=== PATIENT | male | born 1945 | race Caucasian/White ===

== ENCOUNTER 2017-07-19 01:32 | Inpatient (IN) | payer MEDICAID ==
[2017-07-19] VITALS (16 sets, daily range): BP systolic 114–144; BP diastolic 64–91; PULSE 70–125; RESP 12–22; TEMP 98.3–99; O2SAT 95–100
[2017-07-19] MEDS ORDERED: TETANUS/DIPHTHERIA TOXOID ADULT 0.5 ML VIAL IM ONE (02:00)
[2017-07-19] MEDS ORDERED: SODIUM CHLORIDE 0.9% FLUSH 10 ML FLUSH IVF PRN (02:00)
[2017-07-19] MEDS ORDERED: ceFAZolin 2 GM PREMIX 50 ML IV ONE (02:00)
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
[2017-07-19 02:26] LABS: AUTOMATED NEUTROPHIL # 10.7 TH/MM3 (1.8-7.7); BASOPHIL # 0.1 TH/MM3 (0-0.2); BASOPHIL % 0.6 % (0.0-2.0); HEMATOCRIT 32.7 % (39.0-51.0); HEMOGLOBIN 10.9 GM/DL (13.0-17.0); LYMPH % 6.2 % (9.0-44.0); LYMPHOCYTE # 0.8 TH/MM3 (1.0-4.8); MEAN CELL VOLUME 93.4 FL (80.0-100.0); MEAN CORPUSCULAR HGB CONC 33.2 % (32.0-36.0); MEAN PLATELET VOLUME 9.5 FL (7.0-11.0); MONO % 7.3 % (0.0-8.0); MONOCYTE # 0.9 TH/MM3 (0-0.9); NEUT % 85.9 % (16.0-70.0); PLATELET COUNT 207 TH/MM3 (150-450); RED CELL DISTRIBUTION WIDTH 14.5 % (11.6-17.2); WHITE BLOOD COUNT 12.4 TH/MM3 (4.0-11.0)
[2017-07-19 02:39] LABS: INTERNATIONAL NORMALIZED RATIO 1.2 RATIO; PROTHROMBIN TIME - PATIENT 12.2 SEC (9.8-11.6)
[2017-07-19] MEDS ORDERED: IOHEXOL 350 MG/ML 10 ML VIAL (for RAD DIAG) IVCONTRAST ONE (02:52)
--- NOTE | 2017-07-19 02:54 | RADRPT ---
EXAM DATE/TIME: 07/19/2017 02:05 [facility] COMPARISON: SHOULDER RIGHT COMPLETE (>2VWS), July 19, 2017, 2:09. INDICATIONS : Right arm pain post fall. MEDICAL HISTORY : None. SURGICAL HISTORY : None. ENCOUNTER: Initial ACUITY: 1 day PAIN SCORE: 10/10 LOCATION: Right arm FINDINGS: 2 views right clavicle. There is a fracture of the mid clavicle with minimal displacement. Bony fragm entation of the acromion likely represents os acromiale. Prominent lateral downsloping of the acromio n and subacromial bone spur. CONCLUSION: 1. Minimally displaced mid clavicular fracture. 2. Fragmentation of the acromion likely represents os acromiale. Santhosh Diaz MD on July 19, 2017 at 2:49 Board Certified Radiologist. This report was verified electronically.
[2017-07-19 02:55] LABS: ALBUMIN 3.4 GM/DL (3.4-5.0); ALT (GPT) 143 U/L (12-78); AST (GOT) 193 U/L (15-37); BICARBONATE 27.3 MEQ/L (21.0-32.0); BLOOD UREA NITROGEN 36 MG/DL (7-18); CALCIUM 8.2 MG/DL (8.5-10.1); CHLORIDE 110 MEQ/L (98-107); CREATININE 0.96 MG/DL (0.60-1.30); GLOMERULAR FILTRATION RATE 77 ML/MIN (>89); GLUCOSE,RANDOM 111 MG/DL (74-106); SODIUM (NA) 146 MEQ/L (136-145)
--- NOTE | 2017-07-19 02:56 | RADRPT ---
EXAM DATE/TIME: 07/19/2017 02:09 [facility] COMPARISON: No previous studies available for comparison. INDICATIONS : Right arm pain post fall. MEDICAL HISTORY : None. SURGICAL HISTORY : None. ENCOUNTER: Initial ACUITY: 1 day PAIN SCORE: 10/10 LOCATION: Right arm FINDINGS: 4 views of the right shoulder. Mid clavicle fracture better demonstrated on clavicle series. Ossicle is seen at the lateral acromion likely representing os acromiale. Prominent subacromial bone spur/oss icle. Possible acute fracture component of the lateral aspect of the acromion. Glenohumeral joint wit hin normal limits. Acromioclavicular joint alignment within normal limits. CONCLUSION: 1. Mid clavicle fracture. 2. Bony fragmentation of the acromion may represent os acromiale or acute fracture. Santhosh Diaz MD on July 19, 2017 at 2:52 Board Certified Radiologist. This report was verified electronically.
[2017-07-19 02:57] LABS: ALKALINE PHOSPHATASE 104 U/L (45-117); TOTAL BILIRUBIN ADULT 0.9 MG/DL (0.2-1.0); TOTAL PROTEIN 6.3 GM/DL (6.4-8.2)
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
--- NOTE | 2017-07-19 03:02 | RADRPT ---
EXAM DATE/TIME: 07/19/2017 02:20 [facility] COMPARISON: No previous studies available for comparison. INDICATIONS : Right hand pain, swelling, and bleeding post fall. MEDICAL HISTORY : None. SURGICAL HISTORY : None. ENCOUNTER: Initial ACUITY: 1 day PAIN SCORE: 10/10 LOCATION: Right arm FINDINGS: 3 views right hand. Comminuted fractures of the small finger proximal phalanx and fifth metacarpal ne ck. Proximally 2 mm displacement of bone fragments of the proximal phalanx. 4 mm volar displacement o f the dominant distal fragment of the metacarpal. 40 dorsal angulation of the distal fragment of the proximal phalanx. Numerous foreign bodies are seen in the soft tissues or on the skin of the hand me dially. CONCLUSION: Comminuted fractures of the small finger proximal phalanx and metacarpal. Santhosh Diza MD on July 19, 2017 at 2:58 Board Certified Radiologist. This report was verified electronically.
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
[2017-07-19] MEDS ORDERED: ONDANSETRON HCL 4 MG/2 ML VIAL IV PUSH PRN (04:15)
[2017-07-19] MEDS ORDERED: MISCELLANEOUS NURSING INFORMATION XX SCH (04:15)
[2017-07-19] MEDS ORDERED: MAGNESIUM HYDROXIDE SUSP 30 ML CUP PO PRN (04:15)
[2017-07-19] MEDS ORDERED: CHLORHEXIDINE GLUCONATE 2 % 1 PACK (2 CLOTHS) TOP PRN (04:15)
[2017-07-19] MEDS ORDERED: diphenhydrAMINE HCL 50 MG/ML VIAL IV PUSH ONE ×2 (04:45→05:00)
[2017-07-19] MEDS ORDERED: LORazepam 2 MG/ML VIAL IV PUSH ONE (04:45)
[2017-07-19] MEDS ORDERED: levETIRAcetam INJ 500 MG in SODIUM CHLORIDE 0.9% INJ 100 ML IV ONE (05:00)
[2017-07-19] MEDS ORDERED: GENTAMICIN 80 MG PREMIX 100 ML IV ONE (05:00)
[2017-07-19] MEDS: LACTATED RINGER'S 1000 ML INJ 1,000 ML IV SCH ×2 (05:09→16:00)
[2017-07-19 05:15] LABS: BILIRUBIN, URINE NEG (NEG); BLOOD, URINE NEG (NEG); GLUCOSE,URINE NEG (NEG); KETONE, URINE 10 mg/dL (NEG); MUCUS URINE FEW /lpf (OCC); NITRITE,URINE NEG (NEG); PH, URINE 5.5 (5.0-8.5); URINE COLOR YELLOW (YELLW/STRAW); URINE LEUKOCYTE ESTERASE NEG (NEG)
[2017-07-19] MEDS: THIAMINE HCL 100 MG TAB PO SCH (09:00)
[2017-07-19] MEDS: FOLIC ACID 1 MG TAB PO SCH (09:00)
[2017-07-19] MEDS ORDERED: ACETAMINOPHEN 1000 MG/100 ML 100 ML IV ONE (10:09)
[2017-07-19] MEDS ORDERED: LIDOCAINE HCL 2% 50 ML VIAL ONE (10:20)
[2017-07-19] MEDS ORDERED: NEOMYCIN/POLYMYXIN 1 ML G.U. IRRIGANT ONE (10:29)
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
--- NOTE | 2017-07-19 11:21 | RADRPT ---
EXAM DATE/TIME: 07/19/2017 11:06 [facility] COMPARISON: CT BRAIN W/O CONTRAST, July 19, 2017, 2:40. INDICATIONS : Altered mental status. RADIATION DOSE: 36.54 CTDIvol (mGy) MEDICAL HISTORY : None SURGICAL HISTORY : None. ENCOUNTER: Initial ACUITY: 1 day PAIN SCALE: Non-responsive LOCATION: Bilateral head TECHNIQUE: Multiple contiguous axial images were obtained of the head. Using automated exposure control and adj ustment of the mA and/or kV according to patient size, radiation dose was kept as low as reasonably a chievable to obtain optimal diagnostic quality images. DICOM format image data is available electro nically for review and comparison. FINDINGS: Again, a small focus of acute subarachnoid hemorrhage is noted within the right posterior parietal re gion and is stable. Stable periventricular white matter small vessel ischemic changes are again noted . The ventricles, sulci and cisterns are unremarkable. No midline shift and is noted. CONCLUSION: 1. Small focus of acute subarachnoid hemorrhage within the right posterior parietal region which is s table. 2. Stable periventricular white matter small vessel ischemic changes bilaterally. Akbar Pérez MD on July 19, 2017 at 11:16 Board Certified Radiologist. This report was verified electronically.
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
[2017-07-19] MEDS ORDERED: BACITRACIN TOP OINT 15 GM TUBE ONE (13:54)
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
--- NOTE | 2017-07-19 16:13 | RADRPT ---
EXAM DATE/TIME: 07/19/2017 15:48 [place] COMPARISON: No previous studies available for comparison. INDICATIONS : Shortness of breath. MEDICAL HISTORY : Non-responsive. SURGICAL HISTORY : Non-responsive. ENCOUNTER: Initial ACUITY: 1 day PAIN SCORE: Non-responsive. LOCATION: Bilateral chest FINDINGS: The cardiac silhouette is enlarged in transverse diameter. There is prominence of the central pulmona ry vasculature with indistinct vascular margins compatible with vascular congestion but no evidence o f overt failure. Endotracheal tube is in good position above the deuce. No pleural effusions are helen ntified. CONCLUSION: 1. Cardiomegaly and findings of vascular congestion without overt failure. Walter Rodriguez MD on July 19, 2017 at 16:08 Board Certified Radiologist. This report was verified electronically.
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
[2017-07-19] MEDS: SODIUM CHLOR 0.9% 1000 ML INJ 1,000 ML IV SCH (18:16)
[2017-07-19] MEDS: CHLORHEXIDINE GLUCONATE 2 % 1 PACK (2 CLOTHS) TOP SCH (19:38)
[2017-07-19] MEDS: FAMOTIDINE 20 MG TAB PO SCH (19:38)
[2017-07-19] MEDS: DOCUSATE SODIUM 100 MG CAP PO SCH (19:39)
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
[2017-07-19] MEDS: MORPHINE SULFATE 2 MG/ML INJ IV PUSH PRN (20:45)
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
[2017-07-20] VITALS (17 sets, daily range): BP systolic 100–143; BP diastolic 65–88; PULSE 66–126; RESP 9–29; TEMP 97.6–99.3; O2SAT 90–100
[2017-07-20] MEDS: SODIUM CHLOR 0.9% 1000 ML INJ 1,000 ML IV SCH ×3 (01:36→12:15)
[2017-07-20] MEDS: MORPHINE SULFATE 2 MG/ML INJ IV PUSH PRN ×4 (02:47→23:46)
[2017-07-20 04:35] LABS: AUTOMATED NEUTROPHIL # 6.8 TH/MM3 (1.8-7.7); BASOPHIL % 0.4 % (0.0-2.0); EOSINOPHIL % 0.1 % (0.0-4.0); HEMATOCRIT 28.5 % (39.0-51.0); HEMOGLOBIN 9.7 GM/DL (13.0-17.0); LYMPH % 12.2 % (9.0-44.0); LYMPHOCYTE # 1.1 TH/MM3 (1.0-4.8); MEAN CELL VOLUME 93.8 FL (80.0-100.0); MEAN CORPUSCULAR HGB CONC 34.1 % (32.0-36.0); MEAN PLATELET VOLUME 9.1 FL (7.0-11.0); MONO % 12.7 % (0.0-8.0); MONOCYTE # 1.2 TH/MM3 (0-0.9); NEUT % 74.6 % (16.0-70.0); PLATELET COUNT 165 TH/MM3 (150-450); RED BLOOD COUNT 3.04 MIL/MM3 (4.50-5.90); RED CELL DISTRIBUTION WIDTH 14.8 % (11.6-17.2); WHITE BLOOD COUNT 9.2 TH/MM3 (4.0-11.0)
[2017-07-20 04:51] LABS: BICARBONATE 30.6 MEQ/L (21.0-32.0); CREATININE 0.59 MG/DL (0.60-1.30)
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
[2017-07-20] MEDS ORDERED: oxyCODONE/ACETAMINOPHEN 7.5 MG/325 MG TAB PO PRN (08:15)
[2017-07-20] MEDS: FOLIC ACID 1 MG TAB PO SCH (09:00)
[2017-07-20] MEDS: THIAMINE HCL 100 MG TAB PO SCH (09:00)
[2017-07-20] MEDS: FAMOTIDINE 20 MG TAB PO SCH ×2 (09:00→21:00)
[2017-07-20] MEDS: MAGNESIUM HYDROXIDE SUSP 30 ML CUP PO SCH ×2 (09:00→21:00)
[2017-07-20] MEDS: DOCUSATE SODIUM 100 MG CAP PO SCH ×2 (09:00→21:00)
[2017-07-20] MEDS: METOPROLOL TARTRATE 5 MG/5 ML VIAL IV PUSH SCH ×3 (10:51→22:18)
[2017-07-20] MEDS ORDERED: PROPOFOL 200 MG/20 ML AMP IV ONE (12:00)
[2017-07-20] MEDS ORDERED: ROCURONIUM INJ 50 MG/5 ML SYRINGE IV PUSH ONE (12:00)
[2017-07-20] MEDS ORDERED: PHENYLEPH/NS 1000 MCG/10 ML SYR IV ONE (12:00)
[2017-07-20] MEDS ORDERED: ePHEDrine/NS 25 MG/5 ML SYRINGE IV ONE (12:00)
[2017-07-20] MEDS ORDERED: LIDOCAINE HCL 1% PF 5 ML SYRINGE OTHER ONE (12:00)
[2017-07-20] MEDS ORDERED: ONDANSETRON HCL 4 MG/2 ML VIAL IV ONE (12:00)
[2017-07-20] MEDS ORDERED: DEXAMETHASONE SOD PHOS 4 MG/ML VIAL IV ONE (12:00)
[2017-07-20] MEDS ORDERED: PHENYLEPHRINE HCL 10 MG/ML VIAL IV ONE (12:00)
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
[2017-07-20] MEDS: HALOPERIDOL LACTATE 5 MG/ML AMP IV PRN ×2 (15:13→22:52)
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
[2017-07-20] MEDS ORDERED: RESP: ALBUTEROL 2.5 MG/3 ML NEB (PRN) NEB (17:30)
[2017-07-20] MEDS: ZIPRASIDONE MESYLATE 20 MG VIAL IM PRN (19:39)
[2017-07-21] VITALS (14 sets, daily range): BP systolic 136–155; BP diastolic 71–92; PULSE 100–147; RESP 12–33; TEMP 97.8–99.1; O2SAT 89–99
[2017-07-21] MEDS: METOPROLOL TARTRATE 5 MG/5 ML VIAL IV PUSH SCH ×4 (03:35→22:36)
[2017-07-21] MEDS: RESP: ALBUTEROL 2.5 MG/IPRATROPIUM 0.5 MG NEB (SCH) NEB ×4 (03:59→20:16)
[2017-07-21] MEDS: CHLORHEXIDINE GLUCONATE 2 % 1 PACK (2 CLOTHS) TOP SCH (04:00)
[2017-07-21] MEDS: MORPHINE SULFATE 2 MG/ML INJ IV PUSH PRN ×2 (04:24→14:24)
[2017-07-21 04:52] LABS: AUTOMATED NEUTROPHIL # 8.1 TH/MM3 (1.8-7.7); BASOPHIL % 0.3 % (0.0-2.0); EOSINOPHIL # 0.1 TH/MM3 (0-0.4); EOSINOPHIL % 0.9 % (0.0-4.0); HEMATOCRIT 34.4 % (39.0-51.0); LYMPH % 10.6 % (9.0-44.0); LYMPHOCYTE # 1.1 TH/MM3 (1.0-4.8); MEAN CELL VOLUME 93.9 FL (80.0-100.0); MEAN CORPUSCULAR HEMOGLOBIN 32.8 PG (27.0-34.0); MEAN CORPUSCULAR HGB CONC 34.9 % (32.0-36.0); MEAN PLATELET VOLUME 9.1 FL (7.0-11.0); MONO % 10.9 % (0.0-8.0); MONOCYTE # 1.1 TH/MM3 (0-0.9); NEUT % 77.3 % (16.0-70.0); PLATELET COUNT 191 TH/MM3 (150-450); RED BLOOD COUNT 3.67 MIL/MM3 (4.50-5.90); RED CELL DISTRIBUTION WIDTH 14.4 % (11.6-17.2); WHITE BLOOD COUNT 10.5 TH/MM3 (4.0-11.0)
[2017-07-21] MEDS: HALOPERIDOL LACTATE 5 MG/ML AMP IV PRN ×2 (04:53→11:53)
[2017-07-21] MEDS: SODIUM CHLOR 0.9% 1000 ML INJ 1,000 ML IV SCH ×3 (04:53→17:13)
[2017-07-21 05:40] LABS: ALBUMIN 2.5 GM/DL (3.4-5.0); ALKALINE PHOSPHATASE 87 U/L (45-117); ALT (GPT) 90 U/L (12-78); AST (GOT) 169 U/L (15-37); BICARBONATE 31.1 MEQ/L (21.0-32.0); BLOOD UREA NITROGEN 14 MG/DL (7-18); CALCIUM 8.2 MG/DL (8.5-10.1); CHLORIDE 101 MEQ/L (98-107); CREATININE 0.53 MG/DL (0.60-1.30); GLOMERULAR FILTRATION RATE 153 ML/MIN (>89); GLUCOSE,RANDOM 87 MG/DL (74-106); MAGNESIUM 1.8 MG/DL (1.5-2.5); PHOSPHORUS 1.7 MG/DL (2.5-4.9); SODIUM (NA) 140 MEQ/L (136-145); TOTAL BILIRUBIN ADULT 0.9 MG/DL (0.2-1.0); TOTAL PROTEIN 5.6 GM/DL (6.4-8.2)
[2017-07-21] MEDS: ZIPRASIDONE MESYLATE 20 MG VIAL IM PRN (08:09)
[2017-07-21] MEDS: DOCUSATE SODIUM 100 MG CAP PO SCH ×2 (09:00→19:35)
[2017-07-21] MEDS: MAGNESIUM HYDROXIDE SUSP 30 ML CUP PO SCH ×2 (09:00→19:35)
[2017-07-21] MEDS: FOLIC ACID 1 MG TAB PO SCH (09:00)
[2017-07-21] MEDS: FAMOTIDINE 20 MG TAB PO SCH ×2 (09:00→19:36)
[2017-07-21] MEDS: THIAMINE HCL 100 MG TAB PO SCH (09:00)
[2017-07-21] MEDS: MULTIVITAMIN TAB PO SCH (09:00)
[2017-07-21] MEDS: CEFEPIME INJ 1,000 MG in SODIUM CHLORIDE 0.9% INJ 100 ML IV SCH ×2 (09:56→17:12)
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
[2017-07-21] MEDS ORDERED: LORazepam 2 MG/ML VIAL IV PUSH ONE (12:45)
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
[2017-07-22] VITALS (14 sets, daily range): BP systolic 122–148; BP diastolic 69–89; PULSE 84–128; RESP 11–17; TEMP 97.7–98.5; O2SAT 94–99
[2017-07-22] MEDS: MORPHINE SULFATE 2 MG/ML INJ IV PUSH PRN ×6 (00:57→20:30)
[2017-07-22] MEDS: CEFEPIME INJ 1,000 MG in SODIUM CHLORIDE 0.9% INJ 100 ML IV SCH ×3 (02:27→17:42)
[2017-07-22] MEDS: HALOPERIDOL LACTATE 5 MG/ML AMP IV PRN ×5 (02:58→23:56)
[2017-07-22] MEDS: RESP: ALBUTEROL 2.5 MG/IPRATROPIUM 0.5 MG NEB (SCH) NEB ×4 (03:17→20:07)
--- NOTE | 2017-07-22 03:52 | RADRPT ---
EXAM DATE/TIME: 07/22/2017 02:50 [facility] COMPARISON: CHEST SINGLE AP, July 19, 2017, 15:48. INDICATIONS : Short of breath. MEDICAL HISTORY : Non-responsive. SURGICAL HISTORY : Non-responsive. ENCOUNTER: Initial ACUITY: 2 days PAIN SCORE: Non-responsive. LOCATION: Bilateral chest FINDINGS: The cardiac silhouette is enlarged in transverse diameter. There is prominence of the central pulmona ry vasculature with indistinct vascular margins compatible with vascular congestion but no evidence o f overt failure. CONCLUSION: 1. Cardiomegaly and findings of vascular congestion without overt failure. There has been no signific ant change when compared to the prior exam. Walter Rodriguez MD on July 22, 2017 at 3:47 Board Certified Radiologist. This report was verified electronically.
[2017-07-22] MEDS: CHLORHEXIDINE GLUCONATE 2 % 1 PACK (2 CLOTHS) TOP SCH (04:00)
[2017-07-22] MEDS: SODIUM CHLOR 0.9% 1000 ML INJ 1,000 ML IV SCH ×2 (04:04→13:42)
[2017-07-22] MEDS: METOPROLOL TARTRATE 5 MG/5 ML VIAL IV PUSH SCH ×4 (04:04→21:22)
[2017-07-22 05:08] LABS: AUTOMATED NEUTROPHIL # 6.1 TH/MM3 (1.8-7.7); BASOPHIL % 0.6 % (0.0-2.0); EOSINOPHIL # 0.1 TH/MM3 (0-0.4); EOSINOPHIL % 1.7 % (0.0-4.0); HEMATOCRIT 32.8 % (39.0-51.0); HEMOGLOBIN 11.4 GM/DL (13.0-17.0); LYMPH % 11.1 % (9.0-44.0); LYMPHOCYTE # 0.9 TH/MM3 (1.0-4.8); MEAN CELL VOLUME 93.3 FL (80.0-100.0); MEAN CORPUSCULAR HEMOGLOBIN 32.4 PG (27.0-34.0); MEAN CORPUSCULAR HGB CONC 34.7 % (32.0-36.0); MEAN PLATELET VOLUME 9.7 FL (7.0-11.0); MONO % 10.8 % (0.0-8.0); MONOCYTE # 0.9 TH/MM3 (0-0.9); NEUT % 75.8 % (16.0-70.0); PLATELET COUNT 220 TH/MM3 (150-450); RED BLOOD COUNT 3.51 MIL/MM3 (4.50-5.90); RED CELL DISTRIBUTION WIDTH 13.9 % (11.6-17.2); WHITE BLOOD COUNT 8.1 TH/MM3 (4.0-11.0)
[2017-07-22 05:12] LABS: ALBUMIN 2.4 GM/DL (3.4-5.0); ALT (GPT) 75 U/L (12-78); AST (GOT) 144 U/L (15-37); BICARBONATE 26.8 MEQ/L (21.0-32.0); BLOOD UREA NITROGEN 14 MG/DL (7-18); CALCIUM 7.9 MG/DL (8.5-10.1); CHLORIDE 100 MEQ/L (98-107); CREATININE 0.39 MG/DL (0.60-1.30); GLOMERULAR FILTRATION RATE 218 ML/MIN (>89); GLUCOSE,RANDOM 92 MG/DL (74-106); SODIUM (NA) 137 MEQ/L (136-145)
[2017-07-22 05:15] LABS: ALKALINE PHOSPHATASE 82 U/L (45-117); TOTAL BILIRUBIN ADULT 1.1 MG/DL (0.2-1.0); TOTAL PROTEIN 5.3 GM/DL (6.4-8.2)
[2017-07-22] MEDS: MAGNESIUM HYDROXIDE SUSP 30 ML CUP PO SCH ×2 (07:34→21:05)
[2017-07-22] MEDS: MULTIVITAMIN TAB PO SCH (07:34)
[2017-07-22] MEDS: DOCUSATE SODIUM 100 MG CAP PO SCH ×2 (07:34→21:05)
[2017-07-22] MEDS: FAMOTIDINE 20 MG TAB PO SCH ×2 (07:34→21:05)
[2017-07-22] MEDS: SODIUM CHLORIDE 0.9% FLUSH 10 ML FLUSH IV FLUSH PRN (07:35)
[2017-07-22] MEDS ORDERED: MAGNESIUM SULFATE INJ 2 GM in SODIUM CHLORIDE 0.9% INJ 96 ML IV PRN (08:15)
[2017-07-22] MEDS ORDERED: MAGNESIUM OXIDE 400 MG TAB PO PRN (08:15)
[2017-07-22] MEDS ORDERED: POTASSIUM CHLORIDE 25 MEQ EFFERVESCENT TAB PO PRN (08:15)
[2017-07-22] MEDS ORDERED: POTASSIUM PHOSPHATE INJ 30 MMOL in SODIUM CHLOR 0.9% 250 ML INJ 250 ML IV PRN (08:15)
[2017-07-22] MEDS ORDERED: POTASSIUM CHLOR 40 MEQ PREMIX 100 ML IV PRN ×2 (08:15)
[2017-07-22] MEDS ORDERED: POTASSIUM CHLOR 20 MEQ PREMIX 100 ML IV PRN (08:15)
[2017-07-22] MEDS ORDERED: SODIUM PHOSPHATE INJ 30 MMOL in SODIUM CHLOR 0.9% 250 ML INJ 240 ML IV PRN (08:15)
[2017-07-22] MEDS ORDERED: POTASSIUM PHOSPHATE MONOBASIC 500 MG TAB PO PRN (08:15)
[2017-07-22] MEDS ORDERED: POTASSIUM PHOSPHATE MONOBASIC 500 MG TAB PO/TUBE PRN (08:15)
[2017-07-22] MEDS ORDERED: MAGNESIUM SULFATE INJ 4 GM in SODIUM CHLORIDE 0.9% INJ 92 ML IV PRN (08:15)
[2017-07-22] MEDS: POTASSIUM CHLOR 20 MEQ PREMIX 100 ML IV PRN ×2 (10:41→13:42)
--- NOTE | 2017-07-22 12:13 | RADRPT ---
EXAM DATE/TIME: 07/22/2017 11:52 [facility] COMPARISON: No previous studies available for comparison. INDICATIONS : Dobhoff placement. MEDICAL HISTORY : Non-responsive. SURGICAL HISTORY : Non-responsive. ENCOUNTER: Subsequent ACUITY: 1 day PAIN SCORE: Non-responsive. LOCATION: abdomen. FINDINGS: Examination of the abdomen demonstrates a mild ileus. No free air is identified. No organomegaly is evident. Osseous structures are intact. CONCLUSION: 1. Feeding tube tip is in the stomach. Mild ileus. Ari Schmitz MD on July 22, 2017 at 12:10 Board Certified Radiologist. This report was verified electronically.
[2017-07-22] MEDS: QUEtiapine FUMARATE 25 MG TAB PO SCH ×2 (12:32→17:41)
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
[2017-07-22] MEDS: HEPARIN SODIUM - SQ 10,000 UNITS/ML VIAL SQ SCH ×2 (13:42→21:06)
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
--- NOTE | 2017-07-22 20:47 | RADRPT ---
EXAM DATE/TIME: 07/22/2017 20:24 [facility] COMPARISON: CT BRAIN W/O CONTRAST, July 19, 2017, 11:06. INDICATIONS : Trauma, follow up subarachnoid hemorrhage. RADIATION DOSE: 63.99 CTDIvol (mGy) MEDICAL HISTORY : None SURGICAL HISTORY : None. ENCOUNTER: Subsequent ACUITY: 4 - 6 days PAIN SCALE: 4/10 LOCATION: cranial TECHNIQUE: Multiple contiguous axial images were obtained of the head. Using automated exposure control and adj ustment of the mA and/or kV according to patient size, radiation dose was kept as low as reasonably a chievable to obtain optimal diagnostic quality images. DICOM format image data is available electro nically for review and comparison. FINDINGS: 11 mm focus of hemorrhage again seen are the right parietal lobe. Not sure whether it's subarachnoid or parenchymal but it is unchanged. No new blood. No mass, mass effect or midline shift demonstrated. Chronic white matter changes are again noted. CONCLUSION: No change small right parietal lobe hemorrhage and chronic white matter changes. No mass effect or mi dline shift. Ulices Yan MD on July 22, 2017 at 20:43 Board Certified Radiologist. This report was verified electronically.
[2017-07-23] VITALS (11 sets, daily range): BP systolic 122–178; BP diastolic 60–86; PULSE 84–110; RESP 14–21; TEMP 97.6–98.4; O2SAT 94–98
[2017-07-23] MEDS: SODIUM CHLOR 0.9% 1000 ML INJ 1,000 ML IV SCH ×2 (00:15→10:01)
[2017-07-23] MEDS: MORPHINE SULFATE 2 MG/ML INJ IV PUSH PRN ×3 (01:21→07:18)
[2017-07-23] MEDS: CEFEPIME INJ 1,000 MG in SODIUM CHLORIDE 0.9% INJ 100 ML IV SCH ×3 (02:37→17:39)
[2017-07-23] MEDS: RESP: ALBUTEROL 2.5 MG/IPRATROPIUM 0.5 MG NEB (SCH) NEB ×5 (03:33→21:07)
[2017-07-23] MEDS: CHLORHEXIDINE GLUCONATE 2 % 1 PACK (2 CLOTHS) TOP SCH (04:00)
[2017-07-23] MEDS: METOPROLOL TARTRATE 5 MG/5 ML VIAL IV PUSH SCH ×2 (04:38→10:01)
[2017-07-23] MEDS: HEPARIN SODIUM - SQ 10,000 UNITS/ML VIAL SQ SCH ×3 (04:41→21:14)
[2017-07-23] MEDS: HALOPERIDOL LACTATE 5 MG/ML AMP IV PRN (05:42)
[2017-07-23 06:54] LABS: AUTOMATED NEUTROPHIL # 3.6 TH/MM3 (1.8-7.7); BASOPHIL % 0.7 % (0.0-2.0); EOSINOPHIL # 0.2 TH/MM3 (0-0.4); HEMATOCRIT 30.3 % (39.0-51.0); HEMOGLOBIN 10.4 GM/DL (13.0-17.0); LYMPH % 15.4 % (9.0-44.0); LYMPHOCYTE # 0.8 TH/MM3 (1.0-4.8); MEAN CELL VOLUME 92.6 FL (80.0-100.0); MEAN CORPUSCULAR HEMOGLOBIN 31.9 PG (27.0-34.0); MEAN CORPUSCULAR HGB CONC 34.5 % (32.0-36.0); MEAN PLATELET VOLUME 9.3 FL (7.0-11.0); MONO % 12.2 % (0.0-8.0); MONOCYTE # 0.6 TH/MM3 (0-0.9); NEUT % 68.7 % (16.0-70.0); PLATELET COUNT 218 TH/MM3 (150-450); RED BLOOD COUNT 3.27 MIL/MM3 (4.50-5.90); RED CELL DISTRIBUTION WIDTH 14.4 % (11.6-17.2); WHITE BLOOD COUNT 5.2 TH/MM3 (4.0-11.0)
[2017-07-23 07:09] LABS: ALBUMIN 2.1 GM/DL (3.4-5.0); AST (GOT) 92 U/L (15-37); BICARBONATE 30.7 MEQ/L (21.0-32.0); BLOOD UREA NITROGEN 13 MG/DL (7-18); CALCIUM 7.5 MG/DL (8.5-10.1); CHLORIDE 102 MEQ/L (98-107); CREATININE 0.37 MG/DL (0.60-1.30); GLOMERULAR FILTRATION RATE 231 ML/MIN (>89); GLUCOSE,RANDOM 98 MG/DL (74-106); SODIUM (NA) 140 MEQ/L (136-145)
[2017-07-23 07:12] LABS: ALKALINE PHOSPHATASE 75 U/L (45-117); ALT (GPT) 59 U/L (12-78); TOTAL BILIRUBIN ADULT 0.8 MG/DL (0.2-1.0); TOTAL PROTEIN 4.9 GM/DL (6.4-8.2)
[2017-07-23] MEDS: QUEtiapine FUMARATE 25 MG TAB PO SCH ×3 (08:50→21:13)
[2017-07-23] MEDS: FAMOTIDINE 20 MG TAB PO SCH ×2 (08:50→21:13)
[2017-07-23] MEDS: MULTIVITAMIN TAB PO SCH (08:50)
[2017-07-23] MEDS: DOCUSATE SODIUM 100 MG CAP PO SCH (08:50)
[2017-07-23] MEDS: MAGNESIUM HYDROXIDE SUSP 30 ML CUP PO SCH ×2 (08:51→21:00)
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
[2017-07-23] MEDS ORDERED: LACTULOSE SYRUP 20 GM/30 ML CUP PO PRN (15:45)
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
--- NOTE | 2017-07-23 18:24 | RADRPT ---
EXAM DATE/TIME: 07/23/2017 17:44 [facility] COMPARISON: No previous studies available for comparison. INDICATIONS : Dobhoff placement. MEDICAL HISTORY : None. SURGICAL HISTORY : None. ENCOUNTER: Initial ACUITY: 1 day PAIN SCORE: Non-responsive. LOCATION: abdomen. FINDINGS: Examination of the abdomen demonstrates a normal bowel gas pattern. The feeding tube is at the distal esophagus No free air is identified. No organomegaly is evident. Osseous structures are intact. CONCLUSION: No evidence of obstruction. Feeding tube at the distal esophagus Dm Mcmahan MD on July 23, 2017 at 18:21 Board Certified Radiologist. This report was verified electronically.
--- NOTE | 2017-07-23 19:23 | RADRPT ---
EXAM DATE/TIME: 07/23/2017 19:00 [facility] COMPARISON: No previous studies available for comparison. INDICATIONS : Dobhoff placement. MEDICAL HISTORY : None. SURGICAL HISTORY : None. ENCOUNTER: Subsequent ACUITY: 1 day PAIN SCORE: Non-responsive. LOCATION: Abdomen, upper quadrant. FINDINGS: A single view of the chest demonstrates the feeding tube is within the stomach. The cardiomediastina l contours are unremarkable. Osseous structures are intact. CONCLUSION: There's a Dobbhoff tube in the stomach. Dm Mcmahan MD on July 23, 2017 at 19:20 Board Certified Radiologist. This report was verified electronically.
[2017-07-23] MEDS: METOPROLOL TARTRATE 25 MG TAB PO SCH (21:13)
[2017-07-23] MEDS: DOCUSATE SODIUM 50 MG/SENNA 8.6 MG TAB PO SCH (21:13)
[2017-07-24] VITALS (9 sets, daily range): BP systolic 120–138; BP diastolic 66–86; PULSE 88–105; RESP 18–20; TEMP 97.4–98.8; O2SAT 93–100
[2017-07-24] MEDS: CEFEPIME INJ 1,000 MG in SODIUM CHLORIDE 0.9% INJ 100 ML IV SCH ×3 (02:17→18:10)
[2017-07-24] MEDS: RESP: ALBUTEROL 2.5 MG/IPRATROPIUM 0.5 MG NEB (SCH) NEB ×3 (03:58→21:32)
[2017-07-24] MEDS: CHLORHEXIDINE GLUCONATE 2 % 1 PACK (2 CLOTHS) TOP SCH (03:59)
[2017-07-24 05:10] LABS: AUTOMATED NEUTROPHIL # 4.1 TH/MM3 (1.8-7.7); BASOPHIL % 0.5 % (0.0-2.0); EOSINOPHIL # 0.1 TH/MM3 (0-0.4); EOSINOPHIL % 2.5 % (0.0-4.0); HEMATOCRIT 30.7 % (39.0-51.0); HEMOGLOBIN 10.6 GM/DL (13.0-17.0); LYMPH % 14.4 % (9.0-44.0); LYMPHOCYTE # 0.8 TH/MM3 (1.0-4.8); MEAN CORPUSCULAR HEMOGLOBIN 31.8 PG (27.0-34.0); MEAN CORPUSCULAR HGB CONC 34.6 % (32.0-36.0); MEAN PLATELET VOLUME 8.9 FL (7.0-11.0); MONO % 13.6 % (0.0-8.0); MONOCYTE # 0.8 TH/MM3 (0-0.9); PLATELET COUNT 236 TH/MM3 (150-450); RED BLOOD COUNT 3.34 MIL/MM3 (4.50-5.90); RED CELL DISTRIBUTION WIDTH 14.1 % (11.6-17.2); WHITE BLOOD COUNT 5.9 TH/MM3 (4.0-11.0)
[2017-07-24 05:33] LABS: ALBUMIN 2.1 GM/DL (3.4-5.0); AST (GOT) 64 U/L (15-37); BICARBONATE 33.1 MEQ/L (21.0-32.0); BLOOD UREA NITROGEN 10 MG/DL (7-18); CALCIUM 7.5 MG/DL (8.5-10.1); CHLORIDE 102 MEQ/L (98-107); CREATININE 0.57 MG/DL (0.60-1.30); GLOMERULAR FILTRATION RATE 141 ML/MIN (>89); GLUCOSE,RANDOM 176 MG/DL (74-106); SODIUM (NA) 141 MEQ/L (136-145)
[2017-07-24 05:34] LABS: ALT (GPT) 48 U/L (12-78)
[2017-07-24 05:36] LABS: ALKALINE PHOSPHATASE 82 U/L (45-117); TOTAL BILIRUBIN ADULT 0.7 MG/DL (0.2-1.0)
[2017-07-24] MEDS: HEPARIN SODIUM - SQ 10,000 UNITS/ML VIAL SQ SCH ×3 (06:31→22:41)
[2017-07-24] MEDS ORDERED: oxyCODONE/ACETAMINOPHEN 10 MG/325 MG TAB PO PRN (07:15)
[2017-07-24] MEDS ORDERED: POTASSIUM CHLORIDE 25 MEQ EFFERVESCENT TAB PO ONE (07:15)
[2017-07-24] MEDS ORDERED: LACTULOSE SYRUP 20 GM/30 ML CUP PO ONE (07:15)
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
[2017-07-24] MEDS: SODIUM CHLORIDE 0.9% FLUSH 10 ML FLUSH IV FLUSH PRN (10:20)
[2017-07-24] MEDS: DOCUSATE SODIUM 50 MG/SENNA 8.6 MG TAB PO SCH ×2 (10:32→22:40)
[2017-07-24] MEDS: MAGNESIUM HYDROXIDE SUSP 30 ML CUP PO SCH ×2 (10:32→22:40)
[2017-07-24] MEDS: METOPROLOL TARTRATE 25 MG TAB PO SCH ×2 (10:32→22:40)
[2017-07-24] MEDS: MULTIVITAMIN TAB PO SCH (10:32)
[2017-07-24] MEDS: FAMOTIDINE 20 MG TAB PO SCH ×2 (10:32→22:40)
[2017-07-24] MEDS: QUEtiapine FUMARATE 25 MG TAB PO SCH ×3 (10:34→22:40)
--- NOTE | 2017-07-24 10:53 | RADRPT ---
EXAM DATE/TIME: 07/24/2017 10:22 [facility] COMPARISON: CHEST SINGLE AP, July 23, 2017, 19:00. INDICATIONS : Evaluate Dobhoff placement MEDICAL HISTORY : None. SURGICAL HISTORY : None. ENCOUNTER: Subsequent ACUITY: 2 days PAIN SCORE: Non-responsive. LOCATION: chest FINDINGS: A single view of the chest demonstrates left basilar density. Dobbhoff tube with tip in the stomach. The cardiomediastinal contours are unremarkable. Osseous structures are intact. CONCLUSION: 1. Dobbhoff tube with tip in stomach. No change. 2. Left basilar atelectasis. Kirby Fong MD on July 24, 2017 at 10:49 Board Certified Radiologist. This report was verified electronically.
[2017-07-24] MEDS: oxyCODONE/ACETAMINOPHEN 5 MG/325 MG TAB PO PRN (12:41)
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
--- NOTE | 2017-07-24 18:11 | PD.WCN.NOT ---
Wound Consult Description: Received consult for wound management of heels and sacrum from Mario Walls. Communicated with: NOE ferrer and Mario CAMARENA Recommendation: Please change sacral adhesive foam dressing as needed for prevention of pressure injury. Please cleanse sacral area with soap and water, rinse and pat dry before applying skin prep and applying new dressing. Please cleanse bilateral feet soap and water, rinse and pat dry. Apply skin prep to areas or eschar. Cleanse wound to R elbow with normal saline and pat dry. Apply adhesive foam dressing and change every 3 to 5 days or PRN if saturated or dislodged. Additional Information: Patient seen on [address] [place] [id number] for evaluation of wound management of sacrum and heels around 1700. Wound care recommendations noted above.Assessed patient's bilateral heels. Bilateral heels are intact. Bilateral feet and heels are dirty with dirt under toenails. Patient is noted with dry eschar on R great toe. Left open to air. Patient was then positioned to L side with the assistance of remote mortgage underwriter and Td ferrer Patient is noted with intact skin with slight blanchable erythema to sacrococcygeal area and bilateral buttocks. Patient is noted with prominent sacral eleazar prominence. Cleansed buttock area with soap and water, rinsed and pat dry. Applied skin prep before applying gentle adhesive foam sacral dressing for the prevention of pressure injury.Urinary incontinence is being managed with condom catheter. New ultra sorb pad placed under patient for further incontinence management. Patient noted with wound to R elbow covered with absorbent transparent dressing that is coming off. Removed dressing and cleansed wound with normal saline. Wound bed presents with ~~80% thin yellow exudate and ~20% pink tissue. Wound has scant drainage that is sero-sanguinous and is without foul odor. Periwound is unremarkable. Wound measures ~1cm x ~4cm x ~0.1cm. Applied skin prep to periwound before covering wound with adhesive foam dressing.Patient was then positioned to L side with pillow in place for support to offload pressure from sacrococcygeal area. Renetta Saravia [facility] Jul 24, 2017 18:11
[2017-07-24] MEDS ORDERED: BISACODYL 10 MG SUPP RECTAL ONE (20:00)
[2017-07-25] VITALS (7 sets, daily range): BP systolic 108–137; BP diastolic 64–80; PULSE 85–101; RESP 17–20; TEMP 97.6–98.9; O2SAT 95–100
[2017-07-25] MEDS: CEFEPIME INJ 1,000 MG in SODIUM CHLORIDE 0.9% INJ 100 ML IV SCH ×3 (02:29→20:34)
[2017-07-25] MEDS: CHLORHEXIDINE GLUCONATE 2 % 1 PACK (2 CLOTHS) TOP SCH (02:36)
[2017-07-25] MEDS: HEPARIN SODIUM - SQ 10,000 UNITS/ML VIAL SQ SCH ×3 (05:43→21:31)
[2017-07-25] MEDS: MULTIVITAMIN TAB PO SCH (08:58)
[2017-07-25] MEDS: METOPROLOL TARTRATE 25 MG TAB PO SCH ×2 (08:58→21:31)
[2017-07-25] MEDS: MAGNESIUM HYDROXIDE SUSP 30 ML CUP PO SCH ×2 (09:00→21:31)
[2017-07-25] MEDS: DOCUSATE SODIUM 50 MG/SENNA 8.6 MG TAB PO SCH ×2 (09:00→21:31)
[2017-07-25] MEDS: FAMOTIDINE 20 MG TAB PO SCH ×2 (09:03→21:31)
[2017-07-25] MEDS: QUEtiapine FUMARATE 25 MG TAB PO SCH ×3 (09:22→21:31)
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
[2017-07-26] VITALS (7 sets, daily range): BP systolic 111–138; BP diastolic 60–82; PULSE 78–89; RESP 16–20; TEMP 97.1–99; O2SAT 93–100
[2017-07-26] MEDS: CEFEPIME INJ 1,000 MG in SODIUM CHLORIDE 0.9% INJ 100 ML IV SCH ×3 (02:55→18:00)
[2017-07-26] MEDS: CHLORHEXIDINE GLUCONATE 2 % 1 PACK (2 CLOTHS) TOP SCH (02:56)
[2017-07-26] MEDS: HEPARIN SODIUM - SQ 10,000 UNITS/ML VIAL SQ SCH ×3 (06:13→21:24)
[2017-07-26] MEDS: DOCUSATE SODIUM 50 MG/SENNA 8.6 MG TAB PO SCH ×2 (09:00→21:23)
[2017-07-26] MEDS: MAGNESIUM HYDROXIDE SUSP 30 ML CUP PO SCH ×2 (09:00→21:23)
[2017-07-26] MEDS: METOPROLOL TARTRATE 25 MG TAB PO SCH ×2 (09:33→21:23)
[2017-07-26] MEDS: MULTIVITAMIN TAB PO SCH (09:33)
[2017-07-26] MEDS: FAMOTIDINE 20 MG TAB PO SCH ×2 (09:33→21:23)
[2017-07-26] MEDS: QUEtiapine FUMARATE 25 MG TAB PO SCH ×3 (09:35→21:24)
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
[2017-07-26] MEDS: oxyCODONE/ACETAMINOPHEN 5 MG/325 MG TAB PO PRN (23:16)
[2017-07-27] MEDS: HALOPERIDOL LACTATE 5 MG/ML AMP IV PRN (00:26)
[2017-07-27] MEDS: CEFEPIME INJ 1,000 MG in SODIUM CHLORIDE 0.9% INJ 100 ML IV SCH ×3 (01:52→18:13)
[2017-07-27] MEDS: CHLORHEXIDINE GLUCONATE 2 % 1 PACK (2 CLOTHS) TOP SCH (04:00)
[2017-07-27] MEDS: HEPARIN SODIUM - SQ 10,000 UNITS/ML VIAL SQ SCH ×3 (05:20→21:27)
[2017-07-27 08:00] VITALS: BP 116/75; PULSE 87; RESP 18; TEMP 97.7; O2SAT 98
[2017-07-27] MEDS: FAMOTIDINE 20 MG TAB PO SCH ×2 (09:55→21:28)
[2017-07-27] MEDS: QUEtiapine FUMARATE 25 MG TAB PO SCH ×3 (09:55→21:28)
[2017-07-27] MEDS: MULTIVITAMIN TAB PO SCH (09:55)
[2017-07-27] MEDS: MAGNESIUM HYDROXIDE SUSP 30 ML CUP PO SCH ×2 (09:55→21:34)
[2017-07-27] MEDS: DOCUSATE SODIUM 50 MG/SENNA 8.6 MG TAB PO SCH ×2 (09:55→21:28)
[2017-07-27] MEDS: METOPROLOL TARTRATE 25 MG TAB PO SCH ×2 (09:55→21:28)
[2017-07-27 12:00] VITALS: BP 97/54; PULSE 84; RESP 17; TEMP 97.8; O2SAT 96
[2017-07-27] MEDS: VALPROIC ACID 250 MG CAP PO SCH ×2 (13:13→21:28)
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
[2017-07-27 16:00] VITALS: BP 107/66; PULSE 89; RESP 18; TEMP 97.3; O2SAT 96
[2017-07-27 20:00] VITALS: BP 160/82; PULSE 95; RESP 22; TEMP 97.4; O2SAT 97
[2017-07-27] MEDS: SODIUM CHLORIDE 0.9% FLUSH 10 ML FLUSH IV FLUSH PRN (21:27)
[2017-07-27 23:20] VITALS: RESP 18; O2SAT 97
[2017-07-28] VITALS: BP 134/84; PULSE 113; RESP 19; TEMP 97.5; O2SAT 96
[2017-07-28] MEDS: CEFEPIME INJ 1,000 MG in SODIUM CHLORIDE 0.9% INJ 100 ML IV SCH (01:22)
[2017-07-28 04:00] VITALS: BP 142/70; PULSE 99; RESP 18; TEMP 97.6; O2SAT 98
[2017-07-28] MEDS: CHLORHEXIDINE GLUCONATE 2 % 1 PACK (2 CLOTHS) TOP SCH (04:00)
[2017-07-28] MEDS: HEPARIN SODIUM - SQ 10,000 UNITS/ML VIAL SQ SCH ×3 (05:42→21:29)
[2017-07-28 08:12] VITALS: BP 131/67; PULSE 82; RESP 18; TEMP 98.6; O2SAT 94
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
[2017-07-28] MEDS: DOCUSATE SODIUM 50 MG/SENNA 8.6 MG TAB PO SCH ×2 (09:50→21:29)
[2017-07-28] MEDS: FAMOTIDINE 20 MG TAB PO SCH ×2 (09:50→21:29)
[2017-07-28] MEDS: MAGNESIUM HYDROXIDE SUSP 30 ML CUP PO SCH ×2 (09:50→21:29)
[2017-07-28] MEDS: METOPROLOL TARTRATE 25 MG TAB PO SCH ×2 (09:50→21:29)
[2017-07-28] MEDS: MULTIVITAMIN TAB PO SCH (09:50)
[2017-07-28] MEDS: VALPROIC ACID 250 MG CAP PO SCH ×2 (09:50→21:29)
[2017-07-28] MEDS: QUEtiapine FUMARATE 25 MG TAB PO SCH ×3 (09:57→21:29)
[2017-07-28 12:00] VITALS: BP 137/71; PULSE 90; RESP 18; TEMP 98.2; O2SAT 95
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
[2017-07-28] MEDS ORDERED: GLUCAGON 1 MG/ML VIAL OTHER PRN (14:15)
[2017-07-28] MEDS ORDERED: DEXTROSE 50% IN WATER 50 ML VIAL(D50) IV PUSH PRN (14:15)
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
[2017-07-28 16:00] VITALS: BP 147/67; PULSE 85; RESP 18; TEMP 97.8; O2SAT 99
[2017-07-28 20:30] VITALS: BP 151/78; PULSE 95; RESP 17; TEMP 97.8; O2SAT 93
[2017-07-28] MEDS: HALOPERIDOL LACTATE 5 MG/ML AMP IV PRN (23:35)
[2017-07-29 00:30] VITALS: BP 124/75; PULSE 85; RESP 17; TEMP 97.6; O2SAT 93
[2017-07-29] MEDS: CHLORHEXIDINE GLUCONATE 2 % 1 PACK (2 CLOTHS) TOP SCH (02:57)
[2017-07-29 04:55] VITALS: BP 138/81; PULSE 103; RESP 17; TEMP 97.3; O2SAT 94
[2017-07-29] MEDS: HEPARIN SODIUM - SQ 10,000 UNITS/ML VIAL SQ SCH ×3 (05:10→20:54)
[2017-07-29 05:26] LABS: HEMATOCRIT 37.2 % (39.0-51.0); HEMOGLOBIN 12.6 GM/DL (13.0-17.0); MEAN CELL VOLUME 93.2 FL (80.0-100.0); MEAN CORPUSCULAR HEMOGLOBIN 31.5 PG (27.0-34.0); MEAN CORPUSCULAR HGB CONC 33.8 % (32.0-36.0); PLATELET COUNT 311 TH/MM3 (150-450); RED BLOOD COUNT 3.99 MIL/MM3 (4.50-5.90); RED CELL DISTRIBUTION WIDTH 14.1 % (11.6-17.2); WHITE BLOOD COUNT 5.7 TH/MM3 (4.0-11.0)
[2017-07-29 05:45] LABS: BICARBONATE 31.9 MEQ/L (21.0-32.0); CALCIUM 8.6 MG/DL (8.5-10.1); CREATININE 0.55 MG/DL (0.60-1.30)
[2017-07-29 08:12] VITALS: BP 138/86; PULSE 99; RESP 17; TEMP 98.4; O2SAT 95
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
[2017-07-29] MEDS: DOCUSATE SODIUM 50 MG/SENNA 8.6 MG TAB PO SCH ×2 (08:29→20:54)
[2017-07-29] MEDS: MAGNESIUM HYDROXIDE SUSP 30 ML CUP PO SCH ×2 (08:29→20:54)
[2017-07-29] MEDS: FAMOTIDINE 20 MG TAB PO SCH ×2 (08:29→20:55)
[2017-07-29] MEDS: METOPROLOL TARTRATE 25 MG TAB PO SCH ×2 (08:29→20:55)
[2017-07-29] MEDS: MULTIVITAMIN TAB PO SCH (08:29)
[2017-07-29] MEDS: VALPROIC ACID 250 MG CAP PO SCH ×2 (08:29→20:55)
[2017-07-29] MEDS: QUEtiapine FUMARATE 25 MG TAB PO SCH ×2 (08:30→12:25)
[2017-07-29] MEDS ORDERED: MAGN30S PO (09:09)
[2017-07-29] MEDS ORDERED: PERI PO (09:09)
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
[2017-07-29 11:59] VITALS: BP 127/66; PULSE 90; RESP 17; TEMP 98.5; O2SAT 99
[2017-07-29 15:48] VITALS: BP_SYST 75; PULSE 94; RESP 17; TEMP 98.6; O2SAT 97
[2017-07-29 20:00] VITALS: BP 108/56; PULSE 94; RESP 22; TEMP 98; O2SAT 97
[2017-07-29] MEDS: QUEtiapine FUMARATE 100 MG TAB PO SCH (20:54)
[2017-07-29] MEDS: SODIUM CHLORIDE 0.9% FLUSH 10 ML FLUSH IV FLUSH PRN (20:55)
[2017-07-30] VITALS: BP 94/59; PULSE 88; RESP 20; TEMP 98.8; O2SAT 99
[2017-07-30 04:00] VITALS: BP 120/65; PULSE 75; RESP 18; TEMP 98.3; O2SAT 100
[2017-07-30] MEDS: HEPARIN SODIUM - SQ 10,000 UNITS/ML VIAL SQ SCH ×3 (06:01→22:00)
[2017-07-30 08:00] VITALS: BP 144/96; PULSE 94; RESP 18; O2SAT 96
[2017-07-30] MEDS: DOCUSATE SODIUM 50 MG/SENNA 8.6 MG TAB PO SCH ×2 (09:08→23:09)
[2017-07-30] MEDS: VALPROIC ACID 250 MG CAP PO SCH ×2 (09:08→23:09)
[2017-07-30] MEDS: METOPROLOL TARTRATE 25 MG TAB PO SCH ×2 (09:08→23:08)
[2017-07-30] MEDS: MULTIVITAMIN TAB PO SCH (09:08)
[2017-07-30] MEDS: FAMOTIDINE 20 MG TAB PO SCH ×2 (09:08→23:09)
[2017-07-30] MEDS: MAGNESIUM HYDROXIDE SUSP 30 ML CUP PO SCH ×2 (09:09→21:00)
[2017-07-30] MEDS: QUEtiapine FUMARATE 25 MG TAB PO SCH ×2 (09:12→13:19)
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
[2017-07-30 12:00] VITALS: BP 120/104; PULSE 85; RESP 18; TEMP 98.4; O2SAT 99
[2017-07-30 16:00] VITALS: BP 96/57; PULSE 97; RESP 18; TEMP 98.6; O2SAT 91
[2017-07-30 21:00] VITALS: BP 137/59; PULSE 100; RESP 18; TEMP 97.9; O2SAT 96
[2017-07-30] MEDS: oxyCODONE/ACETAMINOPHEN 5 MG/325 MG TAB PO PRN (23:07)
[2017-07-30] MEDS: QUEtiapine FUMARATE 100 MG TAB PO SCH (23:09)
[2017-07-31 01:29] VITALS: BP 130/87; PULSE 107; RESP 18; TEMP 98.6; O2SAT 96
[2017-07-31] MEDS: HEPARIN SODIUM - SQ 10,000 UNITS/ML VIAL SQ SCH ×3 (05:55→22:15)
[2017-07-31 06:21] VITALS: BP 135/70; PULSE 70; RESP 18; TEMP 98.4; O2SAT 96
[2017-07-31 08:10] VITALS: BP 109/78; PULSE 75; RESP 16; TEMP 97.4; O2SAT 99
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
[2017-07-31] MEDS: METOPROLOL TARTRATE 25 MG TAB PO SCH ×2 (09:00→20:12)
[2017-07-31] MEDS: VALPROIC ACID 250 MG CAP PO SCH ×2 (09:50→20:13)
[2017-07-31] MEDS: QUEtiapine FUMARATE 25 MG TAB PO SCH ×2 (09:50→13:16)
[2017-07-31] MEDS: FAMOTIDINE 20 MG TAB PO SCH ×2 (09:50→20:13)
[2017-07-31] MEDS: MULTIVITAMIN TAB PO SCH (09:50)
[2017-07-31] MEDS: DOCUSATE SODIUM 50 MG/SENNA 8.6 MG TAB PO SCH ×2 (09:50→20:12)
[2017-07-31] MEDS: MAGNESIUM HYDROXIDE SUSP 30 ML CUP PO SCH ×2 (09:51→20:12)
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
[2017-07-31 12:00] VITALS: BP 112/75; PULSE 85; RESP 16; TEMP 98.2; O2SAT 98
[2017-07-31 16:00] VITALS: BP 110/68; PULSE 83; RESP 18; TEMP 97.9; O2SAT 99
[2017-07-31 20:00] VITALS: BP 130/63; PULSE 88; RESP 18; TEMP 97.2; O2SAT 95
[2017-07-31] MEDS: QUEtiapine FUMARATE 100 MG TAB PO SCH (20:13)
[2017-08-01] VITALS: BP 127/70; PULSE 72; RESP 20; TEMP 97.5; O2SAT 97
--- NOTE | 2017-08-01 01:08 | RADRPT ---
EXAM DATE/TIME: 08/01/2017 00:21 [place] COMPARISON: HAND RIGHT COMPLETE ([id number]), July 19, 2017, 2:20. INDICATIONS : Fracture. MEDICAL HISTORY : [place]. SAH, right clavicle fx SURGICAL HISTORY : None. ENCOUNTER: Initial ACUITY: 1 day PAIN SCORE: Non-responsive. LOCATION: Right upper extremity hand, medial. FINDINGS: Interval casting of previously noted comminuted fractures involving the fifth proximal phalanx and me tacarpal. There is mild volar angulation of the mid proximal phalanx. There is mild volar angulation of the distal fifth metacarpal fragment with single volar displaced fragment. No significant interval periosteal reaction or bony remodeling. Remaining osseous structures are intact without additional a cute bony fractures. CONCLUSION: 1. Interval casting of comminuted fractures involving the fifth proximal phalanx and metacarpal, as a lety. 2. No new acute fractures. Don Nunez MD on August 01, 2017 at 1:03 Board Certified Radiologist. This report was verified electronically.
[2017-08-01 05:46] VITALS: BP 123/78; PULSE 89; RESP 20; TEMP 98.6; O2SAT 97
[2017-08-01] MEDS: HEPARIN SODIUM - SQ 10,000 UNITS/ML VIAL SQ SCH ×3 (05:54→20:24)
[2017-08-01 05:55] VITALS: BP 97/55; PULSE 107; RESP 20; TEMP 98.9; O2SAT 95
[2017-08-01 08:00] VITALS: BP 118/72; PULSE 88; RESP 17; TEMP 97.7; O2SAT 99
[2017-08-01] MEDS: MAGNESIUM HYDROXIDE SUSP 30 ML CUP PO SCH ×2 (08:51→20:39)
[2017-08-01] MEDS: DOCUSATE SODIUM 50 MG/SENNA 8.6 MG TAB PO SCH ×2 (08:51→20:38)
[2017-08-01] MEDS: VALPROIC ACID 250 MG CAP PO SCH ×2 (08:51→20:24)
[2017-08-01] MEDS: FAMOTIDINE 20 MG TAB PO SCH ×2 (08:51→20:24)
[2017-08-01] MEDS: QUEtiapine FUMARATE 25 MG TAB PO SCH ×2 (08:52→14:30)
[2017-08-01] MEDS: MULTIVITAMIN TAB PO SCH (08:52)
[2017-08-01] MEDS: METOPROLOL TARTRATE 25 MG TAB PO SCH ×2 (08:52→20:39)
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
[2017-08-01 12:00] VITALS: BP 108/75; PULSE 85; RESP 17; TEMP 97.7; O2SAT 99
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
[2017-08-01] MEDS ORDERED: ACETAMINOPHEN 325 MG TAB PO PRN (13:45)
[2017-08-01 20:00] VITALS: BP 120/60; PULSE 106; RESP 20; TEMP 98.3; O2SAT 100
[2017-08-01] MEDS: HALOPERIDOL LACTATE 5 MG/ML AMP IV PRN (20:24)
[2017-08-01] MEDS: QUEtiapine FUMARATE 100 MG TAB PO SCH (20:24)
[2017-08-01] MEDS: SODIUM CHLORIDE 0.9% FLUSH 10 ML FLUSH IV FLUSH PRN (20:44)
[2017-08-02] VITALS: BP 134/67; PULSE 75; RESP 18; TEMP 98.4; O2SAT 99
[2017-08-02 04:00] VITALS: BP 117/63; PULSE 99; RESP 18; TEMP 97; O2SAT 96
[2017-08-02] MEDS: HEPARIN SODIUM - SQ 10,000 UNITS/ML VIAL SQ SCH ×3 (05:21→22:05)
[2017-08-02] MEDS: SODIUM CHLORIDE 0.9% FLUSH 10 ML FLUSH IV FLUSH PRN (05:21)
[2017-08-02] MEDS: HALOPERIDOL LACTATE 5 MG/ML AMP IV PRN ×3 (05:21→20:33)
[2017-08-02 08:15] VITALS: BP 113/71; PULSE 96; RESP 18; TEMP 98; O2SAT 94
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
[2017-08-02] MEDS: MULTIVITAMIN TAB PO SCH (10:35)
[2017-08-02] MEDS: METOPROLOL TARTRATE 25 MG TAB PO SCH ×2 (10:35→20:26)
[2017-08-02] MEDS: FAMOTIDINE 20 MG TAB PO SCH ×2 (10:35→20:27)
[2017-08-02] MEDS: DOCUSATE SODIUM 50 MG/SENNA 8.6 MG TAB PO SCH ×2 (10:35→20:26)
[2017-08-02] MEDS: MAGNESIUM HYDROXIDE SUSP 30 ML CUP PO SCH ×2 (10:36→20:26)
[2017-08-02] MEDS: VALPROIC ACID 250 MG CAP PO SCH ×2 (10:36→20:26)
[2017-08-02] MEDS: QUEtiapine FUMARATE 25 MG TAB PO SCH ×2 (10:46→14:17)
[2017-08-02 12:01] VITALS: BP 83/52; PULSE 82; RESP 18; TEMP 97.7; O2SAT 95
[2017-08-02 15:48] VITALS: BP 93/52; PULSE 96; RESP 17; TEMP 98; O2SAT 97
[2017-08-02 20:00] VITALS: BP 108/67; PULSE 117; RESP 20; TEMP 99; O2SAT 97
[2017-08-02] MEDS: QUEtiapine FUMARATE 100 MG TAB PO SCH (20:26)
[2017-08-03 00:35] VITALS: BP 129/61; PULSE 87; RESP 19; TEMP 97.8; O2SAT 97
[2017-08-03] MEDS: HALOPERIDOL LACTATE 5 MG/ML AMP IV PRN ×2 (01:10→14:40)
[2017-08-03] MEDS: oxyCODONE/ACETAMINOPHEN 5 MG/325 MG TAB PO PRN ×3 (01:24→21:51)
[2017-08-03] MEDS: HEPARIN SODIUM - SQ 10,000 UNITS/ML VIAL SQ SCH ×3 (05:41→21:45)
[2017-08-03 08:33] VITALS: BP 98/67; PULSE 73; RESP 18; TEMP 97.3; O2SAT 99
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
[2017-08-03] MEDS: VALPROIC ACID 250 MG CAP PO SCH ×2 (08:57→21:45)
[2017-08-03] MEDS: QUEtiapine FUMARATE 25 MG TAB PO SCH ×2 (08:57→13:37)
[2017-08-03] MEDS: METOPROLOL TARTRATE 25 MG TAB PO SCH ×2 (08:57→21:45)
[2017-08-03] MEDS: DOCUSATE SODIUM 50 MG/SENNA 8.6 MG TAB PO SCH ×2 (08:58→21:45)
[2017-08-03] MEDS: FAMOTIDINE 20 MG TAB PO SCH ×2 (08:58→21:45)
[2017-08-03] MEDS: MULTIVITAMIN TAB PO SCH (08:58)
[2017-08-03] MEDS: MAGNESIUM HYDROXIDE SUSP 30 ML CUP PO SCH ×2 (08:58→21:45)
[2017-08-03 13:20] VITALS: BP 92/54; PULSE 76; RESP 18; TEMP 98.8; O2SAT 100
[2017-08-03 17:19] VITALS: BP 118/60; PULSE 87; RESP 18; TEMP 98.3; O2SAT 98
[2017-08-03 20:04] VITALS: BP 124/85; PULSE 117; RESP 18; TEMP 97.7; O2SAT 99
[2017-08-03] MEDS: QUEtiapine FUMARATE 100 MG TAB PO SCH (21:45)
[2017-08-03 21:46] VITALS: BP 139/71; PULSE 97
[2017-08-04 00:50] VITALS: BP 94/55; PULSE 65; RESP 18; TEMP 97.4; O2SAT 99
[2017-08-04] MEDS: HEPARIN SODIUM - SQ 10,000 UNITS/ML VIAL SQ SCH ×3 (05:31→20:10)
[2017-08-04 05:34] VITALS: BP 113/68; PULSE 99; RESP 18; TEMP 97.2; O2SAT 99
[2017-08-04 06:16] LABS: AUTOMATED NEUTROPHIL # 2.8 TH/MM3 (1.8-7.7); BASOPHIL # 0.1 TH/MM3 (0-0.2); EOSINOPHIL # 0.2 TH/MM3 (0-0.4); EOSINOPHIL % 3.6 % (0.0-4.0); HEMATOCRIT 34.4 % (39.0-51.0); HEMOGLOBIN 11.6 GM/DL (13.0-17.0); LYMPH % 32.7 % (9.0-44.0); LYMPHOCYTE # 1.8 TH/MM3 (1.0-4.8); MEAN CELL VOLUME 92.9 FL (80.0-100.0); MEAN CORPUSCULAR HEMOGLOBIN 31.3 PG (27.0-34.0); MEAN CORPUSCULAR HGB CONC 33.7 % (32.0-36.0); MEAN PLATELET VOLUME 9.9 FL (7.0-11.0); MONO % 12.1 % (0.0-8.0); MONOCYTE # 0.7 TH/MM3 (0-0.9); NEUT % 50.6 % (16.0-70.0); PLATELET COUNT 243 TH/MM3 (150-450); RED BLOOD COUNT 3.71 MIL/MM3 (4.50-5.90); RED CELL DISTRIBUTION WIDTH 14.3 % (11.6-17.2); WHITE BLOOD COUNT 5.5 TH/MM3 (4.0-11.0)
[2017-08-04 06:49] LABS: BICARBONATE 31.6 MEQ/L (21.0-32.0); CALCIUM 8.5 MG/DL (8.5-10.1); CREATININE 0.55 MG/DL (0.60-1.30)
[2017-08-04] MEDS: HALOPERIDOL LACTATE 5 MG/ML AMP IV PRN (06:52)
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
[2017-08-04] MEDS: DOCUSATE SODIUM 50 MG/SENNA 8.6 MG TAB PO SCH ×2 (09:00→20:11)
[2017-08-04] MEDS: MAGNESIUM HYDROXIDE SUSP 30 ML CUP PO SCH ×2 (09:00→20:10)
[2017-08-04] MEDS: MULTIVITAMIN TAB PO SCH (09:58)
[2017-08-04] MEDS: VALPROIC ACID 250 MG CAP PO SCH ×2 (09:58→20:11)
[2017-08-04] MEDS: FAMOTIDINE 20 MG TAB PO SCH ×2 (09:59→20:12)
[2017-08-04] MEDS: QUEtiapine FUMARATE 25 MG TAB PO SCH (10:08)
[2017-08-04 12:00] VITALS: BP 143/61; PULSE 86; RESP 20; TEMP 98.4; O2SAT 95
[2017-08-04] MEDS: METOPROLOL TARTRATE 25 MG TAB PO SCH ×2 (12:20→20:16)
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
[2017-08-04] MEDS ORDERED: QUEtiapine FUMARATE 25 MG TAB PO SCH (14:00)
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
[2017-08-04 16:00] VITALS: BP 136/78; PULSE 88; RESP 19; TEMP 97.4; O2SAT 95
[2017-08-04] MEDS: QUEtiapine FUMARATE 300 MG TAB PO SCH (20:11)
[2017-08-04 20:50] VITALS: BP 123/87; PULSE 95; RESP 18; TEMP 97.7; O2SAT 94
[2017-08-04] MEDS ORDERED: QUEtiapine FUMARATE 100 MG TAB PO SCH (21:00)
[2017-08-05] MEDS: HEPARIN SODIUM - SQ 10,000 UNITS/ML VIAL SQ SCH ×3 (05:48→21:59)
[2017-08-05] MEDS: HALOPERIDOL LACTATE 5 MG/ML AMP IV PRN ×2 (05:49→21:59)
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
[2017-08-05 08:30] VITALS: BP 129/74; PULSE 83; RESP 20; TEMP 97.6; O2SAT 99
[2017-08-05] MEDS: DOCUSATE SODIUM 50 MG/SENNA 8.6 MG TAB PO SCH ×2 (09:00→21:59)
[2017-08-05] MEDS: MAGNESIUM HYDROXIDE SUSP 30 ML CUP PO SCH ×2 (09:00→22:00)
[2017-08-05] MEDS: MULTIVITAMIN TAB PO SCH (10:53)
[2017-08-05] MEDS: FAMOTIDINE 20 MG TAB PO SCH ×2 (10:53→22:00)
[2017-08-05] MEDS: METOPROLOL TARTRATE 25 MG TAB PO SCH ×2 (10:55→21:59)
[2017-08-05] MEDS: VALPROIC ACID 250 MG CAP PO SCH ×2 (10:55→22:00)
[2017-08-05 12:08] VITALS: BP 141/73; PULSE 59; RESP 20; TEMP 98.1; O2SAT 99
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
--- NOTE | 2017-08-05 17:42 | EKG ---
Date Performed: 08/04/2017 Time Performed: 15:46:23 PTAGE: 71 years EKG: ATRIAL FIBRILLATION ABNORMAL RHYTHM ECG NO PREVIOUS TRACING DOCTOR: Ren Joseph Interpretating Date/Time 08/05/2017 17:34:30
[2017-08-05 17:50] VITALS: BP 153/77; PULSE 94; RESP 20; TEMP 98; O2SAT 99
[2017-08-05 20:30] VITALS: BP 140/67; PULSE 88; RESP 19; TEMP 98.3; O2SAT 96
[2017-08-05] MEDS: QUEtiapine FUMARATE 300 MG TAB PO SCH (21:59)
[2017-08-06 00:30] VITALS: BP 132/67; PULSE 76; RESP 19; TEMP 97.6; O2SAT 96
[2017-08-06] MEDS: HEPARIN SODIUM - SQ 10,000 UNITS/ML VIAL SQ SCH ×3 (06:04→23:22)
--- NOTE | 2017-08-06 07:42 | PD.ORT.PN ---
Subjective Subjective Remarks s/p right clavicle fx s/p equivocal right distal humerus fx patient reports no pain in shoulder or elbow. patient confused and homeless Objective Vitals Vital Signs Date Time Temp Pulse Resp B/P (MAP) Pulse Ox O2 Delivery O2 Flow Rate FiO2 08/06/17 00:30 97.6 76 19 132/67 (88) 96 08/05/17 20:30 98.3 88 19 140/67 (91) 96 08/05/17 17:50 98.0 94 20 153/77 (102) 99 08/05/17 12:08 98.1 59 20 141/73 (95) 99 08/05/17 08:30 97.6 83 20 129/74 (92) 99 I/O 08/05/17 08/05/17 08/05/17 08/06/17 08/06/17 08/06/17 07:00 15:00 23:00 07:00 15:00 23:00 Intake Total 240 ml 720 ml 400 ml 400 ml Balance 240 ml 720 ml 400 ml 400 ml Intake Oral 240 ml 720 ml 400 ml 400 ml # Voids 2 4 3 4 # Bowel Movements 1 1 0 Result Diagram: 08/04/17 0445 08/04/17 0445 Imaging Last [address] 07/19/17145 Signed Impressions: Service Date/Time: Wednesday, July 19, 2017 02:40 - CONCLUSION: No acute fractures identified. Likely old fractures of the lateral orbital on the right and anterior wall right maxillary sinus. Santhosh Diaz MD Head CT 07/19/17145 Signed Impressions: Service Date/Time: Wednesday, July 19, 2017 02:40 - CONCLUSION: Small acute subarachnoid hemorrhage in a right parietal sulcus. No mass effect or midline shift. Santhosh Diaz MD Chest CT 07/19/17145 Signed Impressions: Service Date/Time: Wednesday, July 19, 2017 02:49 - CONCLUSION: 1. Right clavicle fracture. 2. Opacities in the right upper lung with 2 cm masslike density and patchy areas of pulmonary consolidation. Differential diagnosis for these findings include malignancy and infection/inflammatory change. Recommend one month followup noncontrast chest CT to evaluate for infection versus pulmonary mass. 3. Moderate severity focal pulmonary parenchymal emphysematous changes at the apices. Santhosh Diaz MD Cervical Spine CT 07/19/17145 Signed Impressions: Service Date/Time: Wednesday, July 19, 2017 02:40 - CONCLUSION: 1. Age-indeterminate small transverse process fracture on the right at C7. 2. No other fracture identified. 3. Multilevel degenerative findings. Mild central canal narrowing at C3-4 and C4-5. 4. Apical emphysema of the lungs. Santhosh Diaz MD Abdomen/Pelvis CT 07/19/17145 Signed Impressions: Service Date/Time: Wednesday, July 19, 2017 02:49 - CONCLUSION: 1. No evidence of acute traumatic injury in the abdomen and pelvis. 2. Large right-sided inguinal hernia with bowel loops extending into the scrotum. 3. Degenerative findings of the lumbar spine. Santhosh Diaz MD Shoulder X-Ray 07/19/17 0000 Signed Impressions: Service Date/Time: Wednesday, July 19, 2017 02:09 - CONCLUSION: 1. Mid clavicle fracture. 2. Bony fragmentation of the acromion may represent os acromiale or acute fracture. Santhosh Diaz MD Head CT 07/19/17 0000 Signed Impressions: Service Date/Time: Wednesday, July 19, 2017 11:06 - CONCLUSION: 1. Small focus of acute subarachnoid hemorrhage within the right posterior parietal region which is stable. 2. Stable periventricular white matter small vessel ischemic changes bilaterally. Akbar Pérez MD Hand X-Ray 07/19/17 0000 Signed Impressions: Service Date/Time: Wednesday, July 19, 2017 02:20 - CONCLUSION: Comminuted fractures of the small finger proximal phalanx and metacarpal. Santhosh Diaz MD Elbow X-Ray 07/19/17 0000 Signed Impressions: Service Date/Time: Wednesday, July 19, 2017 02:16 - CONCLUSION: Possible minimally displaced distal humerus metaphysis fracture. Santhosh Diaz MD Clavicle X-Ray 07/19/17 0000 Signed Impressions: Service Date/Time: Wednesday, July 19, 2017 02:05 - CONCLUSION: 1. Minimally displaced mid clavicular fracture. 2. Fragmentation of the acromion likely represents os acromiale. Santhosh Diaz MD Chest X-Ray 07/19/17 0000 Signed Impressions: Service Date/Time: Wednesday, July 19, 2017 15:48 - CONCLUSION: 1. Cardiomegaly and findings of vascular congestion without overt failure. Walter Rodriguez MD Objective Remarks RUE: nontender with palpation of clavicle or elbow. full sensation to median/ ulnar nerve distribution. full extension of wrist/fingers. moderate pain with maximal flexion of elbow. no pain with extension. full ROM of elbow achieved. Assessment & Plan Assessment and Plan 1) s/p I&D and complex closure right hand, extensor tendon repair right small finger, closed reduction right proximal phalanx and metacarpal fractures by Dr Guillen - POD 1 2) s/p right clavicle - nonop 3) s/p possible right distal humerus fx - nonop -will order new xrays of clavicle and elbow to evaluate fracture healing -do not anticipate any ortho intervention. -DO NOT remove splint right hand, elevate and NWB right hand -followup 2 weeks after discharge with Dr Guillen, absorbable sutures in place Gianfranco Mcnulty/First Eliel YOUNG Aug 06, 2017 07:42
[2017-08-06 08:00] VITALS: BP 101/72; PULSE 106; RESP 18; TEMP 97.9; O2SAT 98
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
--- NOTE | 2017-08-06 08:51 | RADRPT ---
EXAM DATE/TIME: 08/06/2017 08:28 [facility] COMPARISON: CLAVICLE RIGHT, July 19, 2017, 2:05. INDICATIONS : Fracture. MEDICAL HISTORY : None. SURGICAL HISTORY : None. ENCOUNTER: Subsequent ACUITY: 2 weeks PAIN SCORE: Non-responsive. LOCATION: Right Clavicle. FINDINGS: Two view examination of the right clavicle demonstrates fracture of the mid clavicle with minimal dis placement. Hypertrophic bone changes of the acromion again seen with prominent spurring. There may al so be fracture through the acromion as well. CONCLUSION: 1. Fractures of the right shoulder unchanged. Kirby Fong MD on August 06, 2017 at 8:47 Board Certified Radiologist. This report was verified electronically.
--- NOTE | 2017-08-06 08:52 | RADRPT ---
EXAM DATE/TIME: 08/06/2017 08:30 [facility] COMPARISON: No previous studies available for comparison. INDICATIONS : Fracture. MEDICAL HISTORY : None. SURGICAL HISTORY : None. ENCOUNTER: Subsequent ACUITY: 2 weeks PAIN SCORE: Non-responsive. LOCATION: Right elbow. FINDINGS: Two view examination of the right elbow demonstrates soft tissue swelling without joint effusion, fra cture or dislocation. Bony mineralization is normal. CONCLUSION: No acute fracture. Kirby Fong MD on August 06, 2017 at 8:48 Board Certified Radiologist. This report was verified electronically.
[2017-08-06] MEDS: MAGNESIUM HYDROXIDE SUSP 30 ML CUP PO SCH ×2 (09:00→21:00)
[2017-08-06] MEDS: VALPROIC ACID 250 MG CAP PO SCH ×2 (09:28→23:22)
[2017-08-06] MEDS: MULTIVITAMIN TAB PO SCH (09:28)
[2017-08-06] MEDS: FAMOTIDINE 20 MG TAB PO SCH ×2 (09:28→23:21)
[2017-08-06] MEDS: DOCUSATE SODIUM 50 MG/SENNA 8.6 MG TAB PO SCH ×2 (09:28→23:21)
[2017-08-06] MEDS: METOPROLOL TARTRATE 25 MG TAB PO SCH ×2 (09:28→23:21)
[2017-08-06 12:00] VITALS: BP 96/56; PULSE 87; RESP 18; TEMP 98; O2SAT 97
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
[2017-08-06 16:00] VITALS: BP 109/61; PULSE 109; RESP 18; TEMP 97.8; O2SAT 98
[2017-08-06 20:00] VITALS: BP 159/77; PULSE 99; RESP 19; TEMP 98; O2SAT 96
[2017-08-06] MEDS: QUEtiapine FUMARATE 300 MG TAB PO SCH (23:21)
[2017-08-07 00:12] VITALS: BP 150/67; PULSE 89; RESP 18; TEMP 97.4
[2017-08-07] MEDS: HEPARIN SODIUM - SQ 10,000 UNITS/ML VIAL SQ SCH ×3 (05:27→21:47)
[2017-08-07 05:41] VITALS: BP 134/57; PULSE 71; RESP 18; TEMP 97.4; O2SAT 97
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
[2017-08-07 08:32] VITALS: BP 117/54; PULSE 17; RESP 17; TEMP 97.5; O2SAT 96
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
[2017-08-07] MEDS: MAGNESIUM HYDROXIDE SUSP 30 ML CUP PO SCH ×2 (09:00→21:00)
[2017-08-07] MEDS: DOCUSATE SODIUM 50 MG/SENNA 8.6 MG TAB PO SCH ×2 (09:38→21:46)
[2017-08-07] MEDS: VALPROIC ACID 250 MG CAP PO SCH ×2 (09:39→21:46)
[2017-08-07] MEDS: METOPROLOL TARTRATE 25 MG TAB PO SCH ×2 (09:39→21:00)
[2017-08-07] MEDS: MULTIVITAMIN TAB PO SCH (09:39)
[2017-08-07] MEDS: FAMOTIDINE 20 MG TAB PO SCH ×2 (09:39→21:46)
[2017-08-07] MEDS: QUEtiapine FUMARATE 100 MG TAB PO SCH (09:39)
[2017-08-07 12:44] VITALS: BP 111/63; PULSE 78; RESP 17; TEMP 97.2; O2SAT 98
[2017-08-07 16:42] VITALS: BP 111/59; PULSE 95; RESP 16; TEMP 97.5; O2SAT 95
[2017-08-07 21:06] VITALS: BP 112/57; PULSE 95; RESP 18; TEMP 97.4; O2SAT 94
[2017-08-07] MEDS: QUEtiapine FUMARATE 300 MG TAB PO SCH (21:46)
[2017-08-08 01:02] VITALS: BP 145/67; PULSE 99; RESP 18; TEMP 97.4; O2SAT 95
[2017-08-08] MEDS: HEPARIN SODIUM - SQ 10,000 UNITS/ML VIAL SQ SCH ×3 (05:01→22:51)
[2017-08-08 05:08] VITALS: BP 100/53; PULSE 98; RESP 19; TEMP 97.4; O2SAT 95
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
[2017-08-08 08:41] VITALS: BP 131/58; PULSE 97; RESP 16; TEMP 97.5; O2SAT 99
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
[2017-08-08] MEDS: MAGNESIUM HYDROXIDE SUSP 30 ML CUP PO SCH ×2 (09:00→22:45)
[2017-08-08] MEDS: VALPROIC ACID 250 MG CAP PO SCH ×2 (09:17→22:49)
[2017-08-08] MEDS: FAMOTIDINE 20 MG TAB PO SCH ×2 (09:18→22:50)
[2017-08-08] MEDS: QUEtiapine FUMARATE 100 MG TAB PO SCH (09:18)
[2017-08-08] MEDS: MULTIVITAMIN TAB PO SCH (09:18)
[2017-08-08] MEDS: METOPROLOL TARTRATE 25 MG TAB PO SCH ×2 (09:19→22:59)
[2017-08-08] MEDS: DOCUSATE SODIUM 50 MG/SENNA 8.6 MG TAB PO SCH ×2 (09:19→22:50)
[2017-08-08 16:43] VITALS: BP 145/56; PULSE 107; RESP 16; TEMP 98.2; O2SAT 95
[2017-08-08 21:05] VITALS: BP 91/63; PULSE 101; RESP 19; TEMP 97.9; O2SAT 93
[2017-08-08] MEDS: QUEtiapine FUMARATE 300 MG TAB PO SCH (22:49)
[2017-08-08 22:56] VITALS: BP 114/57; PULSE 115; RESP 18; TEMP 98; O2SAT 95
[2017-08-09 00:49] VITALS: BP 100/65; PULSE 95; RESP 19; TEMP 97.6; O2SAT 96
[2017-08-09] MEDS: HEPARIN SODIUM - SQ 10,000 UNITS/ML VIAL SQ SCH ×3 (05:19→21:33)
[2017-08-09 06:00] VITALS: BP 112/76; PULSE 43; RESP 20; TEMP 97.7; O2SAT 94
[2017-08-09 08:00] VITALS: BP 114/67; PULSE 99; RESP 18; TEMP 97.3; O2SAT 100
[2017-08-09] MEDS: MAGNESIUM HYDROXIDE SUSP 30 ML CUP PO SCH ×2 (09:37→21:31)
[2017-08-09] MEDS: VALPROIC ACID 250 MG CAP PO SCH ×2 (09:38→21:32)
[2017-08-09] MEDS: DOCUSATE SODIUM 50 MG/SENNA 8.6 MG TAB PO SCH ×2 (09:38→21:33)
[2017-08-09] MEDS: QUEtiapine FUMARATE 100 MG TAB PO SCH (09:38)
[2017-08-09] MEDS: METOPROLOL TARTRATE 25 MG TAB PO SCH ×2 (09:38→21:32)
[2017-08-09] MEDS: FAMOTIDINE 20 MG TAB PO SCH ×2 (09:38→21:34)
[2017-08-09] MEDS: MULTIVITAMIN TAB PO SCH (09:38)
[2017-08-09 12:00] VITALS: BP 103/60; PULSE 85; RESP 18; TEMP 97.3; O2SAT 100
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
[2017-08-09] MEDS: HALOPERIDOL LACTATE 5 MG/ML AMP IV PRN (13:41)
[2017-08-09 16:00] VITALS: BP 129/58; PULSE 115; RESP 18; TEMP 98; O2SAT 100
[2017-08-09 21:30] VITALS: BP 130/67; PULSE 105; RESP 19; TEMP 97.7; O2SAT 98
[2017-08-09] MEDS: QUEtiapine FUMARATE 300 MG TAB PO SCH (21:33)
[2017-08-10] MEDS: HALOPERIDOL LACTATE 5 MG/ML AMP IV PRN ×2 (00:38→05:20)
[2017-08-10] MEDS: SODIUM CHLORIDE 0.9% FLUSH 10 ML FLUSH IV FLUSH PRN ×2 (00:39→05:22)
[2017-08-10 00:40] VITALS: BP 98/64; PULSE 86; RESP 21; TEMP 98.7; O2SAT 99
[2017-08-10] MEDS: HEPARIN SODIUM - SQ 10,000 UNITS/ML VIAL SQ SCH ×3 (05:22→21:40)
[2017-08-10 08:00] VITALS: BP 111/74; PULSE 104; RESP 18; TEMP 98; O2SAT 98
[2017-08-10] MEDS: MULTIVITAMIN TAB PO SCH (08:55)
[2017-08-10] MEDS: VALPROIC ACID 250 MG CAP PO SCH ×2 (08:55→21:20)
[2017-08-10] MEDS: FAMOTIDINE 20 MG TAB PO SCH ×2 (08:56→21:21)
[2017-08-10] MEDS: METOPROLOL TARTRATE 25 MG TAB PO SCH ×2 (08:56→21:21)
[2017-08-10] MEDS: QUEtiapine FUMARATE 100 MG TAB PO SCH ×2 (08:56→13:26)
[2017-08-10] MEDS: DOCUSATE SODIUM 50 MG/SENNA 8.6 MG TAB PO SCH ×2 (08:56→21:20)
[2017-08-10] MEDS: MAGNESIUM HYDROXIDE SUSP 30 ML CUP PO SCH ×2 (08:57→21:20)
[2017-08-10] MEDS ORDERED: HALOPERIDOL LACTATE 5 MG/ML AMP IM PRN (11:15)
[2017-08-10 12:00] VITALS: BP 93/56; PULSE 78; RESP 18; TEMP 98.2; O2SAT 99
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
[2017-08-10 16:00] VITALS: BP 94/55; PULSE 111; RESP 18; TEMP 98.3; O2SAT 98
[2017-08-10 21:30] VITALS: BP 111/57; PULSE 105; RESP 18; TEMP 98.2; O2SAT 98
[2017-08-10] MEDS: QUEtiapine FUMARATE 300 MG TAB PO SCH (21:40)
[2017-08-11 00:20] VITALS: BP 115/65; PULSE 101; RESP 19; TEMP 97.6; O2SAT 97
[2017-08-11 04:00] VITALS: BP 120/64; PULSE 110; RESP 20; TEMP 99; O2SAT 97
[2017-08-11] MEDS: HEPARIN SODIUM - SQ 10,000 UNITS/ML VIAL SQ SCH ×3 (05:45→22:12)
[2017-08-11 08:02] VITALS: BP 117/76; PULSE 105; RESP 18; TEMP 98; O2SAT 96
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
[2017-08-11] MEDS: METOPROLOL TARTRATE 25 MG TAB PO SCH ×2 (09:39→21:56)
[2017-08-11] MEDS: FAMOTIDINE 20 MG TAB PO SCH ×2 (09:39→21:54)
[2017-08-11] MEDS: DOCUSATE SODIUM 50 MG/SENNA 8.6 MG TAB PO SCH ×2 (09:39→21:56)
[2017-08-11] MEDS: MAGNESIUM HYDROXIDE SUSP 30 ML CUP PO SCH ×2 (09:39→21:00)
[2017-08-11] MEDS: MULTIVITAMIN TAB PO SCH (09:39)
[2017-08-11] MEDS: VALPROIC ACID 250 MG CAP PO SCH ×2 (09:40→21:54)
[2017-08-11] MEDS: QUEtiapine FUMARATE 100 MG TAB PO SCH ×2 (09:45→13:48)
[2017-08-11 12:13] VITALS: BP 120/78; PULSE 96; RESP 18; TEMP 98.4; O2SAT 97
[2017-08-11] MEDS ORDERED: QUET1TAB8 PO (13:38)
[2017-08-11] MEDS ORDERED: QUET1TAB10 PO (13:38)
[2017-08-11] MEDS ORDERED: OXYC1TAB63 PO (13:38)
[2017-08-11] MEDS ORDERED: VALP250 PO (13:38)
[2017-08-11] MEDS ORDERED: Heparin Inj SQ (13:38)
[2017-08-11] MEDS ORDERED: METO25TA3 PO (13:38)
[2017-08-11] MEDS ORDERED: HALO5P IM (13:38)
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
[2017-08-11 16:05] VITALS: BP 119/76; PULSE 98; RESP 19; TEMP 98.6; O2SAT 96
[2017-08-11 20:50] VITALS: BP 94/50; PULSE 107; RESP 18; TEMP 97.7; O2SAT 95
[2017-08-11] MEDS: QUEtiapine FUMARATE 300 MG TAB PO SCH (21:57)
[2017-08-12 06:03] VITALS: BP 93/55; PULSE 93; RESP 17; TEMP 97.7; O2SAT 95
[2017-08-12] MEDS: HEPARIN SODIUM - SQ 10,000 UNITS/ML VIAL SQ SCH ×3 (06:08→22:00)
[2017-08-12] MEDS: MULTIVITAMIN TAB PO SCH (08:07)
[2017-08-12] MEDS: MAGNESIUM HYDROXIDE SUSP 30 ML CUP PO SCH ×2 (08:07→21:00)
[2017-08-12] MEDS: VALPROIC ACID 250 MG CAP PO SCH ×2 (08:07→22:46)
[2017-08-12] MEDS: DOCUSATE SODIUM 50 MG/SENNA 8.6 MG TAB PO SCH ×2 (08:07→22:48)
[2017-08-12] MEDS: FAMOTIDINE 20 MG TAB PO SCH ×2 (08:07→22:46)
[2017-08-12] MEDS: QUEtiapine FUMARATE 100 MG TAB PO SCH ×2 (08:08→12:04)
[2017-08-12] MEDS: METOPROLOL TARTRATE 25 MG TAB PO SCH ×2 (08:10→21:00)
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
[2017-08-12 08:35] VITALS: BP 112/58; PULSE 93; RESP 16; TEMP 97.9; O2SAT 100
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
[2017-08-12 13:06] VITALS: BP 108/51; PULSE 93; RESP 16; TEMP 97.3; O2SAT 100
[2017-08-12] MEDS ORDERED: ACET325T15 PO (19:05)
[2017-08-12 20:10] VITALS: BP 122/56; PULSE 117; RESP 18; TEMP 98.9; O2SAT 96
[2017-08-12] MEDS: QUEtiapine FUMARATE 300 MG TAB PO SCH (22:46)
[2017-08-13 00:08] VITALS: BP 103/56; PULSE 93; RESP 18; TEMP 97.8; O2SAT 96
[2017-08-13] MEDS: HEPARIN SODIUM - SQ 10,000 UNITS/ML VIAL SQ SCH ×3 (06:00→21:42)
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
[2017-08-13] MEDS ORDERED: BISACODYL 10 MG SUPP RECTAL ONE (08:30)
[2017-08-13] MEDS ORDERED: BISACODYL EC 5 MG TABEC PO ONE (08:30)
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
[2017-08-13 08:39] VITALS: BP 132/63; PULSE 96; RESP 18; TEMP 97.6; O2SAT 98
--- NOTE | 2017-08-13 08:46 | HHI.PYPN ---
Subjective Remarks The patient was seen today for psychiatric reevaluation. Chart was reviewed. The case was widely discussed with surgical team including neuropsychologist Dr. Polk. On psychiatric evaluation the patient seems to be more cooperative today, he expresses that he feels better denies any pains, denies any distress, the patient is partially oriented, he knows that he is in [place], he knows that his July 2017, but continues to present loosening of associations, disorganized patient, visual hallucinations. Patient says that he has been seen ants crawling in the wall, "numerous people are here inside the room now", and he has been presenting periodic episodes of agitation, aggressiveness and for this reason he has been kept restrained to protect his IVs. Patient has been compliant with his medications,no side effects reported. Review of Systems Psychiatric: COMPLAINS OF: Confusion, Agitation, Delusions Mental Status Examination Appearance: Appropriate, Disheveled Consciousness: Alert Orientation: Person, Place, Date/Time Motor Activity: Normal gait Speech: Unremarkable Language: Adequate Fund of Knowledge: Adequate Attention and Concentration: Adequate Memory: Unremarkable Mood: Appropriate Affect: Irritable Thought Process & Associations: Disorganized Thought Content: Bizarre thinking, Delusional Hallucination Type: Auditory, Visual Delusion Type: None Suicidal Ideation: No Suicidal Plan: No Suicidal Intention: No Homicidal Ideation: No Homicidal Plan: No Homicidal Intention: No Insight: Poor Judgment: Poor Results Labs Date/Time Source Procedure Growth Status 07/19/17 15:30 Sputum Endotracheal Gram Stain - Final Complete 07/19/17 15:30 Sputum Culture - Final Pseudomonas Aeruginosa Enterobacter Aerogenes Complete Vitals/IOs Vital Signs Date Time Temp Pulse Resp B/P (MAP) Pulse Ox O2 Delivery O2 Flow Rate FiO2 08/13/17 08:39 97.6 96 18 132/63 (86) 98 Intake and Output 08/13/17 08/13/17 08/14/17 08:00 16:00 00:00 Intake Total 120 ml Balance 120 ml Assessment & Plan Problem List: (1) Unspecified psychosis ICD Codes: F29 - Unspecified psychosis not due to a substance or known physiological condition Assessment & Plan: Due to his level of psychosis and agitation in the medical floor, she is a candidate for admission in the med psych unit. Patient will be Mccoy acted by primary team. Continue current psychotropic regimen. Once in the psychiatric floor would consider adding another antipsychotic versus mood stabilizer. Assessment & Plan Estimated LOS: days Justification for Cont. Inpt. To be admitted in psychiatry. Hola Brady MD Aug 13, 2017 08:46
[2017-08-13] MEDS: METOPROLOL TARTRATE 25 MG TAB PO SCH ×2 (10:57→21:43)
[2017-08-13] MEDS: DOCUSATE SODIUM 50 MG/SENNA 8.6 MG TAB PO SCH ×2 (10:57→21:42)
[2017-08-13] MEDS: MULTIVITAMIN TAB PO SCH (10:57)
[2017-08-13] MEDS: FAMOTIDINE 20 MG TAB PO SCH ×2 (10:58→21:42)
[2017-08-13] MEDS: MAGNESIUM HYDROXIDE SUSP 30 ML CUP PO SCH ×2 (11:05→21:00)
[2017-08-13] MEDS: QUEtiapine FUMARATE 100 MG TAB PO SCH ×2 (11:11→14:22)
[2017-08-13] MEDS: VALPROIC ACID 250 MG CAP PO SCH ×2 (11:11→21:42)
[2017-08-13 12:39] VITALS: BP 122/72; PULSE 92; RESP 18; TEMP 97.5; O2SAT 96
[2017-08-13 16:22] VITALS: BP 123/77; PULSE 99; RESP 18; TEMP 97.9; O2SAT 99
[2017-08-13 21:00] VITALS: BP 112/80; PULSE 81; RESP 17; TEMP 98.3; O2SAT 96
[2017-08-13] MEDS: QUEtiapine FUMARATE 300 MG TAB PO SCH (21:42)
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
== END 2017-08-13 23:35 | DRG 40 ==
LOC: NEPE 01:32 → NEDA 04:32 → N03A 06:10 → N05B 07-23 14:24 → N05A 08-09 13:49
PROVIDERS: ADMIT Surgery; ATTEND Surgery
PROC: 0LQ70ZZ Repair Right Hand Tendon, Open Approach (ICD-10-PCS; 2017-07-19)
PROC: 0PSPXZZ Reposition Right Metacarpal, External Approach (ICD-10-PCS; 2017-07-19)
PROC: 5A1935Z Respiratory Ventilation, Less than 24 Consecutive Hours (ICD-10-PCS; 2017-07-19)
PROC: 0PST0ZZ Reposition Right Finger Phalanx, Open Approach (ICD-10-PCS; principal; 2017-07-19 13:00)
DX: S06.6X9A Traumatic subarachnoid hemorrhage with loss of consciousness of unspecified duration, initial encounter (principal); J95.821 Acute postprocedural respiratory failure; G93.40 Encephalopathy, unspecified; J18.9 Pneumonia, unspecified organism; S12.600A Unspecified displaced fracture of seventh cervical vertebra, initial encounter for closed fracture; S66.326A Laceration of extensor muscle, fascia and tendon of right little finger at wrist and hand level, initial encounter; S62.336B Displaced fracture of neck of fifth metacarpal bone, right hand, initial encounter for open fracture; F02.81 Dementia in other diseases classified elsewhere, unspecified severity, with behavioral disturbance; S62.616B Displaced fracture of proximal phalanx of right little finger, initial encounter for open fracture; R13.10 Dysphagia, unspecified; S02.40CA Maxillary fracture, right side, initial encounter for closed fracture; D64.9 Anemia, unspecified; S42.001A Fracture of unspecified part of right clavicle, initial encounter for closed fracture; S61.421A Laceration with foreign body of right hand, initial encounter; J43.9 Emphysema, unspecified; R91.8 Other nonspecific abnormal finding of lung field; K40.90 Unilateral inguinal hernia, without obstruction or gangrene, not specified as recurrent; I10 Essential (primary) hypertension; Z59.0 Homelessness; R45.1 Restlessness and agitation; R32 Unspecified urinary incontinence; F29 Unspecified psychosis not due to a substance or known physiological condition; F10.10 Alcohol abuse, uncomplicated; V03.90XA Pedestrian on foot injured in collision with car, pick-up truck or van, unspecified whether traffic or nontraffic accident, initial encounter; Y92.410 Unspecified street and highway as the place of occurrence of the external cause
CPT/HCPCS: 70450; 70486; 71045; 71260; 72125; 73000; 73030; 73070; 73130; 74018; 74177; 80048; 80053; 80164; 81001; 82140; 82435; 82550; 82552; 82565; 82805; 82947; 83735; 84100; 84132; 84295; 84520; 85025; 85027; 85610; 85730; 86850; 86900; 86901; 87070; 87077; 87186; 87205; 87641; 90471; 90714; 93005; 94002; 94003; 94150; 94640; 94664; 94667; 96365; 96366; 96375; 99292; J0131; J0690; J0692; J1100; J1200; J1580; J1630; J1644; J1953; J2060; J2270; J2370; J2405; J3010; J3480; J3486; J7030; J7120; Q9967

== ENCOUNTER 2017-08-13 23:45 | Inpatient (IN) | payer MEDICAID, OTHER ==
[~2017-08-13] VITALS: Ht 175.3 cm; Wt 61.6 kg
[~2017-08-13 23:45] MED LIST: ACET325T15 PO; HALO5P IM; Heparin Inj SQ; MAGN30S PO; METO25TA3 PO; OXYC1TAB63 PO; PERI PO; QUET1TAB10 PO; QUET1TAB8 PO; VALP250 PO
[2017-08-13 23:50] VITALS: BP 115/55; PULSE 93; RESP 16; TEMP 97.4; O2SAT 97
[2017-08-14 05:33] VITALS: BP 120/70; PULSE 93; RESP 18; TEMP 97.5; O2SAT 98
[2017-08-14] MEDS ORDERED: BENZTROPINE MESYLATE 1 MG TAB PO PRN (07:15)
[2017-08-14] MEDS ORDERED: ALUMINUM/MAGNESIUM/SIMETH 30 ML CUP PO PRN (07:15)
[2017-08-14] MEDS ORDERED: BENZTROPINE MESYLATE 2 MG/2 ML VIAL IM PRN (07:15)
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
[2017-08-14] MEDS: MULTIVITAMIN TAB PO SCH (09:13)
[2017-08-14] MEDS: QUEtiapine FUMARATE 100 MG TAB PO SCH ×2 (09:13→16:51)
[2017-08-14] MEDS: DIVALPROEX DR 500 MG TABEC PO SCH ×2 (09:13→21:00)
[2017-08-14] MEDS: METOPROLOL SUCCINATE 25 MG EXTENDED RELEASE TAB PO SCH ×2 (09:32→21:00)
[2017-08-14 10:42] LABS: BASOPHIL % 0.6 % (0.0-2.0); EOSINOPHIL # 0.2 TH/MM3 (0-0.4); EOSINOPHIL % 3.1 % (0.0-4.0); HEMATOCRIT 34.9 % (39.0-51.0); HEMOGLOBIN 11.8 GM/DL (13.0-17.0); LYMPH % 26.3 % (9.0-44.0); LYMPHOCYTE # 1.4 TH/MM3 (1.0-4.8); MEAN CORPUSCULAR HEMOGLOBIN 31.5 PG (27.0-34.0); MEAN CORPUSCULAR HGB CONC 33.9 % (32.0-36.0); MEAN PLATELET VOLUME 10.6 FL (7.0-11.0); MONO % 14.8 % (0.0-8.0); MONOCYTE # 0.8 TH/MM3 (0-0.9); NEUT % 55.2 % (16.0-70.0); PLATELET COUNT 173 TH/MM3 (150-450); RED BLOOD COUNT 3.75 MIL/MM3 (4.50-5.90); RED CELL DISTRIBUTION WIDTH 14.1 % (11.6-17.2); WHITE BLOOD COUNT 5.4 TH/MM3 (4.0-11.0)
[2017-08-14 11:00] LABS: ALBUMIN 2.9 GM/DL (3.4-5.0); DIRECT BILIRUBIN ADULT 0.1 MG/DL (0.0-0.2)
[2017-08-14 11:02] LABS: INDIRECT BILIRUBIN 0.1 MG/DL (0.0-0.8); TOTAL BILIRUBIN ADULT 0.2 MG/DL (0.2-1.0); TOTAL PROTEIN 6.2 GM/DL (6.4-8.2)
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
[2017-08-14 18:09] VITALS: BP 111/69; PULSE 100; RESP 18; TEMP 98.1; O2SAT 100
[2017-08-14 18:10] VITALS: BP 111/69; PULSE 100; RESP 18; TEMP 98.1; O2SAT 100
[2017-08-14] MEDS: QUEtiapine FUMARATE 300 MG TAB PO SCH (21:00)
[2017-08-15 05:22] VITALS: BP 85/50; PULSE 94; RESP 16; TEMP 97.6; O2SAT 97
[2017-08-15 08:15] LABS: BICARBONATE 31.2 MEQ/L (21.0-32.0); BLOOD UREA NITROGEN 19 MG/DL (7-18); CHLORIDE 101 MEQ/L (98-107); CREATININE 0.74 MG/DL (0.60-1.30); GLOMERULAR FILTRATION RATE 104 ML/MIN (>89); GLUCOSE,RANDOM 84 MG/DL (74-106); SODIUM (NA) 136 MEQ/L (136-145)
[2017-08-15 08:16] LABS: CHOLESTEROL 130 MG/DL (120-200); TRIGLYCERIDES 78 MG/DL (42-150)
[2017-08-15 08:25] LABS: CHOLESTEROL/ HDL RATIO 3.11 RATIO; HDL CHOLESTEROL 41.7 MG/DL (40.0-60.0); LDL CHOLESTEROL 73 MG/DL (0-99)
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
[2017-08-15] MEDS: DIVALPROEX DR 500 MG TABEC PO SCH ×2 (09:00→21:00)
[2017-08-15] MEDS: MULTIVITAMIN TAB PO SCH (09:00)
[2017-08-15] MEDS: METOPROLOL SUCCINATE 25 MG EXTENDED RELEASE TAB PO SCH ×2 (09:00→21:00)
[2017-08-15] MEDS: QUEtiapine FUMARATE 100 MG TAB PO SCH ×2 (09:00→16:43)
--- NOTE | 2017-08-15 11:07 | HHI.PYPN ---
Subjective Remarks Patient seen for follow-up, chart review. Discussion nursing staff reported the patient continues to be confused, no behavioral disturbances. She found sitting in hospital bed wearing only adult diapers. Patient noted to be disheveled and malodorous and was encouraged to shower today. Patient noted to alert and oriented only to person and place, continues to have vague recollection of his hospitalization and what brought him here. Patient reports his mood being "good" denying any perceptual disturbances or delusions at this time. Review of Systems Except as stated in HPI: all other systems reviewed are Neg Mental Status Examination Appearance: Disheveled Consciousness: Alert Orientation: Person, Place Motor Activity: Other (not formally assessed) Speech: Unremarkable Language: Adequate Fund of Knowledge: Poor Attention and Concentration: Easily Distracted Memory: Impaired Mood: Anxious Affect: Anxious Thought Process & Associations: Disorganized Thought Content: Other Hallucination Type: Visual (denies today) Delusion Type: None Suicidal Ideation: No Suicidal Plan: No Suicidal Intention: No Homicidal Ideation: No Homicidal Plan: No Homicidal Intention: No Insight: Poor Judgment: Poor Results Labs Labs reviewed Test 08/15/17 06:50 Blood Urea Nitrogen 19 MG/DL Creatinine 0.74 MG/DL Random Glucose 84 MG/DL Calcium Level 9.0 MG/DL Sodium Level 136 MEQ/L Potassium Level 4.0 MEQ/L Chloride Level 101 MEQ/L Carbon Dioxide Level 31.2 MEQ/L Anion Gap 4 MEQ/L Estimat Glomerular Filtration Rate 104 ML/MIN Triglycerides Level 78 MG/DL Cholesterol Level 130 MG/DL LDL Cholesterol 73 MG/DL HDL Cholesterol 41.7 MG/DL Cholesterol/HDL Ratio 3.11 RATIO Vitamin B12 Level 1307 PG/ML Thyroid Stimulating Hormone 3rd Gen 2.850 uIU/ML Vitals/IOs Vital Signs Date Time Temp Pulse Resp B/P (MAP) Pulse Ox O2 Delivery O2 Flow Rate FiO2 08/15/17 07:53 08/15/17 05:22 97.6 94 16 97 Intake and Output 08/15/17 08/15/17 08/16/17 08:00 16:00 00:00 Intake Total 60 ml Balance 60 ml Assessment & Plan Problem List: (1) Unspecified psychosis ICD Codes: F29 - Unspecified psychosis not due to a substance or known physiological condition (2) Major neurocognitive disorder as late effect of traumatic brain injury with behavioral disturbance ICD Codes: S06.9X9S - Unspecified intracranial injury with loss of consciousness of unspecified duration, sequela; F02.81 - Dementia in other diseases classified elsewhere with behavioral disturbance Status: Acute Assessment & Plan Patient at this time continues to be confused, alert and oriented only to person and place. Patient denying any perceptual disturbances recently, responding well to current treatment but continues to have some cognitive deficits likely secondary to recent traumatic brain injury. Patient valproic acid level was within therapeutic range. Continue current treatment. Continue recommendations as per primary medical team. Discharge planning in progress Justification for Cont. Inpt. At risk for further decompensation if at lower level of care Discharge Planning To be determined. Kirby Richmond MD Aug 15, 2017 11:07
[2017-08-15 15:01] LABS: HEMOGLOBIN A1C 5.7 % (4.3-6.0)
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
[2017-08-15 17:53] VITALS: BP 97/57; PULSE 109; RESP 16; TEMP 97.9; O2SAT 97
[2017-08-15] MEDS: diphenhydrAMINE HCL 50 MG CAP PO PRN (21:00)
[2017-08-15] MEDS: QUEtiapine FUMARATE 300 MG TAB PO SCH (21:00)
[2017-08-15] MEDS: LORazepam 0.5 MG TAB PO PRN (23:41)
[2017-08-16] MEDS: QUEtiapine FUMARATE 100 MG TAB PO SCH ×2 (08:08→16:09)
[2017-08-16] MEDS: METOPROLOL SUCCINATE 25 MG EXTENDED RELEASE TAB PO SCH ×3 (08:08→21:50)
[2017-08-16] MEDS: MULTIVITAMIN TAB PO SCH (08:08)
[2017-08-16] MEDS: DIVALPROEX DR 500 MG TABEC PO SCH ×3 (08:08→21:51)
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
--- NOTE | 2017-08-16 11:25 | HHI.PYPN ---
Subjective Remarks Patient was seen today for psychiatric reevaluation. He was seen and discussed with nurse in charge. Chart was reviewed. On psychiatric evaluation the patient is minimally engaged in the conversation, no participating actively in the conversation due to the level of sedation. He does report feeling okay, no suicidal ideation, homicidal ideation. The patient has been compliant with the medication, no significant side effects at the moment. There is no report of agitation or aggressive behavior. Mental Status Examination Appearance: Disheveled Consciousness: Alert Orientation: Person, Place Motor Activity: Other (not formally assessed) Speech: Unremarkable Language: Adequate Fund of Knowledge: Poor Attention and Concentration: Easily Distracted Memory: Impaired Mood: Anxious Affect: Anxious Thought Process & Associations: Disorganized Thought Content: Other Hallucination Type: Visual (denies today) Delusion Type: None Suicidal Ideation: No Suicidal Plan: No Suicidal Intention: No Homicidal Ideation: No Homicidal Plan: No Homicidal Intention: No Insight: Poor Judgment: Poor Results Vitals/IOs Vital Signs Date Time Temp Pulse Resp B/P (MAP) Pulse Ox O2 Delivery O2 Flow Rate FiO2 08/15/17 18:16 08/15/17 17:53 97.9 109 16 97 Intake and Output 08/16/17 08/16/17 08/17/17 08:00 16:00 00:00 Intake Total 0 ml Balance 0 ml Assessment & Plan Problem List: (1) Unspecified psychosis ICD Codes: F29 - Unspecified psychosis not due to a substance or known physiological condition (2) Major neurocognitive disorder as late effect of traumatic brain injury with behavioral disturbance ICD Codes: S06.9X9S - Unspecified intracranial injury with loss of consciousness of unspecified duration, sequela; F02.81 - Dementia in other diseases classified elsewhere with behavioral disturbance Status: Acute Assessment & Plan: Continue current psychotropic regimen. Assessment & Plan Estimated LOS: days Justification for Cont. Inpt. Patient has an increased risk to decompensate at a lower level of care. Hloa Brady MD Aug 16, 2017 11:25
--- NOTE | 2017-08-16 15:40 | EKG ---
Date Performed: 08/15/2017 Time Performed: 12:35:59 PTAGE: 71 years EKG: ATRIAL FIBRILLATION When compared to previous tracing, no significant change. ABNORMAL RHYT HM ECG PREVIOUS TRACING : 08/04/2017 15.46 DOCTOR: William Rodrigues Interpretating Date/Time 08/16/2017 15:38:31
[2017-08-16] MEDS: LORazepam 0.5 MG TAB PO PRN ×2 (17:32→21:50)
[2017-08-16 18:29] VITALS: BP 106/70; PULSE 97; RESP 18; TEMP 98.2
[2017-08-16] MEDS: QUEtiapine FUMARATE 300 MG TAB PO SCH ×2 (21:00→21:50)
[2017-08-16] MEDS: ACETAMINOPHEN 325 MG TAB PO PRN (21:51)
[2017-08-16] MEDS: diphenhydrAMINE HCL 50 MG CAP PO PRN (21:51)
[2017-08-17 06:21] VITALS: BP 93/60; PULSE 98; RESP 18; TEMP 97.9; O2SAT 95
[2017-08-17] MEDS: DIVALPROEX DR 500 MG TABEC PO SCH ×2 (08:55→22:10)
[2017-08-17] MEDS: MULTIVITAMIN TAB PO SCH (08:55)
[2017-08-17] MEDS: QUEtiapine FUMARATE 100 MG TAB PO SCH ×2 (08:55→17:04)
[2017-08-17] MEDS: METOPROLOL SUCCINATE 25 MG EXTENDED RELEASE TAB PO SCH ×2 (08:58→22:11)
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
--- NOTE | 2017-08-17 10:38 | HHI.PYPN ---
Subjective Remarks Patient was seen today for psychiatric reevaluation, he was found walking naked in another patient's room, but he was easily redirectable and taken back to his room. The patient is calm, cooperative, blood pleasantly confused. Patient says that he feels okay, he reports good mood, he denies depression, he denies suicidal and homicidal ideation, he denies visual and auditory hallucinations. The patient is oriented in place and person, but disoriented in time. No agitation or aggressive behavior has been reported. At time to time he will scream and will be talking to himself very loud, but his usually redirectable. Fully compliant with his medications, no significant side effects reported. Mental Status Examination Appearance: Disheveled Consciousness: Alert Orientation: Person, Place Motor Activity: Other (not formally assessed) Speech: Unremarkable Language: Adequate Fund of Knowledge: Poor Attention and Concentration: Easily Distracted Memory: Impaired Mood: Anxious Affect: Anxious Thought Process & Associations: Disorganized Thought Content: Other Hallucination Type: Visual (denies today) Delusion Type: None Suicidal Ideation: No Suicidal Plan: No Suicidal Intention: No Homicidal Ideation: No Homicidal Plan: No Homicidal Intention: No Insight: Poor Judgment: Poor Results Vitals/IOs Vital Signs Date Time Temp Pulse Resp B/P (MAP) Pulse Ox O2 Delivery O2 Flow Rate FiO2 08/17/17 06:21 97.9 98 18 93/60 (71) 95 Intake and Output 08/17/17 08/17/17 08/18/17 08:00 16:00 00:00 Intake Total 90 ml 120 ml Balance 90 ml 120 ml Assessment & Plan Problem List: (1) Unspecified psychosis ICD Codes: F29 - Unspecified psychosis not due to a substance or known physiological condition (2) Major neurocognitive disorder as late effect of traumatic brain injury with behavioral disturbance ICD Codes: S06.9X9S - Unspecified intracranial injury with loss of consciousness of unspecified duration, sequela; F02.81 - Dementia in other diseases classified elsewhere with behavioral disturbance Status: Acute Assessment & Plan: Continue current psychotropic regimen. Assessment & Plan Estimated LOS: days Justification for Cont. Inpt. Patient has an elevated risk to decompensate at a lower level of care. Hola Brady MD Aug 17, 2017 10:38
[2017-08-17 18:28] VITALS: BP 103/56; PULSE 96; RESP 18; TEMP 97.8; O2SAT 96
[2017-08-17] MEDS ORDERED: LORazepam 2 MG/ML VIAL IM STA (20:45)
[2017-08-17] MEDS ORDERED: HALOPERIDOL LACTATE 5 MG/ML AMP IM STA (20:45)
[2017-08-17] MEDS: LORazepam 2 MG/ML VIAL IM PRN (22:09)
[2017-08-17] MEDS: QUEtiapine FUMARATE 300 MG TAB PO SCH (22:09)
[2017-08-17] MEDS: diphenhydrAMINE HCL 50 MG CAP PO PRN (22:10)
[2017-08-18 05:00] VITALS: BP 145/73; PULSE 90; RESP 20; TEMP 97.3; O2SAT 98
[2017-08-18] MEDS: DIVALPROEX DR 500 MG TABEC PO SCH ×2 (10:23→20:50)
[2017-08-18] MEDS: METOPROLOL SUCCINATE 25 MG EXTENDED RELEASE TAB PO SCH ×2 (10:24→20:50)
[2017-08-18] MEDS: MULTIVITAMIN TAB PO SCH (10:24)
[2017-08-18] MEDS: QUEtiapine FUMARATE 100 MG TAB PO SCH (10:24)
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
[2017-08-18] MEDS: LORazepam 0.5 MG TAB PO PRN (14:10)
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
[2017-08-18] MEDS: LORazepam 2 MG/ML VIAL IM PRN (15:08)
[2017-08-18] MEDS: QUEtiapine FUMARATE 25 MG TAB PO SCH (16:00)
[2017-08-18 18:00] VITALS: TEMP 98.1
[2017-08-18] MEDS ORDERED: LORazepam 2 MG/ML VIAL IM ONE (20:00)
[2017-08-18] MEDS ORDERED: HALOPERIDOL LACTATE 5 MG/ML AMP IM ONE (20:00)
[2017-08-18] MEDS: QUEtiapine FUMARATE 300 MG TAB PO SCH (20:50)
[2017-08-19 08:25] VITALS: BP 120/66; PULSE 135; TEMP 97.6
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
[2017-08-19] MEDS: METOPROLOL SUCCINATE 25 MG EXTENDED RELEASE TAB PO SCH ×2 (10:43→21:00)
[2017-08-19] MEDS: MULTIVITAMIN TAB PO SCH (10:43)
[2017-08-19] MEDS: DIVALPROEX DR 500 MG TABEC PO SCH ×2 (10:43→21:00)
[2017-08-19] MEDS: QUEtiapine FUMARATE 25 MG TAB PO SCH ×2 (10:44→15:25)
--- NOTE | 2017-08-19 12:24 | HHI.PYPN ---
Subjective Remarks The patient was seen today for psychiatric reevaluation along with nursing charge and medical student Dr. García. Chart was reviewed. Psychiatric evaluation the patient is found in his bed, he is trying to eat his breakfast, minimally engageable in a conversation, but able to say that he feels okay, his mood is good, and he was able to sing a little bit of "Ronen Boy" stating that this is his favorite son. He denies suicidal and homicidal ideation, he denies visual and auditory hallucinations. The patient has been reported as episodically agitated, he has been at times disruptive in the unit, walking into other patient's rooms and yesterday had to be medicated with ETO. Mental Status Examination Appearance: Disheveled Consciousness: Alert Orientation: Person, Place Motor Activity: Other (not formally assessed) Speech: Unremarkable Language: Adequate Fund of Knowledge: Poor Attention and Concentration: Easily Distracted Memory: Impaired Mood: Appropriate Affect: Blunt Thought Process & Associations: Other Thought Content: Other Hallucination Type: None Delusion Type: None Suicidal Ideation: No Suicidal Plan: No Suicidal Intention: No Homicidal Ideation: No Homicidal Plan: No Homicidal Intention: No Insight: Poor Judgment: Poor Results Labs Test 08/19/17 11:31 Valproic Acid (Depakene) Level 64 MCG/ML Vitals/IOs Vital Signs Date Time Temp Pulse Resp B/P (MAP) Pulse Ox O2 Delivery O2 Flow Rate FiO2 08/19/17 08:25 97.6 135 120/66 (84) 08/18/17 05:00 20 98 Intake and Output 08/19/17 08/19/17 08/20/17 08:00 16:00 00:00 Intake Total 80 ml 240 ml Balance 80 ml 240 ml Assessment & Plan Problem List: (1) Unspecified psychosis ICD Codes: F29 - Unspecified psychosis not due to a substance or known physiological condition (2) Major neurocognitive disorder as late effect of traumatic brain injury with behavioral disturbance ICD Codes: S06.9X9S - Unspecified intracranial injury with loss of consciousness of unspecified duration, sequela; F02.81 - Dementia in other diseases classified elsewhere with behavioral disturbance Status: Acute Assessment & Plan: Brief supportive psychotherapy and motivation provided. Continue current psychotropic regimen. Assessment & Plan Estimated LOS: days Justification for Cont. Inpt. Patient has an elevated risk to decompensate at a lower level of care. Hola Brady MD Aug 19, 2017 12:24
--- NOTE | 2017-08-19 12:43 | RADRPT ---
EXAM DATE/TIME: 08/19/2017 12:33 [place] COMPARISON: CT BRAIN W/O CONTRAST, July 22, 2017, 20:24. INDICATIONS : Fall. History of bleed. RADIATION DOSE: 38.52 CTDIvol (mGy) MEDICAL HISTORY : Non-responsive. SURGICAL HISTORY : Non-responsive. ENCOUNTER: Initial ACUITY: 1 day PAIN SCALE: Non-responsive LOCATION: cranial TECHNIQUE: Multiple contiguous axial images were obtained of the head. Using automated exposure control and adj ustment of the mA and/or kV according to patient size, radiation dose was kept as low as reasonably a chievable to obtain optimal diagnostic quality images. DICOM format image data is available electro nically for review and comparison. FINDINGS: There is periventricular hypodensity mainly in the parietal regions. Small focus of encephalomalacia in the high convexity right frontal region.. No evidence of mass or hemorrhage. Nothing to suggest ac keyonna infarction. Ventricles are symmetric and normal. The extracranial structures are stable, benign a nd intact. CONCLUSION: No acute intracranial injury Ulices Longo MD on August 19, 2017 at 12:39 Board Certified Radiologist. This report was verified electronically.
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
[2017-08-19] MEDS ORDERED: OLANZapine IM 10 MG VIAL IM STA (18:12)
[2017-08-19 18:27] VITALS: BP 114/74; PULSE 86; RESP 16; TEMP 97.5; O2SAT 95
--- NOTE | 2017-08-19 20:35 | RADRPT ---
EXAM DATE/TIME: 08/19/2017 19:56 [facility] COMPARISON: HAND RIGHT COMPLETE ([id number]), August 01, 2017, 0:21. INDICATIONS : Right hand pain, unknown injury. MEDICAL HISTORY : None. SURGICAL HISTORY : None. ENCOUNTER: Subsequent ACUITY: 1 month PAIN SCORE: Non-responsive. LOCATION: Right hand. FINDINGS: Today's exam is compared to the prior study. Overlying cast material is still in place. We again see fractures involving the fifth metacarpal and fifth proximal phalanx. There has been no significant ch stacy in the alignment and position of the fracture fragments compared to the prior exam. No definite new fractures are seen. No joint dislocation is demonstrated. Fracture lines remain visible. CONCLUSION: No change in the alignment and position of the fractures involving the fifth proximal phalanx and fif th metacarpal. Jhoan Hurt MD on August 19, 2017 at 20:32 Board Certified Radiologist. This report was verified electronically.
[2017-08-19] MEDS: QUEtiapine FUMARATE 300 MG TAB PO SCH (21:00)
[2017-08-19] MEDS: diphenhydrAMINE HCL 50 MG CAP PO PRN (21:43)
[2017-08-19] MEDS: ACETAMINOPHEN 325 MG TAB PO PRN (21:43)
--- NOTE | 2017-08-19 23:37 | RADRPT ---
EXAM DATE/TIME: 08/19/2017 23:00 [facility] COMPARISON: CLAVICLE RIGHT, August 06, 2017, 8:28. CHEST SINGLE AP, July 24, 2017, 10:22. INDICATIONS : Short of breath, cough. MEDICAL HISTORY : None. SURGICAL HISTORY : None. ENCOUNTER: Initial ACUITY: 1 day PAIN SCORE: 0/10 LOCATION: Bilateral chest FINDINGS: Portable AP view of the chest demonstrates a normal-sized cardiac silhouette. No effusion, consolidat ion, or pneumothorax is visualized. The bones and soft tissues demonstrate no acute abnormality. Lung s are underinflated. There is an old fracture of the right clavicle and acromion. CONCLUSION: 1. No acute cardiopulmonary abnormality is identified. 2. The right clavicle and right acromion fracture are again visualized. Ulices Mart MD on August 19, 2017 at 23:34 Board Certified Radiologist. This report was verified electronically.
[2017-08-20 05:41] VITALS: BP 120/57; PULSE 84; RESP 16; TEMP 97.3; O2SAT 96
[2017-08-20] MEDS: DIVALPROEX DR 500 MG TABEC PO SCH ×3 (08:31→20:01)
[2017-08-20] MEDS: MULTIVITAMIN TAB PO SCH ×2 (08:31→08:54)
[2017-08-20] MEDS: METOPROLOL SUCCINATE 25 MG EXTENDED RELEASE TAB PO SCH ×2 (08:31→08:54)
[2017-08-20] MEDS: QUEtiapine FUMARATE 25 MG TAB PO SCH (08:49)
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
--- NOTE | 2017-08-20 14:17 | RADRPT ---
EXAM DATE/TIME: 08/20/2017 13:04 [facility] COMPARISON: No previous studies available for comparison. INDICATIONS : Right hand 5th digit 1 view either oblique or lateral view MEDICAL HISTORY : None. SURGICAL HISTORY : None. ENCOUNTER: Initial ACUITY: 2 days PAIN SCORE: Non-responsive. LOCATION: Right 5 th digit FINDINGS: Oblique fracture distal fifth metacarpal and proximal findings of the fifth digit. There is minimal angulation distal fifth metatarsal and angulation across the degenerative fracture proximal phalanx. CONCLUSION: Fracture as above. Oseas Mock MD FACR on August 20, 2017 at 14:14 Board Certified Radiologist. This report was verified electronically.
[2017-08-20] MEDS ORDERED: QUEtiapine FUMARATE 100 MG TAB PO SCH (16:00)
[2017-08-20 16:51] VITALS: BP 108/66; PULSE 113
[2017-08-20] MEDS: QUEtiapine FUMARATE 300 MG TAB PO SCH (20:01)
[2017-08-20] MEDS: diphenhydrAMINE HCL 50 MG CAP PO PRN (20:01)
[2017-08-20] MEDS: ACETAMINOPHEN 325 MG TAB PO PRN (20:02)
[2017-08-20] MEDS ORDERED: ACETAMINOPHEN/HYDROcodone 325 MG/5 MG TAB PO ONE (23:15)
[2017-08-21] MEDS: MULTIVITAMIN TAB PO SCH (09:00)
[2017-08-21] MEDS ORDERED: QUEtiapine FUMARATE 25 MG TAB PO SCH (09:00)
[2017-08-21] MEDS: DIVALPROEX DR 500 MG TABEC PO SCH ×2 (09:00→20:46)
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
[2017-08-21 11:29] VITALS: BP 96/55; PULSE 65; RESP 20; TEMP 97.7; O2SAT 96
[2017-08-21 14:28] VITALS: BP 122/70
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
[2017-08-21] MEDS: QUEtiapine FUMARATE 25 MG TAB PO SCH (16:00)
[2017-08-21 19:24] VITALS: BP 131/78; PULSE 82; RESP 18; TEMP 98.1; O2SAT 97
[2017-08-21] MEDS: ACETAMINOPHEN 325 MG TAB PO PRN (20:46)
[2017-08-21] MEDS: diphenhydrAMINE HCL 50 MG CAP PO PRN (20:46)
[2017-08-21] MEDS: QUEtiapine FUMARATE 300 MG TAB PO SCH (20:46)
[2017-08-22 06:14] LABS: AUTOMATED NEUTROPHIL # 2.1 TH/MM3 (1.8-7.7); BASOPHIL # 0.1 TH/MM3 (0-0.2); BASOPHIL % 1.2 % (0.0-2.0); EOSINOPHIL # 0.2 TH/MM3 (0-0.4); EOSINOPHIL % 3.8 % (0.0-4.0); HEMATOCRIT 34.2 % (39.0-51.0); HEMOGLOBIN 11.7 GM/DL (13.0-17.0); LYMPH % 41.6 % (9.0-44.0); LYMPHOCYTE # 2.3 TH/MM3 (1.0-4.8); MEAN CELL VOLUME 92.4 FL (80.0-100.0); MEAN CORPUSCULAR HEMOGLOBIN 31.5 PG (27.0-34.0); MEAN CORPUSCULAR HGB CONC 34.1 % (32.0-36.0); MEAN PLATELET VOLUME 9.8 FL (7.0-11.0); MONO % 16.1 % (0.0-8.0); MONOCYTE # 0.9 TH/MM3 (0-0.9); NEUT % 37.3 % (16.0-70.0); PLATELET COUNT 185 TH/MM3 (150-450); RED CELL DISTRIBUTION WIDTH 14.5 % (11.6-17.2); WHITE BLOOD COUNT 5.6 TH/MM3 (4.0-11.0)
[2017-08-22 06:16] VITALS: BP 102/70; PULSE 91; RESP 16
[2017-08-22 06:20] LABS: ALBUMIN 2.8 GM/DL (3.4-5.0); AST (GOT) 17 U/L (15-37); BICARBONATE 29.8 MEQ/L (21.0-32.0); BLOOD UREA NITROGEN 25 MG/DL (7-18); CALCIUM 9.3 MG/DL (8.5-10.1); CHLORIDE 103 MEQ/L (98-107); CREATININE 0.85 MG/DL (0.60-1.30); GLOMERULAR FILTRATION RATE 88 ML/MIN (>89); GLUCOSE,RANDOM 83 MG/DL (74-106); SODIUM (NA) 141 MEQ/L (136-145)
[2017-08-22 06:21] LABS: ALT (GPT) 13 U/L (12-78)
[2017-08-22 06:23] LABS: ALKALINE PHOSPHATASE 113 U/L (45-117); TOTAL BILIRUBIN ADULT 0.3 MG/DL (0.2-1.0); TOTAL PROTEIN 6.2 GM/DL (6.4-8.2)
[2017-08-22] MEDS: MULTIVITAMIN TAB PO SCH (08:19)
[2017-08-22] MEDS: DIVALPROEX DR 500 MG TABEC PO SCH ×2 (08:19→19:51)
--- NOTE | 2017-08-22 08:43 | HHI.PYPN ---
Subjective Remarks Patient seen for follow-up, chart reviewed. Discussion nursing staff reported the patient and patient's overnight, patient to explain off and pending reevaluation by hand surgeon. Patient was found lying in hospital bed noted to , cooperative continued to be somewhat confused but alert and oriented only to person and place but not the city or date. Patient continues to endorse having occasional visual hallucinations but denied any auditory hallucinations wasn't able to specify when the last he had these perceptual services. Patient continues to endorse having dizziness when setting up from lying position states that he is sometimes able tolerate sitting up. Patient denies any other physical complaints at this time. Review of Systems Except as stated in HPI: all other systems reviewed are Neg Mental Status Examination Appearance: Disheveled Consciousness: Alert Orientation: Person, Place Motor Activity: Other (not formally assessed) Speech: Unremarkable Language: Adequate Fund of Knowledge: Poor Attention and Concentration: Inadequate Memory: Impaired Mood: Appropriate Affect: Other (constricted) Thought Process & Associations: Other (concrete) Thought Content: Other Hallucination Type: None Delusion Type: None Suicidal Ideation: No Suicidal Plan: No Suicidal Intention: No Homicidal Ideation: No Homicidal Plan: No Homicidal Intention: No Insight: Poor Judgment: Poor Results Labs Labs reviewed Test 08/22/17 05:02 White Blood Count 5.6 TH/MM3 Red Blood Count 3.70 MIL/MM3 Hemoglobin 11.7 GM/DL Hematocrit 34.2 % Mean Corpuscular Volume 92.4 FL Mean Corpuscular Hemoglobin 31.5 PG Mean Corpuscular Hemoglobin Concent 34.1 % Red Cell Distribution Width 14.5 % Platelet Count 185 TH/MM3 Mean Platelet Volume 9.8 FL Neutrophils (%) (Auto) 37.3 % Lymphocytes (%) (Auto) 41.6 % Monocytes (%) (Auto) 16.1 % Eosinophils (%) (Auto) 3.8 % Basophils (%) (Auto) 1.2 % Neutrophils # (Auto) 2.1 TH/MM3 Lymphocytes # (Auto) 2.3 TH/MM3 Monocytes # (Auto) 0.9 TH/MM3 Eosinophils # (Auto) 0.2 TH/MM3 Basophils # (Auto) 0.1 TH/MM3 CBC Comment DIFF FINAL Differential Comment Blood Urea Nitrogen 25 MG/DL Creatinine 0.85 MG/DL Random Glucose 83 MG/DL Total Protein 6.2 GM/DL Albumin 2.8 GM/DL Calcium Level 9.3 MG/DL Alkaline Phosphatase 113 U/L Aspartate Amino Transf (AST/SGOT) 17 U/L Alanine Aminotransferase (ALT/SGPT) 13 U/L Total Bilirubin 0.3 MG/DL Sodium Level 141 MEQ/L Potassium Level 4.9 MEQ/L Chloride Level 103 MEQ/L Carbon Dioxide Level 29.8 MEQ/L Anion Gap 8 MEQ/L Estimat Glomerular Filtration Rate 88 ML/MIN Vitals/IOs Vital Signs Date Time Temp Pulse Resp B/P (MAP) Pulse Ox O2 Delivery O2 Flow Rate FiO2 08/22/17 06:16 91 16 102/70 (81) 08/21/17 19:24 98.1 97 Intake and Output 08/22/17 08/22/17 08/23/17 08:00 16:00 00:00 Intake Total 600 ml Balance 600 ml Assessment & Plan Problem List: (1) Unspecified psychosis ICD Codes: F29 - Unspecified psychosis not due to a substance or known physiological condition (2) Major neurocognitive disorder as late effect of traumatic brain injury with behavioral disturbance ICD Codes: S06.9X9S - Unspecified intracranial injury with loss of consciousness of unspecified duration, sequela; F02.81 - Dementia in other diseases classified elsewhere with behavioral disturbance Status: Acute Assessment & Plan Patient at this time has not had any behavioral disturbances recently not requiring any ETO's. Patient continues to have reported visual hallucinations but has been inconsistent as far as his reporting. Patient continues to have some confusion at baseline unclear whether it's due to disorganization from psychosis or from dramatic brain injury coupled with likely neurocognitive disorder. Patient pending reevaluation of right hand from hand surgeon. Continue recommendations as per primary medical team. Last VPA level within therapeutic range. We'll continue to monitor levels. Discharge planning in progress. Justification for Cont. Inpt. At risk for further decompensation at lower level of care Discharge Planning To be determined Kirby Richmond MD Aug 22, 2017 08:43
[2017-08-22] MEDS ORDERED: QUEtiapine FUMARATE 100 MG TAB PO SCH (09:00)
[2017-08-22] MEDS: LORazepam 2 MG/ML VIAL IM PRN (10:15)
[2017-08-22] MEDS: ACETAMINOPHEN 325 MG TAB PO PRN ×2 (10:15→19:52)
[2017-08-22] MEDS: QUEtiapine FUMARATE 25 MG TAB PO SCH (15:32)
[2017-08-22 18:00] VITALS: BP 108/54; PULSE 74; RESP 16; TEMP 97.1
[2017-08-22] MEDS: QUEtiapine FUMARATE 300 MG TAB PO SCH (19:51)
[2017-08-22] MEDS: diphenhydrAMINE HCL 50 MG CAP PO PRN (19:52)
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
[2017-08-23] MEDS: CEPHALEXIN MONOHYDRATE 500 MG CAP PO SCH ×4 (05:28→17:56)
[2017-08-23 06:15] VITALS: BP 114/81; PULSE 107; RESP 16; TEMP 97.4; O2SAT 97
[2017-08-23] MEDS: MULTIVITAMIN TAB PO SCH (08:20)
[2017-08-23] MEDS: DIVALPROEX DR 500 MG TABEC PO SCH ×2 (08:21→21:38)
[2017-08-23] MEDS ORDERED: QUEtiapine FUMARATE 25 MG TAB PO SCH ×2 (09:00→16:00)
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
[2017-08-23] MEDS ORDERED: QUEtiapine FUMARATE 100 MG TAB PO SCH (16:00)
[2017-08-23 18:00] VITALS: BP 83/54; PULSE 95; RESP 17; TEMP 97.7; O2SAT 99
[2017-08-23] MEDS: LORazepam 0.5 MG TAB PO PRN (21:38)
[2017-08-23] MEDS: QUEtiapine FUMARATE 300 MG TAB PO SCH (21:38)
[2017-08-23] MEDS: diphenhydrAMINE HCL 50 MG CAP PO PRN (21:38)
[2017-08-24] MEDS: CEPHALEXIN MONOHYDRATE 500 MG CAP PO SCH ×5 (06:22→22:07)
[2017-08-24] MEDS: MULTIVITAMIN TAB PO SCH (08:47)
[2017-08-24] MEDS: DIVALPROEX DR 500 MG TABEC PO SCH (08:47)
[2017-08-24] MEDS: QUEtiapine FUMARATE 25 MG TAB PO SCH ×3 (08:47→22:06)
[2017-08-24 08:50] VITALS: BP 93/52; PULSE 60; RESP 16; TEMP 98; O2SAT 95
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
[2017-08-24] MEDS ORDERED: FLUMAZENIL 0.5 MG/5 ML VIAL IV PUSH PRN (09:15)
[2017-08-24] MEDS ORDERED: LORazepam 2 MG TAB PO PRN (09:15)
[2017-08-24] MEDS ORDERED: LORazepam 2 MG/ML VIAL IV PUSH PRN ×4 (09:15)
[2017-08-24] MEDS: FOLIC ACID 1 MG TAB PO SCH (13:50)
[2017-08-24] MEDS: THIAMINE HCL 100 MG TAB PO SCH (13:50)
--- NOTE | 2017-08-24 14:38 | HHI.PYPN ---
Subjective Remarks Patient seen for follow, chart reviewed. Discussion nursing staff reported the patient continues to have low blood pressure upon sitting, noted to be pleasant with no behavioral difficulties recently. Patient was found sitting in hospital bed calm and cooperative. Patient reports feeling "okay continue to be alert and oriented only to person continues with confusion at baseline which may be secondary to TBI and or neurocognitive disorder. Patient continues to be unable to recall events that brought to the hospital. Patient has been compliant with maintaining splint on the right wrist and hand. Patient denies any delusions or hallucinations at this time. Review of Systems Except as stated in HPI: all other systems reviewed are Neg Mental Status Examination Appearance: Disheveled Consciousness: Alert Orientation: Person, Place Motor Activity: Other (not formally assessed) Speech: Unremarkable Language: Adequate Fund of Knowledge: Poor Attention and Concentration: Inadequate Memory: Impaired Mood: Appropriate Affect: Other (constricted) Thought Process & Associations: Other (concrete) Thought Content: Other Hallucination Type: None Delusion Type: None Suicidal Ideation: No Suicidal Plan: No Suicidal Intention: No Homicidal Ideation: No Homicidal Plan: No Homicidal Intention: No Insight: Poor Judgment: Poor Results Vitals/IOs Vital Signs Date Time Temp Pulse Resp B/P (MAP) Pulse Ox O2 Delivery O2 Flow Rate FiO2 08/24/17 08:50 98.0 60 16 93/52 (66) 95 Intake and Output 08/24/17 08/24/17 08/25/17 08:00 16:00 00:00 Intake Total 480 ml 960 ml Balance 480 ml 960 ml Assessment & Plan Problem List: (1) Unspecified psychosis ICD Codes: F29 - Unspecified psychosis not due to a substance or known physiological condition (2) Major neurocognitive disorder as late effect of traumatic brain injury with behavioral disturbance ICD Codes: S06.9X9S - Unspecified intracranial injury with loss of consciousness of unspecified duration, sequela; F02.81 - Dementia in other diseases classified elsewhere with behavioral disturbance Status: Acute Assessment & Plan Patient continues to have orthostasis. We will decrease quetiapine to 50/50/ 275 mg we will continue taper. This patient has had difficulty with swallowing we will change Depakote to Depakene liquid. We will order valproic acid level for tomorrow morning to monitor levels. Continue rest of medications continue recommendations as per prior medical team. Patient to continue work with physical therapy. Discharge planning in progress. Justification for Cont. Inpt. At risk for further decompensation if at lower level of care Discharge Planning To be determined Kirby Richmond MD Aug 24, 2017 14:38
[2017-08-24 18:53] VITALS: BP 119/57; PULSE 99; RESP 18; TEMP 97.5; O2SAT 97
[2017-08-24] MEDS: diphenhydrAMINE HCL 50 MG CAP PO PRN (22:06)
[2017-08-24] MEDS: QUEtiapine FUMARATE 200 MG TAB PO SCH (22:06)
[2017-08-24] MEDS: VALPROIC ACID 250 MG CAP PO SCH (22:09)
[2017-08-25] MEDS: CEPHALEXIN MONOHYDRATE 500 MG CAP PO SCH ×3 (05:25→16:56)
[2017-08-25 05:38] VITALS: BP 116/73; PULSE 88; RESP 16; O2SAT 98
[2017-08-25] MEDS: THIAMINE HCL 100 MG TAB PO SCH (09:02)
[2017-08-25] MEDS: FOLIC ACID 1 MG TAB PO SCH (09:02)
[2017-08-25] MEDS: QUEtiapine FUMARATE 25 MG TAB PO SCH ×3 (09:02→20:31)
[2017-08-25] MEDS: VALPROIC ACID 250 MG CAP PO SCH ×2 (09:02→20:34)
[2017-08-25] MEDS: MULTIVITAMINS/MINERALS THERAPEUTIC TAB PO SCH (09:02)
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
--- NOTE | 2017-08-25 11:32 | HHI.PYPN ---
Subjective Remarks Patient is here for follow, chart reviewed. Discussion nursing staff reported patient was well this morning and was stepping on it. Patient was found sitting on hospital bed, cooperative patient reports that at times he does have difficulty making it to the restroom for bowel movement was encouraged to ask for assistance which he agreed. Patient also reporting decrease feelings of dizziness when sitting up or standing. Patient denies any physical complaints patient continues to be confused at times and alert and oriented only to person and date. Patient agrees to continue current treatment and to adhere to recommendations for the splint being placed on his right wrist and hand. Denies any perceptual disturbances or no delusions. Review of Systems Except as stated in HPI: all other systems reviewed are Neg Mental Status Examination Appearance: Disheveled Consciousness: Alert Orientation: Person, Place Motor Activity: Other (not formally assessed) Speech: Unremarkable Language: Adequate Fund of Knowledge: Poor Attention and Concentration: Inadequate Memory: Impaired Mood: Appropriate Affect: Other (constricted) Thought Process & Associations: Other (concrete) Thought Content: Other Hallucination Type: None Delusion Type: None Suicidal Ideation: No Suicidal Plan: No Suicidal Intention: No Homicidal Ideation: No Homicidal Plan: No Homicidal Intention: No Insight: Poor Judgment: Poor Results Labs Test 08/25/17 10:05 Vitals/IOs Vital Signs Date Time Temp Pulse Resp B/P (MAP) Pulse Ox O2 Delivery O2 Flow Rate FiO2 08/25/17 05:38 88 16 116/73 (87) 98 08/24/17 18:53 97.5 Intake and Output 08/25/17 08/25/17 08/26/17 08:00 16:00 00:00 Intake Total 0 ml 360 ml Balance 0 ml 360 ml Assessment & Plan Problem List: (1) Unspecified psychosis ICD Codes: F29 - Unspecified psychosis not due to a substance or known physiological condition (2) Major neurocognitive disorder as late effect of traumatic brain injury with behavioral disturbance ICD Codes: S06.9X9S - Unspecified intracranial injury with loss of consciousness of unspecified duration, sequela; F02.81 - Dementia in other diseases classified elsewhere with behavioral disturbance Status: Acute Assessment & Plan Patient at this time continues to have baseline confusion no behavioral disturbances recently. Patient noted to be more alert and interactive today and was able to sit up without noticing patient being unsteady. Continue current treatment for now. Continue to monitor mood and behavior. Continue to monitor for orthostatic hypotension. Continue recommendations as her prior medical team. Discharge planning in progress. Justification for Cont. Inpt. At risk for decompensation at lower level of care Discharge Planning To be determined Kirby Richmond MD Aug 25, 2017 11:32
--- NOTE | 2017-08-25 17:33 | PD.WCN.NOT ---
Wound Consult Description: Patient seen on 4th floor medical psych unit for wound management of R thumb Communicated with: NOE Orlando and Doctor Chu Recommendation: Please cleanse R thumb wound with normal saline daily and pat dry. Apply Xeroform in a single layer just over open wound bed and cover with dry 4x4 gauze secured with rolled gauze and tape. Change dressing daily or PRN if saturated or dislodged. Additional Information: Patient seen on 4th floor medical psych unit for R thumb wound management around 1500. Patient is noted with dry laceration to the base of the thumb. Wound measures ~0.7cm x ~4cm x ~0.2cm and is ~60% scab, with ~40% dry pink tissue. Wound has no active drainage or odor. Entire R hand is noted with edema that is non pitting. Cleansed wound with normal saline and patted dry. Applied Xeroform just over open wound and secured with dry 4x4 gauze, rolled gauze and tape.Per RN patient removes dressings. Renetta Saravia [facility] Aug 25, 2017 17:33
[2017-08-25 18:24] VITALS: BP 104/51; PULSE 108; RESP 17; TEMP 97.9; O2SAT 99
[2017-08-25] MEDS: QUEtiapine FUMARATE 200 MG TAB PO SCH (20:31)
[2017-08-26 06:00] VITALS: BP 130/58; PULSE 94; RESP 18; O2SAT 98
[2017-08-26] MEDS: CEPHALEXIN MONOHYDRATE 500 MG CAP PO SCH ×4 (06:01→17:13)
--- NOTE | 2017-08-26 09:32 | HHI.PYPN ---
Subjective Remarks Patient is seen for follow, chart reviewed. Discussion nursing staff reported the patient has not had any behavioral disturbances recently but is noted to be confused at times. Patient was found lying in hospital bed his sleep was able to wake up to interact with interview today. Patient states he is feeling "okay " reports sleeping well denies any perceptual disturbances and reports feeling less dizzy when he sits up or stands. Patient noted to be more alert and engaging interview today. Patient continues to remove splint from right hand it was reminded to keep it on which she agreed. Patient aware that orthopedics will be seeing him today to address this again. Review of Systems Except as stated in HPI: all other systems reviewed are Neg Mental Status Examination Appearance: Disheveled Consciousness: Alert Orientation: Person, Place Motor Activity: Other (not formally assessed) Speech: Unremarkable Language: Adequate Fund of Knowledge: Poor Attention and Concentration: Inadequate Memory: Impaired Mood: Appropriate Affect: Appropriate Thought Process & Associations: Other (concrete) Thought Content: Other Hallucination Type: None Delusion Type: None Suicidal Ideation: No Suicidal Plan: No Suicidal Intention: No Homicidal Ideation: No Homicidal Plan: No Homicidal Intention: No Insight: Poor Judgment: Poor Results Labs labs reviewed Test 08/25/17 10:05 Valproic Acid (Depakene) Level 56 MCG/ML Vitals/IOs Vital Signs Date Time Temp Pulse Resp B/P (MAP) Pulse Ox O2 Delivery O2 Flow Rate FiO2 08/26/17 06:00 94 18 130/58 (82) 98 08/25/17 18:24 97.9 Assessment & Plan Problem List: (1) Unspecified psychosis ICD Codes: F29 - Unspecified psychosis not due to a substance or known physiological condition (2) Major neurocognitive disorder as late effect of traumatic brain injury with behavioral disturbance ICD Codes: S06.9X9S - Unspecified intracranial injury with loss of consciousness of unspecified duration, sequela; F02.81 - Dementia in other diseases classified elsewhere with behavioral disturbance Status: Acute Assessment & Plan Patient at this time has not had had any behavioral disturbances and has been calm and cooperative with staff for the most part. Patient continues to try to remove the splint of the right hand and has to constantly be redirected from refraining from doing this. Patient noted to have less reported dizziness with sitting or standing and blood pressure readings recently have improved. Patient 's VPA level was 56 but responding well to treatment therefore will not increase for now. We will continue current treatment regimen. Continue to monitor mood and behavior. Patient to continue recommendations as per orthopedic consult and primary medical team. Treatment team currently exploring collateral contacts that would assist in patient's discharge plan. Discharge planning in progress. Justification for Cont. Inpt. At risk for further decompensation if at lower level of care Discharge Planning To be determined. Kirby Richmond MD Aug 26, 2017 09:32
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
[2017-08-26] MEDS: FOLIC ACID 1 MG TAB PO SCH (11:05)
[2017-08-26] MEDS: THIAMINE HCL 100 MG TAB PO SCH (11:05)
[2017-08-26] MEDS: VALPROIC ACID 250 MG CAP PO SCH ×2 (11:05→20:24)
[2017-08-26] MEDS: QUEtiapine FUMARATE 25 MG TAB PO SCH ×3 (11:05→20:24)
[2017-08-26] MEDS: MULTIVITAMINS/MINERALS THERAPEUTIC TAB PO SCH (11:18)
[2017-08-26 18:15] VITALS: BP 144/67; PULSE 104; RESP 18; TEMP 98; O2SAT 96
[2017-08-26] MEDS: diphenhydrAMINE HCL 50 MG CAP PO PRN (20:25)
[2017-08-26] MEDS: QUEtiapine FUMARATE 200 MG TAB PO SCH (20:25)
[2017-08-27] MEDS: CEPHALEXIN MONOHYDRATE 500 MG CAP PO SCH ×4 (00:13→18:00)
[2017-08-27] MEDS: VALPROIC ACID 250 MG CAP PO SCH ×2 (09:33→20:49)
[2017-08-27] MEDS: FOLIC ACID 1 MG TAB PO SCH (09:33)
[2017-08-27] MEDS: MULTIVITAMINS/MINERALS THERAPEUTIC TAB PO SCH (09:33)
[2017-08-27] MEDS: QUEtiapine FUMARATE 25 MG TAB PO SCH ×3 (09:33→20:49)
[2017-08-27] MEDS: THIAMINE HCL 100 MG TAB PO SCH (09:33)
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
--- NOTE | 2017-08-27 13:59 | HHI.PYPN ---
Subjective Remarks Patient seen for follow-up, chart reviewed. Mental Status Examination Appearance: Disheveled Consciousness: Alert Orientation: Person, Place Motor Activity: Other (not formally assessed) Speech: Unremarkable Language: Adequate Fund of Knowledge: Poor Attention and Concentration: Inadequate Memory: Impaired Mood: Appropriate Affect: Appropriate Thought Process & Associations: Other (concrete) Thought Content: Other Hallucination Type: None Delusion Type: None Suicidal Ideation: No Suicidal Plan: No Suicidal Intention: No Homicidal Ideation: No Homicidal Plan: No Homicidal Intention: No Insight: Poor Judgment: Poor Results Vitals/IOs Vital Signs Date Time Temp Pulse Resp B/P (MAP) Pulse Ox O2 Delivery O2 Flow Rate FiO2 08/26/17 18:15 98.0 104 18 144/67 (92) 96 Intake and Output 08/27/17 08/27/17 08/28/17 08:00 16:00 00:00 Intake Total 480 ml 480 ml Balance 480 ml 480 ml Assessment & Plan Problem List: (1) Unspecified psychosis ICD Codes: F29 - Unspecified psychosis not due to a substance or known physiological condition (2) Major neurocognitive disorder as late effect of traumatic brain injury with behavioral disturbance ICD Codes: S06.9X9S - Unspecified intracranial injury with loss of consciousness of unspecified duration, sequela; F02.81 - Dementia in other diseases classified elsewhere with behavioral disturbance Status: Acute Assessment & Plan Estimated LOS: Kirby De Souza MD Aug 27, 2017 13:59
--- NOTE | 2017-08-27 15:26 | HHI.PYPN ---
Subjective Remarks Patient seen for follow up; chart reviewed. Discussion with nursing staff reported that the patient continues to remove dressing and splint from hand. Patient was seen sitting on hospital bed, calm and cooperative and noted to be upset at an unspecified person. Patient was not able to elaborate into why he was previously upset but was quickly able to engage in interview; noted to be confused still, alert and oriented only to person and place. He denies any physical complaints, denies any perceptual disturbances, nor SI or HI. Patient agreed to shower today. Review of Systems Except as stated in HPI: all other systems reviewed are Neg Mental Status Examination Appearance: Disheveled Consciousness: Alert Orientation: Person, Place Motor Activity: Other (not formally assessed) Speech: Unremarkable Language: Adequate Fund of Knowledge: Poor Attention and Concentration: Inadequate Memory: Impaired Mood: Appropriate Affect: Appropriate Thought Process & Associations: Other (concrete) Thought Content: Other Hallucination Type: None Delusion Type: None Suicidal Ideation: No Suicidal Plan: No Suicidal Intention: No Homicidal Ideation: No Homicidal Plan: No Homicidal Intention: No Insight: Poor Judgment: Poor Results Vitals/IOs Vital Signs Date Time Temp Pulse Resp B/P (MAP) Pulse Ox O2 Delivery O2 Flow Rate FiO2 08/26/17 18:15 98.0 104 18 144/67 (92) 96 Intake and Output 08/27/17 08/27/17 08/28/17 08:00 16:00 00:00 Intake Total 480 ml 480 ml Balance 480 ml 480 ml Assessment & Plan Problem List: (1) Unspecified psychosis ICD Codes: F29 - Unspecified psychosis not due to a substance or known physiological condition (2) Major neurocognitive disorder as late effect of traumatic brain injury with behavioral disturbance ICD Codes: S06.9X9S - Unspecified intracranial injury with loss of consciousness of unspecified duration, sequela; F02.81 - Dementia in other diseases classified elsewhere with behavioral disturbance Status: Acute Assessment & Plan Patient with no behavioral steroids recently, has not required ET0's, cooperative with staff. Continue to compliant with treatment. He continues to have baseline confusion secondary to his cognitive deficit as well as TBI. Continue to monitor mood and behavior. Continue her conditions for by medical team. Discharge planning in progress. Justification for Cont. Inpt. At risk of further decompensation of lower level of care Discharge Planning To be determined Kirby Richmond MD Aug 27, 2017 15:26
[2017-08-27 18:34] VITALS: BP 122/69; PULSE 61; RESP 16; TEMP 97.1; O2SAT 97
[2017-08-27] MEDS: QUEtiapine FUMARATE 200 MG TAB PO SCH (20:50)
[2017-08-28] MEDS: CEPHALEXIN MONOHYDRATE 500 MG CAP PO SCH ×5 (00:49→22:55)
[2017-08-28 06:46] VITALS: BP 113/67; PULSE 105; RESP 17; O2SAT 99
[2017-08-28] MEDS: VALPROIC ACID 250 MG CAP PO SCH ×2 (08:23→21:25)
[2017-08-28] MEDS: QUEtiapine FUMARATE 25 MG TAB PO SCH ×3 (08:23→21:26)
[2017-08-28] MEDS: MULTIVITAMINS/MINERALS THERAPEUTIC TAB PO SCH (08:23)
[2017-08-28] MEDS: FOLIC ACID 1 MG TAB PO SCH (08:23)
[2017-08-28] MEDS: THIAMINE HCL 100 MG TAB PO SCH (08:23)
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
--- NOTE | 2017-08-28 17:35 | HHI.PYPN ---
Subjective Remarks Patient seen for follow-up, chart reviewed. Discussion nursing staff reported the patient last evening was found putting blankets in pillows as if making a bonfire and pretending that he was heating his hands. Patient was found ambulating in the room noted to be calm and cooperative. Patient continued to be alert and oriented only to person and place but not to date or situation. Patient has not had any behavioral disturbances, has been compliant with treatment and cooperative with staff. Review of Systems Except as stated in HPI: all other systems reviewed are Neg Mental Status Examination Appearance: Disheveled Consciousness: Alert Orientation: Person, Place Motor Activity: Other (not formally assessed) Speech: Unremarkable Language: Adequate Fund of Knowledge: Poor Attention and Concentration: Inadequate Memory: Impaired Mood: Appropriate Affect: Appropriate Thought Process & Associations: Other (concrete) Thought Content: Other Hallucination Type: None Delusion Type: None Suicidal Ideation: No Suicidal Plan: No Suicidal Intention: No Homicidal Ideation: No Homicidal Plan: No Homicidal Intention: No Insight: Poor Judgment: Poor Results Vitals/IOs Vital Signs Date Time Temp Pulse Resp B/P (MAP) Pulse Ox O2 Delivery O2 Flow Rate FiO2 08/28/17 06:46 105 17 113/67 (82) 99 08/27/17 18:34 97.1 Intake and Output 08/28/17 08/28/17 08/29/17 08:00 16:00 00:00 Intake Total 1440 ml Balance 1440 ml Assessment & Plan Problem List: (1) Unspecified psychosis ICD Codes: F29 - Unspecified psychosis not due to a substance or known physiological condition (2) Major neurocognitive disorder as late effect of traumatic brain injury with behavioral disturbance ICD Codes: S06.9X9S - Unspecified intracranial injury with loss of consciousness of unspecified duration, sequela; F02.81 - Dementia in other diseases classified elsewhere with behavioral disturbance Status: Acute Assessment & Plan Patient this time continued with confusion disorientation and has not had behavioral disturbances recently. Patient was last noted episode of orthostatic hypotension, noted to be ambulating more denying any episodes of dizziness when sitting or standing. Continue current treatment. Continue multivitamin daily. Discharge planning in progress. Justification for Cont. Inpt. At risk for further decompensation if at lower level of care. Discharge Planning To be determined Kirby Richmond MD Aug 28, 2017 17:35
[2017-08-28] MEDS: QUEtiapine FUMARATE 200 MG TAB PO SCH (21:25)
[2017-08-28] MEDS: diphenhydrAMINE HCL 50 MG CAP PO PRN (22:55)
[2017-08-28] MEDS: ACETAMINOPHEN 325 MG TAB PO PRN (22:56)
[2017-08-29] MEDS: LORazepam 0.5 MG TAB PO PRN (03:12)
[2017-08-29 06:00] VITALS: BP 104/68; PULSE 65; RESP 19; TEMP 97.3; O2SAT 98
[2017-08-29] MEDS: CEPHALEXIN MONOHYDRATE 500 MG CAP PO SCH ×3 (06:14→17:23)
[2017-08-29 08:21] LABS: AUTOMATED NEUTROPHIL # 3.6 TH/MM3 (1.8-7.7); BASOPHIL # 0.1 TH/MM3 (0-0.2); EOSINOPHIL # 0.3 TH/MM3 (0-0.4); EOSINOPHIL % 4.1 % (0.0-4.0); HEMATOCRIT 33.5 % (39.0-51.0); HEMOGLOBIN 11.3 GM/DL (13.0-17.0); LYMPH % 28.1 % (9.0-44.0); LYMPHOCYTE # 1.9 TH/MM3 (1.0-4.8); MEAN CELL VOLUME 93.5 FL (80.0-100.0); MEAN CORPUSCULAR HEMOGLOBIN 31.7 PG (27.0-34.0); MEAN CORPUSCULAR HGB CONC 33.9 % (32.0-36.0); MEAN PLATELET VOLUME 9.6 FL (7.0-11.0); MONO % 12.5 % (0.0-8.0); MONOCYTE # 0.8 TH/MM3 (0-0.9); NEUT % 54.3 % (16.0-70.0); PLATELET COUNT 211 TH/MM3 (150-450); RED BLOOD COUNT 3.58 MIL/MM3 (4.50-5.90); RED CELL DISTRIBUTION WIDTH 14.9 % (11.6-17.2); WHITE BLOOD COUNT 6.6 TH/MM3 (4.0-11.0)
[2017-08-29] MEDS: THIAMINE HCL 100 MG TAB PO SCH (08:24)
[2017-08-29] MEDS: FOLIC ACID 1 MG TAB PO SCH (08:24)
[2017-08-29] MEDS: VALPROIC ACID 250 MG CAP PO SCH ×2 (08:25→20:55)
[2017-08-29] MEDS: QUEtiapine FUMARATE 25 MG TAB PO SCH ×3 (08:25→20:54)
[2017-08-29] MEDS: MULTIVITAMINS/MINERALS THERAPEUTIC TAB PO SCH (08:30)
[2017-08-29 08:45] LABS: ALBUMIN 3.1 GM/DL (3.4-5.0); ALT (GPT) 13 U/L (12-78); AST (GOT) 15 U/L (15-37); BLOOD UREA NITROGEN 21 MG/DL (7-18); CALCIUM 9.2 MG/DL (8.5-10.1); CHLORIDE 100 MEQ/L (98-107); CREATININE 0.75 MG/DL (0.60-1.30); GLOMERULAR FILTRATION RATE 102 ML/MIN (>89); GLUCOSE,RANDOM 78 MG/DL (74-106); MAGNESIUM 2.3 MG/DL (1.5-2.5); PHOSPHORUS 3.9 MG/DL (2.5-4.9); SODIUM (NA) 139 MEQ/L (136-145)
[2017-08-29 08:47] LABS: ALKALINE PHOSPHATASE 110 U/L (45-117); TOTAL BILIRUBIN ADULT 0.2 MG/DL (0.2-1.0); TOTAL PROTEIN 6.6 GM/DL (6.4-8.2)
--- NOTE | 2017-08-29 10:52 | HHI.PYPN ---
Subjective Remarks The patient was seen today for psychiatric reevaluation. Patient was calm, cooperative, pleasantly confused, in a good spirit. Eating his breakfast, reports feeling much better. Patient was able to sing "Ronen Boy for me". At times becomes disorganized, he answered questions selectively. Presently the patient is oriented in time, person and place today, as able to tell me that depressing of denies state is "the rich nomi trump". He has been compliant with his medications, side effects reported. No agitation or aggressive behavior reported in the last 24 hours. Mental Status Examination Appearance: Disheveled Consciousness: Alert Orientation: Person, Place, Date/Time Motor Activity: Other (not formally assessed) Speech: Unremarkable Language: Adequate Fund of Knowledge: Poor Attention and Concentration: Inadequate Memory: Impaired Mood: Appropriate Affect: Appropriate Thought Process & Associations: Other (concrete) Thought Content: Other Hallucination Type: None Delusion Type: None Suicidal Ideation: No Suicidal Plan: No Suicidal Intention: No Homicidal Ideation: No Homicidal Plan: No Homicidal Intention: No Insight: Poor Judgment: Poor Results Labs Test 08/29/17 07:27 White Blood Count 6.6 TH/MM3 Red Blood Count 3.58 MIL/MM3 Hemoglobin 11.3 GM/DL Hematocrit 33.5 % Mean Corpuscular Volume 93.5 FL Mean Corpuscular Hemoglobin 31.7 PG Mean Corpuscular Hemoglobin Concent 33.9 % Red Cell Distribution Width 14.9 % Platelet Count 211 TH/MM3 Mean Platelet Volume 9.6 FL Neutrophils (%) (Auto) 54.3 % Lymphocytes (%) (Auto) 28.1 % Monocytes (%) (Auto) 12.5 % Eosinophils (%) (Auto) 4.1 % Basophils (%) (Auto) 1.0 % Neutrophils # (Auto) 3.6 TH/MM3 Lymphocytes # (Auto) 1.9 TH/MM3 Monocytes # (Auto) 0.8 TH/MM3 Eosinophils # (Auto) 0.3 TH/MM3 Basophils # (Auto) 0.1 TH/MM3 CBC Comment DIFF FINAL Differential Comment Blood Urea Nitrogen 21 MG/DL Creatinine 0.75 MG/DL Random Glucose 78 MG/DL Total Protein 6.6 GM/DL Albumin 3.1 GM/DL Calcium Level 9.2 MG/DL Phosphorus Level 3.9 MG/DL Magnesium Level 2.3 MG/DL Alkaline Phosphatase 110 U/L Aspartate Amino Transf (AST/SGOT) 15 U/L Alanine Aminotransferase (ALT/SGPT) 13 U/L Total Bilirubin 0.2 MG/DL Sodium Level 139 MEQ/L Potassium Level 3.7 MEQ/L Chloride Level 100 MEQ/L Carbon Dioxide Level 34.0 MEQ/L Anion Gap 5 MEQ/L Estimat Glomerular Filtration Rate 102 ML/MIN Vitals/IOs Vital Signs Date Time Temp Pulse Resp B/P (MAP) Pulse Ox O2 Delivery O2 Flow Rate FiO2 08/29/17 06:00 97.3 65 19 104/68 (80) 98 Intake and Output 08/29/17 08/29/17 08/30/17 08:00 16:00 00:00 Intake Total 0 ml Balance 0 ml Assessment & Plan Problem List: (1) Unspecified psychosis ICD Codes: F29 - Unspecified psychosis not due to a substance or known physiological condition Assessment & Plan: Continue current psychotropic regimen. Brief supportive psychotherapy and psychoeducation provided. (2) Major neurocognitive disorder as late effect of traumatic brain injury with behavioral disturbance ICD Codes: S06.9X9S - Unspecified intracranial injury with loss of consciousness of unspecified duration, sequela; F02.81 - Dementia in other diseases classified elsewhere with behavioral disturbance Status: Acute Assessment & Plan Estimated LOS: days Justification for Cont. Inpt. Patient has an elevated risk to decompensate at a lower level of care. Hola Brady MD Aug 29, 2017 10:52
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
[2017-08-29 18:27] VITALS: BP 126/60; PULSE 100; RESP 18; TEMP 97.9; O2SAT 95
[2017-08-29] MEDS: QUEtiapine FUMARATE 200 MG TAB PO SCH (20:54)
[2017-08-29] MEDS: diphenhydrAMINE HCL 50 MG CAP PO PRN (20:57)
[2017-08-30] MEDS: LORazepam 0.5 MG TAB PO PRN (00:26)
[2017-08-30] MEDS: CEPHALEXIN MONOHYDRATE 500 MG CAP PO SCH ×5 (00:26→23:49)
[2017-08-30 06:28] VITALS: BP 132/77; PULSE 94; RESP 20; TEMP 97.6; O2SAT 97
--- NOTE | 2017-08-30 08:54 | HHI.PYPN ---
Subjective Remarks Patient seen today in his room with nurse Johanny, chart review, patient discussed with nurse. Patient compliant medications. Patient resting quietly but he is thin slight slender somewhat scruffy appearing is pleasantly confused and disoriented. Its vague if he has any auditory hallucinations. Denies suicidality homicidality. For now continue treatment Review of Systems Except as stated in HPI: all other systems reviewed are Neg Mental Status Examination Appearance: Disheveled Consciousness: Alert Orientation: Person, Place, Date/Time Motor Activity: Other (not formally assessed) Speech: Unremarkable Language: Adequate Fund of Knowledge: Poor Attention and Concentration: Inadequate Memory: Impaired Mood: Appropriate Affect: Appropriate Thought Process & Associations: Other (concrete) Thought Content: Other Hallucination Type: None Delusion Type: None Suicidal Ideation: No Suicidal Plan: No Suicidal Intention: No Homicidal Ideation: No Homicidal Plan: No Homicidal Intention: No Insight: Poor Judgment: Poor Results Vitals/IOs Vital Signs Date Time Temp Pulse Resp B/P (MAP) Pulse Ox O2 Delivery O2 Flow Rate FiO2 08/30/17 06:28 97.6 94 20 132/77 (95) 97 Assessment & Plan Problem List: (1) Unspecified psychosis ICD Codes: F29 - Unspecified psychosis not due to a substance or known physiological condition (2) Major neurocognitive disorder as late effect of traumatic brain injury with behavioral disturbance ICD Codes: S06.9X9S - Unspecified intracranial injury with loss of consciousness of unspecified duration, sequela; F02.81 - Dementia in other diseases classified elsewhere with behavioral disturbance Status: Acute Assessment & Plan Estimated LOS: days patient diffusely confused disoriented. Though calm and pleasant, no behavioral problems. For now continue treatment Justification for Cont. Inpt. At this time patient will decompensate if place the lower level of care Discharge Planning Placement may be problematic. Ulices Moscoso MD Aug 30, 2017 08:54
[2017-08-30] MEDS: VALPROIC ACID 250 MG CAP PO SCH ×2 (09:18→20:29)
[2017-08-30] MEDS: QUEtiapine FUMARATE 25 MG TAB PO SCH ×3 (09:18→20:29)
[2017-08-30] MEDS: THIAMINE HCL 100 MG TAB PO SCH (09:18)
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
[2017-08-30 18:23] VITALS: BP 100/57; PULSE 107; RESP 18; TEMP 97.8; O2SAT 95
[2017-08-30] MEDS: QUEtiapine FUMARATE 200 MG TAB PO SCH (20:29)
[2017-08-31] MEDS: CEPHALEXIN MONOHYDRATE 500 MG CAP PO SCH ×3 (06:07→17:15)
[2017-08-31 06:26] VITALS: BP 106/57; PULSE 95; RESP 18; TEMP 97.4; O2SAT 95
--- NOTE | 2017-08-31 08:51 | HHI.PYPN ---
Subjective Remarks Patient seen today in his room with nurse Maynor, patient calm cooperative pleasant with me somewhat childlike in his appearance. His compliant with medications. Is been no behavioral problems Review of Systems Except as stated in HPI: all other systems reviewed are Neg Mental Status Examination Appearance: Disheveled Consciousness: Alert Orientation: Person, Place, Date/Time Motor Activity: Other (not formally assessed) Speech: Unremarkable Language: Adequate Fund of Knowledge: Poor Attention and Concentration: Inadequate Memory: Impaired Mood: Appropriate Affect: Appropriate Thought Process & Associations: Other (concrete) Thought Content: Other Hallucination Type: None Delusion Type: None Suicidal Ideation: No Suicidal Plan: No Suicidal Intention: No Homicidal Ideation: No Homicidal Plan: No Homicidal Intention: No Insight: Poor Judgment: Poor Results Vitals/IOs Vital Signs Date Time Temp Pulse Resp B/P (MAP) Pulse Ox O2 Delivery O2 Flow Rate FiO2 08/31/17 06:26 97.4 95 18 106/57 (73) 95 Intake and Output 08/31/17 08/31/17 09/01/17 08:00 16:00 00:00 Intake Total 120 ml Balance 120 ml Assessment & Plan Problem List: (1) Unspecified psychosis ICD Codes: F29 - Unspecified psychosis not due to a substance or known physiological condition (2) Major neurocognitive disorder as late effect of traumatic brain injury with behavioral disturbance ICD Codes: S06.9X9S - Unspecified intracranial injury with loss of consciousness of unspecified duration, sequela; F02.81 - Dementia in other diseases classified elsewhere with behavioral disturbance Status: Acute Assessment & Plan Estimated LOS: days patient continues somewhat confused though pleasant without any behavioral problems Justification for Cont. Inpt. At this time patient decompensated placed a lower level of care Discharge Planning To be determined Ulices Moscoso MD Aug 31, 2017 08:51
[2017-08-31] MEDS: THIAMINE HCL 100 MG TAB PO SCH (09:27)
[2017-08-31] MEDS: QUEtiapine FUMARATE 25 MG TAB PO SCH ×3 (09:27→21:00)
[2017-08-31] MEDS: VALPROIC ACID 250 MG CAP PO SCH ×2 (09:27→19:48)
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
[2017-08-31 19:04] VITALS: BP 116/59; PULSE 100; RESP 17; TEMP 97.8; O2SAT 99
[2017-08-31] MEDS: LORazepam 0.5 MG TAB PO PRN (19:48)
[2017-08-31] MEDS: QUEtiapine FUMARATE 200 MG TAB PO SCH (19:48)
[2017-09-01] MEDS: CEPHALEXIN MONOHYDRATE 500 MG CAP PO SCH ×5 (00:51→23:08)
[2017-09-01 06:10] VITALS: BP 122/73; PULSE 84; RESP 17; TEMP 97.7; O2SAT 94
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
[2017-09-01] MEDS: QUEtiapine FUMARATE 25 MG TAB PO SCH ×3 (11:16→20:17)
[2017-09-01] MEDS: THIAMINE HCL 100 MG TAB PO SCH (11:16)
[2017-09-01] MEDS: VALPROIC ACID 250 MG CAP PO SCH ×2 (11:17→20:17)
--- NOTE | 2017-09-01 17:51 | HHI.PYPN ---
Subjective Remarks Patient seen for follow up; chart reviewed. Discussion with nursing staff reported that patient with no behavioral disturbances, redirectible. Patient found lying on hospital bed, seen later in the day as patient had attended groups in the morning. He states feeling "alright", continues with limited orientation but alert. He denies any physical symptoms, he denies any perceptual disturbances, or delusions. Patient denies any episodes of dizziness , tolerating medications well. Review of Systems Except as stated in HPI: all other systems reviewed are Neg Mental Status Examination Appearance: Disheveled (but showered today and in hospital [facility].) Consciousness: Alert Orientation: Person, Place, Date/Time Motor Activity: Other (not formally assessed) Speech: Unremarkable Language: Adequate Fund of Knowledge: Poor Attention and Concentration: Inadequate Memory: Impaired Mood: Appropriate Affect: Appropriate Thought Process & Associations: Other (concrete) Thought Content: Other Hallucination Type: None Delusion Type: None Suicidal Ideation: No Suicidal Plan: No Suicidal Intention: No Homicidal Ideation: No Homicidal Plan: No Homicidal Intention: No Insight: Poor Judgment: Poor Results Vitals/IOs Vital Signs Date Time Temp Pulse Resp B/P (MAP) Pulse Ox O2 Delivery O2 Flow Rate FiO2 09/01/17 06:10 97.7 84 17 122/73 (89) 94 Intake and Output 09/01/17 09/01/17 09/02/17 08:00 16:00 00:00 Intake Total 1140 ml Balance 1140 ml Assessment & Plan Problem List: (1) Unspecified psychosis ICD Codes: F29 - Unspecified psychosis not due to a substance or known physiological condition (2) Major neurocognitive disorder as late effect of traumatic brain injury with behavioral disturbance ICD Codes: S06.9X9S - Unspecified intracranial injury with loss of consciousness of unspecified duration, sequela; F02.81 - Dementia in other diseases classified elsewhere with behavioral disturbance Status: Acute Assessment & Plan Patient at this time continues to have baseline confusion and alert and oriented only to person and place but alert without any further episodes of dizziness. patient tolerating medications well. Continue current treatment. Continue recommendations as per prior medical team. Discharge planning in progress. Justification for Cont. Inpt. At risk for further decompensation if at lower level of care Discharge Planning To be determined Kirby Richmond MD Sep 01, 2017 17:51
[2017-09-01 18:39] VITALS: BP 114/59; PULSE 97; RESP 18; TEMP 97.8; O2SAT 96
[2017-09-01] MEDS: QUEtiapine FUMARATE 200 MG TAB PO SCH (20:16)
[2017-09-01] MEDS: diphenhydrAMINE HCL 50 MG CAP PO PRN (23:08)
[2017-09-02] MEDS: CEPHALEXIN MONOHYDRATE 500 MG CAP PO SCH ×3 (05:17→18:00)
[2017-09-02 05:44] VITALS: BP 106/58; PULSE 88; RESP 18; TEMP 97.7
[2017-09-02] MEDS: VALPROIC ACID 250 MG CAP PO SCH ×2 (09:22→20:53)
[2017-09-02] MEDS: QUEtiapine FUMARATE 25 MG TAB PO SCH ×3 (09:23→20:53)
[2017-09-02] MEDS: THIAMINE HCL 100 MG TAB PO SCH (09:23)
--- NOTE | 2017-09-02 09:38 | HHI.PYPN ---
Subjective Remarks Patient seen for follow-up, chart reviewed. Discussion and history staff reported the patient appears to be doing much better with no behavioral disturbances. Patient was found lying in hospital bed, cooperative. Patient continues to have limited orientation, concrete thinking but denies any physical complaints at this time. Patient reports having improvement of feeling dizzy when standing or sitting denies feeling unsteady when ambulating. Patient reports eating and drinking well, reports tolerating medications well. Denies any perceptional disturbances or delusions at this time. Review of Systems Except as stated in HPI: all other systems reviewed are Neg Mental Status Examination Appearance: Disheveled (But has showered) Consciousness: Alert Orientation: Person, Place, Date/Time Motor Activity: Other (not formally assessed) Speech: Unremarkable Language: Adequate Fund of Knowledge: Poor Attention and Concentration: Inadequate Memory: Impaired Mood: Appropriate Affect: Appropriate Thought Process & Associations: Other (concrete) Thought Content: Other Hallucination Type: None Delusion Type: None Suicidal Ideation: No Suicidal Plan: No Suicidal Intention: No Homicidal Ideation: No Homicidal Plan: No Homicidal Intention: No Insight: Poor Judgment: Poor Results Vitals/IOs Vital Signs Date Time Temp Pulse Resp B/P (MAP) Pulse Ox O2 Delivery O2 Flow Rate FiO2 09/02/17 05:44 97.7 88 18 106/58 (74) 09/01/17 18:39 96 Intake and Output 09/02/17 09/02/17 09/03/17 08:00 16:00 00:00 Intake Total 0 ml 360 ml Balance 0 ml 360 ml Assessment & Plan Problem List: (1) Unspecified psychosis ICD Codes: F29 - Unspecified psychosis not due to a substance or known physiological condition (2) Major neurocognitive disorder as late effect of traumatic brain injury with behavioral disturbance ICD Codes: S06.9X9S - Unspecified intracranial injury with loss of consciousness of unspecified duration, sequela; F02.81 - Dementia in other diseases classified elsewhere with behavioral disturbance Status: Acute Assessment & Plan Patient continues with baseline confusion likely secondary to TBI and cognitive deficits. Patient no longer having perceptual disturbances or delusions continues to require supervision in his patient's likely unable to care for self independently. continue current treatment. Continue monitoring mood and behavior. Discharge planning in progress. Justification for Cont. Inpt. At risk for further decompensation if at lower level of care Kirby Richmond MD Sep 02, 2017 09:38
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
[2017-09-02 17:44] VITALS: BP 111/57; PULSE 95; RESP 18; TEMP 97.8; O2SAT 97
[2017-09-02 19:25] VITALS: BP 111/57; PULSE 95; RESP 18; TEMP 97.8; O2SAT 95
[2017-09-02] MEDS: QUEtiapine FUMARATE 200 MG TAB PO SCH (20:53)
[2017-09-03] MEDS: CEPHALEXIN MONOHYDRATE 500 MG CAP PO SCH ×4 (06:00→17:42)
[2017-09-03 06:28] VITALS: BP 84/52; PULSE 90; RESP 16; O2SAT 96
[2017-09-03] MEDS: QUEtiapine FUMARATE 25 MG TAB PO SCH ×3 (08:49→21:00)
[2017-09-03] MEDS: THIAMINE HCL 100 MG TAB PO SCH (08:49)
[2017-09-03] MEDS: VALPROIC ACID 250 MG CAP PO SCH ×2 (08:49→21:00)
--- NOTE | 2017-09-03 12:42 | HHI.PYPN ---
Subjective Remarks Patient seen for follow, chart reviewed. Discussion nursing staff reported the patient slept well. Patient was found lying in hospital bed B, cooperative. Patient denies any dizziness upon sitting or standing reported tolerating medications well. Patient reports he will no difficulty with bowel movement. Patient reports some mild pain of right hand from previous fracture but states that it is tolerable. Patient denies any perceptual disturbances or delusions at this time. Patient continues to have limited orientation. Review of Systems Except as stated in HPI: all other systems reviewed are Neg Mental Status Examination Appearance: Disheveled (But has showered) Consciousness: Alert Orientation: Person, Place, Date/Time Motor Activity: Other (not formally assessed) Speech: Unremarkable Language: Adequate Fund of Knowledge: Poor Attention and Concentration: Inadequate Memory: Impaired Mood: Appropriate Affect: Appropriate Thought Process & Associations: Other (concrete) Thought Content: Appropriate, Other Hallucination Type: None Delusion Type: None Suicidal Ideation: No Suicidal Plan: No Suicidal Intention: No Homicidal Ideation: No Homicidal Plan: No Homicidal Intention: No Insight: Poor Judgment: Poor Results Vitals/IOs Vital Signs Date Time Temp Pulse Resp B/P (MAP) Pulse Ox O2 Delivery O2 Flow Rate FiO2 09/03/17 06:28 90 16 84/52 (63) 96 09/02/17 19:25 97.8 Intake and Output 09/03/17 09/03/17 09/04/17 08:00 16:00 00:00 Intake Total 600 ml Balance 600 ml Assessment & Plan Problem List: (1) Unspecified psychosis ICD Codes: F29 - Unspecified psychosis not due to a substance or known physiological condition (2) Major neurocognitive disorder as late effect of traumatic brain injury with behavioral disturbance ICD Codes: S06.9X9S - Unspecified intracranial injury with loss of consciousness of unspecified duration, sequela; F02.81 - Dementia in other diseases classified elsewhere with behavioral disturbance Status: Acute Assessment & Plan Patient with no behavioral disturbances. Patient continues to be confused at baseline secondary to TBI and neurocognitive deficits. Patient tolerated medications well. Continue current treatment. Continue to monitor mood and behavior. Discharge planning in progress. Justification for Cont. Inpt. At risk of further decompensation at lower level care Discharge Planning To be determined Kirby Richmond MD Sep 03, 2017 12:42
[2017-09-03 18:43] VITALS: BP 108/51; PULSE 98; RESP 20; TEMP 98.4; O2SAT 96
[2017-09-03] MEDS: QUEtiapine FUMARATE 200 MG TAB PO SCH (21:00)
[2017-09-04] MEDS: CEPHALEXIN MONOHYDRATE 500 MG CAP PO SCH ×5 (05:46→23:03)
[2017-09-04 06:00] VITALS: BP 104/62; PULSE 96; RESP 16; TEMP 98.3; O2SAT 98
[2017-09-04] MEDS: THIAMINE HCL 100 MG TAB PO SCH (08:00)
[2017-09-04] MEDS: QUEtiapine FUMARATE 25 MG TAB PO SCH ×3 (08:01→20:20)
[2017-09-04] MEDS: VALPROIC ACID 250 MG CAP PO SCH ×2 (08:01→20:20)
--- NOTE | 2017-09-04 10:24 | HHI.PYPN ---
Subjective Remarks Patient seen for follow, chart reviewed. Discussion nursing staff reported the patient has had no behavioral disturbances and has been calm and cooperative with staff. Patient was found ambulating noted, cooperative. Patient reports having had a good breakfast denies any physical pain at this time, denies any dizziness when sitting up or standing. Patient reports tolerating medications well patient denies any perceptual disturbances or delusions at this time continues to have poor orientation secondary to TBI and neurocognitive deficits. Review of Systems Except as stated in HPI: all other systems reviewed are Neg Mental Status Examination Appearance: Disheveled (But has showered) Consciousness: Alert Orientation: Person, Place, Date/Time Motor Activity: Other (not formally assessed) Speech: Unremarkable Language: Adequate Fund of Knowledge: Poor Attention and Concentration: Inadequate Memory: Impaired Mood: Appropriate Affect: Appropriate Thought Process & Associations: Other (concrete) Thought Content: Appropriate, Other Hallucination Type: None Delusion Type: None Suicidal Ideation: No Suicidal Plan: No Suicidal Intention: No Homicidal Ideation: No Homicidal Plan: No Homicidal Intention: No Insight: Poor Judgment: Poor Results Vitals/IOs Vital Signs Date Time Temp Pulse Resp B/P (MAP) Pulse Ox O2 Delivery O2 Flow Rate FiO2 09/04/17 06:00 98.3 96 16 104/62 (76) 98 Intake and Output 09/04/17 09/04/17 09/05/17 08:00 16:00 00:00 Intake Total 420 ml Balance 420 ml Assessment & Plan Problem List: (1) Unspecified psychosis ICD Codes: F29 - Unspecified psychosis not due to a substance or known physiological condition (2) Major neurocognitive disorder as late effect of traumatic brain injury with behavioral disturbance ICD Codes: S06.9X9S - Unspecified intracranial injury with loss of consciousness of unspecified duration, sequela; F02.81 - Dementia in other diseases classified elsewhere with behavioral disturbance Status: Acute Assessment & Plan Patient this time continues with baseline neurocognitive deficits which impede his insight and judgment but with good behavioral control, continue current treatment. Continue monitoring with behavior. Discharge planning in progress. Justification for Cont. Inpt. At risk for further decompensation at lower level of care Discharge Planning To be determined Kirby Richmond MD Sep 04, 2017 10:24
[2017-09-04 18:44] VITALS: BP 90/50; PULSE 102; RESP 16; TEMP 98.4; O2SAT 92
[2017-09-04] MEDS: QUEtiapine FUMARATE 200 MG TAB PO SCH (20:21)
[2017-09-04] MEDS: diphenhydrAMINE HCL 50 MG CAP PO PRN (23:03)
[2017-09-05 06:00] VITALS: BP 151/105; PULSE 95; RESP 18; TEMP 97.4; O2SAT 98
[2017-09-05] MEDS: CEPHALEXIN MONOHYDRATE 500 MG CAP PO SCH ×4 (06:00→20:41)
[2017-09-05] MEDS: THIAMINE HCL 100 MG TAB PO SCH (10:14)
[2017-09-05] MEDS: VALPROIC ACID 250 MG CAP PO SCH ×2 (10:14→20:41)
[2017-09-05] MEDS: QUEtiapine FUMARATE 25 MG TAB PO SCH ×3 (10:15→20:41)
--- NOTE | 2017-09-05 12:02 | HHI.PYPN ---
Subjective Remarks Patient seen for follow-up, chart reviewed. Discussion wishes to reported the patient has had no behavioral issues and no changes in mood. Patient was found lying in hospital bed noted to be in good spirits, cooperative continues to have limited orientation the patient has baseline neurocognitive deficits secondary to TBI and dementia. Patient has a physical complaints at this time reports eating and drinking well no difficulty with bowel movements and tolerating medications well. Patient denies any episodes of dizziness upon standing or walking. Patient denies any SI, HI, AVH or delusions. Review of Systems Except as stated in HPI: all other systems reviewed are Neg Mental Status Examination Appearance: Disheveled (But has showered) Consciousness: Alert Orientation: Person, Place, Date/Time Motor Activity: Other (not formally assessed) Speech: Unremarkable Language: Adequate Fund of Knowledge: Poor Attention and Concentration: Inadequate Memory: Impaired Mood: Appropriate Affect: Appropriate Thought Process & Associations: Other (concrete) Thought Content: Appropriate, Other Hallucination Type: None Delusion Type: None Suicidal Ideation: No Suicidal Plan: No Suicidal Intention: No Homicidal Ideation: No Homicidal Plan: No Homicidal Intention: No Insight: Poor Judgment: Poor Results Vitals/IOs Vital Signs Date Time Temp Pulse Resp B/P (MAP) Pulse Ox O2 Delivery O2 Flow Rate FiO2 09/05/17 06:00 97.4 95 18 151/105 (120) 98 Intake and Output 09/05/17 09/05/17 09/06/17 08:00 16:00 00:00 Intake Total 0 ml 600 ml Balance 0 ml 600 ml Assessment & Plan Problem List: (1) Unspecified psychosis ICD Codes: F29 - Unspecified psychosis not due to a substance or known physiological condition (2) Major neurocognitive disorder as late effect of traumatic brain injury with behavioral disturbance ICD Codes: S06.9X9S - Unspecified intracranial injury with loss of consciousness of unspecified duration, sequela; F02.81 - Dementia in other diseases classified elsewhere with behavioral disturbance Status: Acute Assessment & Plan Patient continues to have baseline confusion secondary to TBI and neurocognitive deficits. No behavioral disturbances patient tolerated medications will continue to monitor behavior. Continue to monitor orthostatic hypotension secondary to neuroleptics. Continue to encourage patient to maintain personal hygiene and participate in groups and activities. Discharge planning in progress. Justification for Cont. Inpt. At risk for decompensation at lower level of care. Discharge Planning To be determined Kirby Richmond MD Sep 05, 2017 12:02
[2017-09-05 18:00] VITALS: BP 89/53; PULSE 112; RESP 18; TEMP 97.4; O2SAT 91
[2017-09-05] MEDS: QUEtiapine FUMARATE 200 MG TAB PO SCH (20:41)
[2017-09-05] MEDS: diphenhydrAMINE HCL 50 MG CAP PO PRN (20:41)
[2017-09-06] MEDS: CEPHALEXIN MONOHYDRATE 500 MG CAP PO SCH ×4 (06:00→23:28)
[2017-09-06 06:33] VITALS: BP 122/60; PULSE 87; RESP 17; TEMP 98.6; O2SAT 97
[2017-09-06] MEDS: QUEtiapine FUMARATE 25 MG TAB PO SCH ×3 (08:11→20:01)
[2017-09-06] MEDS: THIAMINE HCL 100 MG TAB PO SCH (08:11)
[2017-09-06] MEDS: VALPROIC ACID 250 MG CAP PO SCH ×2 (08:11→20:02)
--- NOTE | 2017-09-06 16:40 | HHI.PYPN ---
Subjective Remarks Patient seen and examined with nurse in weekend coverage for Dr. Richmond. Chart reviewed. Case discussed with nursing staff. Patient no real behavioral issue per nursing staff. He is medication compliant. On my examination today, patient is oriented to person, August and [place]. He denies any SI, HI or AVH. He is calm and pleasant, although his thought process is somewhat vague and disorganized. No side effects from medications. No physical complaints. Review of Systems ROS Limitations: Poor Historian Except as stated in HPI: all other systems reviewed are Neg Mental Status Examination Appearance: Disheveled (But has showered) Consciousness: Alert Orientation: Person, Place, Date/Time Motor Activity: Other (no motor abnormalities noted) Speech: Unremarkable Language: Adequate Fund of Knowledge: Poor Attention and Concentration: Inadequate Memory: Impaired Mood: Appropriate Affect: Appropriate Thought Process & Associations: Other (vague, somewhat disorganized at times) Thought Content: Other (some poverty of thought) Hallucination Type: None Delusion Type: None Suicidal Ideation: No Suicidal Plan: No Suicidal Intention: No Homicidal Ideation: No Homicidal Plan: No Homicidal Intention: No Insight: Poor Judgment: Poor Results Labs Labs reviewed. No recent laboratories. Vitals/IOs Vital Signs Date Time Temp Pulse Resp B/P (MAP) Pulse Ox O2 Delivery O2 Flow Rate FiO2 09/06/17 06:33 98.6 87 17 122/60 (80) 97 Assessment & Plan Problem List: (1) Unspecified psychosis ICD Codes: F29 - Unspecified psychosis not due to a substance or known physiological condition (2) Major neurocognitive disorder as late effect of traumatic brain injury with behavioral disturbance ICD Codes: S06.9X9S - Unspecified intracranial injury with loss of consciousness of unspecified duration, sequela; F02.81 - Dementia in other diseases classified elsewhere with behavioral disturbance Status: Acute Assessment & Plan Continue current psychotropics as ordered. Continue to monitor on the inpatient unit. Continue other medications and care as ordered. Justification for Cont. Inpt. Risk for decompensation in less restrictive environment. Discharge Planning Per Dr. Richmond. Walter Wood MD Sep 06, 2017 16:40
[2017-09-06 17:00] VITALS: BP 104/61; PULSE 90; RESP 17; TEMP 98.3; O2SAT 97
[2017-09-06] MEDS: QUEtiapine FUMARATE 200 MG TAB PO SCH (20:01)
[2017-09-06] MEDS: diphenhydrAMINE HCL 50 MG CAP PO PRN (20:02)
[2017-09-06] MEDS: LORazepam 0.5 MG TAB PO PRN (20:02)
[2017-09-07] MEDS: CEPHALEXIN MONOHYDRATE 500 MG CAP PO SCH ×3 (05:24→17:47)
[2017-09-07] MEDS: QUEtiapine FUMARATE 25 MG TAB PO SCH ×3 (08:20→20:37)
[2017-09-07] MEDS: VALPROIC ACID 250 MG CAP PO SCH ×2 (08:20→20:37)
[2017-09-07] MEDS: THIAMINE HCL 100 MG TAB PO SCH (08:20)
--- NOTE | 2017-09-07 16:27 | HHI.PYPN ---
Subjective Remarks Patient seen and examined with nurse in coverage for Dr. Richmond. Chart reviewed. Case discussed with nursing staff. Patient no behavioral problem on the inpatient unit. On my examination today, the patient is calm and pleasant. He is somewhat childlike and confused. No side effects from medications. No physical complaints. Review of Systems ROS Limitations: Poor Historian Except as stated in HPI: all other systems reviewed are Neg Mental Status Examination Appearance: Other (remains a little disheveled) Consciousness: Alert Orientation: Person, Place (at least) Motor Activity: Other (no abnormal motor movements noted) Speech: Unremarkable Language: Adequate Fund of Knowledge: Poor Attention and Concentration: Inadequate Memory: Impaired Mood: Appropriate Affect: Appropriate Thought Process & Associations: Other (vague, somewhat disorganized at times) Thought Content: Other (some poverty of thought) Hallucination Type: None Delusion Type: None Suicidal Ideation: No Suicidal Plan: No Suicidal Intention: No Homicidal Ideation: No Homicidal Plan: No Homicidal Intention: No Insight: Poor Judgment: Poor Results Labs Labs reviewed. No new labs. Vitals/IOs Vital Signs Date Time Temp Pulse Resp B/P (MAP) Pulse Ox O2 Delivery O2 Flow Rate FiO2 09/06/17 17:00 98.3 90 17 104/61 (75) 97 Intake and Output 09/07/17 09/07/17 09/08/17 08:00 16:00 00:00 Intake Total 480 ml 1080 ml Balance 480 ml 1080 ml Assessment & Plan Problem List: (1) Unspecified psychosis ICD Codes: F29 - Unspecified psychosis not due to a substance or known physiological condition (2) Major neurocognitive disorder as late effect of traumatic brain injury with behavioral disturbance ICD Codes: S06.9X9S - Unspecified intracranial injury with loss of consciousness of unspecified duration, sequela; F02.81 - Dementia in other diseases classified elsewhere with behavioral disturbance Status: Acute Assessment & Plan Continue current psychiatric medications as ordered. Continue to monitor on the inpatient unit. Continue other medications and care as ordered. Justification for Cont. Inpt. Risk for decompensation and less restrictive environment. Discharge Planning Per Walter Strong MD Sep 07, 2017 16:27
[2017-09-07 18:05] VITALS: BP 103/56; PULSE 83; RESP 18; TEMP 97.7; O2SAT 96
[2017-09-07] MEDS: QUEtiapine FUMARATE 200 MG TAB PO SCH (20:37)
[2017-09-07] MEDS: diphenhydrAMINE HCL 50 MG CAP PO PRN (20:37)
[2017-09-07] MEDS: LORazepam 1 MG TAB PO PRN (20:37)
[2017-09-08] MEDS: CEPHALEXIN MONOHYDRATE 500 MG CAP PO SCH ×4 (06:00→18:15)
[2017-09-08 06:14] VITALS: BP 106/55; PULSE 98; RESP 16; TEMP 98; O2SAT 98
[2017-09-08] MEDS: THIAMINE HCL 100 MG TAB PO SCH (09:40)
[2017-09-08] MEDS: VALPROIC ACID 250 MG CAP PO SCH ×2 (09:41→19:52)
[2017-09-08] MEDS: QUEtiapine FUMARATE 25 MG TAB PO SCH ×3 (09:41→19:53)
--- NOTE | 2017-09-08 10:26 | HHI.PYPN ---
Subjective Remarks Patient seen for follow-up, chart reviewed. Discussion nursing staff reported the patient he has not had any behavioral disturbances compliant with treatment and pleasant. Patient was found lying in hospital bed, cooperative. Patient appeared to be somewhat disorganized but able to have concrete responses. Patient denies any physical complaints at this time. Reports his mood being "okay" denies having any dizziness upon sitting or standing. Patient denies any auditory or visual hallucinations. Review of Systems Except as stated in HPI: all other systems reviewed are Neg Mental Status Examination Appearance: Other (remains a little disheveled) Consciousness: Alert Orientation: Person, Place (at least) Motor Activity: Other (no abnormal motor movements noted) Speech: Unremarkable Language: Adequate Fund of Knowledge: Poor Attention and Concentration: Inadequate Memory: Impaired Mood: Appropriate Affect: Appropriate Thought Process & Associations: Other (vague, somewhat disorganized at times) Thought Content: Other (some poverty of thought) Hallucination Type: None Delusion Type: None Suicidal Ideation: No Suicidal Plan: No Suicidal Intention: No Homicidal Ideation: No Homicidal Plan: No Homicidal Intention: No Insight: Poor Judgment: Poor Results Vitals/IOs Vital Signs Date Time Temp Pulse Resp B/P (MAP) Pulse Ox O2 Delivery O2 Flow Rate FiO2 09/08/17 06:14 98.0 98 16 106/55 (72) 98 Intake and Output 09/08/17 09/08/17 09/09/17 08:00 16:00 00:00 Intake Total 600 ml Balance 600 ml Assessment & Plan Problem List: (1) Unspecified psychosis ICD Codes: F29 - Unspecified psychosis not due to a substance or known physiological condition (2) Major neurocognitive disorder as late effect of traumatic brain injury with behavioral disturbance ICD Codes: S06.9X9S - Unspecified intracranial injury with loss of consciousness of unspecified duration, sequela; F02.81 - Dementia in other diseases classified elsewhere with behavioral disturbance Status: Acute Assessment & Plan Patient continues with some baseline confusion and disorganization likely to neurocognitive deficits. Continue to monitor mood and behavior. Continue current treatment. Discharge planning in progress. Justification for Cont. Inpt. At risk for decompensation lower level of care. Kirby Richmond MD Sep 08, 2017 10:26
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
[2017-09-08 18:00] VITALS: BP 96/61; PULSE 92; RESP 16; TEMP 98.1; O2SAT 16
[2017-09-08] MEDS: QUEtiapine FUMARATE 200 MG TAB PO SCH (19:52)
[2017-09-08] MEDS: LORazepam 0.5 MG TAB PO PRN (19:52)
[2017-09-08] MEDS: diphenhydrAMINE HCL 50 MG CAP PO PRN (19:52)
[2017-09-09 06:32] VITALS: BP 128/66; PULSE 105; RESP 17; TEMP 97.5; O2SAT 98
[2017-09-09] MEDS: VALPROIC ACID 250 MG CAP PO SCH ×2 (08:52→19:47)
[2017-09-09] MEDS: THIAMINE HCL 100 MG TAB PO SCH (08:52)
[2017-09-09] MEDS: QUEtiapine FUMARATE 25 MG TAB PO SCH ×3 (08:53→19:47)
--- NOTE | 2017-09-09 10:50 | HHI.PYPN ---
Subjective Remarks Patient seen for follow-up, chart reviewed. Discussion nursing staff reported the patient continues to be confused at times but no behavioral disturbances and there is suspicion the patient may be urinating in room 2 2 over. Patient was found lying in hospital bed B, cooperative. Patient states that he has been feeling "okay" reports that his right hand has been more flexible and is able to flex his fingers better. Patient continues to be somewhat disorganized , denies any urinary incontinence stated that he is able to make it to the restroom. Patient denies any physical complaints at this time. Patient encouraged to maintain personal hygiene. Review of Systems Except as stated in HPI: all other systems reviewed are Neg Mental Status Examination Appearance: Other (remains a little disheveled) Consciousness: Alert Orientation: Person, Place (at least) Motor Activity: Other (no abnormal motor movements noted) Speech: Unremarkable Language: Adequate Fund of Knowledge: Poor Attention and Concentration: Inadequate Memory: Impaired Mood: Appropriate Affect: Appropriate Thought Process & Associations: Other (vague, somewhat disorganized at times) Thought Content: Other (some poverty of thought) Hallucination Type: None Delusion Type: None Suicidal Ideation: No Suicidal Plan: No Suicidal Intention: No Homicidal Ideation: No Homicidal Plan: No Homicidal Intention: No Insight: Poor Judgment: Poor Results Vitals/IOs Vital Signs Date Time Temp Pulse Resp B/P (MAP) Pulse Ox O2 Delivery O2 Flow Rate FiO2 09/09/17 06:32 97.5 105 17 128/66 (86) 98 Intake and Output 09/09/17 09/09/17 09/10/17 08:00 16:00 00:00 Intake Total 120 ml 480 ml Balance 120 ml 480 ml Assessment & Plan Problem List: (1) Unspecified psychosis ICD Codes: F29 - Unspecified psychosis not due to a substance or known physiological condition (2) Major neurocognitive disorder as late effect of traumatic brain injury with behavioral disturbance ICD Codes: S06.9X9S - Unspecified intracranial injury with loss of consciousness of unspecified duration, sequela; F02.81 - Dementia in other diseases classified elsewhere with behavioral disturbance Status: Acute Assessment & Plan Patient continues to have some disorganization which is likely his baseline now. Patient denies any dizziness upon standing or ambulating, denies any perceptual disturbances. Continue current treatment. Discharge planning in progress. Justification for Cont. Inpt. At risk for further decompensation if at lower level of care Discharge Planning To be determined. Kirby Richmond MD Sep 09, 2017 10:50
[2017-09-09] MEDS: CEPHALEXIN MONOHYDRATE 500 MG CAP PO SCH ×3 (12:47→18:00)
[2017-09-09 18:06] VITALS: BP 106/56; PULSE 87; RESP 16; TEMP 97.9; O2SAT 96
[2017-09-09] MEDS: QUEtiapine FUMARATE 200 MG TAB PO SCH (19:47)
[2017-09-09] MEDS: LORazepam 0.5 MG TAB PO PRN (19:48)
[2017-09-09] MEDS: diphenhydrAMINE HCL 50 MG CAP PO PRN (19:48)
[2017-09-10] MEDS: CEPHALEXIN MONOHYDRATE 500 MG CAP PO SCH ×4 (05:29→17:56)
[2017-09-10 05:47] VITALS: BP 111/61; PULSE 92; RESP 18; TEMP 97.2; O2SAT 98
[2017-09-10] MEDS: VALPROIC ACID 250 MG CAP PO SCH ×2 (09:39→20:45)
[2017-09-10] MEDS: THIAMINE HCL 100 MG TAB PO SCH (09:39)
[2017-09-10] MEDS: QUEtiapine FUMARATE 25 MG TAB PO SCH ×3 (09:40→20:46)
--- NOTE | 2017-09-10 12:37 | HHI.PYPN ---
Subjective Remarks Patient seen for follow up, chart reviewed. Discussion nursing staff reported the patient showered voluntarily go to be calm and cooperative with staff. Patient was found sitting in hospital bed noted to become cooperative. Patient denies any physical complaints at this time reports having more flexibility of his right hand and denying any physical pain at this time. Patient reports eating and drinking well, no perceptual disturbances. Patient states that he does feel dizzy "once in a while" but feels steady upon standing and ambulation. Patient noted to have some disorganized behavior during interview which is likely his baseline. Review of Systems Except as stated in HPI: all other systems reviewed are Neg Mental Status Examination Appearance: Other (remains a little disheveled) Consciousness: Alert Orientation: Person, Place (at least) Motor Activity: Other (no abnormal motor movements noted) Speech: Unremarkable Language: Adequate Fund of Knowledge: Poor Attention and Concentration: Inadequate Memory: Impaired Mood: Appropriate Affect: Appropriate Thought Process & Associations: Other (vague, somewhat disorganized at times) Thought Content: Other (some poverty of thought) Hallucination Type: None Delusion Type: None Suicidal Ideation: No Suicidal Plan: No Suicidal Intention: No Homicidal Ideation: No Homicidal Plan: No Homicidal Intention: No Insight: Poor Judgment: Poor Results Vitals/IOs Vital Signs Date Time Temp Pulse Resp B/P (MAP) Pulse Ox O2 Delivery O2 Flow Rate FiO2 09/10/17 05:47 97.2 92 18 111/61 (78) 98 Intake and Output 09/10/17 09/10/17 09/11/17 08:00 16:00 00:00 Intake Total 720 ml 480 ml Balance 720 ml 480 ml Assessment & Plan Problem List: (1) Unspecified psychosis ICD Codes: F29 - Unspecified psychosis not due to a substance or known physiological condition (2) Major neurocognitive disorder as late effect of traumatic brain injury with behavioral disturbance ICD Codes: S06.9X9S - Unspecified intracranial injury with loss of consciousness of unspecified duration, sequela; F02.81 - Dementia in other diseases classified elsewhere with behavioral disturbance Status: Acute Assessment & Plan Patient at this time continues to have some disorganization during interview, with concrete thought process. Continue current treatment. Continue to monitor mood and behavior. Discharge planning in progress. Justification for Cont. Inpt. At risk of further decompensation at lower level of care Discharge Planning To be determined Kirby Richmond MDb 28, 2018 12:37
[2017-09-10] MEDS: QUEtiapine FUMARATE 200 MG TAB PO SCH (20:46)
[2017-09-10] MEDS: LORazepam 0.5 MG TAB PO PRN (20:46)
[2017-09-10] MEDS: diphenhydrAMINE HCL 50 MG CAP PO PRN (20:46)
[2017-09-11] MEDS: CEPHALEXIN MONOHYDRATE 500 MG CAP PO SCH ×4 (01:01→17:48)
[2017-09-11 05:49] VITALS: BP 104/58; PULSE 86; RESP 16; TEMP 97.9; O2SAT 93
[2017-09-11] MEDS: QUEtiapine FUMARATE 25 MG TAB PO SCH ×3 (08:35→20:32)
[2017-09-11] MEDS: THIAMINE HCL 100 MG TAB PO SCH (08:35)
[2017-09-11] MEDS: VALPROIC ACID 250 MG CAP PO SCH ×3 (09:00→20:32)
--- NOTE | 2017-09-11 13:27 | HHI.PYPN ---
Subjective Remarks Patient seen for follow, chart reviewed. Discussion nursing staff reported patient recently started on Keflex. Patient was found lying hospital, cooperative. Patient reports having mobility of his right hand denying any physical pain at this time. Continues to be somewhat disorganized but denies any perceptual disturbances or delusions. Review of Systems Except as stated in HPI: all other systems reviewed are Neg Mental Status Examination Appearance: Other (remains a little disheveled) Consciousness: Alert Orientation: Person, Place (at least) Motor Activity: Other (no abnormal motor movements noted) Speech: Unremarkable Language: Adequate Fund of Knowledge: Poor Attention and Concentration: Inadequate Memory: Impaired Mood: Appropriate Affect: Appropriate Thought Process & Associations: Other (vague, somewhat disorganized at times) Thought Content: Other (some poverty of thought) Hallucination Type: None Delusion Type: None Suicidal Ideation: No Suicidal Plan: No Suicidal Intention: No Homicidal Ideation: No Homicidal Plan: No Homicidal Intention: No Insight: Poor Judgment: Poor Results Vitals/IOs Vital Signs Date Time Temp Pulse Resp B/P (MAP) Pulse Ox O2 Delivery O2 Flow Rate FiO2 09/11/17 05:49 97.9 86 16 104/58 (73) 93 Intake and Output 09/11/17 09/11/17 09/12/17 08:00 16:00 00:00 Intake Total 0 ml Balance 0 ml Assessment & Plan Problem List: (1) Unspecified psychosis ICD Codes: F29 - Unspecified psychosis not due to a substance or known physiological condition (2) Major neurocognitive disorder as late effect of traumatic brain injury with behavioral disturbance ICD Codes: S06.9X9S - Unspecified intracranial injury with loss of consciousness of unspecified duration, sequela; F02.81 - Dementia in other diseases classified elsewhere with behavioral disturbance Status: Acute Assessment & Plan Patient this time continued with some disorganized behavior but no behavioral disturbances, compliant with treatment. Continue current treatment. Continue recommendations by medical team. Continue monitor mood and behavior. Discharge planning in progress. Justification for Cont. Inpt. At risk for further decompensation if at lower level of care Discharge Planning To be determined Kirby Richmond MD Sep 11, 2017 13:27
[2017-09-11 17:29] VITALS: BP 110/60; PULSE 88; RESP 16; TEMP 98.3; O2SAT 93
[2017-09-11] MEDS: QUEtiapine FUMARATE 200 MG TAB PO SCH (20:32)
[2017-09-11 21:15] VITALS: BP 95/52; PULSE 92; RESP 18; TEMP 98; O2SAT 96
[2017-09-11 22:09] VITALS: BP 90/63; PULSE 89; RESP 16; TEMP 98.1; O2SAT 93
[2017-09-11] MEDS: diphenhydrAMINE HCL 50 MG CAP PO PRN ×2 (22:39→23:11)
[2017-09-11 23:00] VITALS: BP 94/60; PULSE 88; RESP 18; TEMP 98.4
[2017-09-12 05:41] VITALS: BP 91/61; PULSE 90; RESP 18; TEMP 98.2; O2SAT 96
[2017-09-12 08:38] VITALS: BP 91/61; PULSE 90; RESP 18; TEMP 98.2; O2SAT 96
[2017-09-12 09:00] VITALS: BP 73/50
[2017-09-12] MEDS: QUEtiapine FUMARATE 25 MG TAB PO SCH ×2 (09:24→17:03)
[2017-09-12] MEDS: VALPROIC ACID 250 MG CAP PO SCH ×2 (09:25→20:27)
[2017-09-12] MEDS: THIAMINE HCL 100 MG TAB PO SCH (09:25)
[2017-09-12 09:30] VITALS: BP 106/53; PULSE 113
--- NOTE | 2017-09-12 11:44 | HHI.PYPN ---
Subjective Remarks Patient seen for follow-up, chart reviewed. Discussion with nursing staff reported that the lana had fallen last evening, not witnessed but was found sitting on the floor. Lana was found lying on hosptial bed, calm and cooperative. Patient recalled having slipped and fell sitting, denied any physical pain but also reported feeling dizzy prior. He admits to having some dizziness upon standing at times. He denies any pain, reports his mood as being "ok", denies any perceptual disturbances. Patient was also reported to have had another episode of dizziness during group activity later in the day but nursing staff. Review of Systems Except as stated in HPI: all other systems reviewed are Neg Mental Status Examination Appearance: Other (remains a little disheveled) Consciousness: Alert Orientation: Person, Place (at least) Motor Activity: Other (no abnormal motor movements noted) Speech: Unremarkable Language: Adequate Fund of Knowledge: Poor Attention and Concentration: Inadequate Memory: Impaired Mood: Appropriate Affect: Appropriate Thought Process & Associations: Other (vague, somewhat disorganized at times) Thought Content: Other (some poverty of thought) Hallucination Type: None Delusion Type: None Suicidal Ideation: No Suicidal Plan: No Suicidal Intention: No Homicidal Ideation: No Homicidal Plan: No Homicidal Intention: No Insight: Poor Judgment: Poor Results Vitals/IOs Vital Signs Date Time Temp Pulse Resp B/P (MAP) Pulse Ox O2 Delivery O2 Flow Rate FiO2 09/12/17 08:38 98.2 90 18 91/61 (71) 96 Intake and Output 09/12/17 09/12/17 09/13/17 08:00 16:00 00:00 Intake Total 360 ml 240 ml Balance 360 ml 240 ml Assessment & Plan Problem List: (1) Unspecified psychosis ICD Codes: F29 - Unspecified psychosis not due to a substance or known physiological condition (2) Major neurocognitive disorder as late effect of traumatic brain injury with behavioral disturbance ICD Codes: S06.9X9S - Unspecified intracranial injury with loss of consciousness of unspecified duration, sequela; F02.81 - Dementia in other diseases classified elsewhere with behavioral disturbance Status: Acute Assessment & Plan Patient with recent episodes of dizziness, which may be secondary to dehydration and/or orthostatic hypotension. Will titrate quetiapine to 50/50/ 200mg, will order hospital consult. Continue rest of medications. Continue to encourage increased fluid intake, continue to monitor for orthostatic hypotension. Falls precautions. Discharge planning in progress. Justification for Cont. Inpt. At risk for further decompensation at lower level of care. Discharge Planning To be determined Kirby Richmond MD Sep 12, 2017 11:44
[2017-09-12] MEDS: CEPHALEXIN MONOHYDRATE 500 MG CAP PO SCH ×3 (12:00→12:59)
[2017-09-12 12:45] VITALS: BP 91/53; PULSE 100
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
[2017-09-12 16:17] VITALS: BP 102/51; PULSE 85; RESP 16; TEMP 97.4; O2SAT 96
[2017-09-12 16:42] LABS: AUTOMATED NEUTROPHIL # 2.7 TH/MM3 (1.8-7.7); BASOPHIL # 0.1 TH/MM3 (0-0.2); BASOPHIL % 1.3 % (0.0-2.0); EOSINOPHIL # 0.3 TH/MM3 (0-0.4); EOSINOPHIL % 4.9 % (0.0-4.0); HEMATOCRIT 33.1 % (39.0-51.0); HEMOGLOBIN 11.6 GM/DL (13.0-17.0); LYMPH % 29.8 % (9.0-44.0); LYMPHOCYTE # 1.6 TH/MM3 (1.0-4.8); MEAN CORPUSCULAR HEMOGLOBIN 33.3 PG (27.0-34.0); MONO % 13.6 % (0.0-8.0); MONOCYTE # 0.7 TH/MM3 (0-0.9); NEUT % 50.4 % (16.0-70.0); PLATELET COUNT 213 TH/MM3 (150-450); RED BLOOD COUNT 3.48 MIL/MM3 (4.50-5.90); RED CELL DISTRIBUTION WIDTH 16.7 % (11.6-17.2); WHITE BLOOD COUNT 5.4 TH/MM3 (4.0-11.0)
[2017-09-12 17:00] LABS: ALBUMIN 3.2 GM/DL (3.4-5.0); AST (GOT) 14 U/L (15-37); BICARBONATE 27.9 MEQ/L (21.0-32.0); BLOOD UREA NITROGEN 33 MG/DL (7-18); CALCIUM 8.6 MG/DL (8.5-10.1); CHLORIDE 99 MEQ/L (98-107); CREATININE 1.18 MG/DL (0.60-1.30); GLOMERULAR FILTRATION RATE 61 ML/MIN (>89); GLUCOSE,RANDOM 96 MG/DL (74-106); MAGNESIUM 2.1 MG/DL (1.5-2.5); SODIUM (NA) 137 MEQ/L (136-145)
[2017-09-12 17:01] LABS: ALT (GPT) 22 U/L (12-78); PHOSPHORUS 4.5 MG/DL (2.5-4.9)
[2017-09-12 17:04] LABS: ALKALINE PHOSPHATASE 107 U/L (45-117); TOTAL BILIRUBIN ADULT 0.2 MG/DL (0.2-1.0); TOTAL PROTEIN 6.5 GM/DL (6.4-8.2)
[2017-09-12] MEDS: MIDODRINE 5 MG TAB PO SCH (17:10)
[2017-09-12] MEDS: LORazepam 2 MG/ML VIAL IM PRN (19:26)
[2017-09-12] MEDS: QUEtiapine FUMARATE 200 MG TAB PO SCH (20:26)
[2017-09-13 06:20] VITALS: BP 98/55; PULSE 85; RESP 15; TEMP 97.9; O2SAT 96
[2017-09-13 08:43] LABS: ALBUMIN 3.1 GM/DL (3.4-5.0); BICARBONATE 29.2 MEQ/L (21.0-32.0); CALCIUM 8.6 MG/DL (8.5-10.1); CREATININE 0.81 MG/DL (0.60-1.30); DIRECT BILIRUBIN ADULT 0.1 MG/DL (0.0-0.2)
[2017-09-13 08:47] LABS: INDIRECT BILIRUBIN 0.2 MG/DL (0.0-0.8); TOTAL BILIRUBIN ADULT 0.3 MG/DL (0.2-1.0); TOTAL PROTEIN 6.1 GM/DL (6.4-8.2)
[2017-09-13] MEDS: FOLIC ACID 1 MG TAB PO SCH (09:48)
[2017-09-13] MEDS: MULTIVITAMIN TAB PO SCH (09:48)
[2017-09-13] MEDS: VALPROIC ACID 250 MG CAP PO SCH ×2 (09:48→21:04)
[2017-09-13] MEDS: THIAMINE HCL 100 MG TAB PO SCH (09:48)
[2017-09-13] MEDS: QUEtiapine FUMARATE 25 MG TAB PO SCH ×2 (09:49→17:19)
--- NOTE | 2017-09-13 09:54 | EKG ---
Date Performed: 09/12/2017 Time Performed: 13:09:56 PTAGE: 72 years EKG: ATRIAL FIBRILLATION ABNORMAL RHYTHM ECG PREVIOUS TRACING : 08/15/2017 12.35 DOCTOR: Dm Champion Interpretating Date/Time 09/13/2017 09:53:03
[2017-09-13] MEDS: MIDODRINE 5 MG TAB PO SCH ×3 (10:10→18:17)
[2017-09-13 14:22] VITALS: BP_SYST 92; BP_SYST 99; BP_DIAS 54; BP_DIAS 56; PULSE 75
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
--- NOTE | 2017-09-13 17:14 | HHI.PYPN ---
Subjective Remarks Patient was seen and case discussed with nursing. Patient is alert and oriented 2. Thought process and answers are delayed. He continues to be followed by the medical team. Does denies suicidal homicidal ideation intent or plan. Compliant with medications Mental Status Examination Appearance: Other (remains a little disheveled) Consciousness: Alert Orientation: Person, Place (at least) Motor Activity: Other (no abnormal motor movements noted) Speech: Unremarkable Language: Adequate Fund of Knowledge: Poor Attention and Concentration: Inadequate Memory: Impaired Mood: Appropriate Affect: Appropriate Thought Process & Associations: Other (vague, somewhat disorganized at times) Thought Content: Other (some poverty of thought) Hallucination Type: None Delusion Type: None Suicidal Ideation: No Suicidal Plan: No Suicidal Intention: No Homicidal Ideation: No Homicidal Plan: No Homicidal Intention: No Insight: Poor Judgment: Poor Results Labs Test 09/13/17 07:54 Blood Urea Nitrogen 24 MG/DL Creatinine 0.81 MG/DL Random Glucose 82 MG/DL Total Protein 6.1 GM/DL Albumin 3.1 GM/DL Calcium Level 8.6 MG/DL Alkaline Phosphatase 89 U/L Aspartate Amino Transf (AST/SGOT) 15 U/L Alanine Aminotransferase (ALT/SGPT) 16 U/L Total Bilirubin 0.3 MG/DL Direct Bilirubin 0.1 MG/DL Sodium Level 139 MEQ/L Potassium Level 4.2 MEQ/L Chloride Level 105 MEQ/L Carbon Dioxide Level 29.2 MEQ/L Anion Gap 5 MEQ/L Estimat Glomerular Filtration Rate 93 ML/MIN Indirect Bilirubin 0.2 MG/DL Ammonia 20 MCMOL/L Valproic Acid (Depakene) Level 66 MCG/ML Vitals/IOs Vital Signs Date Time Temp Pulse Resp B/P (MAP) Pulse Ox O2 Delivery O2 Flow Rate FiO2 09/13/17 14:22 75 99/56 (70) 92/54 (67) 09/13/17 06:20 97.9 15 96 Intake and Output 09/13/17 09/13/17 09/14/17 08:00 16:00 00:00 Intake Total 0 ml 360 ml Balance 0 ml 360 ml Assessment & Plan Problem List: (1) Unspecified psychosis ICD Codes: F29 - Unspecified psychosis not due to a substance or known physiological condition (2) Major neurocognitive disorder as late effect of traumatic brain injury with behavioral disturbance ICD Codes: S06.9X9S - Unspecified intracranial injury with loss of consciousness of unspecified duration, sequela; F02.81 - Dementia in other diseases classified elsewhere with behavioral disturbance Status: Acute Assessment & Plan Continue current treatment plan Justification for Cont. Inpt. Patient would decompensate in a less restrictive setting Stalin You DO Sep 13, 2017 17:14
[2017-09-13 18:36] VITALS: BP 128/57; PULSE 101; RESP 16; TEMP 97.3; O2SAT 97
[2017-09-13] MEDS: QUEtiapine FUMARATE 200 MG TAB PO SCH (21:04)
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
[2017-09-14 06:00] VITALS: BP 106/61; PULSE 90; RESP 17; TEMP 97.6; O2SAT 96
[2017-09-14] MEDS: MIDODRINE 5 MG TAB PO SCH ×3 (06:13→16:07)
[2017-09-14] MEDS: QUEtiapine FUMARATE 25 MG TAB PO SCH ×2 (08:21→16:00)
[2017-09-14] MEDS: FOLIC ACID 1 MG TAB PO SCH (08:21)
[2017-09-14] MEDS: THIAMINE HCL 100 MG TAB PO SCH (08:22)
[2017-09-14] MEDS: VALPROIC ACID 250 MG CAP PO SCH ×2 (08:22→20:28)
[2017-09-14] MEDS: MULTIVITAMIN TAB PO SCH (08:22)
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
[2017-09-14 18:04] VITALS: BP 123/56; PULSE 91; RESP 17; TEMP 97.3; O2SAT 97
[2017-09-14] MEDS: QUEtiapine FUMARATE 200 MG TAB PO SCH (20:28)
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
[2017-09-15] MEDS: MIDODRINE 5 MG TAB PO SCH ×3 (06:32→17:00)
[2017-09-15] MEDS: THIAMINE HCL 100 MG TAB PO SCH (08:24)
[2017-09-15] MEDS: VALPROIC ACID 250 MG CAP PO SCH ×2 (08:24→21:00)
[2017-09-15] MEDS: QUEtiapine FUMARATE 25 MG TAB PO SCH ×2 (08:24→16:00)
[2017-09-15] MEDS: FOLIC ACID 1 MG TAB PO SCH (08:24)
[2017-09-15] MEDS: MULTIVITAMIN TAB PO SCH (08:24)
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
--- NOTE | 2017-09-15 17:00 | HHI.PYPN ---
Subjective Remarks Reviewed electronic medical record, labs, discussed case with staff. Follow-up evaluation was conducted and dayroom on unit with nurse present. Mr. Lucas was found sitting in a chair awake, oriented to self and place, and alert. His appearance is disheveled. His speech is somewhat garbled and disorganized, although he seems to answer some questions appropriately. His mood seems to be good and his affect is euthymic. He was evaluated medically by Dr. Tyron obrien who dictated that no treatment is indicated at this time. His VPA level remains therapeutic. He states that he slept well and his appetite has been good. He denies suicidal or homicidal ideations however he does claim to hear voices. He denies visual hallucinations. Mental Status Examination Appearance: Other (remains a little disheveled) Consciousness: Alert Orientation: Person, Place (at least) Motor Activity: Other (no abnormal motor movements noted) Speech: Unremarkable Language: Adequate Fund of Knowledge: Poor Attention and Concentration: Inadequate Memory: Impaired Mood: Appropriate Affect: Appropriate, Euthymic Thought Process & Associations: Other (vague, somewhat disorganized at times) Thought Content: Other (some poverty of thought) Hallucination Type: None Delusion Type: None Suicidal Ideation: No Suicidal Plan: No Suicidal Intention: No Homicidal Ideation: No Homicidal Plan: No Homicidal Intention: No Insight: Poor Judgment: Poor Results Vitals/IOs Vital Signs Date Time Temp Pulse Resp B/P (MAP) Pulse Ox O2 Delivery O2 Flow Rate FiO2 09/14/17 18:04 97.3 91 17 123/56 (78) 97 Intake and Output 09/15/17 09/15/17 09/16/17 08:00 16:00 00:00 Intake Total 0 ml 600 ml Balance 0 ml 600 ml Assessment & Plan Problem List: (1) Unspecified psychosis ICD Codes: F29 - Unspecified psychosis not due to a substance or known physiological condition (2) Major neurocognitive disorder as late effect of traumatic brain injury with behavioral disturbance ICD Codes: S06.9X9S - Unspecified intracranial injury with loss of consciousness of unspecified duration, sequela; F02.81 - Dementia in other diseases classified elsewhere with behavioral disturbance Status: Acute Assessment & Plan Estimated LOS: Mr. Lucas continues to have poverty and disorganization of thought. A safe discharge is still being sought for this patient. Justification for Cont. Inpt. Placing this patient on a lower level of care would likely result and decompensation. Julia Sosa Sep 15, 2017 17:00
[2017-09-15 18:16] VITALS: BP 104/55; PULSE 84; RESP 16; O2SAT 94
[2017-09-15] MEDS ORDERED: ASPIRIN EC 81 MG TABEC PO ONE (18:45)
[2017-09-15] MEDS: QUEtiapine FUMARATE 200 MG TAB PO SCH (20:32)
[2017-09-16 06:06] VITALS: BP 102/62; PULSE 89; RESP 16; TEMP 98.3; O2SAT 98
[2017-09-16] MEDS: MIDODRINE 5 MG TAB PO SCH ×3 (06:25→16:18)
[2017-09-16 09:22] VITALS: BP 109/59
[2017-09-16] MEDS: VALPROIC ACID 250 MG CAP PO SCH ×2 (09:24→20:56)
[2017-09-16] MEDS: MULTIVITAMIN TAB PO SCH (09:24)
[2017-09-16] MEDS: QUEtiapine FUMARATE 25 MG TAB PO SCH ×2 (09:26→16:18)
[2017-09-16] MEDS: FOLIC ACID 1 MG TAB PO SCH (09:27)
[2017-09-16] MEDS: THIAMINE HCL 100 MG TAB PO SCH (09:27)
[2017-09-16] MEDS: ASPIRIN EC 81 MG TABEC PO SCH (09:27)
--- NOTE | 2017-09-16 13:03 | HHI.PYPN ---
Subjective Remarks Reviewed medical record and discussed patient with staff. Patient was evaluated in his room, lying in bed. He is awake, alert and oriented to person and place only. He reports the date as being April 2012. Denies physical pain, HI, SI, visual or auditory hallucinations. He reports that he is sleeping and eating well. During evaluation, patient became distant and began speaking to himself in a low tone. He may be internally stimulated. Overall his mood is good and his affect is euthymic. Mental Status Examination Appearance: Other (remains a little disheveled) Consciousness: Alert Orientation: Person, Place (at least) Motor Activity: Other (lying in bed, no abnormal motor activity noted.) Speech: Unremarkable Language: Adequate Fund of Knowledge: Poor Attention and Concentration: Inadequate Memory: Impaired Mood: Appropriate, Good Affect: Appropriate, Euthymic Thought Process & Associations: Other (vague, somewhat disorganized at times) Thought Content: Other (some poverty of thought) Hallucination Type: None Delusion Type: None Suicidal Ideation: No Suicidal Plan: No Suicidal Intention: No Homicidal Ideation: No Homicidal Plan: No Homicidal Intention: No Insight: Poor Judgment: Poor Results Vitals/IOs Vital Signs Date Time Temp Pulse Resp B/P (MAP) Pulse Ox O2 Delivery O2 Flow Rate FiO2 09/16/17 09:22 109/59 (76) 09/16/17 06:06 98.3 89 16 98 Intake and Output 09/16/17 09/16/17 09/17/17 08:00 16:00 00:00 Intake Total 240 ml Balance 240 ml Assessment & Plan Problem List: (1) Unspecified psychosis ICD Codes: F29 - Unspecified psychosis not due to a substance or known physiological condition (2) Major neurocognitive disorder as late effect of traumatic brain injury with behavioral disturbance ICD Codes: S06.9X9S - Unspecified intracranial injury with loss of consciousness of unspecified duration, sequela; F02.81 - Dementia in other diseases classified elsewhere with behavioral disturbance Status: Acute Assessment & Plan Estimated LOS: Due to his TBI, Mr Lucas would likely be a danger to himself if discharged. An appropriate discharge plan is being worked on as it is highly unlikely any further improvement will be made by this patient. Justification for Cont. Inpt. Patient is unable to adequately care for self. A safe and appropriate discharge plan is being worked on. Moving him to a lower level of care would result in decompensation. Julia Sosa Sep 16, 2017 13:03
[2017-09-16 18:11] VITALS: BP 103/53; PULSE 129; RESP 16; TEMP 97.8; O2SAT 94
[2017-09-16] MEDS: QUEtiapine FUMARATE 200 MG TAB PO SCH (20:56)
[2017-09-17 05:52] VITALS: BP 87/56; PULSE 86; RESP 17; TEMP 98.8; O2SAT 98
[2017-09-17 06:00] VITALS: BP 87/56; PULSE 86; RESP 17; TEMP 98.3; O2SAT 98
[2017-09-17] MEDS: MIDODRINE 5 MG TAB PO SCH ×3 (06:24→15:40)
[2017-09-17] MEDS: VALPROIC ACID 250 MG CAP PO SCH ×2 (08:40→20:07)
[2017-09-17] MEDS: ASPIRIN EC 81 MG TABEC PO SCH (08:40)
[2017-09-17] MEDS: THIAMINE HCL 100 MG TAB PO SCH (08:40)
[2017-09-17] MEDS: FOLIC ACID 1 MG TAB PO SCH (08:40)
[2017-09-17] MEDS: QUEtiapine FUMARATE 25 MG TAB PO SCH ×2 (08:40→15:41)
[2017-09-17] MEDS: MULTIVITAMIN TAB PO SCH (08:40)
--- NOTE | 2017-09-17 11:40 | HHI.PYPN ---
Subjective Remarks Reviewed medical record and discussed patient with staff. Patient denies any complaints today. His mood is pleasant and his affect is euthymic. His speech is clear, is sometimes disorganized and illogical. He was showered today due to an incontinent episode. Discharge planning is in progress. Mental Status Examination Appearance: Other (remains a little disheveled) Consciousness: Alert Orientation: Person, Place (at least) Motor Activity: Other (lying in bed, no abnormal motor activity noted.) Speech: Unremarkable Language: Adequate Fund of Knowledge: Poor Attention and Concentration: Inadequate Memory: Impaired Mood: Appropriate, Good Affect: Appropriate, Euthymic Thought Process & Associations: Other (Tends to be disorganized and illogical at times) Thought Content: Other (some poverty of thought) Hallucination Type: None Delusion Type: None Suicidal Ideation: No Suicidal Plan: No Suicidal Intention: No Homicidal Ideation: No Homicidal Plan: No Homicidal Intention: No Insight: Poor Judgment: Poor Results Vitals/IOs Vital Signs Date Time Temp Pulse Resp B/P (MAP) Pulse Ox O2 Delivery O2 Flow Rate FiO2 09/17/17 06:00 98.3 86 17 87/56 (66) 98 Intake and Output 09/17/17 09/17/17 09/18/17 08:00 16:00 00:00 Intake Total 240 ml Balance 240 ml Assessment & Plan Problem List: (1) Unspecified psychosis ICD Codes: F29 - Unspecified psychosis not due to a substance or known physiological condition (2) Major neurocognitive disorder as late effect of traumatic brain injury with behavioral disturbance ICD Codes: S06.9X9S - Unspecified intracranial injury with loss of consciousness of unspecified duration, sequela; F02.81 - Dementia in other diseases classified elsewhere with behavioral disturbance Status: Acute Assessment & Plan Estimated LOS: A safe discharge plan for Mr. Lucas is actively being pursued. Justification for Cont. Inpt. Patient unable to provide self-care. Save discharge plan being pursued. Removing this patient to a lower level of care at this time would result in decompensation. Julia Sosa Sep 17, 2017 11:40
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
[2017-09-17 17:32] VITALS: BP 129/61; PULSE 126; RESP 16; TEMP 97.6; O2SAT 98
[2017-09-17] MEDS: LORazepam 0.5 MG TAB PO PRN (20:07)
[2017-09-17] MEDS: QUEtiapine FUMARATE 200 MG TAB PO SCH (20:07)
[2017-09-18 05:37] VITALS: BP 107/71; PULSE 94; RESP 16; TEMP 98.3; O2SAT 99
[2017-09-18] MEDS: MIDODRINE 5 MG TAB PO SCH ×3 (06:12→16:17)
[2017-09-18] MEDS: QUEtiapine FUMARATE 25 MG TAB PO SCH ×2 (08:33→16:16)
[2017-09-18] MEDS: VALPROIC ACID 250 MG CAP PO SCH ×2 (08:33→20:03)
[2017-09-18] MEDS: FOLIC ACID 1 MG TAB PO SCH (08:34)
[2017-09-18] MEDS: ASPIRIN EC 81 MG TABEC PO SCH (08:34)
[2017-09-18] MEDS: THIAMINE HCL 100 MG TAB PO SCH (08:34)
[2017-09-18] MEDS: MULTIVITAMIN TAB PO SCH (08:34)
[2017-09-18 09:13] VITALS: BP 107/71; PULSE 94; RESP 16; TEMP 98.3; O2SAT 99
--- NOTE | 2017-09-18 15:07 | HHI.PYPN ---
Subjective Remarks Reviewed electronic medical record and discussed patient with staff. Nurse reports no changes, some slight anxiety this morning. States that Mr. Lucas made his bed 5 times this morning and put on several pairs of pajama bottoms only to then remove them again. Follow-up conducted and a room with patient sitting in chair. He remains pleasantly confused and disoriented. When asked the year he responds "19". When asked the month he responds "13 ", when asked if he hears voices his response was 17. His speech is clear, disorganized and often times illogical. Staff reports he is compliant with his medications and is redirectable. Mental Status Examination Appearance: Other (remains a little disheveled) Consciousness: Alert Orientation: Person, Place (at least) Motor Activity: Other (lying in bed, no abnormal motor activity noted.) Speech: Unremarkable Language: Adequate Fund of Knowledge: Poor Attention and Concentration: Inadequate Memory: Impaired Mood: Appropriate, Good Affect: Appropriate, Euthymic Thought Process & Associations: Other (Tends to be disorganized and illogical at times) Thought Content: Other (some poverty of thought) Hallucination Type: None Delusion Type: None Suicidal Ideation: No Suicidal Plan: No Suicidal Intention: No Homicidal Ideation: No Homicidal Plan: No Homicidal Intention: No Insight: Poor Judgment: Poor Results Vitals/IOs Vital Signs Date Time Temp Pulse Resp B/P (MAP) Pulse Ox O2 Delivery O2 Flow Rate FiO2 09/18/17 09:13 98.3 94 16 107/71 (83) 99 Intake and Output 09/18/17 09/18/17 09/19/17 08:00 16:00 00:00 Intake Total 600 ml 1560 ml Balance 600 ml 1560 ml Assessment & Plan Problem List: (1) Unspecified psychosis ICD Codes: F29 - Unspecified psychosis not due to a substance or known physiological condition (2) Major neurocognitive disorder as late effect of traumatic brain injury with behavioral disturbance ICD Codes: S06.9X9S - Unspecified intracranial injury with loss of consciousness of unspecified duration, sequela; F02.81 - Dementia in other diseases classified elsewhere with behavioral disturbance Status: Acute Assessment & Plan Estimated LOS: Patient is unable to care for self due to to his traumatic brain injury. Discharge planning continues. Justification for Cont. Inpt. The counselors continue to search for a safe discharge plan. Removing this patient to a lower level of care would result in decompensation. Julia Sosa Sep 18, 2017 15:07
[2017-09-18 17:55] VITALS: BP 94/66; PULSE 101; RESP 16; TEMP 97.4; O2SAT 97
[2017-09-18] MEDS: QUEtiapine FUMARATE 200 MG TAB PO SCH (20:03)
[2017-09-19 06:00] VITALS: BP 104/59; PULSE 90; RESP 16; TEMP 97.6; O2SAT 95
[2017-09-19] MEDS: MIDODRINE 5 MG TAB PO SCH ×3 (06:44→15:54)
[2017-09-19] MEDS: ASPIRIN EC 81 MG TABEC PO SCH (08:47)
[2017-09-19] MEDS: MULTIVITAMIN TAB PO SCH (08:47)
[2017-09-19] MEDS: FOLIC ACID 1 MG TAB PO SCH (08:47)
[2017-09-19] MEDS: QUEtiapine FUMARATE 25 MG TAB PO SCH ×2 (08:47→15:54)
[2017-09-19] MEDS: VALPROIC ACID 250 MG CAP PO SCH ×2 (08:47→20:25)
[2017-09-19] MEDS: THIAMINE HCL 100 MG TAB PO SCH (08:47)
--- NOTE | 2017-09-19 14:20 | HHI.PYPN ---
Subjective Remarks Reviewed electronic medical record and discussed case with staff. Staff reports no changes. I found Mr. Lucas sitting in a chair in the day room. Awake, alert, and oriented to self. His mood was good and his affect is euthymic this morning. He was more talkative than usual and discussed football , which was on the television. During the conversation he did lose his train of thought in several locations and his thoughts became disorganized. He denies any physical complaints, and has no apparent side effects from medication. His counselor continues to work on a discharge plan. Mental Status Examination Appearance: Other (remains a little disheveled) Consciousness: Alert Orientation: Person Motor Activity: Other (lying in bed, no abnormal motor activity noted.) Speech: Unremarkable Language: Adequate Fund of Knowledge: Poor Attention and Concentration: Inadequate Memory: Impaired Mood: Appropriate, Good Affect: Appropriate, Euthymic Thought Process & Associations: Other (Tends to be disorganized and illogical at times) Thought Content: Other (some poverty of thought) Hallucination Type: None Delusion Type: None Suicidal Ideation: No Suicidal Plan: No Suicidal Intention: No Homicidal Ideation: No Homicidal Plan: No Homicidal Intention: No Insight: Poor Judgment: Poor Results Vitals/IOs Vital Signs Date Time Temp Pulse Resp B/P (MAP) Pulse Ox O2 Delivery O2 Flow Rate FiO2 09/19/17 06:00 97.6 90 16 104/59 (74) 95 Assessment & Plan Problem List: (1) Unspecified psychosis ICD Codes: F29 - Unspecified psychosis not due to a substance or known physiological condition (2) Major neurocognitive disorder as late effect of traumatic brain injury with behavioral disturbance ICD Codes: S06.9X9S - Unspecified intracranial injury with loss of consciousness of unspecified duration, sequela; F02.81 - Dementia in other diseases classified elsewhere with behavioral disturbance Status: Acute Assessment & Plan Estimated LOS: Due to traumatic brain injury, Mr. Lucas is unable to provide even basic care for himself. His counselor continues to work on a safe discharge plan and placement. Justification for Cont. Inpt. Moving this patient to a lower level of care would result in decompensation. Julia Sosa Sep 19, 2017 14:20
[2017-09-19 14:54] VITALS: BP 84/48; PULSE 94; RESP 18; TEMP 97.2; O2SAT 98
[2017-09-19 20:20] VITALS: BP 103/58; PULSE 96; RESP 18
[2017-09-19] MEDS: QUEtiapine FUMARATE 200 MG TAB PO SCH (20:25)
[2017-09-20] MEDS: MIDODRINE 5 MG TAB PO SCH ×3 (06:06→16:59)
[2017-09-20 06:21] VITALS: BP 87/52; PULSE 91; RESP 18; TEMP 97.8; O2SAT 95
[2017-09-20] MEDS: MULTIVITAMIN TAB PO SCH (08:08)
[2017-09-20] MEDS: THIAMINE HCL 100 MG TAB PO SCH (08:08)
[2017-09-20] MEDS: QUEtiapine FUMARATE 25 MG TAB PO SCH ×2 (08:08→16:00)
[2017-09-20] MEDS: ASPIRIN EC 81 MG TABEC PO SCH (08:08)
[2017-09-20] MEDS: FOLIC ACID 1 MG TAB PO SCH (08:08)
[2017-09-20] MEDS: VALPROIC ACID 250 MG CAP PO SCH ×2 (08:08→19:53)
--- NOTE | 2017-09-20 11:48 | HHI.PYPN ---
Subjective Chief Complaint: psychosis Remarks Pt seen and discussed with staff. He has been compliant with medications and cooperative with care. He has been observed talking to himself with disorganized behaviors. He laughs inappropriately and makes odd statements. "I' m rejecting this reivew." "The meds are fine but you can't predict the beliefs" . Hygiene is poor Mental Status Examination Appearance: Other (remains a little disheveled) Consciousness: Alert Orientation: Person, Place ("hospital") Motor Activity: Other (lying in bed, no abnormal motor activity noted.) Speech: Unremarkable Language: Adequate Fund of Knowledge: Poor Attention and Concentration: Inadequate Memory: Impaired Mood: Other ("happy, happy") Affect: Other (inappropriately elevated) Thought Process & Associations: Disorganized, Other Thought Content: Bizarre thinking, Ideas of reference, Other Hallucination Type: None, Other (appears internally stimulated) Delusion Type: Bizarre Suicidal Ideation: No Suicidal Plan: No Suicidal Intention: No Homicidal Ideation: No Homicidal Plan: No Homicidal Intention: No Insight: Poor Judgment: Poor Results Vitals/IOs Vital Signs Date Time Temp Pulse Resp B/P (MAP) Pulse Ox O2 Delivery O2 Flow Rate FiO2 09/20/17 06:21 97.8 91 18 87/52 (64) 95 Intake and Output 09/20/17 09/20/17 09/21/17 08:00 16:00 00:00 Intake Total 240 ml Balance 240 ml Assessment & Plan Problem List: (1) Unspecified psychosis ICD Codes: F29 - Unspecified psychosis not due to a substance or known physiological condition (2) Major neurocognitive disorder as late effect of traumatic brain injury with behavioral disturbance ICD Codes: S06.9X9S - Unspecified intracranial injury with loss of consciousness of unspecified duration, sequela; F02.81 - Dementia in other diseases classified elsewhere with behavioral disturbance Status: Acute Assessment & Plan Continue current tx plan. Estimated LOS: days Justification for Cont. Inpt. psychosis Monet Lezama MD Sep 20, 2017 11:48
[2017-09-20 16:51] LABS: BILIRUBIN, URINE NEG (NEG); BLOOD, URINE NEG (NEG); GLUCOSE,URINE NEG (NEG); KETONE, URINE NEG (NEG); NITRITE,URINE NEG (NEG); URINE COLOR YELLOW (YELLW/STRAW); URINE LEUKOCYTE ESTERASE NEG (NEG)
[2017-09-20 18:01] VITALS: BP 122/60; PULSE 99; RESP 18; TEMP 97.4; O2SAT 98
[2017-09-20] MEDS: QUEtiapine FUMARATE 200 MG TAB PO SCH (19:52)
[2017-09-21 05:51] VITALS: BP 131/65; PULSE 75; RESP 16; TEMP 97.3; O2SAT 96
[2017-09-21] MEDS: MIDODRINE 5 MG TAB PO SCH ×3 (06:15→15:37)
[2017-09-21] MEDS: THIAMINE HCL 100 MG TAB PO SCH (08:57)
[2017-09-21] MEDS: MULTIVITAMIN TAB PO SCH (08:57)
[2017-09-21] MEDS: VALPROIC ACID 250 MG CAP PO SCH ×2 (08:57→20:08)
[2017-09-21] MEDS: QUEtiapine FUMARATE 25 MG TAB PO SCH ×2 (08:57→15:37)
[2017-09-21] MEDS: ASPIRIN EC 81 MG TABEC PO SCH (08:57)
[2017-09-21] MEDS: FOLIC ACID 1 MG TAB PO SCH (09:00)
--- NOTE | 2017-09-21 16:13 | HHI.PYPN ---
Subjective Chief Complaint: psychosis Remarks Pt seen and discussed with staff. He has been pleasantly psychotic today. He has been cooperative with care and compliant with medications. No agitation or aggression Mental Status Examination Appearance: Other (remains a little disheveled) Consciousness: Alert Orientation: Person, Place ("hospital") Motor Activity: Other (lying in bed, no abnormal motor activity noted.) Speech: Unremarkable Language: Adequate Fund of Knowledge: Poor Attention and Concentration: Inadequate Memory: Impaired Mood: Other ("happy, happy") Affect: Other (inappropriately elevated) Thought Process & Associations: Disorganized, Other Thought Content: Bizarre thinking, Ideas of reference, Other Hallucination Type: None, Other (appears internally stimulated) Delusion Type: Bizarre Suicidal Ideation: No Suicidal Plan: No Suicidal Intention: No Homicidal Ideation: No Homicidal Plan: No Homicidal Intention: No Insight: Poor Judgment: Poor Results Vitals/IOs Vital Signs Date Time Temp Pulse Resp B/P (MAP) Pulse Ox O2 Delivery O2 Flow Rate FiO2 09/21/17 05:51 97.3 75 16 131/65 (87) 96 Intake and Output 09/21/17 09/21/17 09/22/17 08:00 16:00 00:00 Intake Total 0 ml 840 ml Balance 0 ml 840 ml Assessment & Plan Problem List: (1) Unspecified psychosis ICD Codes: F29 - Unspecified psychosis not due to a substance or known physiological condition (2) Major neurocognitive disorder as late effect of traumatic brain injury with behavioral disturbance ICD Codes: S06.9X9S - Unspecified intracranial injury with loss of consciousness of unspecified duration, sequela; F02.81 - Dementia in other diseases classified elsewhere with behavioral disturbance Status: Acute Assessment & Plan Continue current tx plan. Estimated LOS: days Justification for Cont. Inpt. impairments in reality testing Monet Lezama MD Sep 21, 2017 16:13
[2017-09-21 18:07] VITALS: BP 111/54; PULSE 93; RESP 16; TEMP 98; O2SAT 97
[2017-09-21] MEDS: QUEtiapine FUMARATE 200 MG TAB PO SCH (20:08)
[2017-09-22 05:38] VITALS: BP 93/50; PULSE 92; RESP 16; TEMP 97.7; O2SAT 95
[2017-09-22] MEDS: MIDODRINE 5 MG TAB PO SCH ×3 (06:03→16:24)
[2017-09-22] MEDS: QUEtiapine FUMARATE 25 MG TAB PO SCH ×2 (08:29→16:22)
[2017-09-22] MEDS: MULTIVITAMIN TAB PO SCH (08:30)
[2017-09-22] MEDS: FOLIC ACID 1 MG TAB PO SCH (08:30)
[2017-09-22] MEDS: ASPIRIN EC 81 MG TABEC PO SCH (08:30)
[2017-09-22] MEDS: THIAMINE HCL 100 MG TAB PO SCH (08:30)
[2017-09-22] MEDS: VALPROIC ACID 250 MG CAP PO SCH ×2 (08:30→20:23)
--- NOTE | 2017-09-22 14:54 | HHI.PYPN ---
Subjective Chief Complaint: psychosis Remarks Reviewed electronic medical record and discussed case with staff. Patient reports that he slept well and ate breakfast. He states that he feels "all right today". He follows this up by saying, "do not listen to the idiots". When asked to the idiots are he responded, "the Catholics". Patient's appearance is disheveled. His speech although clear remains disorganized and at times illogical. His mood is good and his affect is euthymic. A search for placement continues. Mental Status Examination Appearance: Other (remains a little disheveled) Consciousness: Alert Orientation: Person, Place ("hospital") Motor Activity: Other (lying in bed, no abnormal motor activity noted.) Speech: Unremarkable Language: Adequate Fund of Knowledge: Poor Attention and Concentration: Inadequate Memory: Impaired Mood: Other ("happy, happy") Affect: Other (inappropriately elevated) Thought Process & Associations: Disorganized, Other Thought Content: Bizarre thinking, Ideas of reference, Other Hallucination Type: None, Other (appears internally stimulated) Delusion Type: Bizarre Suicidal Ideation: No Suicidal Plan: No Suicidal Intention: No Homicidal Ideation: No Homicidal Plan: No Homicidal Intention: No Insight: Poor Judgment: Poor Results Vitals/IOs Vital Signs Date Time Temp Pulse Resp B/P (MAP) Pulse Ox O2 Delivery O2 Flow Rate FiO2 09/22/17 05:38 97.7 92 16 93/50 (64) 95 Intake and Output 09/22/17 09/22/17 09/23/17 08:00 16:00 00:00 Intake Total 360 ml Balance 360 ml Assessment & Plan Problem List: (1) Unspecified psychosis ICD Codes: F29 - Unspecified psychosis not due to a substance or known physiological condition (2) Major neurocognitive disorder as late effect of traumatic brain injury with behavioral disturbance ICD Codes: S06.9X9S - Unspecified intracranial injury with loss of consciousness of unspecified duration, sequela; F02.81 - Dementia in other diseases classified elsewhere with behavioral disturbance Status: Acute Assessment & Plan Estimated LOS: Patient unable to be discharged due to his inability to provide of his basic self care. Counselors working on placement to enable a safe discharge. Justification for Cont. Inpt. Moving this patient to a lower level of care would result in a decompensation. Discharge planning continues. Julia Sosa 12, 2018 14:54
[2017-09-22 18:15] VITALS: BP 98/53; PULSE 111; RESP 16; TEMP 97.6; O2SAT 93
[2017-09-22] MEDS: QUEtiapine FUMARATE 200 MG TAB PO SCH (20:19)
[2017-09-23 06:00] VITALS: BP 131/62; PULSE 96; RESP 16; TEMP 97.7; O2SAT 99
[2017-09-23] MEDS: MIDODRINE 5 MG TAB PO SCH ×3 (06:42→17:00)
[2017-09-23] MEDS: FOLIC ACID 1 MG TAB PO SCH (08:42)
[2017-09-23] MEDS: ASPIRIN EC 81 MG TABEC PO SCH (08:43)
[2017-09-23] MEDS: QUEtiapine FUMARATE 25 MG TAB PO SCH ×2 (08:43→16:00)
[2017-09-23] MEDS: THIAMINE HCL 100 MG TAB PO SCH (08:43)
[2017-09-23] MEDS: MULTIVITAMIN TAB PO SCH (08:43)
[2017-09-23] MEDS: VALPROIC ACID 250 MG CAP PO SCH ×2 (08:50→20:20)
[2017-09-23 16:00] VITALS: BP 100/56; PULSE 107; RESP 16; TEMP 97.7; O2SAT 94
--- NOTE | 2017-09-23 16:18 | HHI.PYPN ---
Subjective Chief Complaint: psychosis Remarks Reviewed record and discussed case with staff. Follow-up conducted and dayroom. Patient remains pleasantly confused. States he slept well and his appetite has been good. He denies any physical complaints. Staff reports that he has been compliant with his medications and treatment. Mental Status Examination Appearance: Other (remains a little disheveled) Consciousness: Alert Orientation: Person, Place ("hospital") Motor Activity: Other (lying in bed, no abnormal motor activity noted.) Speech: Unremarkable Language: Adequate Fund of Knowledge: Poor Attention and Concentration: Inadequate Memory: Impaired Mood: Other ("happy, happy") Affect: Other (inappropriately elevated) Thought Process & Associations: Disorganized, Other Thought Content: Bizarre thinking, Ideas of reference, Other Hallucination Type: None, Other (appears internally stimulated) Delusion Type: Bizarre Suicidal Ideation: No Suicidal Plan: No Suicidal Intention: No Homicidal Ideation: No Homicidal Plan: No Homicidal Intention: No Insight: Poor Judgment: Poor Results Vitals/IOs Vital Signs Date Time Temp Pulse Resp B/P (MAP) Pulse Ox O2 Delivery O2 Flow Rate FiO2 09/23/17 06:00 97.7 96 16 131/62 (85) 99 Intake and Output 09/23/17 09/23/17 09/24/17 08:00 16:00 00:00 Intake Total 240 ml 240 ml Balance 240 ml 240 ml Assessment & Plan Problem List: (1) Unspecified psychosis ICD Codes: F29 - Unspecified psychosis not due to a substance or known physiological condition (2) Major neurocognitive disorder as late effect of traumatic brain injury with behavioral disturbance ICD Codes: S06.9X9S - Unspecified intracranial injury with loss of consciousness of unspecified duration, sequela; F02.81 - Dementia in other diseases classified elsewhere with behavioral disturbance Status: Acute Assessment & Plan Estimated LOS: Patient lacks the capacity to provide self-care due to a traumatic brain injury. Search for appropriate placement to ensure a safe discharge continues. Justification for Cont. Inpt. Moving this patient to a lower level of care would result in decompensation. Julia Sosa Sep 23, 2017 16:18
[2017-09-23] MEDS: QUEtiapine FUMARATE 200 MG TAB PO SCH (20:20)
[2017-09-24 05:33] VITALS: BP 107/63; PULSE 85; RESP 16; TEMP 97.8; O2SAT 97
[2017-09-24] MEDS: MIDODRINE 5 MG TAB PO SCH ×3 (06:57→17:00)
[2017-09-24] MEDS: THIAMINE HCL 100 MG TAB PO SCH (09:00)
[2017-09-24] MEDS: QUEtiapine FUMARATE 25 MG TAB PO SCH ×2 (09:00→16:00)
[2017-09-24] MEDS: ASPIRIN EC 81 MG TABEC PO SCH (09:00)
[2017-09-24] MEDS: VALPROIC ACID 250 MG CAP PO SCH ×2 (09:00→20:43)
[2017-09-24] MEDS: FOLIC ACID 1 MG TAB PO SCH (09:00)
[2017-09-24] MEDS: MULTIVITAMIN TAB PO SCH (09:00)
--- NOTE | 2017-09-24 10:33 | HHI.PYPN ---
Subjective Chief Complaint: psychosis Remarks Patient seen for follow, chart reviewed. Discussion nursing staff reported the patient has not had any behavioral disturbances, compliant with treatment. Patient was found in the room notably, cooperative. Patient continues to have some baseline disorganization likely secondary to TBI and neurocognitive deficits. Patient denies any physical complaints at this time, denies any dizziness or unsteady gait when standing or walking. Review of Systems Except as stated in HPI: all other systems reviewed are Neg Mental Status Examination Appearance: Other (remains a little disheveled) Consciousness: Alert Orientation: Person, Place ("hospital") Motor Activity: Other (lying in bed, no abnormal motor activity noted.) Speech: Unremarkable Language: Adequate Fund of Knowledge: Poor Attention and Concentration: Inadequate Memory: Impaired Mood: Other ("ok") Affect: Appropriate Thought Process & Associations: Disorganized (At times) Thought Content: Bizarre thinking, Ideas of reference, Other Hallucination Type: None, Other (appears internally stimulated) Delusion Type: Bizarre Suicidal Ideation: No Suicidal Plan: No Suicidal Intention: No Homicidal Ideation: No Homicidal Plan: No Homicidal Intention: No Insight: Poor Judgment: Poor Results Vitals/IOs Vital Signs Date Time Temp Pulse Resp B/P (MAP) Pulse Ox O2 Delivery O2 Flow Rate FiO2 09/24/17 05:33 97.8 85 16 107/63 (78) 97 Intake and Output 09/24/17 09/24/17 09/25/17 08:00 16:00 00:00 Intake Total 240 ml Balance 240 ml Assessment & Plan Problem List: (1) Unspecified psychosis ICD Codes: F29 - Unspecified psychosis not due to a substance or known physiological condition (2) Major neurocognitive disorder as late effect of traumatic brain injury with behavioral disturbance ICD Codes: S06.9X9S - Unspecified intracranial injury with loss of consciousness of unspecified duration, sequela; F02.81 - Dementia in other diseases classified elsewhere with behavioral disturbance Status: Acute Assessment & Plan Patient with no behavioral disturbances, noted to have occasional disorganized behavior which is likely secondary from TBI and neurocognitive deficits. Patient not endorsing any perceptual disturbances or delusions. Continue current treatment. Continue to monitor mood and behavior. Discharge planning in progress. Justification for Cont. Inpt. At risk of further decompensation at lower level of care Discharge Planning To be determined Kirby Richmond MD Sep 24, 2017 10:33
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
[2017-09-24 18:00] VITALS: BP 108/68; PULSE 90; RESP 18; TEMP 97.1; O2SAT 97
[2017-09-24] MEDS: QUEtiapine FUMARATE 200 MG TAB PO SCH (20:43)
[2017-09-25 04:38] VITALS: BP 129/63; PULSE 86; RESP 16; TEMP 96.9; O2SAT 98
[2017-09-25] MEDS: MIDODRINE 5 MG TAB PO SCH ×3 (06:22→17:00)
[2017-09-25] MEDS: VALPROIC ACID 250 MG CAP PO SCH ×2 (08:57→20:36)
[2017-09-25] MEDS: QUEtiapine FUMARATE 25 MG TAB PO SCH ×2 (08:58→15:43)
[2017-09-25] MEDS: MULTIVITAMIN TAB PO SCH (08:58)
[2017-09-25] MEDS: ASPIRIN EC 81 MG TABEC PO SCH (08:58)
[2017-09-25] MEDS: FOLIC ACID 1 MG TAB PO SCH (08:58)
[2017-09-25] MEDS: THIAMINE HCL 100 MG TAB PO SCH (08:58)
--- NOTE | 2017-09-25 10:46 | HHI.PYPN ---
Subjective Chief Complaint: psychosis Remarks Patient seen for follow, chart reviewed. Patient is a staff reported the patient has not had any behavioral disturbances, has been compliant with medications. Patient found sitting in the room notably, cooperative. Patient continues report having some dizziness upon standing or ambulating particularly in the evening after his nighttime dose. Patient denies any perceptual service or delusions at this time. Patient denies any physical complaints. Patient reports attending some groups while the unit. Continue to be noted to have some disorganized behavior during interview. Review of Systems Except as stated in HPI: all other systems reviewed are Neg Mental Status Examination Appearance: Other (remains a little disheveled) Consciousness: Alert Orientation: Person, Place ("hospital") Motor Activity: Other (lying in bed, no abnormal motor activity noted.) Speech: Unremarkable Language: Adequate Fund of Knowledge: Poor Attention and Concentration: Inadequate Memory: Impaired Mood: Other ("ok") Affect: Appropriate Thought Process & Associations: Disorganized (At times) Thought Content: Bizarre thinking, Ideas of reference, Other Hallucination Type: None, Other (appears internally stimulated) Delusion Type: Bizarre Suicidal Ideation: No Suicidal Plan: No Suicidal Intention: No Homicidal Ideation: No Homicidal Plan: No Homicidal Intention: No Insight: Poor Judgment: Poor Results Vitals/IOs Vital Signs Date Time Temp Pulse Resp B/P (MAP) Pulse Ox O2 Delivery O2 Flow Rate FiO2 09/25/17 04:38 96.9 86 16 129/63 (85) 98 Assessment & Plan Problem List: (1) Unspecified psychosis ICD Codes: F29 - Unspecified psychosis not due to a substance or known physiological condition (2) Major neurocognitive disorder as late effect of traumatic brain injury with behavioral disturbance ICD Codes: S06.9X9S - Unspecified intracranial injury with loss of consciousness of unspecified duration, sequela; F02.81 - Dementia in other diseases classified elsewhere with behavioral disturbance Status: Acute Assessment & Plan Patient this time with no behavioral disturbances, calm, cooperative staff, compliant with medications. We will decrease quetiapine to 50/50/150 milligrams , continue to monitor for orthostatic hypotension, continue to encourage p.o. fluid intake to maintain adequate hydration continue monitor mood and behavior. Continue rest of medications, continue recommendations as per prior medical team. Discharge planning in progress. Justification for Cont. Inpt. At risk for decompensation at lower level of care Discharge Planning To be determined Kirby Richmond MD Sep 25, 2017 10:46
[2017-09-25 18:04] VITALS: BP 105/55; PULSE 100; RESP 20; TEMP 97.9; O2SAT 97
[2017-09-25] MEDS: QUEtiapine FUMARATE 100 MG TAB PO SCH (20:36)
[2017-09-26] MEDS: LORazepam 2 MG/ML VIAL IM PRN (01:48)
[2017-09-26] MEDS: MIDODRINE 5 MG TAB PO SCH ×3 (06:44→16:27)
[2017-09-26] MEDS: VALPROIC ACID 250 MG CAP PO SCH ×2 (09:09→21:17)
[2017-09-26] MEDS: QUEtiapine FUMARATE 25 MG TAB PO SCH ×2 (09:09→16:00)
[2017-09-26] MEDS: MULTIVITAMIN TAB PO SCH (09:10)
[2017-09-26] MEDS: FOLIC ACID 1 MG TAB PO SCH (09:10)
[2017-09-26] MEDS: THIAMINE HCL 100 MG TAB PO SCH (09:10)
[2017-09-26] MEDS: ASPIRIN EC 81 MG TABEC PO SCH (09:10)
--- NOTE | 2017-09-26 16:49 | HHI.PYPN ---
Subjective Chief Complaint: psychosis Remarks Patient seen for follow, chart reviewed. Discussion nursing staff reported the patient last evening I received ETO of Ativan last evening as he was noted to be somewhat upset stating over his roommate's bed. Patient was found in the room notably, cooperative. Patient states that he is feeling well and that he was upset last evening and someone had said something upsetting but was unable to elaborate. Patient states that he is feeling better today, denying any dizziness during standing or ambulation. Patient noted to be have some disorganized behavior during interview, continues to have disorientation alert and oriented only to person and place. Review of Systems Except as stated in HPI: all other systems reviewed are Neg Mental Status Examination Appearance: Other (remains a little disheveled) Consciousness: Alert Orientation: Person, Place ("hospital") Motor Activity: Other (lying in bed, no abnormal motor activity noted.) Speech: Unremarkable Language: Adequate Fund of Knowledge: Poor Attention and Concentration: Inadequate Memory: Impaired Mood: Other ("ok") Affect: Appropriate Thought Process & Associations: Disorganized (At times) Thought Content: Bizarre thinking, Ideas of reference, Other Hallucination Type: None, Other (appears internally stimulated) Delusion Type: Bizarre Suicidal Ideation: No Suicidal Plan: No Suicidal Intention: No Homicidal Ideation: No Homicidal Plan: No Homicidal Intention: No Insight: Poor Judgment: Poor Results Vitals/IOs Vital Signs Date Time Temp Pulse Resp B/P (MAP) Pulse Ox O2 Delivery O2 Flow Rate FiO2 09/25/17 18:04 97.9 100 20 105/55 (72) 97 Intake and Output 09/26/17 09/26/17 09/27/17 08:00 16:00 00:00 Intake Total 600 ml 240 ml Balance 600 ml 240 ml Assessment & Plan Problem List: (1) Unspecified psychosis ICD Codes: F29 - Unspecified psychosis not due to a substance or known physiological condition (2) Major neurocognitive disorder as late effect of traumatic brain injury with behavioral disturbance ICD Codes: S06.9X9S - Unspecified intracranial injury with loss of consciousness of unspecified duration, sequela; F02.81 - Dementia in other diseases classified elsewhere with behavioral disturbance Status: Acute Assessment & Plan Patient continues with baseline confusion, likely secondary to neurocognitive deficits from TBI. Continue current treatment. Continue to monitor mood and behavior. Discharge planning in progress. Justification for Cont. Inpt. At risk of further decompensation at lower level of care. Discharge Planning To be determined Kirby Richmond MD Sep 26, 2017 16:49
[2017-09-26 18:06] VITALS: BP 102/55; PULSE 91; RESP 16; TEMP 98.6; O2SAT 96
[2017-09-26] MEDS: QUEtiapine FUMARATE 100 MG TAB PO SCH (21:17)
[2017-09-27] MEDS: MIDODRINE 5 MG TAB PO SCH ×3 (06:20→16:53)
[2017-09-27 07:12] VITALS: BP 117/59; PULSE 96; RESP 18; TEMP 97.4; O2SAT 99
[2017-09-27] MEDS: VALPROIC ACID 250 MG CAP PO SCH ×2 (08:27→20:12)
[2017-09-27] MEDS: QUEtiapine FUMARATE 25 MG TAB PO SCH ×2 (08:27→16:53)
[2017-09-27] MEDS: FOLIC ACID 1 MG TAB PO SCH (08:27)
[2017-09-27] MEDS: MULTIVITAMIN TAB PO SCH (08:28)
[2017-09-27] MEDS: ASPIRIN EC 81 MG TABEC PO SCH (08:28)
[2017-09-27] MEDS: THIAMINE HCL 100 MG TAB PO SCH (08:28)
[2017-09-27 11:22] VITALS: BP 96/44
--- NOTE | 2017-09-27 17:59 | HHI.PYPN ---
Subjective Chief Complaint: psychosis Remarks Patient was seen and case discussed with nursing. Patient was mildly agitated in the afternoon. For my interview he is pleasant and cooperative with exam. Alert and oriented 2. Nursing does know him talking to himself. Denies auditory visual hallucinations. Mental Status Examination Appearance: Other (remains a little disheveled) Consciousness: Alert Orientation: Person, Place ("hospital") Motor Activity: Other (lying in bed, no abnormal motor activity noted.) Speech: Unremarkable Language: Adequate Fund of Knowledge: Poor Attention and Concentration: Inadequate Memory: Impaired Mood: Other ("ok") Affect: Appropriate Thought Process & Associations: Disorganized (At times) Thought Content: Bizarre thinking, Ideas of reference, Other Hallucination Type: None, Other (appears internally stimulated) Delusion Type: Bizarre Suicidal Ideation: No Suicidal Plan: No Suicidal Intention: No Homicidal Ideation: No Homicidal Plan: No Homicidal Intention: No Insight: Poor Judgment: Poor Results Vitals/IOs Vital Signs Date Time Temp Pulse Resp B/P (MAP) Pulse Ox O2 Delivery O2 Flow Rate FiO2 09/27/17 11:22 96/44 (61) 09/27/17 07:12 97.4 96 18 99 Intake and Output 09/27/17 09/27/17 09/28/17 08:00 16:00 00:00 Intake Total 1440 ml 360 ml Balance 1440 ml 360 ml Assessment & Plan Problem List: (1) Unspecified psychosis ICD Codes: F29 - Unspecified psychosis not due to a substance or known physiological condition (2) Major neurocognitive disorder as late effect of traumatic brain injury with behavioral disturbance ICD Codes: S06.9X9S - Unspecified intracranial injury with loss of consciousness of unspecified duration, sequela; F02.81 - Dementia in other diseases classified elsewhere with behavioral disturbance Status: Acute Assessment & Plan Continue current treatment plan Justification for Cont. Inpt. Patient would decompensate in a less restrictive setting Stalin You DO Sep 27, 2017 17:59
[2017-09-27 18:11] VITALS: BP 109/63; PULSE 102; RESP 16; TEMP 97.6; O2SAT 97
[2017-09-27] MEDS: QUEtiapine FUMARATE 100 MG TAB PO SCH (20:11)
[2017-09-27] MEDS: LORazepam 0.5 MG TAB PO PRN ×2 (22:00→23:26)
[2017-09-28 05:32] VITALS: BP 106/60; PULSE 87; RESP 17; TEMP 97.4; O2SAT 96
[2017-09-28] MEDS: MIDODRINE 5 MG TAB PO SCH ×3 (06:02→16:34)
[2017-09-28] MEDS: VALPROIC ACID 250 MG CAP PO SCH ×2 (08:27→20:51)
[2017-09-28] MEDS: FOLIC ACID 1 MG TAB PO SCH (08:27)
[2017-09-28] MEDS: ASPIRIN EC 81 MG TABEC PO SCH (08:27)
[2017-09-28] MEDS: QUEtiapine FUMARATE 25 MG TAB PO SCH ×2 (08:27→16:33)
[2017-09-28] MEDS: MULTIVITAMIN TAB PO SCH (08:27)
[2017-09-28] MEDS: THIAMINE HCL 100 MG TAB PO SCH (08:27)
--- NOTE | 2017-09-28 12:53 | HHI.PYPN ---
Subjective Chief Complaint: psychosis Remarks Patient was seen and case discussed with nursing. Patient is pleasant and cooperative with exam. Alert and oriented 1. No outbursts, behaving well on the unit Mental Status Examination Appearance: Other (remains a little disheveled) Consciousness: Alert Orientation: Person, Place ("hospital") Motor Activity: Other (lying in bed, no abnormal motor activity noted.) Speech: Unremarkable Language: Adequate Fund of Knowledge: Poor Attention and Concentration: Inadequate Memory: Impaired Mood: Other ("ok") Affect: Appropriate Thought Process & Associations: Disorganized (At times) Thought Content: Bizarre thinking, Ideas of reference, Other Hallucination Type: None, Other (appears internally stimulated) Delusion Type: Bizarre Suicidal Ideation: No Suicidal Plan: No Suicidal Intention: No Homicidal Ideation: No Homicidal Plan: No Homicidal Intention: No Insight: Poor Judgment: Poor Results Vitals/IOs Vital Signs Date Time Temp Pulse Resp B/P (MAP) Pulse Ox O2 Delivery O2 Flow Rate FiO2 09/28/17 05:32 97.4 87 17 106/60 (75) 96 Intake and Output 09/28/17 09/28/17 09/29/17 08:00 16:00 00:00 Intake Total 1440 ml Balance 1440 ml Assessment & Plan Problem List: (1) Unspecified psychosis ICD Codes: F29 - Unspecified psychosis not due to a substance or known physiological condition (2) Major neurocognitive disorder as late effect of traumatic brain injury with behavioral disturbance ICD Codes: S06.9X9S - Unspecified intracranial injury with loss of consciousness of unspecified duration, sequela; F02.81 - Dementia in other diseases classified elsewhere with behavioral disturbance Status: Acute Assessment & Plan Continue current treatment plan Justification for Cont. Inpt. Patient would decompensate in a less restrictive setting Stalin You DO Sep 28, 2017 12:53
[2017-09-28 15:47] VITALS: BP 100/69; PULSE 57; RESP 17; TEMP 97.2; O2SAT 97
[2017-09-28] MEDS: QUEtiapine FUMARATE 100 MG TAB PO SCH (20:52)
[2017-09-29 05:31] VITALS: BP 101/53; PULSE 100; RESP 18; TEMP 98.2; O2SAT 97
[2017-09-29] MEDS: MIDODRINE 5 MG TAB PO SCH ×3 (07:13→17:00)
[2017-09-29] MEDS: FOLIC ACID 1 MG TAB PO SCH (09:37)
[2017-09-29] MEDS: VALPROIC ACID 250 MG CAP PO SCH ×2 (09:37→20:21)
[2017-09-29] MEDS: QUEtiapine FUMARATE 25 MG TAB PO SCH ×2 (09:37→16:00)
[2017-09-29] MEDS: ASPIRIN EC 81 MG TABEC PO SCH (09:37)
[2017-09-29] MEDS: THIAMINE HCL 100 MG TAB PO SCH (09:37)
[2017-09-29] MEDS: MULTIVITAMIN TAB PO SCH (09:37)
--- NOTE | 2017-09-29 17:23 | HHI.PYPN ---
Subjective Chief Complaint: psychosis Remarks Patient seen for follow, chart reviewed. Discussion nursing staff reported the patient yesterday was noted to be somewhat irritable and disorganized and confused which she required p.o. Ativan as a as needed but was okay overnight and was doing well this morning. Patient was found lying hospital and noted B, cooperative. Patient states that he is feeling "okay" denying having recollection of agitation last evening, states that his weekend went "pretty good" and reports having attended some groups. Patient denies having any dizziness upon standing or ambulating recently. Patient denies any perceptual disturbances. Patient continues to have limited insight and some disorganized behavior secondary to neurocognitive deficits. Review of Systems Except as stated in HPI: all other systems reviewed are Neg Mental Status Examination Appearance: Other (remains a little disheveled) Consciousness: Alert Orientation: Person, Place ("hospital") Motor Activity: Other (lying in bed, no abnormal motor activity noted.) Speech: Unremarkable Language: Adequate Fund of Knowledge: Poor Attention and Concentration: Inadequate Memory: Impaired Mood: Other ("ok") Affect: Appropriate Thought Process & Associations: Disorganized (At times) Thought Content: Bizarre thinking, Ideas of reference, Other Hallucination Type: None, Other (appears internally stimulated) Delusion Type: Bizarre Suicidal Ideation: No Suicidal Plan: No Suicidal Intention: No Homicidal Ideation: No Homicidal Plan: No Homicidal Intention: No Insight: Poor Judgment: Poor Results Vitals/IOs Vital Signs Date Time Temp Pulse Resp B/P (MAP) Pulse Ox O2 Delivery O2 Flow Rate FiO2 09/29/17 05:31 98.2 100 18 101/53 (69) 97 Intake and Output 09/29/17 09/29/17 09/30/17 08:00 16:00 00:00 Intake Total 240 ml 240 ml Balance 240 ml 240 ml Assessment & Plan Problem List: (1) Unspecified psychosis ICD Codes: F29 - Unspecified psychosis not due to a substance or known physiological condition (2) Major neurocognitive disorder as late effect of traumatic brain injury with behavioral disturbance ICD Codes: S06.9X9S - Unspecified intracranial injury with loss of consciousness of unspecified duration, sequela; F02.81 - Dementia in other diseases classified elsewhere with behavioral disturbance Status: Acute Assessment & Plan Patient with a recent episode of disorganization and irritability but noted to be redirectable not requiring any details. Patient has baseline neurocognitive deficits significant which patient is unable to care for self adequately. We will continue current treatment. We will continue to monitor with behavior. Discharge planning in progress. Justification for Cont. Inpt. At risk for further decompensation a lower level of care. Discharge Planning To be determined Kirby Richmond MD Sep 29, 2017 17:23
[2017-09-29 17:34] VITALS: BP 137/63; PULSE 100; RESP 16; TEMP 97.1; O2SAT 95
[2017-09-29] MEDS: QUEtiapine FUMARATE 100 MG TAB PO SCH (20:21)
[2017-09-30] MEDS: MIDODRINE 5 MG TAB PO SCH ×3 (06:21→16:15)
[2017-09-30 06:22] VITALS: BP 100/59; PULSE 91; RESP 19; TEMP 98.2; O2SAT 98
[2017-09-30 08:38] VITALS: BP 102/62
[2017-09-30] MEDS: ASPIRIN EC 81 MG TABEC PO SCH (08:41)
[2017-09-30] MEDS: MULTIVITAMIN TAB PO SCH (08:41)
[2017-09-30] MEDS: FOLIC ACID 1 MG TAB PO SCH (08:41)
[2017-09-30] MEDS: THIAMINE HCL 100 MG TAB PO SCH (08:41)
[2017-09-30] MEDS: VALPROIC ACID 250 MG CAP PO SCH ×2 (08:41→20:30)
[2017-09-30] MEDS: QUEtiapine FUMARATE 25 MG TAB PO SCH ×2 (08:42→16:00)
--- NOTE | 2017-09-30 13:57 | HHI.PYPN ---
Subjective Chief Complaint: psychosis Remarks Patient seen for follow, chart reviewed. Discussion nursing staff reported the patient has a compliant with medications with no behavioral issues. Patient was found sitting in the room noted, cooperative. Patient denies any physical symptoms, denies perceptual services but noted to have some disorganized behavior at times but easily redirectable. Patient continues to be alert and oriented only to person and place. Review of Systems Except as stated in HPI: all other systems reviewed are Neg Mental Status Examination Appearance: Other (remains a little disheveled) Consciousness: Alert Orientation: Person, Place ("hospital") Motor Activity: Other (lying in bed, no abnormal motor activity noted.) Speech: Unremarkable Language: Adequate Fund of Knowledge: Poor Attention and Concentration: Inadequate Memory: Impaired Mood: Other ("ok") Affect: Appropriate Thought Process & Associations: Disorganized (At times) Thought Content: Bizarre thinking, Ideas of reference, Other Hallucination Type: None, Other (appears internally stimulated) Delusion Type: Bizarre Suicidal Ideation: No Suicidal Plan: No Suicidal Intention: No Homicidal Ideation: No Homicidal Plan: No Homicidal Intention: No Insight: Poor Judgment: Poor Results Vitals/IOs Vital Signs Date Time Temp Pulse Resp B/P (MAP) Pulse Ox O2 Delivery O2 Flow Rate FiO2 09/30/17 08:38 102/62 (75) 09/30/17 06:22 98.2 91 19 98 Intake and Output 09/30/17 09/30/17 10/01/17 08:00 16:00 00:00 Intake Total 240 ml Balance 240 ml Assessment & Plan Problem List: (1) Unspecified psychosis ICD Codes: F29 - Unspecified psychosis not due to a substance or known physiological condition (2) Major neurocognitive disorder as late effect of traumatic brain injury with behavioral disturbance ICD Codes: S06.9X9S - Unspecified intracranial injury with loss of consciousness of unspecified duration, sequela; F02.81 - Dementia in other diseases classified elsewhere with behavioral disturbance Status: Acute Assessment & Plan Patient at this time continues with episodic disorganized behavior, no recent behavioral disturbances. Continue current treatment. Discharge planning in progress. Justification for Cont. Inpt. At risk for further decompensation at lower level of care. Discharge Planning To be determined Kirby iRchmond MD Sep 30, 2017 13:57
[2017-09-30 17:18] VITALS: BP 111/51; PULSE 109; RESP 18; TEMP 97.1; O2SAT 97
[2017-09-30] MEDS: QUEtiapine FUMARATE 100 MG TAB PO SCH (20:30)
[2017-10-01] MEDS: MIDODRINE 5 MG TAB PO SCH ×3 (06:03→17:42)
[2017-10-01 06:25] VITALS: BP 107/56; PULSE 79; RESP 15; TEMP 97.5; O2SAT 95
[2017-10-01] MEDS: THIAMINE HCL 100 MG TAB PO SCH (09:19)
[2017-10-01] MEDS: ASPIRIN EC 81 MG TABEC PO SCH (09:19)
[2017-10-01] MEDS: QUEtiapine FUMARATE 25 MG TAB PO SCH ×2 (09:19→15:39)
[2017-10-01] MEDS: VALPROIC ACID 250 MG CAP PO SCH ×2 (09:19→20:04)
[2017-10-01] MEDS: MULTIVITAMIN TAB PO SCH (09:19)
[2017-10-01] MEDS: FOLIC ACID 1 MG TAB PO SCH (09:19)
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
--- NOTE | 2017-10-01 15:22 | HHI.PYPN ---
Subjective Chief Complaint: psychosis Remarks Patient seen for follow, chart reviewed. Discussion nursing staff reported the patient has not had any behavioral issues, shaved today. Patient was found sitting in the room that B, cooperative. Patient denies any physical symptoms or complaints at this time reports feeling well tolerating medications well denying any dizziness or difficulty with ambulation. Patient noted to have some disorganized behavior during interview continued to be alert and oriented only to person and place. Review of Systems Except as stated in HPI: all other systems reviewed are Neg Mental Status Examination Appearance: Appropriate Consciousness: Alert Orientation: Person, Place ("hospital") Motor Activity: Other (lying in bed, no abnormal motor activity noted.) Speech: Unremarkable Language: Adequate Fund of Knowledge: Poor Attention and Concentration: Inadequate Memory: Impaired Mood: Other ("ok") Affect: Appropriate Thought Process & Associations: Disorganized (At times) Thought Content: Bizarre thinking, Ideas of reference, Other Hallucination Type: None, Other (appears internally stimulated) Delusion Type: Bizarre Suicidal Ideation: No Suicidal Plan: No Suicidal Intention: No Homicidal Ideation: No Homicidal Plan: No Homicidal Intention: No Insight: Poor Judgment: Poor Results Vitals/IOs Vital Signs Date Time Temp Pulse Resp B/P (MAP) Pulse Ox O2 Delivery O2 Flow Rate FiO2 10/01/17 06:25 97.5 79 15 107/56 (73) 95 Intake and Output 10/01/17 10/01/17 10/02/17 08:00 16:00 00:00 Intake Total 480 ml Balance 480 ml Assessment & Plan Problem List: (1) Unspecified psychosis ICD Codes: F29 - Unspecified psychosis not due to a substance or known physiological condition (2) Major neurocognitive disorder as late effect of traumatic brain injury with behavioral disturbance ICD Codes: S06.9X9S - Unspecified intracranial injury with loss of consciousness of unspecified duration, sequela; F02.81 - Dementia in other diseases classified elsewhere with behavioral disturbance Status: Acute Assessment & Plan Patient this time continues to have occasional disorganized behavior, with no behavioral disturbances recently has been calm and cooperative with staff and attending groups. Patient to continue current treatment. Continue to monitor mood and behavior. Discharge planning in progress. Justification for Cont. Inpt. At risk for further decompensation if at lower level of care Discharge Planning To be determined. Kirby Richmond MD Oct 01, 2017 15:22
[2017-10-01 17:59] VITALS: BP 114/56; PULSE 96; RESP 18; TEMP 97.8; O2SAT 96
[2017-10-01] MEDS: QUEtiapine FUMARATE 100 MG TAB PO SCH (20:00)
[2017-10-02] MEDS: MIDODRINE 5 MG TAB PO SCH ×3 (05:38→16:17)
[2017-10-02 06:07] VITALS: BP 104/56; PULSE 89; RESP 16
[2017-10-02] MEDS: QUEtiapine FUMARATE 25 MG TAB PO SCH ×2 (08:13→16:17)
[2017-10-02] MEDS: MULTIVITAMIN TAB PO SCH (08:13)
[2017-10-02] MEDS: VALPROIC ACID 250 MG CAP PO SCH ×2 (08:13→21:06)
[2017-10-02] MEDS: THIAMINE HCL 100 MG TAB PO SCH (08:13)
[2017-10-02] MEDS: ASPIRIN EC 81 MG TABEC PO SCH (08:13)
[2017-10-02] MEDS: FOLIC ACID 1 MG TAB PO SCH (08:14)
--- NOTE | 2017-10-02 12:23 | HHI.PYPN ---
Subjective Chief Complaint: psychosis Remarks Patient seen in day room with nurse Dhruv, chart reviewed, patient discussed with nurse. Patient compliant medication. Placement of the list of blood level was taken about 3 weeks ago will recheck Depakote blood level tomorrow. Patient calm pleasant with me showing no behavioral issues. Denies suicidality denies voices or visions. His at times somewhat confused and his responses Review of Systems Except as stated in HPI: all other systems reviewed are Neg Mental Status Examination Appearance: Appropriate Consciousness: Alert Orientation: Person, Place ("hospital") Motor Activity: Other (lying in bed, no abnormal motor activity noted.) Speech: Unremarkable Language: Adequate Fund of Knowledge: Poor Attention and Concentration: Inadequate Memory: Impaired Mood: Other ("ok") Affect: Appropriate Thought Process & Associations: Disorganized (At times) Thought Content: Bizarre thinking, Ideas of reference, Other Hallucination Type: None, Other (appears internally stimulated) Delusion Type: Bizarre Suicidal Ideation: No Suicidal Plan: No Suicidal Intention: No Homicidal Ideation: No Homicidal Plan: No Homicidal Intention: No Insight: Poor Judgment: Poor Results Vitals/IOs Vital Signs Date Time Temp Pulse Resp B/P (MAP) Pulse Ox O2 Delivery O2 Flow Rate FiO2 10/02/17 06:07 89 16 104/56 (72) 10/01/17 17:59 97.8 96 Intake and Output 10/02/17 10/02/17 10/02/17 07:59 15:59 23:59 Intake Total 0 ml 840 ml Balance 0 ml 840 ml Assessment & Plan Problem List: (1) Unspecified psychosis ICD Codes: F29 - Unspecified psychosis not due to a substance or known physiological condition (2) Major neurocognitive disorder as late effect of traumatic brain injury with behavioral disturbance ICD Codes: S06.9X9S - Unspecified intracranial injury with loss of consciousness of unspecified duration, sequela; F02.81 - Dementia in other diseases classified elsewhere with behavioral disturbance Status: Acute Assessment & Plan Estimated LOS: days patient remains somewhat confused confused though most significant behavioral problems. He is compliant medications the though staff assistance and interventions. We'll check Depakote level over in the morning Justification for Cont. Inpt. With this time patient would decompensated placed in a lower level of care Discharge Planning Needs to be determined Ulices Moscoso MD Oct 02, 2017 12:23
[2017-10-02 14:44] VITALS: BP 156/63; PULSE 100; RESP 16; TEMP 97.8; O2SAT 97
[2017-10-02 21:00] VITALS: BP 110/58
[2017-10-02] MEDS: QUEtiapine FUMARATE 100 MG TAB PO SCH (21:06)
[2017-10-03] MEDS: MIDODRINE 5 MG TAB PO SCH ×3 (06:14→17:00)
[2017-10-03 06:15] VITALS: BP 97/52; PULSE 85; RESP 15; TEMP 98; O2SAT 98
[2017-10-03] MEDS: MULTIVITAMIN TAB PO SCH (08:25)
[2017-10-03] MEDS: ASPIRIN EC 81 MG TABEC PO SCH (08:25)
[2017-10-03] MEDS: THIAMINE HCL 100 MG TAB PO SCH (08:25)
[2017-10-03] MEDS: FOLIC ACID 1 MG TAB PO SCH (08:28)
[2017-10-03] MEDS: QUEtiapine FUMARATE 25 MG TAB PO SCH ×2 (08:28→16:00)
[2017-10-03] MEDS: VALPROIC ACID 250 MG CAP PO SCH ×2 (10:20→22:38)
--- NOTE | 2017-10-03 10:22 | HHI.PYPN ---
Subjective Chief Complaint: psychosis Remarks Patient seen in day room with nurse Dhruv, chart reviewed, patient discussed with nurse. Patient compliant medications. Patient calm pleasantly confused, no behavioral problem. For now continue treatment Review of Systems Except as stated in HPI: all other systems reviewed are Neg Mental Status Examination Appearance: Appropriate Consciousness: Alert Orientation: Person, Place ("hospital") Motor Activity: Other (lying in bed, no abnormal motor activity noted.) Speech: Unremarkable Language: Adequate Fund of Knowledge: Poor Attention and Concentration: Inadequate Memory: Impaired Mood: Other ("ok") Affect: Appropriate Thought Process & Associations: Disorganized (At times) Thought Content: Bizarre thinking, Ideas of reference, Other Hallucination Type: None, Other (appears internally stimulated) Delusion Type: Bizarre Suicidal Ideation: No Suicidal Plan: No Suicidal Intention: No Homicidal Ideation: No Homicidal Plan: No Homicidal Intention: No Insight: Poor Judgment: Poor Results Vitals/IOs Vital Signs Date Time Temp Pulse Resp B/P (MAP) Pulse Ox O2 Delivery O2 Flow Rate FiO2 10/03/17 06:15 98.0 85 15 97/52 (67) 98 Intake and Output 10/03/17 10/03/17 10/04/17 08:00 16:00 00:00 Intake Total 360 ml Balance 360 ml Assessment & Plan Problem List: (1) Unspecified psychosis ICD Codes: F29 - Unspecified psychosis not due to a substance or known physiological condition (2) Major neurocognitive disorder as late effect of traumatic brain injury with behavioral disturbance ICD Codes: S06.9X9S - Unspecified intracranial injury with loss of consciousness of unspecified duration, sequela; F02.81 - Dementia in other diseases classified elsewhere with behavioral disturbance Status: Acute Assessment & Plan Estimated LOS: days patient continues diffusely confused but no behavioral problems, compliant medications,. Justification for Cont. Inpt. At this time patient would decompensated placed in a lower level of care Discharge Planning This needs to be determined Ulices Moscoso MD Oct 03, 2017 10:22
[2017-10-03 17:49] VITALS: BP 101/54; PULSE 105; RESP 17; TEMP 98.2; O2SAT 96
[2017-10-03] MEDS: QUEtiapine FUMARATE 100 MG TAB PO SCH (22:38)
[2017-10-04 05:58] VITALS: BP 104/62; PULSE 82; RESP 15; TEMP 97.6; O2SAT 95
[2017-10-04] MEDS: MIDODRINE 5 MG TAB PO SCH ×3 (06:24→16:29)
[2017-10-04] MEDS: MULTIVITAMIN TAB PO SCH (09:00)
[2017-10-04] MEDS: THIAMINE HCL 100 MG TAB PO SCH (09:00)
[2017-10-04] MEDS: FOLIC ACID 1 MG TAB PO SCH (09:00)
[2017-10-04] MEDS: QUEtiapine FUMARATE 25 MG TAB PO SCH ×2 (09:00→16:00)
[2017-10-04] MEDS: VALPROIC ACID 250 MG CAP PO SCH ×2 (09:00→21:23)
[2017-10-04] MEDS: ASPIRIN EC 81 MG TABEC PO SCH (09:00)
--- NOTE | 2017-10-04 11:59 | HHI.PYPN ---
Subjective Chief Complaint: psychosis Remarks Pt seen and discussed with staff. He has been compliant with medications and care. He is A&OX2. He remains psychotic and disorganized but has not been agitated. He refused labs today. No SI/HI Mental Status Examination Appearance: Appropriate Consciousness: Alert Orientation: Person, Place ("hospital") Motor Activity: Other (lying in bed, no abnormal motor activity noted.) Speech: Unremarkable Language: Adequate Fund of Knowledge: Poor Attention and Concentration: Inadequate Memory: Impaired Mood: Other ("ok") Affect: Appropriate Thought Process & Associations: Disorganized (At times) Thought Content: Bizarre thinking, Ideas of reference, Other Hallucination Type: None, Other (appears internally stimulated) Delusion Type: Bizarre Suicidal Ideation: No Suicidal Plan: No Suicidal Intention: No Homicidal Ideation: No Homicidal Plan: No Homicidal Intention: No Insight: Poor Judgment: Poor Results Vitals/IOs Vital Signs Date Time Temp Pulse Resp B/P (MAP) Pulse Ox O2 Delivery O2 Flow Rate FiO2 10/04/17 05:58 97.6 82 15 104/62 (76) 95 Intake and Output 10/04/17 10/04/17 10/05/17 08:00 16:00 00:00 Intake Total 360 ml 360 ml Balance 360 ml 360 ml Assessment & Plan Problem List: (1) Unspecified psychosis ICD Codes: F29 - Unspecified psychosis not due to a substance or known physiological condition (2) Major neurocognitive disorder as late effect of traumatic brain injury with behavioral disturbance ICD Codes: S06.9X9S - Unspecified intracranial injury with loss of consciousness of unspecified duration, sequela; F02.81 - Dementia in other diseases classified elsewhere with behavioral disturbance Status: Acute Assessment & Plan Continue current tx plan. Estimated LOS: days Justification for Cont. Inpt. impairments in reality testing and self care Monet Lezama MD Oct 04, 2017 11:59
[2017-10-04 17:58] VITALS: BP 108/64; PULSE 100; RESP 18; TEMP 97.6; O2SAT 94
[2017-10-04] MEDS: QUEtiapine FUMARATE 100 MG TAB PO SCH (21:23)
[2017-10-05] MEDS: MIDODRINE 5 MG TAB PO SCH ×3 (06:02→16:34)
[2017-10-05 06:13] VITALS: BP 106/71; PULSE 76; RESP 15; TEMP 97.7; O2SAT 95
[2017-10-05] MEDS: ACETAMINOPHEN 325 MG TAB PO PRN (08:38)
[2017-10-05] MEDS: MULTIVITAMIN TAB PO SCH (08:39)
[2017-10-05] MEDS: QUEtiapine FUMARATE 25 MG TAB PO SCH ×2 (08:39→16:00)
[2017-10-05] MEDS: FOLIC ACID 1 MG TAB PO SCH (08:39)
[2017-10-05] MEDS: THIAMINE HCL 100 MG TAB PO SCH (08:39)
[2017-10-05] MEDS: VALPROIC ACID 250 MG CAP PO SCH ×2 (08:39→21:15)
[2017-10-05] MEDS: ASPIRIN EC 81 MG TABEC PO SCH (08:39)
--- NOTE | 2017-10-05 13:44 | HHI.PYPN ---
Subjective Chief Complaint: psychosis Remarks Pt seen and discussed with staff. He has been compliant with medications and care. He remains delusional, but has not had outbursts or behavioral problems today. No SI/HI Mental Status Examination Appearance: Appropriate Consciousness: Alert Orientation: Person, Place ("hospital") Motor Activity: Other (lying in bed, no abnormal motor activity noted.) Speech: Unremarkable Language: Adequate Fund of Knowledge: Poor Attention and Concentration: Inadequate Memory: Impaired Mood: Other ("ok") Affect: Appropriate Thought Process & Associations: Disorganized Thought Content: Bizarre thinking, Ideas of reference, Other Hallucination Type: None, Other (appears internally stimulated) Delusion Type: Bizarre Suicidal Ideation: No Suicidal Plan: No Suicidal Intention: No Homicidal Ideation: No Homicidal Plan: No Homicidal Intention: No Insight: Poor Judgment: Poor Results Vitals/IOs Vital Signs Date Time Temp Pulse Resp B/P (MAP) Pulse Ox O2 Delivery O2 Flow Rate FiO2 10/05/17 06:13 97.7 76 15 106/71 (83) 95 Intake and Output 10/05/17 10/05/17 10/06/17 08:00 16:00 00:00 Intake Total 480 ml Balance 480 ml Assessment & Plan Problem List: (1) Unspecified psychosis ICD Codes: F29 - Unspecified psychosis not due to a substance or known physiological condition (2) Major neurocognitive disorder as late effect of traumatic brain injury with behavioral disturbance ICD Codes: S06.9X9S - Unspecified intracranial injury with loss of consciousness of unspecified duration, sequela; F02.81 - Dementia in other diseases classified elsewhere with behavioral disturbance Status: Acute Assessment & Plan Continue current tx plan. Estimated LOS: days Justification for Cont. Inpt. impairments in self care and reality testing Monet Lezama MD Oct 05, 2017 13:44
[2017-10-05 17:40] VITALS: BP 109/51; PULSE 97; RESP 20; TEMP 98.6; O2SAT 95
[2017-10-05] MEDS: QUEtiapine FUMARATE 100 MG TAB PO SCH (21:16)
[2017-10-06] MEDS: MIDODRINE 5 MG TAB PO SCH ×3 (06:35→16:40)
[2017-10-06 06:57] VITALS: BP 103/61; PULSE 82; RESP 16; TEMP 97.3; O2SAT 94
[2017-10-06] MEDS: THIAMINE HCL 100 MG TAB PO SCH (09:30)
[2017-10-06] MEDS: VALPROIC ACID 250 MG CAP PO SCH ×2 (09:30→20:56)
[2017-10-06] MEDS: MULTIVITAMIN TAB PO SCH (09:31)
[2017-10-06] MEDS: ASPIRIN EC 81 MG TABEC PO SCH (09:31)
[2017-10-06] MEDS: QUEtiapine FUMARATE 25 MG TAB PO SCH ×2 (09:31→16:00)
[2017-10-06] MEDS: FOLIC ACID 1 MG TAB PO SCH (09:31)
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
--- NOTE | 2017-10-06 12:24 | HHI.PYPN ---
Subjective Chief Complaint: psychosis Remarks Patient seen in day room with nurse Mcguire, chart review, patient compliant medications, patient discussed with nurse. Patient calm pleasant with me no behavioral problems continues demented confused. For now continue treatment Review of Systems Except as stated in HPI: all other systems reviewed are Neg Mental Status Examination Appearance: Appropriate Consciousness: Alert Orientation: Person, Place ("hospital") Motor Activity: Other (lying in bed, no abnormal motor activity noted.) Speech: Unremarkable Language: Adequate Fund of Knowledge: Poor Attention and Concentration: Inadequate Memory: Impaired Mood: Other ("ok") Affect: Appropriate Thought Process & Associations: Disorganized Thought Content: Bizarre thinking, Ideas of reference, Other Hallucination Type: None, Other (appears internally stimulated) Delusion Type: Bizarre Suicidal Ideation: No Suicidal Plan: No Suicidal Intention: No Homicidal Ideation: No Homicidal Plan: No Homicidal Intention: No Insight: Poor Judgment: Poor Results Vitals/IOs Vital Signs Date Time Temp Pulse Resp B/P (MAP) Pulse Ox O2 Delivery O2 Flow Rate FiO2 10/06/17 06:57 97.3 82 16 103/61 (75) 94 Intake and Output 10/06/17 10/06/17 10/07/17 08:00 16:00 00:00 Intake Total 240 ml Balance 240 ml Assessment & Plan Problem List: (1) Unspecified psychosis ICD Codes: F29 - Unspecified psychosis not due to a substance or known physiological condition (2) Major neurocognitive disorder as late effect of traumatic brain injury with behavioral disturbance ICD Codes: S06.9X9S - Unspecified intracranial injury with loss of consciousness of unspecified duration, sequela; F02.81 - Dementia in other diseases classified elsewhere with behavioral disturbance Status: Acute Assessment & Plan Estimated LOS: days patient continues demented and confused and no behavior problems. Compliant medication. Justification for Cont. Inpt. This time patient will decompensate if place a lower level of care Discharge Planning At this time continue to look for an appropriate placement Ulices Moscoso MD Oct 06, 2017 12:24
[2017-10-06 13:06] VITALS: BP 99/54; PULSE 98
[2017-10-06 18:02] VITALS: BP 117/60; PULSE 93; RESP 18; TEMP 98.2; O2SAT 97
[2017-10-06] MEDS: QUEtiapine FUMARATE 100 MG TAB PO SCH (20:57)
[2017-10-07 05:56] VITALS: BP 101/55; PULSE 81; RESP 17; TEMP 97.4; O2SAT 95
[2017-10-07] MEDS: MIDODRINE 5 MG TAB PO SCH ×4 (06:20→18:32)
[2017-10-07] MEDS: QUEtiapine FUMARATE 25 MG TAB PO SCH ×2 (08:18→16:41)
[2017-10-07] MEDS: FOLIC ACID 1 MG TAB PO SCH (08:18)
[2017-10-07] MEDS: VALPROIC ACID 250 MG CAP PO SCH ×2 (08:18→20:06)
[2017-10-07] MEDS: MULTIVITAMIN TAB PO SCH (08:19)
[2017-10-07] MEDS: THIAMINE HCL 100 MG TAB PO SCH (08:19)
[2017-10-07] MEDS: ASPIRIN EC 81 MG TABEC PO SCH (08:19)
--- NOTE | 2017-10-07 10:39 | HHI.PYPN ---
Subjective Chief Complaint: psychosis Remarks Patient seen in day room with nurse Dhruv, and counselor America, chart reviewed , patient compliant medication, patient discussed with nurse. Patient continues pleasantly confused, no behavioral problems, continues to await without problems placement Review of Systems Except as stated in HPI: all other systems reviewed are Neg Mental Status Examination Appearance: Appropriate Consciousness: Alert Orientation: Person, Place ("hospital") Motor Activity: Other (lying in bed, no abnormal motor activity noted.) Speech: Unremarkable Language: Adequate Fund of Knowledge: Poor Attention and Concentration: Inadequate Memory: Impaired Mood: Other ("ok") Affect: Appropriate Thought Process & Associations: Disorganized Thought Content: Bizarre thinking, Ideas of reference, Other Hallucination Type: None, Other (appears internally stimulated) Delusion Type: Bizarre Suicidal Ideation: No Suicidal Plan: No Suicidal Intention: No Homicidal Ideation: No Homicidal Plan: No Homicidal Intention: No Insight: Poor Judgment: Poor Results Vitals/IOs Vital Signs Date Time Temp Pulse Resp B/P (MAP) Pulse Ox O2 Delivery O2 Flow Rate FiO2 10/07/17 05:56 97.4 81 17 101/55 (70) 95 Assessment & Plan Problem List: (1) Unspecified psychosis ICD Codes: F29 - Unspecified psychosis not due to a substance or known physiological condition (2) Major neurocognitive disorder as late effect of traumatic brain injury with behavioral disturbance ICD Codes: S06.9X9S - Unspecified intracranial injury with loss of consciousness of unspecified duration, sequela; F02.81 - Dementia in other diseases classified elsewhere with behavioral disturbance Status: Acute Assessment & Plan Estimated LOS: days patient remains confused disoriented though specific behavioral problems compliant medications, placement may become problematic Justification for Cont. Inpt. At this time patient will decompensate if place to a lower level of care Discharge Planning Placement may become somewhat problematic Ulices Moscoso MD Oct 07, 2017 10:39
[2017-10-07 18:04] VITALS: BP 128/67; PULSE 73; RESP 18; TEMP 98.7; O2SAT 98
[2017-10-07] MEDS: QUEtiapine FUMARATE 100 MG TAB PO SCH (20:07)
[2017-10-08 05:51] VITALS: BP 106/52; PULSE 92; RESP 18; TEMP 97.8; O2SAT 97
[2017-10-08] MEDS: MIDODRINE 5 MG TAB PO SCH ×3 (05:53→17:10)
[2017-10-08] MEDS: VALPROIC ACID 250 MG CAP PO SCH ×2 (08:31→20:17)
[2017-10-08] MEDS: QUEtiapine FUMARATE 25 MG TAB PO SCH ×2 (08:31→17:10)
[2017-10-08] MEDS: ASPIRIN EC 81 MG TABEC PO SCH (08:32)
[2017-10-08] MEDS: FOLIC ACID 1 MG TAB PO SCH (08:32)
[2017-10-08] MEDS: MULTIVITAMIN TAB PO SCH (08:32)
[2017-10-08] MEDS: THIAMINE HCL 100 MG TAB PO SCH (08:32)
--- NOTE | 2017-10-08 12:36 | HHI.PYPN ---
Subjective Chief Complaint: psychosis Remarks Reviewed electronic medical record and discussed case with staff. Patient was evaluated in the day room. Patient remains pleasantly confused and was witnessed talking to himself. He was seen earlier during fresh air activity dancing and appeared to be in a good mood. His affect is euthymic and he denies any physical complaints at this time. Mental Status Examination Appearance: Appropriate Consciousness: Alert Orientation: Person, Place ("hospital") Motor Activity: Other (lying in bed, no abnormal motor activity noted.) Speech: Unremarkable Language: Adequate Fund of Knowledge: Poor Attention and Concentration: Inadequate Memory: Impaired Mood: Other ("ok") Affect: Appropriate Thought Process & Associations: Disorganized Thought Content: Bizarre thinking, Ideas of reference, Other Hallucination Type: None, Other (appears internally stimulated) Delusion Type: Bizarre Suicidal Ideation: No Suicidal Plan: No Suicidal Intention: No Homicidal Ideation: No Homicidal Plan: No Homicidal Intention: No Insight: Poor Judgment: Poor Results Vitals/IOs Vital Signs Date Time Temp Pulse Resp B/P (MAP) Pulse Ox O2 Delivery O2 Flow Rate FiO2 10/08/17 05:51 97.8 92 18 106/52 (70) 97 Assessment & Plan Problem List: (1) Unspecified psychosis ICD Codes: F29 - Unspecified psychosis not due to a substance or known physiological condition (2) Major neurocognitive disorder as late effect of traumatic brain injury with behavioral disturbance ICD Codes: S06.9X9S - Unspecified intracranial injury with loss of consciousness of unspecified duration, sequela; F02.81 - Dementia in other diseases classified elsewhere with behavioral disturbance Status: Acute Assessment & Plan Estimated LOS: Patient will continue to be monitored and treated as a safe discharge plan is identified. Justification for Cont. Inpt. Discharge planning is in progress. Moving this patient to a lower level of care would result in a decompensation. Julia Sosa Oct 08, 2017 12:36
[2017-10-08 17:05] VITALS: BP 124/75; PULSE 95
[2017-10-08] MEDS: QUEtiapine FUMARATE 100 MG TAB PO SCH (20:17)
[2017-10-09 05:50] VITALS: BP 103/60; PULSE 79; RESP 16; TEMP 97.7; O2SAT 97
[2017-10-09] MEDS: MIDODRINE 5 MG TAB PO SCH ×3 (06:42→16:19)
[2017-10-09] MEDS: QUEtiapine FUMARATE 25 MG TAB PO SCH ×2 (08:54→16:19)
[2017-10-09] MEDS: VALPROIC ACID 250 MG CAP PO SCH ×2 (08:54→20:53)
[2017-10-09] MEDS: THIAMINE HCL 100 MG TAB PO SCH (08:54)
[2017-10-09] MEDS: MULTIVITAMIN TAB PO SCH (08:54)
[2017-10-09] MEDS: FOLIC ACID 1 MG TAB PO SCH (08:54)
[2017-10-09] MEDS: ASPIRIN EC 81 MG TABEC PO SCH (08:55)
--- NOTE | 2017-10-09 14:16 | HHI.PYPN ---
Subjective Chief Complaint: psychosis Remarks Reviewed electronic medical record and discussed case with staff. Patient ambulating in hallway w/o difficulty. He is still pleasantly confused. Mr Lucas participates in fresh air and group activities. His mood is good and his affect is euthymic. His speech continues to be periodically disorganized but clear. Denies any complaints at this time. Mental Status Examination Appearance: Appropriate Consciousness: Alert Orientation: Person, Place ("hospital") Motor Activity: Other (lying in bed, no abnormal motor activity noted.) Speech: Unremarkable Language: Adequate Fund of Knowledge: Poor Attention and Concentration: Inadequate Memory: Impaired Mood: Other ("ok") Affect: Appropriate Thought Process & Associations: Disorganized Thought Content: Bizarre thinking, Ideas of reference, Other Hallucination Type: None, Other (appears internally stimulated) Delusion Type: Bizarre Suicidal Ideation: No Suicidal Plan: No Suicidal Intention: No Homicidal Ideation: No Homicidal Plan: No Homicidal Intention: No Insight: Poor Judgment: Poor Results Vitals/IOs Vital Signs Date Time Temp Pulse Resp B/P (MAP) Pulse Ox O2 Delivery O2 Flow Rate FiO2 10/09/17 05:50 97.7 79 16 103/60 (74) 97 Intake and Output 10/09/17 10/09/17 10/10/17 08:00 16:00 00:00 Intake Total 0 ml 720 ml Balance 0 ml 720 ml Assessment & Plan Problem List: (1) Unspecified psychosis ICD Codes: F29 - Unspecified psychosis not due to a substance or known physiological condition (2) Major neurocognitive disorder as late effect of traumatic brain injury with behavioral disturbance ICD Codes: S06.9X9S - Unspecified intracranial injury with loss of consciousness of unspecified duration, sequela; F02.81 - Dementia in other diseases classified elsewhere with behavioral disturbance Status: Acute Assessment & Plan Estimated LOS: Counselor working on finding placement for a safe discharge. Justification for Cont. Inpt. Moving this patient would result in a decompensation. Julia Sosa Oct 09, 2017 14:16
[2017-10-09 16:28] VITALS: BP 103/58; PULSE 94; RESP 17; TEMP 98.1; O2SAT 98
[2017-10-09] MEDS: QUEtiapine FUMARATE 100 MG TAB PO SCH (20:54)
[2017-10-10 05:47] VITALS: BP 119/68; PULSE 96; RESP 18; TEMP 97.4; O2SAT 97
[2017-10-10] MEDS: MIDODRINE 5 MG TAB PO SCH ×3 (06:08→17:00)
[2017-10-10] MEDS: QUEtiapine FUMARATE 25 MG TAB PO SCH ×2 (08:35→17:01)
[2017-10-10] MEDS: ASPIRIN EC 81 MG TABEC PO SCH (08:35)
[2017-10-10] MEDS: THIAMINE HCL 100 MG TAB PO SCH (08:35)
[2017-10-10] MEDS: MULTIVITAMIN TAB PO SCH (08:35)
[2017-10-10] MEDS: VALPROIC ACID 250 MG CAP PO SCH ×2 (08:36→20:24)
[2017-10-10] MEDS: FOLIC ACID 1 MG TAB PO SCH (08:36)
--- NOTE | 2017-10-10 12:44 | HHI.PYPN ---
Subjective Chief Complaint: psychosis Remarks Follow-up was performed in day room. Reviewed electronic medical record discussed case with staff. Patient remains pleasantly confused. His speech is clear and organized, and for the most part logical. He is alert and oriented to self. Patient reports that he slept well and his appetite has been "good". Patient's mood is good and his affect is euthymic. No internal stimulation detectable at this time. Mental Status Examination Appearance: Appropriate Consciousness: Alert Orientation: Person, Place ("hospital") Motor Activity: Other (lying in bed, no abnormal motor activity noted.) Speech: Unremarkable Language: Adequate Fund of Knowledge: Poor Attention and Concentration: Inadequate Memory: Impaired Mood: Other ("ok") Affect: Appropriate Thought Process & Associations: Disorganized Thought Content: Bizarre thinking, Ideas of reference Hallucination Type: None, Other (appears internally stimulated) Delusion Type: Bizarre Suicidal Ideation: No Suicidal Plan: No Suicidal Intention: No Homicidal Ideation: No Homicidal Plan: No Homicidal Intention: No Insight: Poor Judgment: Poor Results Vitals/IOs Vital Signs Date Time Temp Pulse Resp B/P (MAP) Pulse Ox O2 Delivery O2 Flow Rate FiO2 10/10/17 05:47 97.4 96 18 119/68 (85) 97 Intake and Output 10/10/17 10/10/17 10/11/17 08:00 16:00 00:00 Intake Total 480 ml Balance 480 ml Assessment & Plan Problem List: (1) Unspecified psychosis ICD Codes: F29 - Unspecified psychosis not due to a substance or known physiological condition (2) Major neurocognitive disorder as late effect of traumatic brain injury with behavioral disturbance ICD Codes: S06.9X9S - Unspecified intracranial injury with loss of consciousness of unspecified duration, sequela; F02.81 - Dementia in other diseases classified elsewhere with behavioral disturbance Status: Acute Assessment & Plan Estimated LOS: Safe placement to reasonable discharge plan continues to be worked on. Justification for Cont. Inpt. Patient lacks capacity to provide self-care. Moving him to a lower level of care would result in decompensation. Julia Sosa Oct 10, 2017 12:44
[2017-10-10 15:59] VITALS: BP 120/72; PULSE 97; RESP 18; TEMP 98.1; O2SAT 93
[2017-10-10] MEDS: QUEtiapine FUMARATE 100 MG TAB PO SCH (20:24)
[2017-10-11 05:43] VITALS: BP 117/82; PULSE 98; RESP 16; TEMP 97.9; O2SAT 98
[2017-10-11] MEDS: MIDODRINE 5 MG TAB PO SCH ×3 (06:01→16:25)
[2017-10-11] MEDS: ASPIRIN EC 81 MG TABEC PO SCH (08:24)
[2017-10-11] MEDS: THIAMINE HCL 100 MG TAB PO SCH (08:24)
[2017-10-11] MEDS: MULTIVITAMIN TAB PO SCH (08:25)
[2017-10-11] MEDS: VALPROIC ACID 250 MG CAP PO SCH ×2 (08:25→20:36)
[2017-10-11] MEDS: QUEtiapine FUMARATE 25 MG TAB PO SCH ×2 (08:25→16:25)
[2017-10-11] MEDS: FOLIC ACID 1 MG TAB PO SCH (08:26)
--- NOTE | 2017-10-11 12:20 | HHI.PYPN ---
Subjective Chief Complaint: psychosis Remarks Patient was seen and case discussed with nursing. Patient is pleasant and cooperative with exam. Alert and oriented 2. He is behaving well on the unit and compliant with his medications. Remains grossly disorganized. Mental Status Examination Appearance: Appropriate Consciousness: Alert Orientation: Person, Place ("hospital") Motor Activity: Other (lying in bed, no abnormal motor activity noted.) Speech: Hesitant Language: Adequate Fund of Knowledge: Poor Attention and Concentration: Inadequate Memory: Impaired Mood: Other ("ok") Affect: Appropriate Thought Process & Associations: Disorganized Thought Content: Bizarre thinking, Ideas of reference Hallucination Type: None, Other (appears internally stimulated) Delusion Type: Bizarre Suicidal Ideation: No Suicidal Plan: No Suicidal Intention: No Homicidal Ideation: No Homicidal Plan: No Homicidal Intention: No Insight: Poor Judgment: Poor Results Vitals/IOs Vital Signs Date Time Temp Pulse Resp B/P (MAP) Pulse Ox O2 Delivery O2 Flow Rate FiO2 10/11/17 05:43 97.9 98 16 117/82 (94) 98 Intake and Output 10/11/17 10/11/17 10/12/17 08:00 16:00 00:00 Intake Total 0 ml 240 ml Balance 0 ml 240 ml Assessment & Plan Problem List: (1) Unspecified psychosis ICD Codes: F29 - Unspecified psychosis not due to a substance or known physiological condition (2) Major neurocognitive disorder as late effect of traumatic brain injury with behavioral disturbance ICD Codes: S06.9X9S - Unspecified intracranial injury with loss of consciousness of unspecified duration, sequela; F02.81 - Dementia in other diseases classified elsewhere with behavioral disturbance Status: Acute Assessment & Plan Continue current treatment plan Justification for Cont. Inpt. Patient would decompensate in a less restrictive setting Stalin You DO Oct 11, 2017 12:20
[2017-10-11 12:43] VITALS: BP 100/66
[2017-10-11 17:26] VITALS: BP 132/86; PULSE 84; RESP 17; TEMP 98; O2SAT 97
[2017-10-11] MEDS: QUEtiapine FUMARATE 100 MG TAB PO SCH (20:36)
[2017-10-12 05:35] VITALS: BP 108/56; PULSE 78; RESP 16; TEMP 97.8; O2SAT 97
[2017-10-12] MEDS: MIDODRINE 5 MG TAB PO SCH ×3 (06:04→15:36)
[2017-10-12] MEDS: THIAMINE HCL 100 MG TAB PO SCH (08:17)
[2017-10-12] MEDS: MULTIVITAMIN TAB PO SCH (08:17)
[2017-10-12] MEDS: ASPIRIN EC 81 MG TABEC PO SCH (08:17)
[2017-10-12] MEDS: QUEtiapine FUMARATE 25 MG TAB PO SCH ×2 (08:17→15:36)
[2017-10-12] MEDS: VALPROIC ACID 250 MG CAP PO SCH ×2 (08:17→20:44)
[2017-10-12] MEDS: FOLIC ACID 1 MG TAB PO SCH (08:17)
--- NOTE | 2017-10-12 11:49 | HHI.PYPN ---
Subjective Chief Complaint: psychosis Remarks Patient was seen and case discussed with nursing. Patient is alert and oriented 2. Behaving well on the unit. Eating and sleeping well. Behaving well, no agitation Mental Status Examination Appearance: Appropriate Consciousness: Alert Orientation: Person, Place ("hospital") Motor Activity: Other (lying in bed, no abnormal motor activity noted.) Speech: Hesitant Language: Adequate Fund of Knowledge: Poor Attention and Concentration: Inadequate Memory: Impaired Mood: Other ("ok") Affect: Appropriate Thought Process & Associations: Disorganized Thought Content: Bizarre thinking, Ideas of reference Hallucination Type: None, Other (appears internally stimulated) Delusion Type: Bizarre Suicidal Ideation: No Suicidal Plan: No Suicidal Intention: No Homicidal Ideation: No Homicidal Plan: No Homicidal Intention: No Insight: Poor Judgment: Poor Results Vitals/IOs Vital Signs Date Time Temp Pulse Resp B/P (MAP) Pulse Ox O2 Delivery O2 Flow Rate FiO2 10/12/17 05:35 97.8 78 16 108/56 (73) 97 Intake and Output 10/12/17 10/12/17 10/13/17 08:00 16:00 00:00 Intake Total 0 ml Balance 0 ml Assessment & Plan Problem List: (1) Unspecified psychosis ICD Codes: F29 - Unspecified psychosis not due to a substance or known physiological condition (2) Major neurocognitive disorder as late effect of traumatic brain injury with behavioral disturbance ICD Codes: S06.9X9S - Unspecified intracranial injury with loss of consciousness of unspecified duration, sequela; F02.81 - Dementia in other diseases classified elsewhere with behavioral disturbance Status: Acute Assessment & Plan Continue current treatment plan Justification for Cont. Inpt. Patient will decompensate in a less restrictive setting Stalin You DO Oct 12, 2017 11:49
[2017-10-12 18:21] VITALS: BP 111/54; PULSE 90; RESP 16; TEMP 98.1; O2SAT 96
[2017-10-12] MEDS: QUEtiapine FUMARATE 100 MG TAB PO SCH (20:45)
[2017-10-13] MEDS: ACETAMINOPHEN 325 MG TAB PO PRN (02:10)
[2017-10-13] MEDS: LORazepam 0.5 MG TAB PO PRN ×2 (04:25→21:19)
[2017-10-13 05:32] VITALS: BP 109/58; PULSE 105; RESP 24; TEMP 98.7; O2SAT 91
[2017-10-13] MEDS: MIDODRINE 5 MG TAB PO SCH ×3 (06:43→16:49)
[2017-10-13] MEDS: FOLIC ACID 1 MG TAB PO SCH (09:00)
[2017-10-13] MEDS: QUEtiapine FUMARATE 25 MG TAB PO SCH ×2 (09:00→16:49)
[2017-10-13] MEDS: ASPIRIN EC 81 MG TABEC PO SCH (09:00)
[2017-10-13] MEDS: MULTIVITAMIN TAB PO SCH (09:00)
[2017-10-13] MEDS: THIAMINE HCL 100 MG TAB PO SCH ×2 (09:00→09:38)
[2017-10-13] MEDS: VALPROIC ACID 250 MG CAP PO SCH ×2 (09:00→21:18)
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
--- NOTE | 2017-10-13 10:44 | HHI.PYPN ---
Subjective Chief Complaint: psychosis Remarks Patient seen in day room with nurse Barrera, chart review, patient showing some mixed compliance with medication today patient discussed with nurse. Patient appears somewhat more confused and irritable this morning. He did coaching to remember that yesterday was sister. We'll add Seroquel 50 mg in a.m. to his regimen Review of Systems Except as stated in HPI: all other systems reviewed are Neg Mental Status Examination Appearance: Appropriate Consciousness: Alert Orientation: Person, Place ("hospital") Motor Activity: Other (lying in bed, no abnormal motor activity noted.) Speech: Hesitant Language: Adequate Fund of Knowledge: Poor Attention and Concentration: Inadequate Memory: Impaired Mood: Other ("ok") Affect: Appropriate Thought Process & Associations: Disorganized Thought Content: Bizarre thinking, Ideas of reference Hallucination Type: None, Other (appears internally stimulated) Delusion Type: Bizarre Suicidal Ideation: No Suicidal Plan: No Suicidal Intention: No Homicidal Ideation: No Homicidal Plan: No Homicidal Intention: No Insight: Poor Judgment: Poor Results Vitals/IOs Vital Signs Date Time Temp Pulse Resp B/P (MAP) Pulse Ox O2 Delivery O2 Flow Rate FiO2 10/13/17 05:32 98.7 105 24 109/58 (75) 91 Intake and Output 10/13/17 10/13/17 10/14/17 08:00 16:00 00:00 Intake Total 0 ml Balance 0 ml Assessment & Plan Problem List: (1) Unspecified psychosis ICD Codes: F29 - Unspecified psychosis not due to a substance or known physiological condition (2) Major neurocognitive disorder as late effect of traumatic brain injury with behavioral disturbance ICD Codes: S06.9X9S - Unspecified intracranial injury with loss of consciousness of unspecified duration, sequela; F02.81 - Dementia in other diseases classified elsewhere with behavioral disturbance Status: Acute Assessment & Plan Estimated LOS: days patient continues confused with some increased irritability and mixed compliance medication today. She medication adjustment above Justification for Cont. Inpt. At this time patient would decompensated placed in a lower level of care Discharge Planning Placement may become problematic Ulices Moscoso MD Oct 13, 2017 10:44
[2017-10-13 18:19] VITALS: BP 101/64; PULSE 91; RESP 18; TEMP 98.2; O2SAT 92
[2017-10-13] MEDS: QUEtiapine FUMARATE 100 MG TAB PO SCH (21:18)
[2017-10-14 06:07] VITALS: BP 99/61; PULSE 101; RESP 16; TEMP 97.7; O2SAT 95
[2017-10-14] MEDS: MIDODRINE 5 MG TAB PO SCH ×3 (07:07→16:29)
[2017-10-14] MEDS: MULTIVITAMIN TAB PO SCH (08:49)
[2017-10-14] MEDS: FOLIC ACID 1 MG TAB PO SCH (08:49)
[2017-10-14] MEDS: THIAMINE HCL 100 MG TAB PO SCH (08:49)
[2017-10-14] MEDS: ASPIRIN EC 81 MG TABEC PO SCH (08:50)
[2017-10-14] MEDS: VALPROIC ACID 250 MG CAP PO SCH ×2 (08:50→21:58)
[2017-10-14] MEDS: QUEtiapine FUMARATE 25 MG TAB PO SCH ×2 (08:52→16:29)
--- NOTE | 2017-10-14 14:13 | HHI.PYPN ---
Subjective Chief Complaint: psychosis Remarks Patient seen in his room with counselor Troutman chart reviewed patient compliant medications, patient discussed with nurse. Patient continues confused demented but no behavior problems, is pleasant with me. For now continue treatment Review of Systems Except as stated in HPI: all other systems reviewed are Neg Mental Status Examination Appearance: Appropriate Consciousness: Alert Orientation: Person, Place ("hospital") Motor Activity: Other (lying in bed, no abnormal motor activity noted.) Speech: Hesitant Language: Adequate Fund of Knowledge: Poor Attention and Concentration: Inadequate Memory: Impaired Mood: Other ("ok") Affect: Appropriate Thought Process & Associations: Disorganized Thought Content: Bizarre thinking, Ideas of reference Hallucination Type: None, Other (appears internally stimulated) Delusion Type: Bizarre Suicidal Ideation: No Suicidal Plan: No Suicidal Intention: No Homicidal Ideation: No Homicidal Plan: No Homicidal Intention: No Insight: Poor Judgment: Poor Results Vitals/IOs Vital Signs Date Time Temp Pulse Resp B/P (MAP) Pulse Ox O2 Delivery O2 Flow Rate FiO2 10/14/17 06:07 97.7 101 16 99/61 (74) 95 Intake and Output 10/14/17 10/14/17 10/15/17 08:00 16:00 00:00 Intake Total 240 ml Balance 240 ml Assessment & Plan Problem List: (1) Unspecified psychosis ICD Codes: F29 - Unspecified psychosis not due to a substance or known physiological condition (2) Major neurocognitive disorder as late effect of traumatic brain injury with behavioral disturbance ICD Codes: S06.9X9S - Unspecified intracranial injury with loss of consciousness of unspecified duration, sequela; F02.81 - Dementia in other diseases classified elsewhere with behavioral disturbance Status: Acute Assessment & Plan Estimated LOS: days patient continues confused and demented, but no behavioral problems. Compliant medications. Justification for Cont. Inpt. At this time patient decompensated placed in a lower level of care Discharge Planning To be determined Ulices Moscoso MD Oct 14, 2017 14:13
[2017-10-14 18:16] VITALS: BP 109/56; PULSE 96; RESP 18; TEMP 98.7; O2SAT 96
[2017-10-14] MEDS: QUEtiapine FUMARATE 100 MG TAB PO SCH (21:59)
[2017-10-15 06:20] VITALS: BP 102/63; PULSE 89; RESP 16; TEMP 97.8; O2SAT 95
[2017-10-15] MEDS: MIDODRINE 5 MG TAB PO SCH ×3 (06:48→17:00)
[2017-10-15] MEDS: QUEtiapine FUMARATE 25 MG TAB PO SCH ×2 (08:00→16:00)
[2017-10-15] MEDS: VALPROIC ACID 250 MG CAP PO SCH ×2 (08:45→20:15)
[2017-10-15] MEDS: MULTIVITAMIN TAB PO SCH (08:45)
[2017-10-15] MEDS: FOLIC ACID 1 MG TAB PO SCH (08:45)
[2017-10-15] MEDS: ASPIRIN EC 81 MG TABEC PO SCH (08:45)
[2017-10-15] MEDS: THIAMINE HCL 100 MG TAB PO SCH (08:45)
--- NOTE | 2017-10-15 13:02 | HHI.PYPN ---
Subjective Chief Complaint: psychosis Remarks Patient seen in day room with nurse Hilda, chart reviewed, patient compliant medications, patient discussed nurse. Patient continues diffusely confused but no behavior problems his calm and pleasant. Review of Systems Except as stated in HPI: all other systems reviewed are Neg Mental Status Examination Appearance: Appropriate Consciousness: Alert Orientation: Person, Place ("hospital") Motor Activity: Other (lying in bed, no abnormal motor activity noted.) Speech: Hesitant Language: Adequate Fund of Knowledge: Poor Attention and Concentration: Inadequate Memory: Impaired Mood: Other ("ok") Affect: Appropriate Thought Process & Associations: Disorganized Thought Content: Bizarre thinking, Ideas of reference Hallucination Type: None, Other (appears internally stimulated) Delusion Type: Bizarre Suicidal Ideation: No Suicidal Plan: No Suicidal Intention: No Homicidal Ideation: No Homicidal Plan: No Homicidal Intention: No Insight: Poor Judgment: Poor Results Vitals/IOs Vital Signs Date Time Temp Pulse Resp B/P (MAP) Pulse Ox O2 Delivery O2 Flow Rate FiO2 10/15/17 06:20 97.8 89 16 102/63 (76) 95 Intake and Output 10/15/17 10/15/17 10/16/17 08:00 16:00 00:00 Intake Total 240 ml Balance 240 ml Assessment & Plan Problem List: (1) Unspecified psychosis ICD Codes: F29 - Unspecified psychosis not due to a substance or known physiological condition (2) Major neurocognitive disorder as late effect of traumatic brain injury with behavioral disturbance ICD Codes: S06.9X9S - Unspecified intracranial injury with loss of consciousness of unspecified duration, sequela; F02.81 - Dementia in other diseases classified elsewhere with behavioral disturbance Status: Acute Assessment & Plan Estimated LOS: days patient continues confused demented though no significant behavioral problems, his compliant with medications continue to work with placement issues Justification for Cont. Inpt. At this time patient will decompensate if placed in the lower level of care Discharge Planning To be determined placement is becoming more problematic Ulices Moscoso MD Oct 15, 2017 13:02
[2017-10-15 15:47] VITALS: BP 117/74; PULSE 98; RESP 16; TEMP 97.8; O2SAT 97
[2017-10-15] MEDS: QUEtiapine FUMARATE 100 MG TAB PO SCH (20:15)
[2017-10-16] MEDS: MIDODRINE 5 MG TAB PO SCH ×3 (06:17→17:00)
[2017-10-16 06:30] VITALS: BP 113/60; PULSE 99; RESP 16; TEMP 98; O2SAT 96
[2017-10-16] MEDS: ASPIRIN EC 81 MG TABEC PO SCH (08:19)
[2017-10-16] MEDS: QUEtiapine FUMARATE 25 MG TAB PO SCH ×2 (08:19→16:00)
[2017-10-16] MEDS: VALPROIC ACID 250 MG CAP PO SCH ×2 (08:19→21:09)
[2017-10-16] MEDS: FOLIC ACID 1 MG TAB PO SCH (08:19)
[2017-10-16] MEDS: THIAMINE HCL 100 MG TAB PO SCH (08:19)
[2017-10-16] MEDS: MULTIVITAMIN TAB PO SCH (08:19)
--- NOTE | 2017-10-16 11:11 | HHI.PYPN ---
Subjective Chief Complaint: psychosis Remarks Patient seen in day room with nurse Hilda, chart review, patient compliant medications, patient discussed with nurse. Patient continues pleasantly confused and disoriented, no behavioral problems, continue to wait for word on placement Review of Systems Except as stated in HPI: all other systems reviewed are Neg Mental Status Examination Appearance: Appropriate Consciousness: Alert Orientation: Person, Place ("hospital") Motor Activity: Other (lying in bed, no abnormal motor activity noted.) Speech: Hesitant Language: Adequate Fund of Knowledge: Poor Attention and Concentration: Inadequate Memory: Impaired Mood: Other ("ok") Affect: Appropriate Thought Process & Associations: Disorganized Thought Content: Bizarre thinking, Ideas of reference Hallucination Type: None, Other (appears internally stimulated) Delusion Type: Bizarre Suicidal Ideation: No Suicidal Plan: No Suicidal Intention: No Homicidal Ideation: No Homicidal Plan: No Homicidal Intention: No Insight: Poor Judgment: Poor Results Vitals/IOs Vital Signs Date Time Temp Pulse Resp B/P (MAP) Pulse Ox O2 Delivery O2 Flow Rate FiO2 10/16/17 06:30 98.0 99 16 113/60 (77) 96 Intake and Output 10/16/17 10/16/17 10/17/17 08:00 16:00 00:00 Intake Total 0 ml Balance 0 ml Assessment & Plan Problem List: (1) Unspecified psychosis ICD Codes: F29 - Unspecified psychosis not due to a substance or known physiological condition (2) Major neurocognitive disorder as late effect of traumatic brain injury with behavioral disturbance ICD Codes: S06.9X9S - Unspecified intracranial injury with loss of consciousness of unspecified duration, sequela; F02.81 - Dementia in other diseases classified elsewhere with behavioral disturbance Status: Acute Assessment & Plan Estimated LOS: days patient continues diffusely confused and demented, though he is no behavior problems calm his compliant with medications. Placement continues problematic Justification for Cont. Inpt. At this time patient decompensate if not placed in an appropriate level of care Discharge Planning To be determined Ulices Moscoso MD Oct 16, 2017 11:11
[2017-10-16 18:16] VITALS: BP 101/64; PULSE 95; RESP 16; TEMP 97.4; O2SAT 95
[2017-10-16] MEDS: QUEtiapine FUMARATE 100 MG TAB PO SCH (21:09)
[2017-10-17 04:50] VITALS: BP 123/72; PULSE 88; RESP 16; TEMP 97.9; O2SAT 98
[2017-10-17] MEDS: MIDODRINE 5 MG TAB PO SCH ×3 (06:14→17:16)
[2017-10-17] MEDS: QUEtiapine FUMARATE 25 MG TAB PO SCH ×2 (10:26→17:16)
[2017-10-17] MEDS: VALPROIC ACID 250 MG CAP PO SCH ×2 (10:27→21:31)
[2017-10-17] MEDS: FOLIC ACID 1 MG TAB PO SCH (10:27)
[2017-10-17] MEDS: THIAMINE HCL 100 MG TAB PO SCH (10:27)
[2017-10-17] MEDS: MULTIVITAMIN TAB PO SCH (10:27)
[2017-10-17] MEDS: ASPIRIN EC 81 MG TABEC PO SCH (10:28)
--- NOTE | 2017-10-17 12:51 | HHI.PYPN ---
Subjective Chief Complaint: psychosis Remarks Patient seen today in dayroom with Rashmit, chart review, patient compliant medications, patient discussed with nurse. Patient continues calm cooperative pleasantly confused and no behavior problem. Continue to work on placement issues Review of Systems Except as stated in HPI: all other systems reviewed are Neg Mental Status Examination Appearance: Appropriate Consciousness: Alert Orientation: Person, Place ("hospital") Motor Activity: Other (lying in bed, no abnormal motor activity noted.) Speech: Hesitant Language: Adequate Fund of Knowledge: Poor Attention and Concentration: Inadequate Memory: Impaired Mood: Other ("ok") Affect: Appropriate Thought Process & Associations: Disorganized Thought Content: Bizarre thinking, Ideas of reference Hallucination Type: None, Other (appears internally stimulated) Delusion Type: Bizarre Suicidal Ideation: No Suicidal Plan: No Suicidal Intention: No Homicidal Ideation: No Homicidal Plan: No Homicidal Intention: No Insight: Poor Judgment: Poor Results Vitals/IOs Vital Signs Date Time Temp Pulse Resp B/P (MAP) Pulse Ox O2 Delivery O2 Flow Rate FiO2 10/17/17 04:50 97.9 88 16 123/72 (89) 98 Intake and Output 10/17/17 10/17/17 10/18/17 08:00 16:00 00:00 Intake Total 480 ml Balance 480 ml Assessment & Plan Problem List: (1) Unspecified psychosis ICD Codes: F29 - Unspecified psychosis not due to a substance or known physiological condition (2) Major neurocognitive disorder as late effect of traumatic brain injury with behavioral disturbance ICD Codes: S06.9X9S - Unspecified intracranial injury with loss of consciousness of unspecified duration, sequela; F02.81 - Dementia in other diseases classified elsewhere with behavioral disturbance Status: Acute Assessment & Plan Estimated LOS: days patient continues confused demented though no behavioral problems, he is pleasant and easily redirectable. Patient remains problematic Justification for Cont. Inpt. At this time patient will decompensate placed in a lower level of care Discharge Planning To be determined Ulices Moscoso MD Oct 17, 2017 12:51
[2017-10-17 17:33] VITALS: BP 119/72; PULSE 102; RESP 18; TEMP 98.2; O2SAT 95
[2017-10-17] MEDS: QUEtiapine FUMARATE 100 MG TAB PO SCH (21:31)
[2017-10-18] MEDS: MIDODRINE 5 MG TAB PO SCH ×3 (05:56→17:24)
[2017-10-18 06:00] VITALS: BP 121/65; PULSE 88; RESP 14; TEMP 97.6; O2SAT 97
[2017-10-18] MEDS: MULTIVITAMIN TAB PO SCH (08:30)
[2017-10-18] MEDS: THIAMINE HCL 100 MG TAB PO SCH (08:30)
[2017-10-18] MEDS: FOLIC ACID 1 MG TAB PO SCH (08:30)
[2017-10-18] MEDS: VALPROIC ACID 250 MG CAP PO SCH ×2 (08:31→20:39)
[2017-10-18] MEDS: QUEtiapine FUMARATE 25 MG TAB PO SCH ×2 (08:31→16:41)
[2017-10-18] MEDS: ASPIRIN EC 81 MG TABEC PO SCH (08:31)
--- NOTE | 2017-10-18 09:34 | HHI.PYPN ---
Subjective Chief Complaint: psychosis Remarks Patient seen for follow, chart reviewed. Discussion nursing staff reported that there have been no behavioral changes with patient has become cooperative and compliant with treatment. Patient was found lying hospital bed noted B, cooperative. Patient state he is feeling "okay", denies any physical complaints , reports sleeping well, eating and drinking well with no difficulty with bowel movement. Patient continues with baseline disorientation. Review of Systems Except as stated in HPI: all other systems reviewed are Neg Mental Status Examination Appearance: Appropriate Consciousness: Alert Orientation: Person, Place ("hospital") Motor Activity: Other (lying in bed, no abnormal motor activity noted.) Speech: Hesitant Language: Adequate Fund of Knowledge: Poor Attention and Concentration: Inadequate Memory: Impaired Mood: Other ("ok") Affect: Appropriate Thought Process & Associations: Disorganized Thought Content: Bizarre thinking, Ideas of reference Hallucination Type: None, Other (appears internally stimulated) Delusion Type: Bizarre Suicidal Ideation: No Suicidal Plan: No Suicidal Intention: No Homicidal Ideation: No Homicidal Plan: No Homicidal Intention: No Insight: Poor Judgment: Poor Results Vitals/IOs Vital Signs Date Time Temp Pulse Resp B/P (MAP) Pulse Ox O2 Delivery O2 Flow Rate FiO2 10/18/17 06:00 97.6 88 14 121/65 (83) 97 Assessment & Plan Problem List: (1) Unspecified psychosis ICD Codes: F29 - Unspecified psychosis not due to a substance or known physiological condition (2) Major neurocognitive disorder as late effect of traumatic brain injury with behavioral disturbance ICD Codes: S06.9X9S - Unspecified intracranial injury with loss of consciousness of unspecified duration, sequela; F02.81 - Dementia in other diseases classified elsewhere with behavioral disturbance Status: Acute Assessment & Plan Patient at this time continues with baseline disorganization and confusion likely secondary to neurocognitive deficits. Continue current treatment. Continue monitor with behavior. This was planning in progress. Justification for Cont. Inpt. At risk for further decompensation if at lower level of care Discharge Planning To be determined Kirby Richmond MD Oct 18, 2017 09:34
[2017-10-18 18:03] VITALS: BP 110/53; PULSE 101; RESP 16; TEMP 97.9; O2SAT 94
[2017-10-18] MEDS: QUEtiapine FUMARATE 100 MG TAB PO SCH (20:39)
[2017-10-19 06:00] VITALS: BP 92/53; PULSE 95; RESP 15; TEMP 97.5; O2SAT 95
[2017-10-19] MEDS: MIDODRINE 5 MG TAB PO SCH ×3 (06:11→17:06)
[2017-10-19] MEDS: THIAMINE HCL 100 MG TAB PO SCH (09:20)
[2017-10-19] MEDS: VALPROIC ACID 250 MG CAP PO SCH ×2 (09:22→20:48)
[2017-10-19] MEDS: ASPIRIN EC 81 MG TABEC PO SCH (09:22)
[2017-10-19] MEDS: MULTIVITAMIN TAB PO SCH (09:22)
[2017-10-19] MEDS: FOLIC ACID 1 MG TAB PO SCH (09:22)
[2017-10-19] MEDS: QUEtiapine FUMARATE 25 MG TAB PO SCH ×2 (09:22→17:06)
--- NOTE | 2017-10-19 13:11 | HHI.PYPN ---
Subjective Chief Complaint: psychosis Remarks Patient seen for follow, chart reviewed. Discussion nursing staff reported the patient compliant medications no behavioral disturbances. Patient was found lying hospital bed noted, cooperative. Patient reports feeling "okay" continues to be alert and oriented only to person and place, states that he has stable gait although does report having slight dizziness when standing from sitting position which patient was encouraged to get up slowly. Patient noted to have swelling of right hand along with redness and feeling hot to touch with concerns of possible infection. Patient reports having pain upon flexion of fingers. Review of Systems Except as stated in HPI: all other systems reviewed are Neg Mental Status Examination Appearance: Appropriate Consciousness: Alert Orientation: Person, Place ("hospital") Motor Activity: Other (lying in bed, no abnormal motor activity noted.) Speech: Hesitant Language: Adequate Fund of Knowledge: Poor Attention and Concentration: Inadequate Memory: Impaired Mood: Other ("ok") Affect: Appropriate Thought Process & Associations: Disorganized Thought Content: Bizarre thinking, Ideas of reference Hallucination Type: None, Other (appears internally stimulated) Delusion Type: Bizarre Suicidal Ideation: No Suicidal Plan: No Suicidal Intention: No Homicidal Ideation: No Homicidal Plan: No Homicidal Intention: No Insight: Poor Judgment: Poor Results Vitals/IOs Vital Signs Date Time Temp Pulse Resp B/P (MAP) Pulse Ox O2 Delivery O2 Flow Rate FiO2 10/19/17 06:00 97.5 95 15 92/53 (66) 95 Assessment & Plan Problem List: (1) Unspecified psychosis ICD Codes: F29 - Unspecified psychosis not due to a substance or known physiological condition (2) Major neurocognitive disorder as late effect of traumatic brain injury with behavioral disturbance ICD Codes: S06.9X9S - Unspecified intracranial injury with loss of consciousness of unspecified duration, sequela; F02.81 - Dementia in other diseases classified elsewhere with behavioral disturbance Status: Acute Assessment & Plan Patient continues to have some disorganized behavior but, cooperative staff and no behavioral disturbances. We will order a hospitalist consult for evaluation of possible cellulitis of the right hand. Continue current treatment. Continue to monitor mood and behavior. Discharge planning in progress. Justification for Cont. Inpt. At risk for further decompensation if at lower level of care Kirby Richmond MD Oct 19, 2017 13:11
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
[2017-10-19] MEDS: SULFAMETHOXAZOLE-TRIMETHOPRIM DS 800-160 MG TAB PO SCH ×2 (15:00→20:47)
[2017-10-19 15:31] LABS: AUTOMATED NEUTROPHIL # 3.4 TH/MM3 (1.8-7.7); BASOPHIL # 0.1 TH/MM3 (0-0.2); EOSINOPHIL # 0.5 TH/MM3 (0-0.4); EOSINOPHIL % 6.9 % (0.0-4.0); HEMATOCRIT 39.4 % (39.0-51.0); HEMOGLOBIN 13.3 GM/DL (13.0-17.0); LYMPH % 28.3 % (9.0-44.0); LYMPHOCYTE # 1.9 TH/MM3 (1.0-4.8); MEAN CELL VOLUME 94.7 FL (80.0-100.0); MEAN CORPUSCULAR HEMOGLOBIN 31.9 PG (27.0-34.0); MEAN CORPUSCULAR HGB CONC 33.7 % (32.0-36.0); MEAN PLATELET VOLUME 9.3 FL (7.0-11.0); MONO % 14.4 % (0.0-8.0); NEUT % 49.4 % (16.0-70.0); PLATELET COUNT 190 TH/MM3 (150-450); RED BLOOD COUNT 4.16 MIL/MM3 (4.50-5.90); RED CELL DISTRIBUTION WIDTH 15.1 % (11.6-17.2); WHITE BLOOD COUNT 6.9 TH/MM3 (4.0-11.0)
[2017-10-19 15:44] LABS: BICARBONATE 32.6 MEQ/L (21.0-32.0); CALCIUM 8.8 MG/DL (8.5-10.1); CREATININE 1.08 MG/DL (0.60-1.30)
[2017-10-19 15:59] LABS: WESTERGREN SEDIMENTATION RATE 6 mm/hr (0-20)
[2017-10-19 18:21] VITALS: BP 110/60; PULSE 100; RESP 16; TEMP 97.5; O2SAT 95
[2017-10-19] MEDS: QUEtiapine FUMARATE 100 MG TAB PO SCH (20:48)
[2017-10-20] MEDS: MIDODRINE 5 MG TAB PO SCH ×3 (05:04→17:17)
[2017-10-20 06:22] VITALS: BP 124/70; PULSE 76; RESP 16; TEMP 97.3; O2SAT 97
[2017-10-20] MEDS: MULTIVITAMIN TAB PO SCH (09:19)
[2017-10-20] MEDS: VALPROIC ACID 250 MG CAP PO SCH ×2 (09:19→20:35)
[2017-10-20] MEDS: SULFAMETHOXAZOLE-TRIMETHOPRIM DS 800-160 MG TAB PO SCH ×2 (09:21→20:35)
[2017-10-20] MEDS: FOLIC ACID 1 MG TAB PO SCH (09:21)
[2017-10-20] MEDS: ASPIRIN EC 81 MG TABEC PO SCH (09:21)
[2017-10-20] MEDS: QUEtiapine FUMARATE 25 MG TAB PO SCH ×2 (09:21→17:17)
[2017-10-20] MEDS: THIAMINE HCL 100 MG TAB PO SCH (09:21)
--- NOTE | 2017-10-20 10:40 | HHI.PYPN ---
Subjective Chief Complaint: psychosis Remarks Patient seen in his room with floor staff, chart review, patient compliant medications, patient discussed with nurse. Patient continues calm pleasant with me diffusely confused. Patient is right hand swelling appears to be diminished somewhat. Hospitalist notes noted and agreed with. For now continue treatment. Placement remains problematic Review of Systems Except as stated in HPI: all other systems reviewed are Neg Mental Status Examination Appearance: Appropriate Consciousness: Alert Orientation: Person, Place ("hospital") Motor Activity: Other (lying in bed, no abnormal motor activity noted.) Speech: Hesitant Language: Adequate Fund of Knowledge: Poor Attention and Concentration: Inadequate Memory: Impaired Mood: Other ("ok") Affect: Appropriate Thought Process & Associations: Disorganized Thought Content: Bizarre thinking, Ideas of reference Hallucination Type: None, Other (appears internally stimulated) Delusion Type: Bizarre Suicidal Ideation: No Suicidal Plan: No Suicidal Intention: No Homicidal Ideation: No Homicidal Plan: No Homicidal Intention: No Insight: Poor Judgment: Poor Results Labs Test 10/19/17 15:03 White Blood Count 6.9 TH/MM3 Red Blood Count 4.16 MIL/MM3 Hemoglobin 13.3 GM/DL Hematocrit 39.4 % Mean Corpuscular Volume 94.7 FL Mean Corpuscular Hemoglobin 31.9 PG Mean Corpuscular Hemoglobin Concent 33.7 % Red Cell Distribution Width 15.1 % Platelet Count 190 TH/MM3 Mean Platelet Volume 9.3 FL Neutrophils (%) (Auto) 49.4 % Lymphocytes (%) (Auto) 28.3 % Monocytes (%) (Auto) 14.4 % Eosinophils (%) (Auto) 6.9 % Basophils (%) (Auto) 1.0 % Neutrophils # (Auto) 3.4 TH/MM3 Lymphocytes # (Auto) 1.9 TH/MM3 Monocytes # (Auto) 1.0 TH/MM3 Eosinophils # (Auto) 0.5 TH/MM3 Basophils # (Auto) 0.1 TH/MM3 CBC Comment DIFF FINAL Differential Comment Erythrocyte Sedimentation Rate 6 mm/hr Blood Urea Nitrogen 29 MG/DL Creatinine 1.08 MG/DL Random Glucose 80 MG/DL Calcium Level 8.8 MG/DL Sodium Level 139 MEQ/L Potassium Level 4.3 MEQ/L Chloride Level 99 MEQ/L Carbon Dioxide Level 32.6 MEQ/L Anion Gap 7 MEQ/L Estimat Glomerular Filtration Rate 67 ML/MIN Date/Time Source Procedure Growth Status 10/19/17 15:12 Blood Peripheral Aerobic Blood Culture Pending Received 10/19/17 15:12 Blood Peripheral Anaerobic Blood Culture Pending Received Vitals/IOs Vital Signs Date Time Temp Pulse Resp B/P (MAP) Pulse Ox O2 Delivery O2 Flow Rate FiO2 10/20/17 06:22 97.3 76 16 124/70 (88) 97 Intake and Output 10/20/17 10/20/17 10/21/17 08:00 16:00 00:00 Intake Total 240 ml Balance 240 ml Assessment & Plan Problem List: (1) Unspecified psychosis ICD Codes: F29 - Unspecified psychosis not due to a substance or known physiological condition (2) Major neurocognitive disorder as late effect of traumatic brain injury with behavioral disturbance ICD Codes: S06.9X9S - Unspecified intracranial injury with loss of consciousness of unspecified duration, sequela; F02.81 - Dementia in other diseases classified elsewhere with behavioral disturbance Status: Acute Assessment & Plan Estimated LOS: days patient remains confused disorganized, but no behavior problems, the cellulitis in his right hand appears to be slowly resolving. For now continue treatment Justification for Cont. Inpt. At this time patient will decompensate or placement lower level of care Discharge Planning To be determined Ulices oMscoso MD Oct 20, 2017 10:40
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
[2017-10-20 18:00] VITALS: BP 109/59; PULSE 88; RESP 16; TEMP 97.7; O2SAT 95
[2017-10-20] MEDS: QUEtiapine FUMARATE 100 MG TAB PO SCH (20:35)
[2017-10-21] MEDS: MIDODRINE 5 MG TAB PO SCH ×3 (05:32→16:06)
[2017-10-21 05:34] VITALS: BP 116/77; PULSE 89; RESP 18; TEMP 97.7; O2SAT 96
[2017-10-21] MEDS: VALPROIC ACID 250 MG CAP PO SCH ×2 (08:21→20:16)
[2017-10-21] MEDS: SULFAMETHOXAZOLE-TRIMETHOPRIM DS 800-160 MG TAB PO SCH ×2 (08:21→20:14)
[2017-10-21] MEDS: THIAMINE HCL 100 MG TAB PO SCH (08:22)
[2017-10-21] MEDS: FOLIC ACID 1 MG TAB PO SCH (08:22)
[2017-10-21] MEDS: ASPIRIN EC 81 MG TABEC PO SCH (08:22)
[2017-10-21] MEDS: MULTIVITAMIN TAB PO SCH (08:22)
[2017-10-21] MEDS: QUEtiapine FUMARATE 25 MG TAB PO SCH ×2 (08:24→16:04)
--- NOTE | 2017-10-21 15:51 | HHI.PYPN ---
Subjective Chief Complaint: psychosis Remarks Reviewed electronic medical record discussed case with staff. Follow-up performed in patient's room. Patient remains pleasantly confused. He states that he slept well and his appetite has been "good". Case management continues to look for safe placement for patient. Mental Status Examination Appearance: Appropriate Consciousness: Alert Orientation: Person, Place ("hospital") Motor Activity: Other (lying in bed, no abnormal motor activity noted.) Speech: Hesitant Language: Adequate Fund of Knowledge: Poor Attention and Concentration: Inadequate Memory: Impaired Mood: Other ("ok") Affect: Appropriate Thought Process & Associations: Disorganized Thought Content: Bizarre thinking, Ideas of reference Hallucination Type: None, Other (appears internally stimulated) Delusion Type: Bizarre Suicidal Ideation: No Suicidal Plan: No Suicidal Intention: No Homicidal Ideation: No Homicidal Plan: No Homicidal Intention: No Insight: Poor Judgment: Poor Results Labs Date/Time Source Procedure Growth Status 10/19/17 15:12 Blood Peripheral Aerobic Blood Culture - Preliminary NO GROWTH IN 2 DAYS Resulted 10/19/17 15:12 Blood Peripheral Anaerobic Blood Culture - Preliminary NO GROWTH IN 2 DAYS Resulted Vitals/IOs Vital Signs Date Time Temp Pulse Resp B/P (MAP) Pulse Ox O2 Delivery O2 Flow Rate FiO2 10/21/17 05:34 97.7 89 18 116/77 (90) 96 Intake and Output 10/21/17 10/21/17 10/22/17 08:00 16:00 00:00 Intake Total 0 ml 1060 ml Balance 0 ml 1060 ml Assessment & Plan Problem List: (1) Unspecified psychosis ICD Codes: F29 - Unspecified psychosis not due to a substance or known physiological condition (2) Major neurocognitive disorder as late effect of traumatic brain injury with behavioral disturbance ICD Codes: S06.9X9S - Unspecified intracranial injury with loss of consciousness of unspecified duration, sequela; F02.81 - Dementia in other diseases classified elsewhere with behavioral disturbance Status: Acute Assessment & Plan Estimated LOS: Safe placement for patient being sought. He lacks capacity to care for himself. Days Justification for Cont. Inpt. Moving this patient to a lower level of care would likely result in decompensation. Julia Sosa Oct 21, 2017 15:51
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
[2017-10-21 18:09] VITALS: BP 127/56; PULSE 85; RESP 20; TEMP 97.7; O2SAT 96
[2017-10-21] MEDS: QUEtiapine FUMARATE 100 MG TAB PO SCH (20:16)
[2017-10-22 05:44] VITALS: BP 129/64; PULSE 112; RESP 18; TEMP 97.6
[2017-10-22] MEDS: MIDODRINE 5 MG TAB PO SCH ×3 (05:53→18:04)
[2017-10-22] MEDS: QUEtiapine FUMARATE 25 MG TAB PO SCH ×2 (08:00→16:00)
[2017-10-22] MEDS: SULFAMETHOXAZOLE-TRIMETHOPRIM DS 800-160 MG TAB PO SCH ×2 (08:06→21:00)
[2017-10-22] MEDS: VALPROIC ACID 250 MG CAP PO SCH ×2 (08:06→21:00)
[2017-10-22] MEDS: MULTIVITAMIN TAB PO SCH (08:07)
[2017-10-22] MEDS: THIAMINE HCL 100 MG TAB PO SCH (08:07)
[2017-10-22] MEDS: FOLIC ACID 1 MG TAB PO SCH (08:07)
[2017-10-22] MEDS: ASPIRIN EC 81 MG TABEC PO SCH (08:08)
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
--- NOTE | 2017-10-22 11:56 | HHI.PYPN ---
Subjective Chief Complaint: psychosis Remarks Patient seen in his room with nurse, chart review, patient compliant medications , patient discussed with nurse. Patient continues calm pleasant no behavioral problems, diffusely confused. The swelling is right hand continues to diminish. Patient does have a fairly large inguinal hernia that is reducible has been assessed in the past by medical service. He is showing no complaints from that at this time also Review of Systems Except as stated in HPI: all other systems reviewed are Neg Mental Status Examination Appearance: Appropriate Consciousness: Alert Orientation: Person, Place ("hospital") Motor Activity: Other (lying in bed, no abnormal motor activity noted.) Speech: Hesitant Language: Adequate Fund of Knowledge: Poor Attention and Concentration: Inadequate Memory: Impaired Mood: Other ("ok") Affect: Appropriate Thought Process & Associations: Disorganized Thought Content: Bizarre thinking, Ideas of reference Hallucination Type: None, Other (appears internally stimulated) Delusion Type: Bizarre Suicidal Ideation: No Suicidal Plan: No Suicidal Intention: No Homicidal Ideation: No Homicidal Plan: No Homicidal Intention: No Insight: Poor Judgment: Poor Results Labs Date/Time Source Procedure Growth Status 10/19/17 15:12 Blood Peripheral Aerobic Blood Culture - Preliminary NO GROWTH IN 3 DAYS Resulted 10/19/17 15:12 Blood Peripheral Anaerobic Blood Culture - Preliminary NO GROWTH IN 3 DAYS Resulted Vitals/IOs Vital Signs Date Time Temp Pulse Resp B/P (MAP) Pulse Ox O2 Delivery O2 Flow Rate FiO2 10/22/17 05:44 97.6 112 18 129/64 (85) 10/21/17 18:09 96 Intake and Output 10/22/17 10/22/17 10/23/17 08:00 16:00 00:00 Intake Total 720 ml Balance 720 ml Assessment & Plan Problem List: (1) Unspecified psychosis ICD Codes: F29 - Unspecified psychosis not due to a substance or known physiological condition (2) Major neurocognitive disorder as late effect of traumatic brain injury with behavioral disturbance ICD Codes: S06.9X9S - Unspecified intracranial injury with loss of consciousness of unspecified duration, sequela; F02.81 - Dementia in other diseases classified elsewhere with behavioral disturbance Status: Acute Assessment & Plan Estimated LOS: days patient continues diffusely but pleasantly confused, with no behavioral problems, compliant medications Justification for Cont. Inpt. At this time patient will decompensate and placed on the lower level of care Discharge Planning Continue to work on placement issues Ulices Moscoso MD Oct 22, 2017 11:55
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
[2017-10-22 18:00] VITALS: BP 135/74; PULSE 104; RESP 18; TEMP 98.1
[2017-10-22] MEDS: QUEtiapine FUMARATE 100 MG TAB PO SCH (21:00)
[2017-10-23 06:00] VITALS: BP 131/65; PULSE 83; RESP 18; TEMP 96.8; O2SAT 93
[2017-10-23] MEDS: MIDODRINE 5 MG TAB PO SCH ×3 (06:11→17:00)
[2017-10-23] MEDS: QUEtiapine FUMARATE 25 MG TAB PO SCH ×2 (08:00→16:00)
[2017-10-23] MEDS: SULFAMETHOXAZOLE-TRIMETHOPRIM DS 800-160 MG TAB PO SCH ×2 (08:24→20:42)
[2017-10-23] MEDS: VALPROIC ACID 250 MG CAP PO SCH ×2 (08:24→20:42)
[2017-10-23] MEDS: FOLIC ACID 1 MG TAB PO SCH (08:24)
[2017-10-23] MEDS: MULTIVITAMIN TAB PO SCH (08:25)
[2017-10-23] MEDS: ASPIRIN EC 81 MG TABEC PO SCH (08:25)
[2017-10-23] MEDS: THIAMINE HCL 100 MG TAB PO SCH (08:25)
--- NOTE | 2017-10-23 12:59 | HHI.PYPN ---
Subjective Chief Complaint: psychosis Remarks Patient seen in his room with nurse Danilo, chart review, patient compliant medication, patient discussed with nurse. Patient sitting in chair by Fernando looking out over the [place]. He is calm pleasantly confused and no behavioral problem. We continue to work with placement issues Review of Systems Except as stated in HPI: all other systems reviewed are Neg Mental Status Examination Appearance: Appropriate Consciousness: Alert Orientation: Person, Place ("hospital") Motor Activity: Other (lying in bed, no abnormal motor activity noted.) Speech: Hesitant Language: Adequate Fund of Knowledge: Poor Attention and Concentration: Inadequate Memory: Impaired Mood: Other ("ok") Affect: Appropriate Thought Process & Associations: Disorganized Thought Content: Bizarre thinking, Ideas of reference Hallucination Type: None, Other (appears internally stimulated) Delusion Type: Bizarre Suicidal Ideation: No Suicidal Plan: No Suicidal Intention: No Homicidal Ideation: No Homicidal Plan: No Homicidal Intention: No Insight: Poor Judgment: Poor Results Labs Date/Time Source Procedure Growth Status 10/19/17 15:12 Blood Peripheral Aerobic Blood Culture - Preliminary NO GROWTH IN 4 DAYS Resulted 10/19/17 15:12 Blood Peripheral Anaerobic Blood Culture - Preliminary NO GROWTH IN 4 DAYS Resulted Vitals/IOs Vital Signs Date Time Temp Pulse Resp B/P (MAP) Pulse Ox O2 Delivery O2 Flow Rate FiO2 10/23/17 06:00 96.8 83 18 131/65 (87) 93 Intake and Output 10/23/17 10/23/17 10/24/17 08:00 16:00 00:00 Intake Total 480 ml Balance 480 ml Assessment & Plan Problem List: (1) Unspecified psychosis ICD Codes: F29 - Unspecified psychosis not due to a substance or known physiological condition (2) Major neurocognitive disorder as late effect of traumatic brain injury with behavioral disturbance ICD Codes: S06.9X9S - Unspecified intracranial injury with loss of consciousness of unspecified duration, sequela; F02.81 - Dementia in other diseases classified elsewhere with behavioral disturbance Status: Acute Assessment & Plan Estimated LOS: days patient is diffusely confused and disoriented, no behavioral problem, compliant medications. Justification for Cont. Inpt. At this time patient will decompensate if placed in the lower level of care Discharge Planning Placement remains problematic Ulices Moscoso MD Oct 23, 2017 12:59
[2017-10-23 18:23] VITALS: BP 107/61; PULSE 97; RESP 18; TEMP 97.5; O2SAT 93
[2017-10-23] MEDS: QUEtiapine FUMARATE 100 MG TAB PO SCH (20:42)
[2017-10-24 06:00] VITALS: BP 128/76; PULSE 95; RESP 16; TEMP 97.2; O2SAT 94
[2017-10-24] MEDS: MIDODRINE 5 MG TAB PO SCH ×3 (06:36→17:19)
[2017-10-24] MEDS: FOLIC ACID 1 MG TAB PO SCH (08:23)
[2017-10-24] MEDS: SULFAMETHOXAZOLE-TRIMETHOPRIM DS 800-160 MG TAB PO SCH ×3 (08:24→22:03)
[2017-10-24] MEDS: MULTIVITAMIN TAB PO SCH (08:24)
[2017-10-24] MEDS: ASPIRIN EC 81 MG TABEC PO SCH (08:24)
[2017-10-24] MEDS: THIAMINE HCL 100 MG TAB PO SCH (08:24)
[2017-10-24] MEDS: VALPROIC ACID 250 MG CAP PO SCH ×2 (08:24→21:42)
[2017-10-24] MEDS: QUEtiapine FUMARATE 25 MG TAB PO SCH ×2 (08:25→16:36)
--- NOTE | 2017-10-24 16:41 | HHI.PYPN ---
Subjective Chief Complaint: psychosis Remarks Reviewed electronic medical record discussed case with staff. Follow-up was conducted in patient's room. Patient was found sitting in a chair looking out the window awake, alert, and oriented to self and place. Patient remains pleasantly confused. His mood is good and his affect is euthymic. His speech is clear, and organized although at times he becomes disorganized due to his TBI. Mental Status Examination Appearance: Appropriate Consciousness: Alert Orientation: Person, Place ("hospital") Motor Activity: Other (lying in bed, no abnormal motor activity noted.) Speech: Hesitant Language: Adequate Fund of Knowledge: Poor Attention and Concentration: Inadequate Memory: Impaired Mood: Other ("ok") Affect: Appropriate Thought Process & Associations: Disorganized Thought Content: Bizarre thinking, Ideas of reference Hallucination Type: None, Other (appears internally stimulated) Delusion Type: Bizarre Suicidal Ideation: No Suicidal Plan: No Suicidal Intention: No Homicidal Ideation: No Homicidal Plan: No Homicidal Intention: No Insight: Poor Judgment: Poor Results Labs Date/Time Source Procedure Growth Status 10/19/17 15:12 Blood Peripheral Aerobic Blood Culture - Final NO GROWTH IN 5 DAYS Complete 10/19/17 15:12 Blood Peripheral Anaerobic Blood Culture - Final NO GROWTH IN 5 DAYS Complete Vitals/IOs Vital Signs Date Time Temp Pulse Resp B/P (MAP) Pulse Ox O2 Delivery O2 Flow Rate FiO2 10/24/17 06:00 97.2 95 16 128/76 (93) 94 Intake and Output 10/24/17 10/24/17 10/25/17 08:00 16:00 00:00 Intake Total 0 ml 720 ml Balance 0 ml 720 ml Assessment & Plan Problem List: (1) Unspecified psychosis ICD Codes: F29 - Unspecified psychosis not due to a substance or known physiological condition (2) Major neurocognitive disorder as late effect of traumatic brain injury with behavioral disturbance ICD Codes: S06.9X9S - Unspecified intracranial injury with loss of consciousness of unspecified duration, sequela; F02.81 - Dementia in other diseases classified elsewhere with behavioral disturbance Status: Acute Assessment & Plan Estimated LOS: We will continue with current treatment plan. Safe placement for patient is being sought. Days Justification for Cont. Inpt. Moving this patient to a lower level of care would likely result in decompensation. Patient lacks capacity to care for self. Julia Sosa Oct 24, 2017 16:41
[2017-10-24 18:25] VITALS: BP 105/80; PULSE 137; RESP 16; TEMP 97.7; O2SAT 96
[2017-10-24] MEDS: QUEtiapine FUMARATE 100 MG TAB PO SCH (21:42)
[2017-10-24] MEDS: LORazepam 0.5 MG TAB PO PRN (21:43)
[2017-10-25 06:00] VITALS: BP 132/89; PULSE 99; RESP 18; TEMP 98.3; O2SAT 97
[2017-10-25] MEDS: MIDODRINE 5 MG TAB PO SCH ×3 (06:21→18:23)
--- NOTE | 2017-10-25 09:50 | HHI.PYPN ---
Subjective Chief Complaint: psychosis Remarks The patient was seen today for psychiatric reevaluation, the patient is calm, cooperative, pleasant. The patient is disoriented in time, diffusely confused, but he denies depressive symptoms, denies anxiety, denies keri and psychosis. Patient denies suicidal and homicidal ideation, he denies visual and auditory hallucinations. No report of aggressiveness or agitation in the unit. Compliant with his medications. Mental Status Examination Appearance: Appropriate Consciousness: Alert Orientation: Person, Place ("hospital") Motor Activity: Other (lying in bed, no abnormal motor activity noted.) Speech: Hesitant Language: Adequate Fund of Knowledge: Poor Attention and Concentration: Inadequate Memory: Impaired Mood: Other ("ok") Affect: Appropriate Thought Process & Associations: Disorganized Thought Content: Bizarre thinking, Ideas of reference Hallucination Type: None, Other (appears internally stimulated) Delusion Type: Bizarre Suicidal Ideation: No Suicidal Plan: No Suicidal Intention: No Homicidal Ideation: No Homicidal Plan: No Homicidal Intention: No Insight: Poor Judgment: Poor Results Labs Date/Time Source Procedure Growth Status 10/19/17 15:12 Blood Peripheral Aerobic Blood Culture - Final NO GROWTH IN 5 DAYS Complete 10/19/17 15:12 Blood Peripheral Anaerobic Blood Culture - Final NO GROWTH IN 5 DAYS Complete Vitals/IOs Vital Signs Date Time Temp Pulse Resp B/P (MAP) Pulse Ox O2 Delivery O2 Flow Rate FiO2 10/25/17 06:00 98.3 99 18 132/89 (103) 97 Intake and Output 10/25/17 10/25/17 10/26/17 08:00 16:00 00:00 Intake Total 480 ml Balance 480 ml Assessment & Plan Problem List: (1) Unspecified psychosis ICD Codes: F29 - Unspecified psychosis not due to a substance or known physiological condition (2) Major neurocognitive disorder as late effect of traumatic brain injury with behavioral disturbance ICD Codes: S06.9X9S - Unspecified intracranial injury with loss of consciousness of unspecified duration, sequela; F02.81 - Dementia in other diseases classified elsewhere with behavioral disturbance Status: Acute Assessment & Plan: Continue current psychotropic regimen. Assessment & Plan Estimated LOS: days Justification for Cont. Inpt. Patient has an elevated risk to decompensate at a lower level of care. Hola Brady MD Oct 25, 2017 09:50
[2017-10-25] MEDS: THIAMINE HCL 100 MG TAB PO SCH (10:49)
[2017-10-25] MEDS: MULTIVITAMIN TAB PO SCH (10:49)
[2017-10-25] MEDS: ASPIRIN EC 81 MG TABEC PO SCH (10:49)
[2017-10-25] MEDS: SULFAMETHOXAZOLE-TRIMETHOPRIM DS 800-160 MG TAB PO SCH ×2 (10:49→21:42)
[2017-10-25] MEDS: VALPROIC ACID 250 MG CAP PO SCH ×2 (10:50→21:42)
[2017-10-25] MEDS: FOLIC ACID 1 MG TAB PO SCH (10:50)
[2017-10-25] MEDS: QUEtiapine FUMARATE 25 MG TAB PO SCH ×2 (10:52→16:30)
[2017-10-25 17:23] VITALS: BP 103/72; PULSE 86; RESP 16; TEMP 98.2; O2SAT 98
[2017-10-25] MEDS: QUEtiapine FUMARATE 100 MG TAB PO SCH (21:42)
[2017-10-26] MEDS: MIDODRINE 5 MG TAB PO SCH ×3 (06:07→17:04)
[2017-10-26 06:11] VITALS: BP 114/67; PULSE 99; RESP 17; TEMP 97.6; O2SAT 97
[2017-10-26] MEDS: FOLIC ACID 1 MG TAB PO SCH (08:42)
[2017-10-26] MEDS: SULFAMETHOXAZOLE-TRIMETHOPRIM DS 800-160 MG TAB PO SCH (08:42)
[2017-10-26] MEDS: QUEtiapine FUMARATE 25 MG TAB PO SCH ×2 (08:42→17:04)
[2017-10-26] MEDS: MULTIVITAMIN TAB PO SCH (08:42)
[2017-10-26] MEDS: VALPROIC ACID 250 MG CAP PO SCH ×2 (08:42→22:07)
[2017-10-26] MEDS: THIAMINE HCL 100 MG TAB PO SCH (08:43)
[2017-10-26] MEDS: ASPIRIN EC 81 MG TABEC PO SCH (08:43)
--- NOTE | 2017-10-26 12:56 | HHI.PYPN ---
Subjective Chief Complaint: psychosis Remarks Patient seen today for psychiatric reevaluation, he is calm, cooperative, pleasant. He is oriented 3. At times disorganized, tangential, but he denies suicidal and homicidal ideation, he denies visual and auditory hallucinations. A behavioral dysregulation, agitation or aggressiveness reported. Compliant with his medications, no significant side effects. Review of Systems Except as stated in HPI: all other systems reviewed are Neg Mental Status Examination Appearance: Appropriate Consciousness: Alert Orientation: Person, Place ("hospital") Motor Activity: Other (lying in bed, no abnormal motor activity noted.) Speech: Hesitant Language: Adequate Fund of Knowledge: Poor Attention and Concentration: Inadequate Memory: Impaired Mood: Other ("ok") Affect: Appropriate Thought Process & Associations: Disorganized Thought Content: Bizarre thinking, Ideas of reference Hallucination Type: None, Other (appears internally stimulated) Delusion Type: Bizarre Suicidal Ideation: No Suicidal Plan: No Suicidal Intention: No Homicidal Ideation: No Homicidal Plan: No Homicidal Intention: No Insight: Poor Judgment: Poor Results Labs Date/Time Source Procedure Growth Status 10/19/17 15:12 Blood Peripheral Aerobic Blood Culture - Final NO GROWTH IN 5 DAYS Complete 10/19/17 15:12 Blood Peripheral Anaerobic Blood Culture - Final NO GROWTH IN 5 DAYS Complete Vitals/IOs Vital Signs Date Time Temp Pulse Resp B/P (MAP) Pulse Ox O2 Delivery O2 Flow Rate FiO2 10/26/17 06:11 97.6 99 17 114/67 (83) 97 Intake and Output 10/26/17 10/26/17 10/27/17 08:00 16:00 00:00 Intake Total 480 ml Balance 480 ml Assessment & Plan Problem List: (1) Unspecified psychosis ICD Codes: F29 - Unspecified psychosis not due to a substance or known physiological condition (2) Major neurocognitive disorder as late effect of traumatic brain injury with behavioral disturbance ICD Codes: S06.9X9S - Unspecified intracranial injury with loss of consciousness of unspecified duration, sequela; F02.81 - Dementia in other diseases classified elsewhere with behavioral disturbance Status: Acute Assessment & Plan Estimated LOS: days Justification for Cont. Inpt. Patient needs to continue psychiatric hospitalization for stabilization. Hola Brady MD Oct 26, 2017 12:56
[2017-10-26 18:14] VITALS: BP 114/59; PULSE 97; RESP 18; TEMP 97.7; O2SAT 95
[2017-10-26] MEDS: QUEtiapine FUMARATE 100 MG TAB PO SCH (22:06)
[2017-10-26] MEDS: LORazepam 1 MG TAB PO PRN (22:06)
[2017-10-27 05:10] VITALS: BP 99/48; PULSE 88; RESP 17; TEMP 97.9; O2SAT 96
[2017-10-27] MEDS: MIDODRINE 5 MG TAB PO SCH ×4 (05:16→16:50)
[2017-10-27] MEDS: QUEtiapine FUMARATE 25 MG TAB PO SCH ×2 (08:55→16:00)
[2017-10-27] MEDS: ASPIRIN EC 81 MG TABEC PO SCH (08:56)
[2017-10-27] MEDS: MULTIVITAMIN TAB PO SCH (08:56)
[2017-10-27] MEDS: THIAMINE HCL 100 MG TAB PO SCH (08:56)
[2017-10-27] MEDS: VALPROIC ACID 250 MG CAP PO SCH ×2 (08:56→20:15)
[2017-10-27] MEDS: FOLIC ACID 1 MG TAB PO SCH (08:56)
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
--- NOTE | 2017-10-27 16:47 | HHI.PYPN ---
Subjective Chief Complaint: psychosis Remarks Reviewed electronic medical record and discussed case with staff. Follow-up was conducted in the hallway. Patient ambulating around halls without difficulty. Patient remains in a pleasantly confused state. He reports that he has been sleeping well and his appetite is been good. He denies having any complaints today. Placement remains an issue and the counselor continues to work on it. Mental Status Examination Appearance: Appropriate Consciousness: Alert Orientation: Person, Place ("hospital") Motor Activity: Other (lying in bed, no abnormal motor activity noted.) Speech: Hesitant Language: Adequate Fund of Knowledge: Poor Attention and Concentration: Inadequate Memory: Impaired Mood: Other ("ok") Affect: Appropriate Thought Process & Associations: Disorganized Thought Content: Bizarre thinking, Ideas of reference Hallucination Type: None, Other (appears internally stimulated) Delusion Type: Bizarre Suicidal Ideation: No Suicidal Plan: No Suicidal Intention: No Homicidal Ideation: No Homicidal Plan: No Homicidal Intention: No Insight: Poor Judgment: Poor Results Labs Date/Time Source Procedure Growth Status 10/19/17 15:12 Blood Peripheral Aerobic Blood Culture - Final NO GROWTH IN 5 DAYS Complete 10/19/17 15:12 Blood Peripheral Anaerobic Blood Culture - Final NO GROWTH IN 5 DAYS Complete Vitals/IOs Vital Signs Date Time Temp Pulse Resp B/P (MAP) Pulse Ox O2 Delivery O2 Flow Rate FiO2 10/27/17 05:10 97.9 88 17 99/48 (65) 96 Intake and Output 10/27/17 10/27/17 10/28/17 08:00 16:00 00:00 Intake Total 240 ml 1080 ml Balance 240 ml 1080 ml Assessment & Plan Problem List: (1) Unspecified psychosis ICD Codes: F29 - Unspecified psychosis not due to a substance or known physiological condition (2) Major neurocognitive disorder as late effect of traumatic brain injury with behavioral disturbance ICD Codes: S06.9X9S - Unspecified intracranial injury with loss of consciousness of unspecified duration, sequela; F02.81 - Dementia in other diseases classified elsewhere with behavioral disturbance Status: Acute Assessment & Plan Estimated LOS: Placement continues to be an issue for this patient. He lacks capacity to provide self-care. A discharge plan is ongoing. Days Justification for Cont. Inpt. Moving this patient to a lower level of care would result and decompensation. Patient lacks capacity and ability to provide self-care. If discharged he would prove an eminent danger to himself. Julia Sosa Oct 27, 2017 16:47
[2017-10-27 18:00] VITALS: BP 116/61; PULSE 65; RESP 18; TEMP 97.3; O2SAT 96
[2017-10-27] MEDS: QUEtiapine FUMARATE 100 MG TAB PO SCH (20:15)
[2017-10-28 06:00] VITALS: BP 135/83; PULSE 92; RESP 16; TEMP 97.7; O2SAT 94
[2017-10-28] MEDS: MIDODRINE 5 MG TAB PO SCH ×3 (06:22→17:00)
[2017-10-28] MEDS: VALPROIC ACID 250 MG CAP PO SCH ×2 (08:23→20:39)
[2017-10-28] MEDS: MULTIVITAMIN TAB PO SCH (08:23)
[2017-10-28] MEDS: QUEtiapine FUMARATE 25 MG TAB PO SCH ×2 (08:23→15:48)
[2017-10-28] MEDS: THIAMINE HCL 100 MG TAB PO SCH (08:23)
[2017-10-28] MEDS: FOLIC ACID 1 MG TAB PO SCH (08:23)
[2017-10-28] MEDS: ASPIRIN EC 81 MG TABEC PO SCH (08:23)
--- NOTE | 2017-10-28 08:59 | HHI.PYPN ---
Subjective Chief Complaint: psychosis Remarks Patient is seen in his room with floor staff, chart reviewed, patient complaint medications, patient discussed with nurse. Patient continues no behavioral problem he is alert, diffusely confused, but cooperative. Placement remains problematic Review of Systems Except as stated in HPI: all other systems reviewed are Neg Mental Status Examination Appearance: Appropriate Consciousness: Alert Orientation: Person, Place ("hospital") Motor Activity: Other (lying in bed, no abnormal motor activity noted.) Speech: Hesitant Language: Adequate Fund of Knowledge: Poor Attention and Concentration: Inadequate Memory: Impaired Mood: Other ("ok") Affect: Appropriate Thought Process & Associations: Disorganized Thought Content: Bizarre thinking, Ideas of reference Hallucination Type: None, Other (appears internally stimulated) Delusion Type: Bizarre Suicidal Ideation: No Suicidal Plan: No Suicidal Intention: No Homicidal Ideation: No Homicidal Plan: No Homicidal Intention: No Insight: Poor Judgment: Poor Results Labs Date/Time Source Procedure Growth Status 10/19/17 15:12 Blood Peripheral Aerobic Blood Culture - Final NO GROWTH IN 5 DAYS Complete 10/19/17 15:12 Blood Peripheral Anaerobic Blood Culture - Final NO GROWTH IN 5 DAYS Complete Vitals/IOs Vital Signs Date Time Temp Pulse Resp B/P (MAP) Pulse Ox O2 Delivery O2 Flow Rate FiO2 10/28/17 06:00 97.7 92 16 135/83 (100) 94 Intake and Output 10/28/17 10/28/17 10/29/17 08:00 16:00 00:00 Intake Total 120 ml Balance 120 ml Assessment & Plan Problem List: (1) Unspecified psychosis ICD Codes: F29 - Unspecified psychosis not due to a substance or known physiological condition (2) Major neurocognitive disorder as late effect of traumatic brain injury with behavioral disturbance ICD Codes: S06.9X9S - Unspecified intracranial injury with loss of consciousness of unspecified duration, sequela; F02.81 - Dementia in other diseases classified elsewhere with behavioral disturbance Status: Acute Assessment & Plan Estimated LOS: days patient continues demented confused though alert pleasant and no behavioral problems Justification for Cont. Inpt. At this time patient would decompensate a place to the lower level of care Discharge Planning To be determined Ulices Moscoso MD Oct 28, 2017 08:58
[2017-10-28 18:04] VITALS: BP 113/58; PULSE 63; RESP 16; TEMP 97.7; O2SAT 99
[2017-10-28 18:12] VITALS: BP 120/61; RESP 16; TEMP 97.7; O2SAT 97
[2017-10-28] MEDS: QUEtiapine FUMARATE 100 MG TAB PO SCH (20:39)
[2017-10-29] MEDS: LORazepam 0.5 MG TAB PO PRN (01:00)
[2017-10-29] MEDS: LORazepam 2 MG/ML VIAL IM PRN ×2 (02:57→23:38)
[2017-10-29 05:00] VITALS: BP 140/65; PULSE 60; RESP 18; TEMP 98.6; O2SAT 96
[2017-10-29] MEDS: MIDODRINE 5 MG TAB PO SCH ×3 (05:49→16:48)
[2017-10-29] MEDS: ASPIRIN EC 81 MG TABEC PO SCH (08:39)
[2017-10-29] MEDS: FOLIC ACID 1 MG TAB PO SCH (08:39)
[2017-10-29] MEDS: MULTIVITAMIN TAB PO SCH (08:40)
[2017-10-29] MEDS: QUEtiapine FUMARATE 25 MG TAB PO SCH ×2 (08:40→16:48)
[2017-10-29] MEDS: THIAMINE HCL 100 MG TAB PO SCH (08:40)
[2017-10-29] MEDS: VALPROIC ACID 250 MG CAP PO SCH ×2 (08:41→20:56)
--- NOTE | 2017-10-29 11:13 | HHI.PYPN ---
Subjective Chief Complaint: psychosis Remarks Patient seen in day room, portion of, chart reviewed, patient discussed with nurse, patient compliant medication. Patient continues no behavioral problems, his pleasantly confused and disoriented. He does deny suicidality or voices. For now continue treatment. Placement remains somewhat problematic Review of Systems Except as stated in HPI: all other systems reviewed are Neg Mental Status Examination Appearance: Appropriate Consciousness: Alert Orientation: Person, Place ("hospital") Motor Activity: Other (lying in bed, no abnormal motor activity noted.) Speech: Hesitant Language: Adequate Fund of Knowledge: Poor Attention and Concentration: Inadequate Memory: Impaired Mood: Other ("ok") Affect: Appropriate Thought Process & Associations: Disorganized Thought Content: Bizarre thinking, Ideas of reference Hallucination Type: None, Other (appears internally stimulated) Delusion Type: Bizarre Suicidal Ideation: No Suicidal Plan: No Suicidal Intention: No Homicidal Ideation: No Homicidal Plan: No Homicidal Intention: No Insight: Poor Judgment: Poor Results Labs Date/Time Source Procedure Growth Status 10/19/17 15:12 Blood Peripheral Aerobic Blood Culture - Final NO GROWTH IN 5 DAYS Complete 10/19/17 15:12 Blood Peripheral Anaerobic Blood Culture - Final NO GROWTH IN 5 DAYS Complete Vitals/IOs Vital Signs Date Time Temp Pulse Resp B/P (MAP) Pulse Ox O2 Delivery O2 Flow Rate FiO2 10/29/17 05:00 98.6 60 18 140/65 (90) 96 Intake and Output 10/29/17 10/29/17 10/30/17 08:00 16:00 00:00 Intake Total 480 ml Balance 480 ml Assessment & Plan Problem List: (1) Unspecified psychosis ICD Codes: F29 - Unspecified psychosis not due to a substance or known physiological condition (2) Major neurocognitive disorder as late effect of traumatic brain injury with behavioral disturbance ICD Codes: S06.9X9S - Unspecified intracranial injury with loss of consciousness of unspecified duration, sequela; F02.81 - Dementia in other diseases classified elsewhere with behavioral disturbance Status: Acute Assessment & Plan Estimated LOS: days patient remains pleasantly confused and disoriented, but no behavioral issues, complaint medications Justification for Cont. Inpt. At this time patient would decompensate if not placed in an appropriate level of care Discharge Planning To be determined Ulices Moscoso MD Oct 29, 2017 11:13
[2017-10-29] MEDS: ACETAMINOPHEN 325 MG TAB PO PRN (13:30)
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
[2017-10-29] MEDS: QUEtiapine FUMARATE 100 MG TAB PO SCH (20:55)
[2017-10-30] MEDS ORDERED: OLANZapine IM 10 MG VIAL IM ONE ×2 (03:04→03:15)
[2017-10-30] MEDS: MIDODRINE 5 MG TAB PO SCH ×3 (06:19→16:59)
--- NOTE | 2017-10-30 08:46 | HHI.PYPN ---
Subjective Chief Complaint: psychosis Remarks Patient is seen in follow-up for severe, chart reviewed, patient discussed with nurse, patient complaint medications. Patient continues calm pleasantly confused with me no behavior problems. However patient shows some anxiety and some mild lability yesterday evening perhaps related to his being transferred a 2600 unit with the increased stimuli Review of Systems Except as stated in HPI: all other systems reviewed are Neg Mental Status Examination Appearance: Appropriate Consciousness: Alert Orientation: Person, Place ("hospital") Motor Activity: Other (lying in bed, no abnormal motor activity noted.) Speech: Hesitant Language: Adequate Fund of Knowledge: Poor Attention and Concentration: Inadequate Memory: Impaired Mood: Other ("ok") Affect: Appropriate Thought Process & Associations: Disorganized Thought Content: Bizarre thinking, Ideas of reference Hallucination Type: None, Other (appears internally stimulated) Delusion Type: Bizarre Suicidal Ideation: No Suicidal Plan: No Suicidal Intention: No Homicidal Ideation: No Homicidal Plan: No Homicidal Intention: No Insight: Poor Judgment: Poor Results Labs Date/Time Source Procedure Growth Status 10/19/17 15:12 Blood Peripheral Aerobic Blood Culture - Final NO GROWTH IN 5 DAYS Complete 10/19/17 15:12 Blood Peripheral Anaerobic Blood Culture - Final NO GROWTH IN 5 DAYS Complete Vitals/IOs Vital Signs Date Time Temp Pulse Resp B/P (MAP) Pulse Ox O2 Delivery O2 Flow Rate FiO2 10/30/17 05:14 10/29/17 05:00 98.6 60 18 96 Assessment & Plan Problem List: (1) Unspecified psychosis ICD Codes: F29 - Unspecified psychosis not due to a substance or known physiological condition (2) Major neurocognitive disorder as late effect of traumatic brain injury with behavioral disturbance ICD Codes: S06.9X9S - Unspecified intracranial injury with loss of consciousness of unspecified duration, sequela; F02.81 - Dementia in other diseases classified elsewhere with behavioral disturbance Status: Acute Assessment & Plan Estimated LOS: days patient remains confused and demented the low significant behavioral problems, compliant medication Justification for Cont. Inpt. At this time patient would decompensate a place to the lower level of care Discharge Planning To be determined Ulices Moscoso MD Oct 30, 2017 08:46
[2017-10-30] MEDS: VALPROIC ACID 250 MG CAP PO SCH ×2 (08:49→21:00)
[2017-10-30] MEDS: FOLIC ACID 1 MG TAB PO SCH (08:49)
[2017-10-30] MEDS: THIAMINE HCL 100 MG TAB PO SCH (08:49)
[2017-10-30] MEDS: MULTIVITAMIN TAB PO SCH (08:49)
[2017-10-30] MEDS: ASPIRIN EC 81 MG TABEC PO SCH (08:50)
[2017-10-30] MEDS: QUEtiapine FUMARATE 25 MG TAB PO SCH ×2 (08:52→16:00)
[2017-10-30 15:02] VITALS: BP 142/86; PULSE 112; RESP 18; TEMP 98.4; O2SAT 96
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
--- NOTE | 2017-10-30 16:03 | RADRPT ---
EXAM DATE/TIME: 10/30/2017 15:42 [facility] COMPARISON: ABDOMEN SINGLE VIEW, July 22, 2017, 11:52. INDICATIONS : Nausea. MEDICAL HISTORY : None. SURGICAL HISTORY : None. ENCOUNTER: Initial ACUITY: 1 day PAIN SCORE: 0/10 LOCATION: Abdomen. FINDINGS: Supine and upright views of the abdomen were performed. Air distention of multiple small bowel loops in the mid abdomen. Multiple air-fluid levels on the upright images. There is stool identified in the descending colon and rectal vault. Colon is otherwise decompressed. CONCLUSION: 1. Dilated small bowel loops with multiple air fluid levels and stool identified in the colon. 2. In the appropriate clinical setting, findings would be concerning for partial small bowel obstruct ion. Brock Albright MD on October 30, 2017 at 15:49 Board Certified Radiologist. This report was verified electronically.
[2017-10-30 16:42] LABS: AUTOMATED NEUTROPHIL # 6.7 TH/MM3 (1.8-7.7); BASOPHIL % 0.5 % (0.0-2.0); EOSINOPHIL % 0.2 % (0.0-4.0); HEMATOCRIT 36.7 % (39.0-51.0); HEMOGLOBIN 12.2 GM/DL (13.0-17.0); LYMPH % 8.5 % (9.0-44.0); LYMPHOCYTE # 0.8 TH/MM3 (1.0-4.8); MEAN CORPUSCULAR HEMOGLOBIN 31.4 PG (27.0-34.0); MEAN CORPUSCULAR HGB CONC 33.4 % (32.0-36.0); MEAN PLATELET VOLUME 9.9 FL (7.0-11.0); MONO % 17.6 % (0.0-8.0); MONOCYTE # 1.6 TH/MM3 (0-0.9); NEUT % 73.2 % (16.0-70.0); PLATELET COUNT 162 TH/MM3 (150-450); RED CELL DISTRIBUTION WIDTH 14.4 % (11.6-17.2); WHITE BLOOD COUNT 9.1 TH/MM3 (4.0-11.0)
[2017-10-30 16:56] LABS: ALBUMIN 3.3 GM/DL (3.4-5.0); ALT (GPT) 26 U/L (12-78); AST (GOT) 32 U/L (15-37); BICARBONATE 27.6 MEQ/L (21.0-32.0); BLOOD UREA NITROGEN 39 MG/DL (7-18); CALCIUM 8.7 MG/DL (8.5-10.1); CHLORIDE 101 MEQ/L (98-107); CREATININE 1.07 MG/DL (0.60-1.30); GLOMERULAR FILTRATION RATE 68 ML/MIN (>89); GLUCOSE,RANDOM 152 MG/DL (74-106); MAGNESIUM 2.2 MG/DL (1.5-2.5); SODIUM (NA) 136 MEQ/L (136-145)
[2017-10-30 17:05] LABS: ALKALINE PHOSPHATASE 76 U/L (45-117); FREE T4 1.05 NG/DL (0.76-1.46); TOTAL BILIRUBIN ADULT 0.7 MG/DL (0.2-1.0)
[2017-10-30 19:07] LABS: HEMOGLOBIN A1C 5.5 % (4.3-6.0)
[2017-10-30] MEDS: QUEtiapine FUMARATE 100 MG TAB PO SCH (21:50)
[2017-10-31 02:00] VITALS: BP 107/55; PULSE 69; RESP 16; TEMP 98.2; O2SAT 93
[2017-10-31 05:16] VITALS: BP_SYST 108; BP_SYST 113; BP_SYST 123; BP_DIAS 49; BP_DIAS 56; BP_DIAS 63; PULSE 101; PULSE 69; PULSE 88; RESP 18; TEMP 98.5; O2SAT 95
[2017-10-31] MEDS: MIDODRINE 5 MG TAB PO SCH ×2 (06:34→17:53)
[2017-10-31] MEDS: QUEtiapine FUMARATE 25 MG TAB PO SCH ×2 (08:00→17:45)
[2017-10-31] MEDS: FOLIC ACID 1 MG TAB PO SCH (09:00)
[2017-10-31] MEDS: VALPROIC ACID 250 MG CAP PO SCH ×2 (09:00→21:14)
[2017-10-31] MEDS: THIAMINE HCL 100 MG TAB PO SCH (09:00)
[2017-10-31] MEDS: MULTIVITAMIN TAB PO SCH (09:00)
[2017-10-31] MEDS: ASPIRIN EC 81 MG TABEC PO SCH (09:15)
[2017-10-31 09:25] LABS: BASOPHIL % 0.4 % (0.0-2.0); EOSINOPHIL # 0.1 TH/MM3 (0-0.4); EOSINOPHIL % 1.1 % (0.0-4.0); HEMATOCRIT 35.9 % (39.0-51.0); HEMOGLOBIN 12.2 GM/DL (13.0-17.0); LYMPH % 9.6 % (9.0-44.0); MEAN CORPUSCULAR HEMOGLOBIN 31.6 PG (27.0-34.0); MEAN PLATELET VOLUME 9.8 FL (7.0-11.0); MONO % 21.9 % (0.0-8.0); MONOCYTE # 2.3 TH/MM3 (0-0.9); PLATELET COUNT 152 TH/MM3 (150-450); RED BLOOD COUNT 3.86 MIL/MM3 (4.50-5.90); RED CELL DISTRIBUTION WIDTH 14.5 % (11.6-17.2); WHITE BLOOD COUNT 10.4 TH/MM3 (4.0-11.0)
[2017-10-31 09:51] LABS: ALBUMIN 2.9 GM/DL (3.4-5.0); AST (GOT) 19 U/L (15-37); BLOOD UREA NITROGEN 29 MG/DL (7-18); CALCIUM 8.5 MG/DL (8.5-10.1); CHLORIDE 103 MEQ/L (98-107); CREATININE 0.89 MG/DL (0.60-1.30); GLOMERULAR FILTRATION RATE 84 ML/MIN (>89); GLUCOSE,RANDOM 115 MG/DL (74-106); MAGNESIUM 2.1 MG/DL (1.5-2.5); SODIUM (NA) 138 MEQ/L (136-145)
[2017-10-31 09:53] LABS: ALT (GPT) 22 U/L (12-78); PHOSPHORUS 2.9 MG/DL (2.5-4.9)
[2017-10-31 09:55] LABS: ALKALINE PHOSPHATASE 70 U/L (45-117); TOTAL BILIRUBIN ADULT 0.8 MG/DL (0.2-1.0); TOTAL PROTEIN 6.4 GM/DL (6.4-8.2)
--- NOTE | 2017-10-31 12:16 | HHI.PYPN ---
Subjective Chief Complaint: psychosis Remarks Reviewed electronic medical record discussed case with staff. Nurse reports that patient has not been himself. Patient had numerous bowel movements yesterday and a medical consult was ordered. Follow-up was performed in patient 's room. Patient was found lying on his bed. He did respond to verbal stimuli after several efforts. Patient's pallor is ashen. He appeared lethargic. Patient responded to questions with one-word answers and after 2 questions closed his eyes and would not answer any further questions. Patient will be moved back to [facility] due to his medical condition. Mental Status Examination Appearance: Appropriate Consciousness: Alert Orientation: Person, Place ("hospital") Motor Activity: Other (lying in bed, no abnormal motor activity noted.) Speech: Hesitant Language: Adequate Fund of Knowledge: Poor Attention and Concentration: Inadequate Memory: Impaired Mood: Other ("ok") Affect: Appropriate Thought Process & Associations: Disorganized Thought Content: Bizarre thinking, Ideas of reference Hallucination Type: None, Other (appears internally stimulated) Delusion Type: Bizarre Suicidal Ideation: No Suicidal Plan: No Suicidal Intention: No Homicidal Ideation: No Homicidal Plan: No Homicidal Intention: No Insight: Poor Judgment: Poor Results Labs Test 10/30/17 16:15 10/31/17 08:57 White Blood Count 9.1 TH/MM3 10.4 TH/MM3 Red Blood Count 3.90 MIL/MM3 3.86 MIL/MM3 Hemoglobin 12.2 GM/DL 12.2 GM/DL Hematocrit 36.7 % 35.9 % Mean Corpuscular Volume 94.0 FL 93.0 FL Mean Corpuscular Hemoglobin 31.4 PG 31.6 PG Mean Corpuscular Hemoglobin Concent 33.4 % 34.0 % Red Cell Distribution Width 14.4 % 14.5 % Platelet Count 162 TH/MM3 152 TH/MM3 Mean Platelet Volume 9.9 FL 9.8 FL Neutrophils (%) (Auto) 73.2 % 67.0 % Lymphocytes (%) (Auto) 8.5 % 9.6 % Monocytes (%) (Auto) 17.6 % 21.9 % Eosinophils (%) (Auto) 0.2 % 1.1 % Basophils (%) (Auto) 0.5 % 0.4 % Neutrophils # (Auto) 6.7 TH/MM3 7.0 TH/MM3 Lymphocytes # (Auto) 0.8 TH/MM3 1.0 TH/MM3 Monocytes # (Auto) 1.6 TH/MM3 2.3 TH/MM3 Eosinophils # (Auto) 0.0 TH/MM3 0.1 TH/MM3 Basophils # (Auto) 0.0 TH/MM3 0.0 TH/MM3 CBC Comment DIFF FINAL AUTO DIFF Differential Comment Blood Urea Nitrogen 39 MG/DL 29 MG/DL Creatinine 1.07 MG/DL 0.89 MG/DL Random Glucose 152 MG/DL 115 MG/DL Total Protein 7.0 GM/DL 6.4 GM/DL Albumin 3.3 GM/DL 2.9 GM/DL Calcium Level 8.7 MG/DL 8.5 MG/DL Phosphorus Level 3.0 MG/DL 2.9 MG/DL Magnesium Level 2.2 MG/DL 2.1 MG/DL Alkaline Phosphatase 76 U/L 70 U/L Aspartate Amino Transf (AST/SGOT) 32 U/L 19 U/L Alanine Aminotransferase (ALT/SGPT) 26 U/L 22 U/L Total Bilirubin 0.7 MG/DL 0.8 MG/DL Sodium Level 136 MEQ/L 138 MEQ/L Potassium Level 4.2 MEQ/L 3.8 MEQ/L Chloride Level 101 MEQ/L 103 MEQ/L Carbon Dioxide Level 27.6 MEQ/L 28.0 MEQ/L Anion Gap 7 MEQ/L 7 MEQ/L Estimat Glomerular Filtration Rate 68 ML/MIN 84 ML/MIN Hemoglobin A1c 5.5 % Free Thyroxine 1.05 NG/DL Thyroid Stimulating Hormone 3rd Gen 3.200 uIU/ML Date/Time Source Procedure Growth Status 10/19/17 15:12 Blood Peripheral Aerobic Blood Culture - Final NO GROWTH IN 5 DAYS Complete 10/19/17 15:12 Blood Peripheral Anaerobic Blood Culture - Final NO GROWTH IN 5 DAYS Complete Vitals/IOs Vital Signs Date Time Temp Pulse Resp B/P (MAP) Pulse Ox O2 Delivery O2 Flow Rate FiO2 10/31/17 05:16 69 108/49 (68) 10/31/17 05:16 98.5 18 95 Assessment & Plan Problem List: (1) Unspecified psychosis ICD Codes: F29 - Unspecified psychosis not due to a substance or known physiological condition (2) Major neurocognitive disorder as late effect of traumatic brain injury with behavioral disturbance ICD Codes: S06.9X9S - Unspecified intracranial injury with loss of consciousness of unspecified duration, sequela; F02.81 - Dementia in other diseases classified elsewhere with behavioral disturbance Status: Acute Assessment & Plan Estimated LOS: Safe placement and discharge plan continues to be worked on. Patient still appears to have some medical issues which need to be addressed. Days Justification for Cont. Inpt. Moving this patient to a lower level of care would result in decompensation. He lacks capacity to provide self-care. Julia Sosa Oct 31, 2017 12:16
[2017-10-31 12:33] LABS: BANDS 38 % (0-6); LYMPHOCYTES 15 % (9-44); MONOCYTES 16 % (0-8); POLYS (SEG NEUTROPHILS) 29 % (16-70)
[2017-10-31 19:01] VITALS: BP 99/58; PULSE 120; RESP 20; TEMP 97.6; O2SAT 97
[2017-10-31] MEDS: QUEtiapine FUMARATE 100 MG TAB PO SCH (21:14)
[2017-11-01 05:44] VITALS: BP 90/52; PULSE 107; RESP 16; TEMP 99.3; O2SAT 95
[2017-11-01] MEDS: MIDODRINE 5 MG TAB PO SCH ×3 (06:36→17:00)
[2017-11-01] MEDS: MULTIVITAMIN TAB PO SCH (08:47)
[2017-11-01] MEDS: FOLIC ACID 1 MG TAB PO SCH (08:47)
[2017-11-01] MEDS: ASPIRIN EC 81 MG TABEC PO SCH (08:47)
[2017-11-01] MEDS: THIAMINE HCL 100 MG TAB PO SCH (08:47)
[2017-11-01] MEDS: VALPROIC ACID 250 MG CAP PO SCH ×2 (08:48→21:41)
[2017-11-01] MEDS: QUEtiapine FUMARATE 25 MG TAB PO SCH ×2 (08:49→17:27)
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
--- NOTE | 2017-11-01 14:08 | HHI.PYPN ---
Subjective Chief Complaint: psychosis Remarks Patient was seen and case discussed with nursing. Patient is behaving well on the unit. Compliant with his medications. Alert and oriented 2. No outbursts Mental Status Examination Appearance: Appropriate Consciousness: Alert Orientation: Person, Place ("hospital") Motor Activity: Other (lying in bed, no abnormal motor activity noted.) Speech: Hesitant Language: Adequate Fund of Knowledge: Poor Attention and Concentration: Inadequate Memory: Impaired Mood: Other ("ok") Affect: Appropriate Thought Process & Associations: Disorganized Thought Content: Bizarre thinking, Ideas of reference Hallucination Type: None, Other (appears internally stimulated) Delusion Type: Bizarre Suicidal Ideation: No Suicidal Plan: No Suicidal Intention: No Homicidal Ideation: No Homicidal Plan: No Homicidal Intention: No Insight: Poor Judgment: Poor Results Labs Date/Time Source Procedure Growth Status 10/19/17 15:12 Blood Peripheral Aerobic Blood Culture - Final NO GROWTH IN 5 DAYS Complete 10/19/17 15:12 Blood Peripheral Anaerobic Blood Culture - Final NO GROWTH IN 5 DAYS Complete Vitals/IOs Vital Signs Date Time Temp Pulse Resp B/P (MAP) Pulse Ox O2 Delivery O2 Flow Rate FiO2 11/01/17 05:44 99.3 107 16 90/52 (65) 95 Intake and Output 11/01/17 11/01/17 11/02/17 08:00 16:00 00:00 Intake Total 0 ml 240 ml Balance 0 ml 240 ml Assessment & Plan Problem List: (1) Unspecified psychosis ICD Codes: F29 - Unspecified psychosis not due to a substance or known physiological condition (2) Major neurocognitive disorder as late effect of traumatic brain injury with behavioral disturbance ICD Codes: S06.9X9S - Unspecified intracranial injury with loss of consciousness of unspecified duration, sequela; F02.81 - Dementia in other diseases classified elsewhere with behavioral disturbance Status: Acute Assessment & Plan Continue current treatment plan Justification for Cont. Inpt. Patient would decompensate in a less restrictive setting Stalin You DO Nov 01, 2017 14:08
[2017-11-01 18:31] VITALS: BP 91/51; PULSE 98; RESP 18; TEMP 98.2; O2SAT 98
[2017-11-01] MEDS: QUEtiapine FUMARATE 100 MG TAB PO SCH (21:41)
[2017-11-02 05:23] VITALS: BP 100/69; PULSE 84; RESP 18; TEMP 98; O2SAT 94
[2017-11-02] MEDS: MIDODRINE 5 MG TAB PO SCH ×3 (06:08→16:55)
[2017-11-02] MEDS: VALPROIC ACID 250 MG CAP PO SCH ×2 (09:20→21:18)
[2017-11-02] MEDS: THIAMINE HCL 100 MG TAB PO SCH (09:20)
[2017-11-02] MEDS: QUEtiapine FUMARATE 25 MG TAB PO SCH ×2 (09:20→16:55)
[2017-11-02] MEDS: FOLIC ACID 1 MG TAB PO SCH (09:20)
[2017-11-02] MEDS: MULTIVITAMIN TAB PO SCH (09:20)
[2017-11-02] MEDS: ASPIRIN EC 81 MG TABEC PO SCH (09:21)
--- NOTE | 2017-11-02 11:56 | HHI.PYPN ---
Subjective Chief Complaint: psychosis Remarks Patient was seen and case discussed with nursing. Patient is pleasant and cooperative with exam. Patient is behaving well on the unit. Compliant with his medications. No outbursts. Mental Status Examination Appearance: Appropriate Consciousness: Alert Orientation: Person, Place ("hospital") Motor Activity: Other (lying in bed, no abnormal motor activity noted.) Speech: Hesitant Language: Adequate Fund of Knowledge: Poor Attention and Concentration: Inadequate Memory: Impaired Mood: Other ("ok") Affect: Appropriate Thought Process & Associations: Disorganized Thought Content: Bizarre thinking, Depersonalization Hallucination Type: None, Other (appears internally stimulated) Delusion Type: Bizarre Suicidal Ideation: No Suicidal Plan: No Suicidal Intention: No Homicidal Ideation: No Homicidal Plan: No Homicidal Intention: No Insight: Poor Judgment: Poor Results Labs Date/Time Source Procedure Growth Status 10/19/17 15:12 Blood Peripheral Aerobic Blood Culture - Final NO GROWTH IN 5 DAYS Complete 10/19/17 15:12 Blood Peripheral Anaerobic Blood Culture - Final NO GROWTH IN 5 DAYS Complete Vitals/IOs Vital Signs Date Time Temp Pulse Resp B/P (MAP) Pulse Ox O2 Delivery O2 Flow Rate FiO2 11/02/17 05:23 98.0 84 18 100/69 (79) 94 Assessment & Plan Problem List: (1) Unspecified psychosis ICD Codes: F29 - Unspecified psychosis not due to a substance or known physiological condition (2) Major neurocognitive disorder as late effect of traumatic brain injury with behavioral disturbance ICD Codes: S06.9X9S - Unspecified intracranial injury with loss of consciousness of unspecified duration, sequela; F02.81 - Dementia in other diseases classified elsewhere with behavioral disturbance Status: Acute Assessment & Plan Continue current treatment plan Justification for Cont. Inpt. Patient would decompensate in a less restrictive setting Stalin You DO Nov 02, 2017 11:56
[2017-11-02 18:14] VITALS: BP 100/65; PULSE 82; RESP 18; TEMP 98.4; O2SAT 95
[2017-11-02] MEDS: QUEtiapine FUMARATE 100 MG TAB PO SCH (21:19)
[2017-11-03 06:11] VITALS: BP 90/54; PULSE 102; RESP 18; TEMP 97.2; O2SAT 95
[2017-11-03] MEDS: MIDODRINE 5 MG TAB PO SCH ×3 (06:26→16:12)
[2017-11-03] MEDS: FOLIC ACID 1 MG TAB PO SCH (08:01)
[2017-11-03] MEDS: ASPIRIN EC 81 MG TABEC PO SCH (08:01)
[2017-11-03] MEDS: THIAMINE HCL 100 MG TAB PO SCH (08:01)
[2017-11-03] MEDS: QUEtiapine FUMARATE 25 MG TAB PO SCH ×2 (08:01→16:13)
[2017-11-03] MEDS: MULTIVITAMIN TAB PO SCH (08:01)
[2017-11-03] MEDS: VALPROIC ACID 250 MG CAP PO SCH ×2 (08:01→20:33)
--- NOTE | 2017-11-03 16:59 | HHI.PYPN ---
Subjective Chief Complaint: psychosis Remarks Patient seen for follow up, chart reviewed. Discussion with nursing staff reported the patient with no behavioral disturbances, calm and cooperative with staff. Patient was found sitting in the room noted B, cooperative. Patient states that he is feeling "fine" denying any physical complaints at this time, denying any abdominal pain or discomfort. Patient states that he ambulates well with no dizziness. Patient continues to be alert and oriented only to person. Review of Systems Except as stated in HPI: all other systems reviewed are Neg Mental Status Examination Appearance: Appropriate Consciousness: Alert Orientation: Person, Place ("hospital") Motor Activity: Other (lying in bed, no abnormal motor activity noted.) Speech: Hesitant Language: Adequate Fund of Knowledge: Poor Attention and Concentration: Inadequate Memory: Impaired Mood: Other ("ok") Affect: Appropriate Thought Process & Associations: Disorganized Thought Content: Bizarre thinking, Depersonalization Hallucination Type: None, Other (appears internally stimulated) Delusion Type: Bizarre Suicidal Ideation: No Suicidal Plan: No Suicidal Intention: No Homicidal Ideation: No Homicidal Plan: No Homicidal Intention: No Insight: Poor Judgment: Poor Results Labs Date/Time Source Procedure Growth Status 10/19/17 15:12 Blood Peripheral Aerobic Blood Culture - Final NO GROWTH IN 5 DAYS Complete 10/19/17 15:12 Blood Peripheral Anaerobic Blood Culture - Final NO GROWTH IN 5 DAYS Complete Vitals/IOs Vital Signs Date Time Temp Pulse Resp B/P (MAP) Pulse Ox O2 Delivery O2 Flow Rate FiO2 11/03/17 06:11 97.2 102 18 90/54 (66) 95 Intake and Output 11/03/17 11/03/17 11/04/17 08:00 16:00 00:00 Intake Total 0 ml Balance 0 ml Assessment & Plan Problem List: (1) Unspecified psychosis ICD Codes: F29 - Unspecified psychosis not due to a substance or known physiological condition (2) Major neurocognitive disorder as late effect of traumatic brain injury with behavioral disturbance ICD Codes: S06.9X9S - Unspecified intracranial injury with loss of consciousness of unspecified duration, sequela; F02.81 - Dementia in other diseases classified elsewhere with behavioral disturbance Status: Acute Assessment & Plan Patient continues with disorganized behavior at times, continues to be alert and oriented only to person. Patient no longer endorsing any physical complaints at this time. Continue monitor mood and behavior. Continue current treatment. Discharge planning in progress. Justification for Cont. Inpt. At risk for further decompensation if at lower level of care Discharge Planning To be determined Kirby Richmond MD Nov 03, 2017 16:59
[2017-11-03 18:03] VITALS: BP 117/59; PULSE 101; RESP 18; TEMP 98.2; O2SAT 96
[2017-11-03] MEDS: QUEtiapine FUMARATE 100 MG TAB PO SCH (20:33)
[2017-11-04 06:00] VITALS: BP 92/46; PULSE 101; RESP 18; TEMP 98.5; O2SAT 94
[2017-11-04] MEDS: MIDODRINE 5 MG TAB PO SCH ×3 (06:31→16:50)
[2017-11-04] MEDS: THIAMINE HCL 100 MG TAB PO SCH (08:01)
[2017-11-04] MEDS: VALPROIC ACID 250 MG CAP PO SCH ×2 (08:01→21:33)
[2017-11-04] MEDS: FOLIC ACID 1 MG TAB PO SCH (08:01)
[2017-11-04] MEDS: QUEtiapine FUMARATE 25 MG TAB PO SCH ×2 (08:01→15:38)
[2017-11-04] MEDS: MULTIVITAMIN TAB PO SCH (08:01)
[2017-11-04] MEDS: ASPIRIN EC 81 MG TABEC PO SCH (08:02)
--- NOTE | 2017-11-04 13:29 | HHI.PYPN ---
Subjective Chief Complaint: psychosis Remarks Patient seen for follow-up, chart reviewed. Discussion nursing staff reported the patient has no behavioral disturbances, calm pleasant and compliant with treatment. Patient was found to ambulate on the unit noted B, cooperative. Patient with some disorganized behavior but has been adherent to treatment with no behavioral disturbances. Patient denies any physical complaints denies feeling dizzy upon standing or during ambulation. Patient reports tolerating medication well. Review of Systems Except as stated in HPI: all other systems reviewed are Neg Mental Status Examination Appearance: Appropriate Consciousness: Alert Orientation: Person, Place ("hospital") Motor Activity: Other (lying in bed, no abnormal motor activity noted.) Speech: Hesitant Language: Adequate Fund of Knowledge: Poor Attention and Concentration: Inadequate Memory: Impaired Mood: Other ("ok") Affect: Appropriate Thought Process & Associations: Disorganized Thought Content: Bizarre thinking, Depersonalization Hallucination Type: None, Other (appears internally stimulated) Delusion Type: Bizarre Suicidal Ideation: No Suicidal Plan: No Suicidal Intention: No Homicidal Ideation: No Homicidal Plan: No Homicidal Intention: No Insight: Poor Judgment: Poor Results Labs Date/Time Source Procedure Growth Status 10/19/17 15:12 Blood Peripheral Aerobic Blood Culture - Final NO GROWTH IN 5 DAYS Complete 10/19/17 15:12 Blood Peripheral Anaerobic Blood Culture - Final NO GROWTH IN 5 DAYS Complete Vitals/IOs Vital Signs Date Time Temp Pulse Resp B/P (MAP) Pulse Ox O2 Delivery O2 Flow Rate FiO2 11/04/17 06:00 98.5 101 18 92/46 (61) 94 Intake and Output 11/04/17 11/04/17 11/05/17 08:00 16:00 00:00 Intake Total 360 ml 240 ml Balance 360 ml 240 ml Assessment & Plan Problem List: (1) Unspecified psychosis ICD Codes: F29 - Unspecified psychosis not due to a substance or known physiological condition (2) Major neurocognitive disorder as late effect of traumatic brain injury with behavioral disturbance ICD Codes: S06.9X9S - Unspecified intracranial injury with loss of consciousness of unspecified duration, sequela; F02.81 - Dementia in other diseases classified elsewhere with behavioral disturbance Status: Acute Assessment & Plan Patient with no behavioral disturbances, continue with current treatment, continue to monitor mood and behavior. Discharge planning in progress. Justification for Cont. Inpt. At risk for further decompensation at lower level of care. Kirby Richmond MD Nov 04, 2017 13:29
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
[2017-11-04 17:58] VITALS: BP 96/52; PULSE 83; RESP 18; TEMP 97.2; O2SAT 97
[2017-11-04] MEDS: QUEtiapine FUMARATE 100 MG TAB PO SCH (21:33)
[2017-11-05] MEDS: MIDODRINE 5 MG TAB PO SCH ×3 (05:25→17:58)
[2017-11-05 05:47] VITALS: BP 105/69; PULSE 90; RESP 16; TEMP 97.8; O2SAT 94
[2017-11-05] MEDS: FOLIC ACID 1 MG TAB PO SCH (10:02)
[2017-11-05] MEDS: MULTIVITAMIN TAB PO SCH (10:02)
[2017-11-05] MEDS: THIAMINE HCL 100 MG TAB PO SCH (10:02)
[2017-11-05] MEDS: VALPROIC ACID 250 MG CAP PO SCH ×2 (10:02→20:36)
[2017-11-05] MEDS: ASPIRIN EC 81 MG TABEC PO SCH (10:02)
[2017-11-05] MEDS: QUEtiapine FUMARATE 25 MG TAB PO SCH ×2 (10:03→17:35)
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
[2017-11-05 12:00] VITALS: BP 122/60; PULSE 96
--- NOTE | 2017-11-05 16:42 | HHI.PYPN ---
Subjective Chief Complaint: psychosis Remarks Patient seen for follow-up, chart reviewed. Nursing staff reported, pleasant with staff. Feeling much better" referring his right hand. Patient states feeling "good" denying any physical complaints at this time. Patient continues to be alert and oriented only to person. Review of Systems Except as stated in HPI: all other systems reviewed are Neg Mental Status Examination Appearance: Appropriate Consciousness: Alert Orientation: Person, Place ("hospital") Motor Activity: Other (lying in bed, no abnormal motor activity noted.) Speech: Hesitant Language: Adequate Fund of Knowledge: Poor Attention and Concentration: Inadequate Memory: Impaired Mood: Other ("ok") Affect: Appropriate Thought Process & Associations: Disorganized Thought Content: Bizarre thinking, Depersonalization Hallucination Type: None, Other (appears internally stimulated) Delusion Type: Bizarre Suicidal Ideation: No Suicidal Plan: No Suicidal Intention: No Homicidal Ideation: No Homicidal Plan: No Homicidal Intention: No Insight: Poor Judgment: Poor Results Labs Date/Time Source Procedure Growth Status 10/19/17 15:12 Blood Peripheral Aerobic Blood Culture - Final NO GROWTH IN 5 DAYS Complete 10/19/17 15:12 Blood Peripheral Anaerobic Blood Culture - Final NO GROWTH IN 5 DAYS Complete Vitals/IOs Vital Signs Date Time Temp Pulse Resp B/P (MAP) Pulse Ox O2 Delivery O2 Flow Rate FiO2 11/05/17 12:00 96 122/60 (80) 11/05/17 05:47 97.8 16 94 Intake and Output 11/05/17 11/05/17 11/06/17 08:00 16:00 00:00 Intake Total 340 ml 960 ml Balance 340 ml 960 ml Assessment & Plan Problem List: (1) Unspecified psychosis ICD Codes: F29 - Unspecified psychosis not due to a substance or known physiological condition (2) Major neurocognitive disorder as late effect of traumatic brain injury with behavioral disturbance ICD Codes: S06.9X9S - Unspecified intracranial injury with loss of consciousness of unspecified duration, sequela; F02.81 - Dementia in other diseases classified elsewhere with behavioral disturbance Status: Acute Assessment & Plan Patient this time with no behavioral disturbances, has been calm and cooperative with treatment. Patient continues to be alert and oriented only to person, noted disorganized behavior at times. Continue current treatment. Continue to monitor mood and behavior. Discharge planning in progress. Justification for Cont. Inpt. At risk of further decompensation a lower level of care. Kirby Richmond MD Nov 05, 2017 16:42
[2017-11-05 17:52] VITALS: BP 116/54; PULSE 92; RESP 18; TEMP 97.6; O2SAT 97
[2017-11-05] MEDS: QUEtiapine FUMARATE 100 MG TAB PO SCH (20:36)
[2017-11-06 06:00] VITALS: BP 108/66; PULSE 97; RESP 18; TEMP 97.8; O2SAT 99
[2017-11-06] MEDS: MIDODRINE 5 MG TAB PO SCH ×3 (06:17→16:04)
[2017-11-06] MEDS: QUEtiapine FUMARATE 25 MG TAB PO SCH ×2 (08:00→16:04)
[2017-11-06] MEDS: THIAMINE HCL 100 MG TAB PO SCH (08:20)
[2017-11-06] MEDS: MULTIVITAMIN TAB PO SCH (08:20)
[2017-11-06] MEDS: FOLIC ACID 1 MG TAB PO SCH (08:20)
[2017-11-06] MEDS: VALPROIC ACID 250 MG CAP PO SCH ×2 (08:20→20:39)
[2017-11-06] MEDS: ASPIRIN EC 81 MG TABEC PO SCH (08:20)
--- NOTE | 2017-11-06 12:09 | HHI.PYPN ---
Subjective Chief Complaint: psychosis Remarks Patient seen for follow-up, chart reviewed. Discussion with nursing staff reported patient pleasant and cooperative. Patient was found walking on the unit, calm and cooperative. Patient with more interaction and engagement with staff. He denies any physical complaints, noted with occasional disorganized behavior but pleasant. Review of Systems Except as stated in HPI: all other systems reviewed are Neg Mental Status Examination Appearance: Appropriate Consciousness: Alert Orientation: Person, Place ("hospital") Motor Activity: Other (lying in bed, no abnormal motor activity noted.) Speech: Hesitant Language: Adequate Fund of Knowledge: Poor Attention and Concentration: Inadequate Memory: Impaired Mood: Other ("ok") Affect: Appropriate Thought Process & Associations: Disorganized Thought Content: Bizarre thinking, Depersonalization Hallucination Type: None, Other (appears internally stimulated) Delusion Type: Bizarre Suicidal Ideation: No Suicidal Plan: No Suicidal Intention: No Homicidal Ideation: No Homicidal Plan: No Homicidal Intention: No Insight: Poor Judgment: Poor Results Labs Date/Time Source Procedure Growth Status 10/19/17 15:12 Blood Peripheral Aerobic Blood Culture - Final NO GROWTH IN 5 DAYS Complete 10/19/17 15:12 Blood Peripheral Anaerobic Blood Culture - Final NO GROWTH IN 5 DAYS Complete Vitals/IOs Vital Signs Date Time Temp Pulse Resp B/P (MAP) Pulse Ox O2 Delivery O2 Flow Rate FiO2 11/06/17 06:00 97.8 97 18 108/66 (80) 99 Intake and Output 11/06/17 11/06/17 11/07/17 08:00 16:00 00:00 Intake Total 600 ml Balance 600 ml Assessment & Plan Problem List: (1) Unspecified psychosis ICD Codes: F29 - Unspecified psychosis not due to a substance or known physiological condition (2) Major neurocognitive disorder as late effect of traumatic brain injury with behavioral disturbance ICD Codes: S06.9X9S - Unspecified intracranial injury with loss of consciousness of unspecified duration, sequela; F02.81 - Dementia in other diseases classified elsewhere with behavioral disturbance Status: Acute Assessment & Plan Patient continues with good behavioral control. Continue current treatment, continue to monitor mood and behavior. Discharge planning in progress. Justification for Cont. Inpt. At risk for further decompensation at lower level of care. Kirby Richmond MD Nov 06, 2017 12:08
[2017-11-06 18:43] VITALS: BP 108/66; PULSE 80; RESP 18; TEMP 97.8; O2SAT 99
[2017-11-06] MEDS: QUEtiapine FUMARATE 100 MG TAB PO SCH (20:39)
[2017-11-07] MEDS: MIDODRINE 5 MG TAB PO SCH ×3 (06:22→16:39)
[2017-11-07 06:31] VITALS: BP 112/72; PULSE 108; RESP 17; TEMP 97.4; O2SAT 94
[2017-11-07] MEDS: VALPROIC ACID 250 MG CAP PO SCH ×2 (09:30→20:27)
[2017-11-07] MEDS: ASPIRIN EC 81 MG TABEC PO SCH (09:31)
[2017-11-07] MEDS: MULTIVITAMIN TAB PO SCH (09:31)
[2017-11-07] MEDS: THIAMINE HCL 100 MG TAB PO SCH (09:31)
[2017-11-07] MEDS: FOLIC ACID 1 MG TAB PO SCH (09:31)
[2017-11-07] MEDS: QUEtiapine FUMARATE 25 MG TAB PO SCH ×2 (09:31→16:00)
[2017-11-07] MEDS: ONDANSETRON ODT 4 MG TAB PO PRN (13:49)
[2017-11-07] MEDS: MAGNESIUM HYDROXIDE SUSP 30 ML CUP PO PRN (13:49)
[2017-11-07 14:05] VITALS: BP 130/82; PULSE 99; RESP 18; TEMP 98; O2SAT 99
[2017-11-07] MEDS ORDERED: BISACODYL 10 MG SUPP RECTAL ONE (15:00)
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
--- NOTE | 2017-11-07 15:40 | RADRPT ---
EXAM DATE/TIME: 11/07/2017 15:15 [facility] COMPARISON: ABDOMEN FLAT & UPRIGHT, October 30, 2017, 15:42. INDICATIONS : Diarrhea and abdominal pain MEDICAL HISTORY : None. SURGICAL HISTORY : None. ENCOUNTER: Initial ACUITY: 3 days PAIN SCORE: 3/10 LOCATION: Bilateral Abdomen FINDINGS: There is decreasing small bowel distention when compared with the prior exam. No free air is identifi ed. No organomegaly is evident. CONCLUSION: 1. Decreasing small bowel distention when compared with the prior exam. Walter Rodriguez MD on November 07, 2017 at 15:35 Board Certified Radiologist. This report was verified electronically.
--- NOTE | 2017-11-07 17:12 | HHI.PYPN ---
Subjective Chief Complaint: psychosis Remarks Patient seen for follow, chart reviewed. Discussion nursing staff reported the patient had reported having had some abdominal discomfort, did not eat breakfast this morning. Patient was found heavily on the unit sat on the hospital chair as stated "I am so confused". Patient later brought back to his room and laid down it was reported having some abdominal discomfort. Patient states that he had had one episode of emesis this morning. Upon examination of abdomen patient was tender to palpation and did not want script writer to continue examination. Patient states that he had minimal bowel movement recently. Patient states he did not eat breakfast as she was not feeling well. Review of Systems Except as stated in HPI: all other systems reviewed are Neg Mental Status Examination Appearance: Appropriate Consciousness: Alert Orientation: Person, Place ("hospital") Motor Activity: Other (lying in bed, no abnormal motor activity noted.) Speech: Hesitant Language: Adequate Fund of Knowledge: Poor Attention and Concentration: Inadequate Memory: Impaired Mood: Other ("ok") Affect: Appropriate Thought Process & Associations: Disorganized Thought Content: Bizarre thinking, Depersonalization Hallucination Type: None, Other (appears internally stimulated) Delusion Type: Bizarre Suicidal Ideation: No Suicidal Plan: No Suicidal Intention: No Homicidal Ideation: No Homicidal Plan: No Homicidal Intention: No Insight: Poor Judgment: Poor Results Labs Date/Time Source Procedure Growth Status 10/19/17 15:12 Blood Peripheral Aerobic Blood Culture - Final NO GROWTH IN 5 DAYS Complete 10/19/17 15:12 Blood Peripheral Anaerobic Blood Culture - Final NO GROWTH IN 5 DAYS Complete Vitals/IOs Vital Signs Date Time Temp Pulse Resp B/P (MAP) Pulse Ox O2 Delivery O2 Flow Rate FiO2 11/07/17 14:05 98.0 99 18 130/82 (98) 99 Intake and Output 11/07/17 11/07/17 11/08/17 08:00 16:00 00:00 Intake Total 240 ml 360 ml Balance 240 ml 360 ml Assessment & Plan Problem List: (1) Unspecified psychosis ICD Codes: F29 - Unspecified psychosis not due to a substance or known physiological condition (2) Major neurocognitive disorder as late effect of traumatic brain injury with behavioral disturbance ICD Codes: S06.9X9S - Unspecified intracranial injury with loss of consciousness of unspecified duration, sequela; F02.81 - Dementia in other diseases classified elsewhere with behavioral disturbance Status: Acute Assessment & Plan Patient this time continues to have confusion secondary to neurocognitive deficits. Patient endorsing abdominal discomfort along with pain upon palpation during examination. We will consult with hospitalist for evaluation recommendations. We will continue current treatment for now. We will monitor mood and behavior. Discharge planning in progress. Justification for Cont. Inpt. At risk for further decompensation if at lower level of care Kirby Richmond MD Nov 07, 2017 17:12
[2017-11-07 18:03] VITALS: BP 114/58; PULSE 101; RESP 18; TEMP 97.7
[2017-11-07] MEDS: QUEtiapine FUMARATE 100 MG TAB PO SCH (20:27)
[2017-11-08 06:05] VITALS: BP 82/56; PULSE 85; RESP 21; TEMP 98; O2SAT 96
[2017-11-08] MEDS: MIDODRINE 5 MG TAB PO SCH ×3 (06:33→17:00)
[2017-11-08 08:45] LABS: BASOPHIL # 0.1 TH/MM3 (0-0.2); BASOPHIL % 0.8 % (0.0-2.0); EOSINOPHIL # 0.3 TH/MM3 (0-0.4); EOSINOPHIL % 3.1 % (0.0-4.0); HEMATOCRIT 36.7 % (39.0-51.0); HEMOGLOBIN 12.3 GM/DL (13.0-17.0); LYMPH % 21.5 % (9.0-44.0); LYMPHOCYTE # 1.8 TH/MM3 (1.0-4.8); MEAN CORPUSCULAR HEMOGLOBIN 31.2 PG (27.0-34.0); MEAN CORPUSCULAR HGB CONC 33.6 % (32.0-36.0); MEAN PLATELET VOLUME 8.6 FL (7.0-11.0); MONO % 13.4 % (0.0-8.0); MONOCYTE # 1.1 TH/MM3 (0-0.9); NEUT % 61.2 % (16.0-70.0); PLATELET COUNT 315 TH/MM3 (150-450); RED BLOOD COUNT 3.95 MIL/MM3 (4.50-5.90); RED CELL DISTRIBUTION WIDTH 14.2 % (11.6-17.2); WHITE BLOOD COUNT 8.2 TH/MM3 (4.0-11.0)
[2017-11-08] MEDS: VALPROIC ACID 250 MG CAP PO SCH ×2 (08:47→20:22)
[2017-11-08] MEDS: ASPIRIN EC 81 MG TABEC PO SCH (08:47)
[2017-11-08] MEDS: MULTIVITAMIN TAB PO SCH (08:47)
[2017-11-08] MEDS: QUEtiapine FUMARATE 25 MG TAB PO SCH ×2 (08:53→16:00)
[2017-11-08] MEDS: FOLIC ACID 1 MG TAB PO SCH (08:53)
[2017-11-08] MEDS: THIAMINE HCL 100 MG TAB PO SCH (09:00)
[2017-11-08] MEDS: BISACODYL 10 MG SUPP RECTAL SCH (09:00)
[2017-11-08 09:09] LABS: ALBUMIN 2.7 GM/DL (3.4-5.0); ALT (GPT) 12 U/L (12-78); AST (GOT) 12 U/L (15-37); BICARBONATE 30.3 MEQ/L (21.0-32.0); BLOOD UREA NITROGEN 17 MG/DL (7-18); CALCIUM 8.7 MG/DL (8.5-10.1); CHLORIDE 104 MEQ/L (98-107); CREATININE 0.96 MG/DL (0.60-1.30); GLOMERULAR FILTRATION RATE 77 ML/MIN (>89); GLUCOSE,RANDOM 86 MG/DL (74-106); MAGNESIUM 2.2 MG/DL (1.5-2.5); PHOSPHORUS 3.3 MG/DL (2.5-4.9); SODIUM (NA) 141 MEQ/L (136-145)
[2017-11-08 09:11] LABS: ALKALINE PHOSPHATASE 73 U/L (45-117); TOTAL BILIRUBIN ADULT 0.4 MG/DL (0.2-1.0); TOTAL PROTEIN 6.2 GM/DL (6.4-8.2)
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
--- NOTE | 2017-11-08 12:06 | HHI.PYPN ---
Subjective Chief Complaint: psychosis Remarks patient was seen today for reevaluation He is found a baseline, calm cooperative and pleasant. He reports that he has been doing okay in the unit. Reports good mood, reports good appetite and sleep. He denies suicidal enemas ideation. He is fully oriented 3. Compliant his medications. Mental Status Examination Appearance: Appropriate Consciousness: Alert Orientation: Person, Place ("hospital") Motor Activity: Other (lying in bed, no abnormal motor activity noted.) Speech: Hesitant Language: Adequate Fund of Knowledge: Poor Attention and Concentration: Inadequate Memory: Impaired Mood: Other ("ok") Affect: Appropriate Thought Process & Associations: Disorganized Thought Content: Bizarre thinking, Depersonalization Hallucination Type: None, Other (appears internally stimulated) Delusion Type: Bizarre Suicidal Ideation: No Suicidal Plan: No Suicidal Intention: No Homicidal Ideation: No Homicidal Plan: No Homicidal Intention: No Insight: Poor Judgment: Poor Results Labs Test 11/08/17 07:58 White Blood Count 8.2 TH/MM3 Red Blood Count 3.95 MIL/MM3 Hemoglobin 12.3 GM/DL Hematocrit 36.7 % Mean Corpuscular Volume 93.0 FL Mean Corpuscular Hemoglobin 31.2 PG Mean Corpuscular Hemoglobin Concent 33.6 % Red Cell Distribution Width 14.2 % Platelet Count 315 TH/MM3 Mean Platelet Volume 8.6 FL Neutrophils (%) (Auto) 61.2 % Lymphocytes (%) (Auto) 21.5 % Monocytes (%) (Auto) 13.4 % Eosinophils (%) (Auto) 3.1 % Basophils (%) (Auto) 0.8 % Neutrophils # (Auto) 5.0 TH/MM3 Lymphocytes # (Auto) 1.8 TH/MM3 Monocytes # (Auto) 1.1 TH/MM3 Eosinophils # (Auto) 0.3 TH/MM3 Basophils # (Auto) 0.1 TH/MM3 CBC Comment DIFF FINAL Differential Comment Blood Urea Nitrogen 17 MG/DL Creatinine 0.96 MG/DL Random Glucose 86 MG/DL Total Protein 6.2 GM/DL Albumin 2.7 GM/DL Calcium Level 8.7 MG/DL Phosphorus Level 3.3 MG/DL Magnesium Level 2.2 MG/DL Alkaline Phosphatase 73 U/L Aspartate Amino Transf (AST/SGOT) 12 U/L Alanine Aminotransferase (ALT/SGPT) 12 U/L Total Bilirubin 0.4 MG/DL Sodium Level 141 MEQ/L Potassium Level 4.0 MEQ/L Chloride Level 104 MEQ/L Carbon Dioxide Level 30.3 MEQ/L Anion Gap 7 MEQ/L Estimat Glomerular Filtration Rate 77 ML/MIN Date/Time Source Procedure Growth Status 10/19/17 15:12 Blood Peripheral Aerobic Blood Culture - Final NO GROWTH IN 5 DAYS Complete 10/19/17 15:12 Blood Peripheral Anaerobic Blood Culture - Final NO GROWTH IN 5 DAYS Complete Vitals/IOs Vital Signs Date Time Temp Pulse Resp B/P (MAP) Pulse Ox O2 Delivery O2 Flow Rate FiO2 11/08/17 06:05 98.0 85 21 82/56 (65) 96 Intake and Output 11/08/17 11/08/17 11/09/17 08:00 16:00 00:00 Intake Total 0 ml 480 ml Balance 0 ml 480 ml Assessment & Plan Problem List: (1) Unspecified psychosis ICD Codes: F29 - Unspecified psychosis not due to a substance or known physiological condition (2) Major neurocognitive disorder as late effect of traumatic brain injury with behavioral disturbance ICD Codes: S06.9X9S - Unspecified intracranial injury with loss of consciousness of unspecified duration, sequela; F02.81 - Dementia in other diseases classified elsewhere with behavioral disturbance Status: Acute Assessment & Plan Estimated LOS: days Justification for Cont. Inpt. Patient will continue psychiatric hospitalization because patient can decompensate at a lower level of care. Continue current psychotropics Hola Brady MD Nov 08, 2017 12:06
[2017-11-08 18:29] VITALS: BP 101/55; PULSE 95; RESP 18; TEMP 98.2; O2SAT 95
[2017-11-08] MEDS: QUEtiapine FUMARATE 100 MG TAB PO SCH (20:22)
[2017-11-08 21:32] VITALS: BP 95/57; PULSE 94; RESP 18; TEMP 98.1; O2SAT 94
[2017-11-08 23:00] VITALS: BP 90/53; PULSE 109; RESP 18; TEMP 98.1; O2SAT 94
[2017-11-09] VITALS: BP 93/59; PULSE 91; RESP 18; TEMP 97.2; O2SAT 94
[2017-11-09 04:00] VITALS: BP 106/62; PULSE 89; RESP 18; TEMP 97.4; O2SAT 96
[2017-11-09] MEDS: MIDODRINE 5 MG TAB PO SCH ×3 (05:55→17:18)
[2017-11-09 07:23] VITALS: BP 106/62; PULSE 89; RESP 18; TEMP 97.4; O2SAT 97
[2017-11-09] MEDS: QUEtiapine FUMARATE 25 MG TAB PO SCH ×2 (08:23→15:33)
[2017-11-09] MEDS: FOLIC ACID 1 MG TAB PO SCH (09:00)
[2017-11-09] MEDS: BISACODYL 10 MG SUPP RECTAL SCH (09:00)
[2017-11-09] MEDS: THIAMINE HCL 100 MG TAB PO SCH (09:24)
[2017-11-09] MEDS: VALPROIC ACID 250 MG CAP PO SCH ×2 (09:24→21:25)
[2017-11-09] MEDS: MULTIVITAMIN TAB PO SCH (09:24)
[2017-11-09] MEDS: ASPIRIN EC 81 MG TABEC PO SCH (09:24)
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
--- NOTE | 2017-11-09 11:33 | HHI.PYPN ---
Subjective Chief Complaint: psychosis Remarks The patient was seen today for reevaluation alone with nurse in charge. He is found at his baseline, calm cooperative and pleasant, diffusely confused . He reports that he has been doing okay in the unit. Reports good mood, reports good appetite and sleep. He denies suicidal enemas ideation. He is fully oriented 3. Compliant his medications. Review of Systems Except as stated in HPI: all other systems reviewed are Neg Mental Status Examination Appearance: Appropriate Consciousness: Alert Orientation: Person, Place ("hospital") Motor Activity: Other (lying in bed, no abnormal motor activity noted.) Speech: Hesitant Language: Adequate Fund of Knowledge: Poor Attention and Concentration: Inadequate Memory: Impaired Mood: Other ("ok") Affect: Appropriate Thought Process & Associations: Disorganized Thought Content: Bizarre thinking, Depersonalization Hallucination Type: None, Other (appears internally stimulated) Delusion Type: Bizarre Suicidal Ideation: No Suicidal Plan: No Suicidal Intention: No Homicidal Ideation: No Homicidal Plan: No Homicidal Intention: No Insight: Poor Judgment: Poor Results Labs Date/Time Source Procedure Growth Status 10/19/17 15:12 Blood Peripheral Aerobic Blood Culture - Final NO GROWTH IN 5 DAYS Complete 10/19/17 15:12 Blood Peripheral Anaerobic Blood Culture - Final NO GROWTH IN 5 DAYS Complete Vitals/IOs Vital Signs Date Time Temp Pulse Resp B/P (MAP) Pulse Ox O2 Delivery O2 Flow Rate FiO2 11/09/17 07:23 97.4 89 18 106/62 (77) 97 Intake and Output 11/09/17 11/09/17 11/10/17 08:00 16:00 00:00 Intake Total 0 ml Balance 0 ml Assessment & Plan Problem List: (1) Unspecified psychosis ICD Codes: F29 - Unspecified psychosis not due to a substance or known physiological condition (2) Major neurocognitive disorder as late effect of traumatic brain injury with behavioral disturbance ICD Codes: S06.9X9S - Unspecified intracranial injury with loss of consciousness of unspecified duration, sequela; F02.81 - Dementia in other diseases classified elsewhere with behavioral disturbance Status: Acute Assessment & Plan: Continue current psychotropic regimen Assessment & Plan Estimated LOS: days Justification for Cont. Inpt. has a high risk to decompensate at a lower level of care Hola Brady MD Nov 09, 2017 11:33
[2017-11-09 17:55] VITALS: BP 102/57; PULSE 99; RESP 18; TEMP 98.2; O2SAT 95
[2017-11-09 20:00] VITALS: BP 110/60; PULSE 92; RESP 20; TEMP 98.6; O2SAT 96
[2017-11-09] MEDS: LORazepam 1 MG TAB PO PRN (21:25)
[2017-11-09] MEDS: QUEtiapine FUMARATE 100 MG TAB PO SCH (21:25)
[2017-11-10] VITALS: BP 101/58; PULSE 94; RESP 16; O2SAT 95
[2017-11-10 06:01] VITALS: BP 136/60; PULSE 99; RESP 17; TEMP 97.3; O2SAT 96
[2017-11-10] MEDS: MIDODRINE 5 MG TAB PO SCH ×3 (06:14→17:00)
[2017-11-10] MEDS: QUEtiapine FUMARATE 25 MG TAB PO SCH ×2 (08:00→16:00)
[2017-11-10] MEDS: BISACODYL 10 MG SUPP RECTAL SCH (09:00)
[2017-11-10] MEDS: THIAMINE HCL 100 MG TAB PO SCH (09:40)
[2017-11-10] MEDS: VALPROIC ACID 250 MG CAP PO SCH ×2 (09:40→20:19)
[2017-11-10] MEDS: ASPIRIN EC 81 MG TABEC PO SCH (09:40)
[2017-11-10] MEDS: FOLIC ACID 1 MG TAB PO SCH (09:40)
[2017-11-10] MEDS: MULTIVITAMIN TAB PO SCH (09:40)
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
[2017-11-10 18:14] VITALS: BP 100/57; PULSE 98; RESP 18; TEMP 98.5; O2SAT 94
[2017-11-10] MEDS: QUEtiapine FUMARATE 100 MG TAB PO SCH (20:19)
--- NOTE | 2017-11-10 21:58 | HHI.PYPN ---
Subjective Chief Complaint: psychosis Remarks Patient seen for follow up; chart reviewed. Mental Status Examination Appearance: Appropriate Consciousness: Alert Orientation: Person, Place ("hospital") Motor Activity: Other (lying in bed, no abnormal motor activity noted.) Speech: Hesitant Language: Adequate Fund of Knowledge: Poor Attention and Concentration: Inadequate Memory: Impaired Mood: Other ("ok") Affect: Appropriate Thought Process & Associations: Disorganized Thought Content: Bizarre thinking, Depersonalization Hallucination Type: None, Other (appears internally stimulated) Delusion Type: Bizarre Suicidal Ideation: No Suicidal Plan: No Suicidal Intention: No Homicidal Ideation: No Homicidal Plan: No Homicidal Intention: No Insight: Poor Judgment: Poor Results Labs Date/Time Source Procedure Growth Status 10/19/17 15:12 Blood Peripheral Aerobic Blood Culture - Final NO GROWTH IN 5 DAYS Complete 10/19/17 15:12 Blood Peripheral Anaerobic Blood Culture - Final NO GROWTH IN 5 DAYS Complete Vitals/IOs Vital Signs Date Time Temp Pulse Resp B/P (MAP) Pulse Ox O2 Delivery O2 Flow Rate FiO2 11/10/17 18:14 98.5 98 18 100/57 (71) 94 Intake and Output 11/10/17 11/10/17 11/11/17 08:00 16:00 00:00 Intake Total 120 ml 720 ml Balance 120 ml 720 ml Assessment & Plan Problem List: (1) Unspecified psychosis ICD Codes: F29 - Unspecified psychosis not due to a substance or known physiological condition (2) Major neurocognitive disorder as late effect of traumatic brain injury with behavioral disturbance ICD Codes: S06.9X9S - Unspecified intracranial injury with loss of consciousness of unspecified duration, sequela; F02.81 - Dementia in other diseases classified elsewhere with behavioral disturbance Status: Acute Assessment & Plan Estimated LOS: Kirby De Souza MD Nov 10, 2017 21:58
[2017-11-11 04:49] VITALS: BP 97/52; PULSE 94; RESP 16; TEMP 97.7
[2017-11-11] MEDS: MIDODRINE 5 MG TAB PO SCH ×3 (07:00→17:00)
--- NOTE | 2017-11-11 07:21 | HHI.PYPN ---
Subjective Chief Complaint: psychosis Remarks Patient seen for follow-up, chart reviewed. Discussion nursing staff reported that there have been no behavioral changes with the patient and no longer noted patient to be complaining of any abdominal discomfort or pain. Patient was found lying hospital bed noted B, cooperative. Patient states that he had been feeling "okay" continues to have some disorganized behavior but calm pleasant and cooperative with staff. Patient denies any abdominal pain or discomfort, dizziness upon ambulation or standing. Patient denies any perceptional services at this time. Review of Systems Except as stated in HPI: all other systems reviewed are Neg Mental Status Examination Appearance: Appropriate Consciousness: Alert Orientation: Person, Place ("hospital") Motor Activity: Other (lying in bed, no abnormal motor activity noted.) Speech: Hesitant Language: Adequate Fund of Knowledge: Poor Attention and Concentration: Inadequate Memory: Impaired Mood: Other ("ok") Affect: Appropriate Thought Process & Associations: Disorganized Thought Content: Bizarre thinking, Depersonalization Hallucination Type: None, Other (appears internally stimulated) Delusion Type: Bizarre Suicidal Ideation: No Suicidal Plan: No Suicidal Intention: No Homicidal Ideation: No Homicidal Plan: No Homicidal Intention: No Insight: Poor Judgment: Poor Results Labs Date/Time Source Procedure Growth Status 10/19/17 15:12 Blood Peripheral Aerobic Blood Culture - Final NO GROWTH IN 5 DAYS Complete 10/19/17 15:12 Blood Peripheral Anaerobic Blood Culture - Final NO GROWTH IN 5 DAYS Complete Vitals/IOs Vital Signs Date Time Temp Pulse Resp B/P (MAP) Pulse Ox O2 Delivery O2 Flow Rate FiO2 11/11/17 04:49 97.7 94 16 97/52 (67) 11/10/17 18:14 94 Intake and Output 11/11/17 11/11/17 11/12/17 08:00 16:00 00:00 Intake Total 240 ml Balance 240 ml Assessment & Plan Problem List: (1) Unspecified psychosis ICD Codes: F29 - Unspecified psychosis not due to a substance or known physiological condition (2) Major neurocognitive disorder as late effect of traumatic brain injury with behavioral disturbance ICD Codes: S06.9X9S - Unspecified intracranial injury with loss of consciousness of unspecified duration, sequela; F02.81 - Dementia in other diseases classified elsewhere with behavioral disturbance Status: Acute Assessment & Plan Patient to continue current treatment. Continue to monitor mood and behavior. Hospitalist input appreciated. Discharge planning in progress. Justification for Cont. Inpt. At risk of further decompensation at lower level care. Kirby Richmond MD November 11, 2017 07:21
[2017-11-11] MEDS: QUEtiapine FUMARATE 25 MG TAB PO SCH ×2 (08:00→16:00)
[2017-11-11] MEDS: BISACODYL 10 MG SUPP RECTAL SCH (09:00)
[2017-11-11] MEDS: ASPIRIN EC 81 MG TABEC PO SCH (09:00)
[2017-11-11] MEDS: VALPROIC ACID 250 MG CAP PO SCH ×2 (09:00→20:24)
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
--- NOTE | 2017-11-11 17:26 | HHI.PYPN ---
Subjective Chief Complaint: psychosis Remarks Patient seen for follow, chart reviewed. Discussion nursing staff reported no behavioral changes with patient. Patient was found lying on the unit noted B, cooperative. Patient reports feeling "pretty good" denies any nausea or vomiting or abdominal discomfort. Patient denies any dizziness upon sitting or standing. Patient reports good appetite, denies any perceptual disturbances. Review of Systems Except as stated in HPI: all other systems reviewed are Neg Mental Status Examination Appearance: Appropriate Consciousness: Alert Orientation: Person, Place ("hospital") Motor Activity: Other (lying in bed, no abnormal motor activity noted.) Speech: Hesitant Language: Adequate Fund of Knowledge: Poor Attention and Concentration: Inadequate Memory: Impaired Mood: Other ("Pretty good") Affect: Appropriate Thought Process & Associations: Disorganized Thought Content: Bizarre thinking Hallucination Type: None, Other (appears internally stimulated) Delusion Type: Bizarre Suicidal Ideation: No Suicidal Plan: No Suicidal Intention: No Homicidal Ideation: No Homicidal Plan: No Homicidal Intention: No Insight: Poor Judgment: Poor Results Labs Date/Time Source Procedure Growth Status 10/19/17 15:12 Blood Peripheral Aerobic Blood Culture - Final NO GROWTH IN 5 DAYS Complete 10/19/17 15:12 Blood Peripheral Anaerobic Blood Culture - Final NO GROWTH IN 5 DAYS Complete Vitals/IOs Vital Signs Date Time Temp Pulse Resp B/P (MAP) Pulse Ox O2 Delivery O2 Flow Rate FiO2 11/11/17 04:49 97.7 94 16 97/52 (67) 11/10/17 18:14 94 Intake and Output 11/11/17 11/11/17 11/12/17 08:00 16:00 00:00 Intake Total 240 ml Balance 240 ml Assessment & Plan Problem List: (1) Unspecified psychosis ICD Codes: F29 - Unspecified psychosis not due to a substance or known physiological condition (2) Major neurocognitive disorder as late effect of traumatic brain injury with behavioral disturbance ICD Codes: S06.9X9S - Unspecified intracranial injury with loss of consciousness of unspecified duration, sequela; F02.81 - Dementia in other diseases classified elsewhere with behavioral disturbance Status: Acute Assessment & Plan Patient continues with baseline confusion secondary to neurocognitive deficits. Patient denies any physical complaints at this time. Continue current treatment. Continue monitor mood and behavior. Discharge planning in progress. Justification for Cont. Inpt. At risk of further decompensation at lower level of care. Kirby Richmond MD November 11, 2017 17:26
[2017-11-11 18:24] VITALS: BP 109/71; PULSE 77; RESP 17; TEMP 98.3; O2SAT 96
[2017-11-11] MEDS: QUEtiapine FUMARATE 100 MG TAB PO SCH (20:25)
[2017-11-12 06:25] VITALS: BP 105/56; PULSE 91; RESP 18; TEMP 97.5; O2SAT 96
[2017-11-12] MEDS: MIDODRINE 5 MG TAB PO SCH ×3 (06:55→17:42)
[2017-11-12] MEDS: VALPROIC ACID 250 MG CAP PO SCH ×2 (09:26→21:00)
[2017-11-12] MEDS: ASPIRIN EC 81 MG TABEC PO SCH (09:26)
[2017-11-12] MEDS: BISACODYL 10 MG SUPP RECTAL SCH (09:26)
[2017-11-12] MEDS: QUEtiapine FUMARATE 25 MG TAB PO SCH ×2 (09:30→16:55)
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
[2017-11-12 18:21] VITALS: BP 139/64; PULSE 123; RESP 17; TEMP 97.6; O2SAT 96
[2017-11-12] MEDS: QUEtiapine FUMARATE 100 MG TAB PO SCH (21:00)
--- NOTE | 2017-11-12 22:01 | HHI.PYPN ---
Subjective Chief Complaint: psychosis Remarks Patient seen for follow up; chart reviewed. Discussion nursing staff reported the patient had no behavioral changes recently but has been noted to be less visible than usual. Patient was found lying hospital bed noted, cooperative. Patient states that he had been taking some groups, reports feeling "pretty good " denying a difficult to eating or drinking or difficulty with bowel movement. Review of Systems Except as stated in HPI: all other systems reviewed are Neg Mental Status Examination Appearance: Appropriate Consciousness: Alert Orientation: Person, Place ("hospital") Motor Activity: Other (lying in bed, no abnormal motor activity noted.) Speech: Hesitant Language: Adequate Fund of Knowledge: Poor Attention and Concentration: Inadequate Memory: Impaired Mood: Other ("Pretty good") Affect: Appropriate Thought Process & Associations: Disorganized Thought Content: Bizarre thinking Hallucination Type: None, Other (appears internally stimulated) Delusion Type: Bizarre Suicidal Ideation: No Suicidal Plan: No Suicidal Intention: No Homicidal Ideation: No Homicidal Plan: No Homicidal Intention: No Insight: Poor Judgment: Poor Results Labs Date/Time Source Procedure Growth Status 10/19/17 15:12 Blood Peripheral Aerobic Blood Culture - Final NO GROWTH IN 5 DAYS Complete 10/19/17 15:12 Blood Peripheral Anaerobic Blood Culture - Final NO GROWTH IN 5 DAYS Complete Vitals/IOs Vital Signs Date Time Temp Pulse Resp B/P (MAP) Pulse Ox O2 Delivery O2 Flow Rate FiO2 11/12/17 18:21 97.6 123 17 139/64 (89) 96 Intake and Output 11/12/17 11/12/17 11/13/17 08:00 16:00 00:00 Intake Total 960 ml 240 ml 240 ml Balance 960 ml 240 ml 240 ml Assessment & Plan Problem List: (1) Unspecified psychosis ICD Codes: F29 - Unspecified psychosis not due to a substance or known physiological condition (2) Major neurocognitive disorder as late effect of traumatic brain injury with behavioral disturbance ICD Codes: S06.9X9S - Unspecified intracranial injury with loss of consciousness of unspecified duration, sequela; F02.81 - Dementia in other diseases classified elsewhere with behavioral disturbance Status: Acute Assessment & Plan Patient's continues to have some disorganized behavior although part of his baseline. Patient noted to be less visible on the unit but denying any physical complaints at this time. We will continue to monitor mood and behavior. Continue current treatment. Discharge planning in progress. Justification for Cont. Inpt. At risk of further decompensation at lower level of care Kirby Richmond MD November 12, 2017 22:00
[2017-11-13 05:59] VITALS: BP 98/52; PULSE 97; RESP 19; TEMP 97.7
[2017-11-13] MEDS: MIDODRINE 5 MG TAB PO SCH ×3 (07:00→17:10)
[2017-11-13] MEDS: QUEtiapine FUMARATE 25 MG TAB PO SCH ×2 (08:47→17:10)
[2017-11-13] MEDS: VALPROIC ACID 250 MG CAP PO SCH ×2 (08:47→20:23)
[2017-11-13] MEDS: ASPIRIN EC 81 MG TABEC PO SCH (08:47)
[2017-11-13] MEDS: BISACODYL 10 MG SUPP RECTAL SCH (08:48)
--- NOTE | 2017-11-13 16:22 | HHI.PYPN ---
Subjective Chief Complaint: psychosis Remarks Patient is here for follow, chart reviewed. Discussion nursing staff reported the patient have been eating well, has been found recently be sitting soft on the floor in the hallway and attending groups less. Patient also was noted to be reporting some lower abdominal pain. Patient was found lying hospital bed noted, cooperative. Patient states that he continues to have some discomfort and pain on the lower absence of his abdomen likely related to his right inguinal hernia. Patient states that his mood has been "pretty good" reports eating and drinking well with good bowel movement. Patient states that he had been attending some groups. Review of Systems Gastrointestinal: COMPLAINS OF: Abdominal pain (Lower) Except as stated in HPI: all other systems reviewed are Neg Mental Status Examination Appearance: Appropriate Consciousness: Alert Orientation: Person, Place ("hospital") Motor Activity: Other (lying in bed, no abnormal motor activity noted.) Speech: Hesitant Language: Adequate Fund of Knowledge: Poor Attention and Concentration: Inadequate Memory: Impaired Mood: Other ("Pretty good") Affect: Appropriate Thought Process & Associations: Disorganized Thought Content: Bizarre thinking Hallucination Type: None, Other (appears internally stimulated) Delusion Type: Bizarre Suicidal Ideation: No Suicidal Plan: No Suicidal Intention: No Homicidal Ideation: No Homicidal Plan: No Homicidal Intention: No Insight: Poor Judgment: Poor Results Labs Date/Time Source Procedure Growth Status 10/19/17 15:12 Blood Peripheral Aerobic Blood Culture - Final NO GROWTH IN 5 DAYS Complete 10/19/17 15:12 Blood Peripheral Anaerobic Blood Culture - Final NO GROWTH IN 5 DAYS Complete Vitals/IOs Vital Signs Date Time Temp Pulse Resp B/P (MAP) Pulse Ox O2 Delivery O2 Flow Rate FiO2 11/13/17 05:59 97.7 97 19 98/52 (67) 11/12/17 18:21 96 Intake and Output 11/13/17 11/13/17 11/14/17 08:00 16:00 00:00 Intake Total 360 ml Balance 360 ml Assessment & Plan Problem List: (1) Unspecified psychosis ICD Codes: F29 - Unspecified psychosis not due to a substance or known physiological condition (2) Major neurocognitive disorder as late effect of traumatic brain injury with behavioral disturbance ICD Codes: S06.9X9S - Unspecified intracranial injury with loss of consciousness of unspecified duration, sequela; F02.81 - Dementia in other diseases classified elsewhere with behavioral disturbance Status: Acute Assessment & Plan Patient this time reporting continued abdominal pain which has been intermittent for the past couple of days, it is likely the patient's right inguinal hernia causing increased discomfort. We will consult general surgery for recommendations and evaluation. Continue current treatment. Continue monitor mood and behavior. Discharge planning in progress. Justification for Cont. Inpt. At risk of further decompensation at lower level of care. Discharge Planning To be determined. Kirby Richmond MD November 13, 2017 16:22
[2017-11-13 17:27] VITALS: BP 95/54; PULSE 91; RESP 18; TEMP 98.9; O2SAT 97
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
[2017-11-13] MEDS ORDERED: BISACODYL 10 MG SUPP RECTAL PRN (17:45)
[2017-11-13] MEDS: QUEtiapine FUMARATE 100 MG TAB PO SCH (20:22)
--- NOTE | 2017-11-13 21:09 | RADRPT ---
EXAM DATE/TIME: 11/13/2017 20:12 [place] COMPARISON: No previous studies available for comparison. INDICATIONS : Abdominal pain. MEDICAL HISTORY : None. SURGICAL HISTORY : None. ENCOUNTER: Initial ACUITY: 1 day PAIN SCORE: Non-responsive. LOCATION: Bilateral abdomen. FINDINGS: Supine and upright views of the abdomen were performed. The abdominal bowel gas pattern is normal ex cept moderate constipation. No air fluid levels are seen. No abnormal masses, calcifications, or or ganomegaly is seen. The visualized lower lungs are clear. No evidence of free intraperitoneal gas. The osseous structures are unremarkable. CONCLUSION: 1. No acute findings. Moderate constipation. Ari Schmitz MD on November 13, 2017 at 21:05 Board Certified Radiologist. This report was verified electronically.
[2017-11-14 04:02] LABS: BILIRUBIN, URINE NEG (NEG); BLOOD, URINE NEG (NEG); GLUCOSE,URINE NEG (NEG); KETONE, URINE NEG (NEG); NITRITE,URINE NEG (NEG); URINE COLOR COLORLESS (YELLW/STRAW); URINE LEUKOCYTE ESTERASE NEG (NEG)
[2017-11-14 06:07] VITALS: BP 93/76; PULSE 82; RESP 16; O2SAT 97
[2017-11-14] MEDS: MIDODRINE 5 MG TAB PO SCH ×3 (06:27→17:36)
[2017-11-14] MEDS: VALPROIC ACID 250 MG CAP PO SCH ×2 (08:12→20:58)
[2017-11-14] MEDS: QUEtiapine FUMARATE 25 MG TAB PO SCH ×2 (08:12→17:36)
[2017-11-14] MEDS: POLYETHYLENE GLYCOL 17 GM PKG PO SCH (08:12)
[2017-11-14] MEDS: ASPIRIN EC 81 MG TABEC PO SCH (08:12)
--- NOTE | 2017-11-14 08:21 | HHI.PYPN ---
Subjective Chief Complaint: psychosis Remarks Patient seen for follow, chart reviewed. Discussion nursing staff reported the patient noted to ambulate times, no behavioral disturbances. Patient was found sitting hospital bed noted B, cooperative. Patient reports being able to eat and drink, reports decreased abdominal discomfort recently which has been intermittent, eating breakfast this morning, reports having bowel movement. Patient denies any other physical complaints at this time Review of Systems Except as stated in HPI: all other systems reviewed are Neg Mental Status Examination Appearance: Appropriate Consciousness: Alert Orientation: Person, Place ("hospital") Motor Activity: Other (lying in bed, no abnormal motor activity noted.) Speech: Hesitant Language: Adequate Fund of Knowledge: Poor Attention and Concentration: Inadequate Memory: Impaired Mood: Other ("Okay") Affect: Appropriate Thought Process & Associations: Disorganized Thought Content: Bizarre thinking Hallucination Type: None, Other (appears internally stimulated) Delusion Type: Bizarre Suicidal Ideation: No Suicidal Plan: No Suicidal Intention: No Homicidal Ideation: No Homicidal Plan: No Homicidal Intention: No Insight: Poor Judgment: Poor Results Labs Labs reviewed Test 11/14/17 03:25 Urine Color COLORLESS Urine Turbidity CLEAR Urine pH 6.0 Urine Specific [place] 1.007 Urine Protein NEG mg/dL Urine Glucose (UA) NEG mg/dL Urine Ketones NEG mg/dL Urine Occult Blood NEG Urine Nitrite NEG Urine Bilirubin NEG Urine Urobilinogen LESS THAN 2.0 MG/DL Urine Leukocyte Esterase NEG Microscopic Urinalysis Comment CULT NOT INDICATED Date/Time Source Procedure Growth Status 10/19/17 15:12 Blood Peripheral Aerobic Blood Culture - Final NO GROWTH IN 5 DAYS Complete 10/19/17 15:12 Blood Peripheral Anaerobic Blood Culture - Final NO GROWTH IN 5 DAYS Complete Vitals/IOs Vital Signs Date Time Temp Pulse Resp B/P (MAP) Pulse Ox O2 Delivery O2 Flow Rate FiO2 11/14/17 06:07 82 16 93/76 (82) 97 11/13/17 17:27 98.9 Intake and Output 11/14/17 11/14/17 11/15/17 08:00 16:00 00:00 Intake Total 0 ml Balance 0 ml Assessment & Plan Problem List: (1) Unspecified psychosis ICD Codes: F29 - Unspecified psychosis not due to a substance or known physiological condition (2) Major neurocognitive disorder as late effect of traumatic brain injury with behavioral disturbance ICD Codes: S06.9X9S - Unspecified intracranial injury with loss of consciousness of unspecified duration, sequela; F02.81 - Dementia in other diseases classified elsewhere with behavioral disturbance Status: Acute Assessment & Plan Patient continues with intermittent abdominal discomfort, continues with some disorganized behavior likely baseline due to neurocognitive deficits. Pending surgery consult for right inguinal hernia. Continue to monitor mood and behavior. Continue current treatment. Discharge planning in progress. Justification for Cont. Inpt. At risk of further decompensation at lower level care. Discharge Planning To be determined. Kirby Richmond MD November 14, 2017 08:21
[2017-11-14 08:37] LABS: BASOPHIL # 0.1 TH/MM3 (0-0.2); BASOPHIL % 1.5 % (0.0-2.0); EOSINOPHIL # 0.4 TH/MM3 (0-0.4); HEMATOCRIT 39.6 % (39.0-51.0); HEMOGLOBIN 13.2 GM/DL (13.0-17.0); LYMPH % 39.6 % (9.0-44.0); LYMPHOCYTE # 2.1 TH/MM3 (1.0-4.8); MEAN CELL VOLUME 93.8 FL (80.0-100.0); MEAN CORPUSCULAR HEMOGLOBIN 31.4 PG (27.0-34.0); MEAN CORPUSCULAR HGB CONC 33.5 % (32.0-36.0); MEAN PLATELET VOLUME 9.2 FL (7.0-11.0); MONO % 12.9 % (0.0-8.0); MONOCYTE # 0.7 TH/MM3 (0-0.9); PLATELET COUNT 262 TH/MM3 (150-450); RED BLOOD COUNT 4.22 MIL/MM3 (4.50-5.90); RED CELL DISTRIBUTION WIDTH 14.1 % (11.6-17.2); WHITE BLOOD COUNT 5.2 TH/MM3 (4.0-11.0)
[2017-11-14 09:07] LABS: BICARBONATE 29.8 MEQ/L (21.0-32.0); CALCIUM 9.3 MG/DL (8.5-10.1); CREATININE 1.01 MG/DL (0.60-1.30); MAGNESIUM 2.3 MG/DL (1.5-2.5)
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
[2017-11-14 18:24] VITALS: BP 112/65; PULSE 91; RESP 17; TEMP 98.4; O2SAT 97
[2017-11-14] MEDS: QUEtiapine FUMARATE 100 MG TAB PO SCH (20:58)
[2017-11-15 06:26] VITALS: BP 104/62; PULSE 100; RESP 17; TEMP 98.1; O2SAT 98
[2017-11-15] MEDS: MIDODRINE 5 MG TAB PO SCH ×3 (06:31→16:36)
[2017-11-15] MEDS: ASPIRIN EC 81 MG TABEC PO SCH (09:02)
[2017-11-15] MEDS: VALPROIC ACID 250 MG CAP PO SCH ×2 (09:02→20:50)
[2017-11-15] MEDS: QUEtiapine FUMARATE 25 MG TAB PO SCH ×2 (09:02→16:36)
[2017-11-15] MEDS: POLYETHYLENE GLYCOL 17 GM PKG PO SCH (09:03)
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
--- NOTE | 2017-11-15 16:11 | HHI.PYPN ---
Subjective Chief Complaint: psychosis Remarks Patient was seen and case discussed with nursing. Patient is behaving well. He is somewhat anxious about his upcoming surgery. Compliant with medications. No agitated behavior Mental Status Examination Appearance: Appropriate Consciousness: Alert Orientation: Person, Place ("hospital") Motor Activity: Other (lying in bed, no abnormal motor activity noted.) Speech: Hesitant Language: Adequate Fund of Knowledge: Poor Attention and Concentration: Inadequate Memory: Impaired Mood: Other ("Okay") Affect: Appropriate Thought Process & Associations: Disorganized Thought Content: Bizarre thinking Hallucination Type: None, Other (appears internally stimulated) Delusion Type: Bizarre Suicidal Ideation: No Suicidal Plan: No Suicidal Intention: No Homicidal Ideation: No Homicidal Plan: No Homicidal Intention: No Insight: Poor Judgment: Poor Results Labs Date/Time Source Procedure Growth Status 10/19/17 15:12 Blood Peripheral Aerobic Blood Culture - Final NO GROWTH IN 5 DAYS Complete 10/19/17 15:12 Blood Peripheral Anaerobic Blood Culture - Final NO GROWTH IN 5 DAYS Complete Vitals/IOs Vital Signs Date Time Temp Pulse Resp B/P (MAP) Pulse Ox O2 Delivery O2 Flow Rate FiO2 11/15/17 06:26 98.1 100 17 104/62 (76) 98 Intake and Output 11/15/17 11/15/17 11/16/17 08:00 16:00 00:00 Intake Total 740 ml 720 ml Balance 740 ml 720 ml Assessment & Plan Problem List: (1) Unspecified psychosis ICD Codes: F29 - Unspecified psychosis not due to a substance or known physiological condition (2) Major neurocognitive disorder as late effect of traumatic brain injury with behavioral disturbance ICD Codes: S06.9X9S - Unspecified intracranial injury with loss of consciousness of unspecified duration, sequela; F02.81 - Dementia in other diseases classified elsewhere with behavioral disturbance Status: Acute Assessment & Plan Continue current treatment plan Justification for Cont. Inpt. Patient would decompensate in a less restrictive setting Stalin You DO November 15, 2017 16:11
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
[2017-11-15 18:00] VITALS: BP 138/56; PULSE 81; RESP 17; TEMP 97.4; O2SAT 95
[2017-11-15] MEDS: ONDANSETRON ODT 4 MG TAB PO PRN (20:05)
[2017-11-15] MEDS: MAGNESIUM HYDROXIDE SUSP 30 ML CUP PO PRN (20:05)
[2017-11-15] MEDS: QUEtiapine FUMARATE 100 MG TAB PO SCH (20:49)
[2017-11-16 06:00] VITALS: BP 151/65; PULSE 86; RESP 18; TEMP 97.5; O2SAT 97
[2017-11-16] MEDS: MIDODRINE 5 MG TAB PO SCH ×3 (06:04→16:28)
[2017-11-16] MEDS: POLYETHYLENE GLYCOL 17 GM PKG PO SCH (08:30)
[2017-11-16] MEDS: VALPROIC ACID 250 MG CAP PO SCH ×2 (08:30→20:25)
[2017-11-16] MEDS: ASPIRIN EC 81 MG TABEC PO SCH (08:31)
[2017-11-16] MEDS: QUEtiapine FUMARATE 25 MG TAB PO SCH ×2 (08:31→16:28)
--- NOTE | 2017-11-16 11:28 | HHI.PR ---
cc: Mg Zimmerman MD Subjective Subjective Notes some nausea and vomiting yesterday, non this am, +bm, +flatus Objective Vitals/I&O Vital Signs Date Time Temp Pulse Resp B/P (MAP) Pulse Ox O2 Delivery O2 Flow Rate FiO2 11/16/17 06:00 97.5 86 18 151/65 (93) 97 Labs Date/Time Source Procedure Growth Status 10/19/17 15:12 Blood Peripheral Aerobic Blood Culture - Final NO GROWTH IN 5 DAYS Complete 10/19/17 15:12 Blood Peripheral Anaerobic Blood Culture - Final NO GROWTH IN 5 DAYS Complete Lungs: Clear Abdomen: Other (soft, right inguinal hernia large, mild ttp) A/P Assessment and Plan large RIH plan OR likely friday ok for diet will follow Mg Zimmerman MD November 16, 2017 11:28
[2017-11-16 11:52] VITALS: BP 102/56; PULSE 64
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
--- NOTE | 2017-11-16 15:30 | HHI.PYPN ---
Subjective Chief Complaint: psychosis Remarks Patient was seen and case discussed with nursing. Patient was pleasant and cooperative with exam. No outbursts. Behavior continues to be excellent on the unit. Compliant with medications. Looking forward to surgery next week Mental Status Examination Appearance: Appropriate Consciousness: Alert Orientation: Person, Place ("hospital") Motor Activity: Other (lying in bed, no abnormal motor activity noted.) Speech: Hesitant Language: Adequate Fund of Knowledge: Poor Attention and Concentration: Inadequate Memory: Impaired Mood: Other ("Okay") Affect: Appropriate Thought Process & Associations: Disorganized Thought Content: Bizarre thinking Hallucination Type: None, Other (appears internally stimulated) Delusion Type: Bizarre Suicidal Ideation: No Suicidal Plan: No Suicidal Intention: No Homicidal Ideation: No Homicidal Plan: No Homicidal Intention: No Insight: Poor Judgment: Poor Results Labs Date/Time Source Procedure Growth Status 10/19/17 15:12 Blood Peripheral Aerobic Blood Culture - Final NO GROWTH IN 5 DAYS Complete 10/19/17 15:12 Blood Peripheral Anaerobic Blood Culture - Final NO GROWTH IN 5 DAYS Complete Vitals/IOs Vital Signs Date Time Temp Pulse Resp B/P (MAP) Pulse Ox O2 Delivery O2 Flow Rate FiO2 11/16/17 11:52 64 102/56 (71) 11/16/17 06:00 97.5 18 97 Intake and Output 11/16/17 11/16/17 11/17/17 08:00 16:00 00:00 Intake Total 480 ml 480 ml Balance 480 ml 480 ml Assessment & Plan Problem List: (1) Unspecified psychosis ICD Codes: F29 - Unspecified psychosis not due to a substance or known physiological condition (2) Major neurocognitive disorder as late effect of traumatic brain injury with behavioral disturbance ICD Codes: S06.9X9S - Unspecified intracranial injury with loss of consciousness of unspecified duration, sequela; F02.81 - Dementia in other diseases classified elsewhere with behavioral disturbance Status: Acute Assessment & Plan Continue current treatment plan Justification for Cont. Inpt. Patient would decompensate in a less restrictive setting Stalin You DO November 16, 2017 15:30
[2017-11-16 18:13] VITALS: BP 150/65; PULSE 95; RESP 18; TEMP 97.8; O2SAT 91
[2017-11-16] MEDS: QUEtiapine FUMARATE 100 MG TAB PO SCH (20:26)
[2017-11-16] MEDS: MAGNESIUM HYDROXIDE SUSP 30 ML CUP PO PRN (20:31)
[2017-11-16] MEDS ORDERED: CHLORHEXIDINE GLUCONATE 2 % 1 PACK (2 CLOTHS) TOPICAL PRN (22:00)
[2017-11-16] MEDS ORDERED: LACTATED RINGER'S 1000 ML IV PRN (22:00)
[2017-11-16] MEDS ORDERED: POVIDONE IODINE 5% (ANTISEPSIS KIT) 4 APPLICATIONS EACH NARE PRN (22:00)
[2017-11-16] MEDS ORDERED: SODIUM CHLORID 0.9% 500 ML IV PRN (22:00)
[2017-11-17 06:15] VITALS: BP 98/54; PULSE 62; RESP 16; TEMP 97.3; O2SAT 96
[2017-11-17] MEDS: MIDODRINE 5 MG TAB PO SCH ×3 (06:41→17:00)
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
[2017-11-17] MEDS: ASPIRIN EC 81 MG TABEC PO SCH (07:28)
[2017-11-17] MEDS: VALPROIC ACID 250 MG CAP PO SCH ×2 (07:28→21:19)
[2017-11-17] MEDS: QUEtiapine FUMARATE 25 MG TAB PO SCH ×2 (07:28→16:00)
[2017-11-17] MEDS: POLYETHYLENE GLYCOL 17 GM PKG PO SCH (07:29)
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
[2017-11-17] MEDS ORDERED: METOPROLOL TARTRATE 5 MG/5 ML VIAL IV ONE (12:00)
[2017-11-17] MEDS ORDERED: PHENYLEPH/NS 1000 MCG/10 ML SYR IV ONE (12:00)
[2017-11-17] MEDS ORDERED: DEXAMETHASONE SOD PHOS 4 MG/ML VIAL IV ONE (12:00)
[2017-11-17] MEDS ORDERED: PROPOFOL 200 MG/20 ML AMP IV ONE (12:00)
[2017-11-17] MEDS ORDERED: ceFAZolin INJ 1,000 MG VIAL IV ONE ×2 (12:00→18:23)
[2017-11-17] MEDS ORDERED: LIDOCAINE HCL 1% PF 5 ML SYRINGE OTHER ONE (12:00)
[2017-11-17] MEDS ORDERED: ONDANSETRON HCL 4 MG/2 ML VIAL IV ONE (12:00)
[2017-11-17] MEDS ORDERED: ROCURONIUM INJ 50 MG/5 ML SYRINGE IV PUSH ONE (12:00)
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
[2017-11-17] MEDS ORDERED: SODIUM BICARBONATE 8.4% INJ 50 ML ONE (15:52)
[2017-11-17] MEDS ORDERED: BUPIVACAINE/EPINEPHRINE 0.5% PF 30 ML VIAL ONE (15:52)
[2017-11-17] MEDS ORDERED: LIDOCAINE 1%/EPINEPHrine 1:100,000 SOLN 50 ML VIAL ONE (15:53)
[2017-11-17] MEDS ORDERED: RESP: ALBUTEROL 2.5 MG/IPRATROPIUM 0.5 MG NEB (SCH) ONE (16:39)
[2017-11-17] MEDS ORDERED: ceFAZolin 1,000 MG/NS 100 ML IV ONE ×2 (17:36)
--- NOTE | 2017-11-17 18:26 | HHI.PR ---
cc: Ari Gray MD Immediate Post Op Note Procedure Date: November 17, 2017 Pre Op Diagnosis: (1) Right inguinal hernia (2) Reducible right inguinal hernia Post Op Diagnosis: (1) Right inguinal hernia (2) Reducible right inguinal hernia Surgeon: Ari Gray School Standards Coach(s): Please refer to the OR records Procedure: Repair of right inguinal hernia with mesh Findings: Large gigantic right inguinal hernia Complications: None Specimen(s) removed: Right inguinal hernia sac Anesthesia: General Drains: None IVF Patient to: PACU Patient Condition: Good Implant/Devices: SEE IMPLANT LOG (if applicable) Date/Time of Procedure: SEE SURGICAL CARE RECORD Ari Gray MD November 17, 2017 18:26
[2017-11-17] MEDS ORDERED: HYDROmorphone HCL PF 1 MG/ML VIAL IV PUSH PRN (18:30)
[2017-11-17] MEDS ORDERED: ONDANSETRON HCL 4 MG/2 ML VIAL IV PUSH PRN (18:30)
[2017-11-17] MEDS ORDERED: Post-op Orders (for Pharmacy) XX ONE (18:30)
[2017-11-17] MEDS ORDERED: ACETAMINOPHEN/HYDROcodone 325 MG/5 MG TAB PO PRN (18:30)
[2017-11-17] MEDS ORDERED: DO NOT ADM ANY ANTICOAGULANT DRUGS PRN (18:38)
[2017-11-17] MEDS: ACETAMINOPHEN 1000 MG/100 ML 100 ML IV SCH (19:00)
--- NOTE | 2017-11-17 19:21 | MP ---
cc: Ari Gray MD DATE OF OPERATION: 11/17/2017 PREOPERATIVE DIAGNOSIS: Intermittently incarcerating right inguinal hernia. POSTOPERATIVE DIAGNOSIS: Intermittently incarcerating right inguinal hernia. PROCEDURE PERFORMED: Reduction and repair of right inguinal hernia, intermittently incarcerating. ANESTHESIA: General. SURGEON: Ari Gray MD INDICATION FOR PROCEDURE: This is a pleasant 72-year-old gentleman who has been in the hospital on the psychiatric arevalo. He has a fairly significant size inguinal hernia. While he was being treated for his psychiatric derangement, he did not complain of any pain, but as he kind of cleared up, he started complaining more of this inguinal hernia. Plans were made for above. DESCRIPTION OF PROCEDURE: The patient was taken to the operating room and placed in the supine position. After anesthesia, his abdomen was prepped with Betadine. A timeout was done. He was given preoperative antibiotics. With gentle pressure, we were able to reduce this hernia sac completely. We made an oblique incision overlying the internal and external ring. Jayleen's fascia was incised, resected down to the external oblique aponeurosis, which was incised. The cord structures of the hernia sac were then surrounded with a [place] drain. The hernia sac was identified. It was opened up and dissected free from the cord structures. He did have a small amount of bloody fluid, ascites in the abdomen, I suspect from his intermittent incarceration. Once the hernia sac was from all the cord structures, we were able to suture ligate the base of the appendix after all contents were reduced. This is done with a 2-0 Vicryl. The hernia sac was then amputated. We then repaired the hernia defect, it was an indirect type, with a polypropylene Atrium mesh, 3 x 6 cm, cut to size. We secured it to the pubic tubercle, Ric's ligament, the iliopubic tracked out laterally. All done with 0 Ethibond. We secured the medial edge with the conjoined tendon. Tails were then secured to themselves and the internal oblique aponeurosis. It is noted we sacrificed the ilioinguinal nerve because it would be lying right on top of the mesh and causing chronic pain. This was dissected all the way up into the internal oblique muscles and amputated. We then closed the external oblique aponeurosis with a 2-0 Vicryl, Jayleen's with 3-0 Vicryl and skin with 4-0 Vicryl. Steri-Strips were applied. Sterile bandage was applied. The patient tolerated the procedure well and had no immediate postop complications. MD ANDRIA Issa/ARACELI , 06:32 PM , 07:19 PM
[2017-11-17] MEDS ORDERED: *morphine SULFATE 4 MG/ML PERIprocedure ONLY ONE (19:47)
[2017-11-17] MEDS ORDERED: HYDROmorphone HCL PF 0.5 MG/0.5 ML SYRINGE IV PRN (20:00)
[2017-11-17 20:40] VITALS: BP 129/78; PULSE 85; RESP 16; TEMP 97.1; O2SAT 93
[2017-11-17] MEDS: QUEtiapine FUMARATE 100 MG TAB PO SCH (21:18)
[2017-11-17] MEDS: DOCUSATE SODIUM 100 MG CAP PO SCH (21:20)
[2017-11-18 00:07] VITALS: BP 92/55; PULSE 107; RESP 16; TEMP 97.5; O2SAT 95
[2017-11-18 00:15] VITALS: BP 121/81; PULSE 80; O2SAT 95
[2017-11-18] MEDS: ACETAMINOPHEN 1000 MG/100 ML 100 ML IV SCH ×3 (01:00→13:00)
[2017-11-18 06:07] VITALS: BP 130/98; PULSE 70; RESP 18; TEMP 97.6; O2SAT 91
[2017-11-18] MEDS: MIDODRINE 5 MG TAB PO SCH ×3 (06:37→18:44)
[2017-11-18] MEDS: QUEtiapine FUMARATE 25 MG TAB PO SCH ×2 (07:52→17:19)
[2017-11-18] MEDS: VALPROIC ACID 250 MG CAP PO SCH ×2 (09:30→21:00)
[2017-11-18] MEDS: ASPIRIN EC 81 MG TABEC PO SCH (09:30)
[2017-11-18] MEDS: POLYETHYLENE GLYCOL 17 GM PKG PO SCH (09:31)
[2017-11-18] MEDS: DOCUSATE SODIUM 100 MG CAP PO SCH ×2 (09:31→21:00)
--- NOTE | 2017-11-18 10:39 | HHI.PYPN ---
Subjective Chief Complaint: psychosis Remarks Patient seen for follow-up, chart reviewed. Discussion nursing staff reported the patient had surgery yesterday and has been back to unit reporting occasional pain but no other complaints. Patient was found lying hospital bed B , cooperative. Patient states he is feeling "okay" noted with concrete answers to questioning. Patient denies any other physical symptoms aside from occasional pain stating "it is okay". Patient reports eating and drinking well , reports mood being okay, denying any perceptional services or delusions. Review of Systems Except as stated in HPI: all other systems reviewed are Neg Mental Status Examination Appearance: Appropriate Consciousness: Alert Orientation: Person, Place ("hospital") Motor Activity: Other (lying in bed, no abnormal motor activity noted.) Speech: Hesitant Language: Adequate Fund of Knowledge: Poor Attention and Concentration: Inadequate Memory: Impaired Mood: Other ("Okay") Affect: Appropriate Thought Process & Associations: Disorganized Thought Content: Bizarre thinking (Less so today) Hallucination Type: None, Other (appears internally stimulated) Delusion Type: Bizarre Suicidal Ideation: No Suicidal Plan: No Suicidal Intention: No Homicidal Ideation: No Homicidal Plan: No Homicidal Intention: No Insight: Poor Judgment: Poor Results Labs Date/Time Source Procedure Growth Status 10/19/17 15:12 Blood Peripheral Aerobic Blood Culture - Final NO GROWTH IN 5 DAYS Complete 10/19/17 15:12 Blood Peripheral Anaerobic Blood Culture - Final NO GROWTH IN 5 DAYS Complete Vitals/IOs Vital Signs Date Time Temp Pulse Resp B/P (MAP) Pulse Ox O2 Delivery O2 Flow Rate FiO2 11/18/17 06:07 97.6 70 18 130/98 (109) 91 11/17/17 19:45 Nasal Cannula 2 Intake and Output 11/18/17 11/18/17 11/19/17 08:00 16:00 00:00 Intake Total 480 ml 360 ml Balance 480 ml 360 ml Assessment & Plan Problem List: (1) Unspecified psychosis ICD Codes: F29 - Unspecified psychosis not due to a substance or known physiological condition (2) Major neurocognitive disorder as late effect of traumatic brain injury with behavioral disturbance ICD Codes: S06.9X9S - Unspecified intracranial injury with loss of consciousness of unspecified duration, sequela; F02.81 - Dementia in other diseases classified elsewhere with behavioral disturbance Status: Acute Assessment & Plan Patient this time reporting occasional pain but be managed adequately by analgesics, denying any other physical complaints at this time. Patient to continue current treatment. Continue monitor mood and behavior. Discharge planning in progress. Justification for Cont. Inpt. At risk for further decompensation if at lower level of care Discharge Planning To be determined. Kirby Richmond MD November 18, 2017 10:39
--- NOTE | 2017-11-18 12:00 | HHI.PR ---
cc: Art Carson MD Subjective Subjective Notes DAILY PROGRESS NOTE FOR SURGICAL ATTENDING, DR. ART CARSON Resting in bed "I just ate some breakfast." Objective Vitals/I&O Vital Signs Date Time Temp Pulse Resp B/P (MAP) Pulse Ox O2 Delivery O2 Flow Rate FiO2 11/18/17 06:07 97.6 70 18 130/98 (109) 91 11/17/17 19:45 Nasal Cannula 2 Labs Date/Time Source Procedure Growth Status 10/19/17 15:12 Blood Peripheral Aerobic Blood Culture - Final NO GROWTH IN 5 DAYS Complete 10/19/17 15:12 Blood Peripheral Anaerobic Blood Culture - Final NO GROWTH IN 5 DAYS Complete Cardiovascular: Regular Lungs: Clear Abdomen: Non-distended, Non-tender Extremities: Other Narrative Exam RIGHT groin dressing in place; athletic supporter on A/P Problem List: (1) S/P inguinal hernia repair ICD Codes: Z98.890 - Other specified postprocedural states; Z87.19 - Personal history of other diseases of the digestive system Status: Acute (2) Right inguinal hernia ICD Codes: K40.90 - Unilateral inguinal hernia, without obstruction or gangrene , not specified as recurrent Status: Chronic Discharge Planning 72 year old male POD1 open RIGHT inguinal hernia repair -Regular diet -Continue athletic supporter -Ice for comfort -Pain control -GS clear for DC when arrangements made -Follow up with Dr. Carson in about 2 weeks Attending Statement NOTE FOR SURGICAL ATTENDING, DR. ART CARSON I attest that I had a [id number] encounter with the patient on the same day, and personally performed and documented my assessment and findings in the medical record. The following services were provided during this hospital visit: Chart data review, vital sign assessments/reviewing monitor data Review of consultations notes if present. Medication orders/review and/or management Ordering and/or reviewing lab tests Ordering and/or interpreting/reviewing x-rays and/or diagnostic studies Care of the patient and discussion of the patient with the care team Documentation time To help prompt me to consider important information that might be impacting today's encounter and assessment, Information from prior notes written by myself or my colleagues may have been "brought forward/copy and pasted" into today's note. Komal Rodríguez/First Eliel CAMARENA November 18, 2017 12:00 Art Carson MD November 18, 2017 12:43
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
[2017-11-18 18:27] VITALS: BP 105/56; PULSE 107; RESP 16; TEMP 98.4; O2SAT 97
[2017-11-18 18:28] VITALS: BP 105/56; PULSE 107; RESP 16; TEMP 98.4; O2SAT 97
[2017-11-18] MEDS: QUEtiapine FUMARATE 100 MG TAB PO SCH (21:00)
[2017-11-18] MEDS: ACETAMINOPHEN/HYDROcodone 325 MG/5 MG TAB PO PRN (22:36)
[2017-11-19 06:03] VITALS: BP 128/75; PULSE 77; RESP 17; TEMP 98.5; O2SAT 92
[2017-11-19] MEDS: QUEtiapine FUMARATE 25 MG TAB PO SCH ×2 (08:00→17:09)
[2017-11-19] MEDS: MIDODRINE 5 MG TAB PO SCH ×3 (08:19→17:42)
[2017-11-19] MEDS: ASPIRIN EC 81 MG TABEC PO SCH (10:36)
[2017-11-19] MEDS: VALPROIC ACID 250 MG CAP PO SCH ×2 (10:36→21:45)
[2017-11-19] MEDS: POLYETHYLENE GLYCOL 17 GM PKG PO SCH (10:37)
[2017-11-19] MEDS: DOCUSATE SODIUM 100 MG CAP PO SCH (10:38)
[2017-11-19] MEDS ORDERED: traMADol HCL 50 MG TAB PO PRN (11:00)
[2017-11-19] MEDS ORDERED: DOCUSATE SODIUM 50 MG/SENNA 8.6 MG TAB PO ONE (11:00)
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
[2017-11-19] MEDS: ONDANSETRON ODT 4 MG TAB PO PRN (15:16)
--- NOTE | 2017-11-19 15:39 | HHI.PYPN ---
Subjective Chief Complaint: psychosis Remarks Patient seen for follow, chart reviewed. Discussion nursing staff reported the patient would report pain at surgical site but is on analgesics with good pain control. Patient was found lying hospital bed noted B, cooperative. Patient denies any pain at the moment, states that he has been feeling "okay" denying any other physical complaints at this time, good appetite eating well. Patient continues with baseline confusion secondary to neurocognitive deficits from TBI. Review of Systems Except as stated in HPI: all other systems reviewed are Neg Mental Status Examination Appearance: Appropriate Consciousness: Alert Orientation: Person, Place ("hospital") Motor Activity: Other (lying in bed, no abnormal motor activity noted.) Speech: Hesitant Language: Adequate Fund of Knowledge: Poor Attention and Concentration: Inadequate Memory: Impaired Mood: Other ("Okay") Affect: Appropriate Thought Process & Associations: Other ([place]) Thought Content: Other Hallucination Type: None, Other (appears internally stimulated) Delusion Type: None Suicidal Ideation: No Suicidal Plan: No Suicidal Intention: No Homicidal Ideation: No Homicidal Plan: No Homicidal Intention: No Insight: Poor Judgment: Poor Results Labs Date/Time Source Procedure Growth Status 10/19/17 15:12 Blood Peripheral Aerobic Blood Culture - Final NO GROWTH IN 5 DAYS Complete 10/19/17 15:12 Blood Peripheral Anaerobic Blood Culture - Final NO GROWTH IN 5 DAYS Complete Vitals/IOs Vital Signs Date Time Temp Pulse Resp B/P (MAP) Pulse Ox O2 Delivery O2 Flow Rate FiO2 11/19/17 06:03 98.5 77 17 128/75 (92) 92 11/17/17 19:45 Nasal Cannula 2 Intake and Output 11/19/17 11/19/17 11/20/17 08:00 16:00 00:00 Intake Total 720 ml Balance 720 ml Assessment & Plan Problem List: (1) Unspecified psychosis ICD Codes: F29 - Unspecified psychosis not due to a substance or known physiological condition (2) Major neurocognitive disorder as late effect of traumatic brain injury with behavioral disturbance ICD Codes: S06.9X9S - Unspecified intracranial injury with loss of consciousness of unspecified duration, sequela; F02.81 - Dementia in other diseases classified elsewhere with behavioral disturbance Status: Acute Assessment & Plan Patient continues with baseline confusion, occasional disorganized behavior but no behavioral disturbances, compliant with treatment. We will continue recommendations as per prior medical/surgical team. Continue monitor with behavior. Continue current treatment. Discharge planning in progress. Justification for Cont. Inpt. At risk of further decompensation a lower level of care. Discharge Planning To be determined. Kirby Richmond MD November 19, 2017 15:39
[2017-11-19 18:00] VITALS: BP 107/53; PULSE 92; RESP 17; TEMP 97.8; O2SAT 97
[2017-11-19] MEDS: DILTIAZEM HCL 30 MG TAB PO SCH ×3 (18:00→23:30)
[2017-11-19] MEDS: ACETAMINOPHEN/HYDROcodone 325 MG/5 MG TAB PO PRN (18:45)
[2017-11-19 21:45] VITALS: BP 102/70; PULSE 94
[2017-11-19] MEDS: DOCUSATE SODIUM 50 MG/SENNA 8.6 MG TAB PO SCH (21:45)
[2017-11-19] MEDS: MAGNESIUM HYDROXIDE SUSP 30 ML CUP PO PRN (21:45)
[2017-11-19] MEDS: QUEtiapine FUMARATE 100 MG TAB PO SCH (21:45)
[2017-11-20] MEDS: DILTIAZEM HCL 30 MG TAB PO SCH ×3 (05:58→17:46)
[2017-11-20 06:22] VITALS: BP 121/57; PULSE 103; RESP 16; TEMP 97.5; O2SAT 95
[2017-11-20] MEDS: MIDODRINE 5 MG TAB PO SCH ×3 (07:00→16:21)
[2017-11-20] MEDS: VALPROIC ACID 250 MG CAP PO SCH ×2 (08:17→21:00)
[2017-11-20] MEDS: DOCUSATE SODIUM 50 MG/SENNA 8.6 MG TAB PO SCH ×2 (08:17→21:48)
[2017-11-20] MEDS: ASPIRIN EC 81 MG TABEC PO SCH (08:17)
[2017-11-20] MEDS: POLYETHYLENE GLYCOL 17 GM PKG PO SCH (08:17)
[2017-11-20] MEDS: QUEtiapine FUMARATE 25 MG TAB PO SCH ×2 (08:19→16:21)
[2017-11-20 08:49] LABS: AUTOMATED NEUTROPHIL # 7.3 TH/MM3 (1.8-7.7); BASOPHIL # 0.1 TH/MM3 (0-0.2); BASOPHIL % 0.7 % (0.0-2.0); EOSINOPHIL # 0.3 TH/MM3 (0-0.4); EOSINOPHIL % 2.5 % (0.0-4.0); HEMATOCRIT 35.5 % (39.0-51.0); HEMOGLOBIN 11.8 GM/DL (13.0-17.0); LYMPH % 12.2 % (9.0-44.0); LYMPHOCYTE # 1.3 TH/MM3 (1.0-4.8); MEAN CELL VOLUME 93.9 FL (80.0-100.0); MEAN CORPUSCULAR HEMOGLOBIN 31.3 PG (27.0-34.0); MEAN CORPUSCULAR HGB CONC 33.3 % (32.0-36.0); MONO % 18.1 % (0.0-8.0); NEUT % 66.5 % (16.0-70.0); PLATELET COUNT 206 TH/MM3 (150-450); RED BLOOD COUNT 3.78 MIL/MM3 (4.50-5.90); RED CELL DISTRIBUTION WIDTH 13.9 % (11.6-17.2)
[2017-11-20 09:19] LABS: BICARBONATE 29.1 MEQ/L (21.0-32.0); CALCIUM 9.2 MG/DL (8.5-10.1); CREATININE 1.18 MG/DL (0.60-1.30)
[2017-11-20] MEDS: ACETAMINOPHEN/HYDROcodone 325 MG/5 MG TAB PO PRN ×2 (09:30→16:21)
[2017-11-20 13:15] VITALS: BP 110/71; PULSE 103; RESP 18; TEMP 97.9; O2SAT 94
[2017-11-20] MEDS ORDERED: SODIUM CHLORID 0.9% 500 ML INJ 500 ML IV ONE (14:00)
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
[2017-11-20] MEDS ORDERED: SODIUM CHLOR 0.9% 1000 ML INJ 1,000 ML IV SCH (14:15)
[2017-11-20 14:34] LABS: MAGNESIUM 2.4 MG/DL (1.5-2.5); PHOSPHORUS 3.3 MG/DL (2.5-4.9)
--- NOTE | 2017-11-20 15:36 | RADRPT ---
EXAM DATE/TIME: 11/20/2017 13:03 [facility] COMPARISON: No previous studies available for comparison. INDICATIONS : Nausea, constipation MEDICAL HISTORY : hallucinations, claustrophobia SURGICAL HISTORY : hernia surgery ENCOUNTER: Initial ACUITY: 3 months PAIN SCORE: Non-responsive. LOCATION: Bilateral abdomen FINDINGS: Supine view of the abdomen was performed. The abdominal bowel gas pattern is normal. No abnormal ma sses, calcifications, or organomegaly is seen. The osseous structures are unremarkable. CONCLUSION: 1. Mild rectal constipation. No acute findings. Ari Schmitz MD on November 20, 2017 at 15:32 Board Certified Radiologist. This report was verified electronically.
--- NOTE | 2017-11-20 17:20 | HHI.PYPN ---
Subjective Chief Complaint: psychosis Remarks Patient seen for follow up; chart reviewed. Discussion with nursing staff reported that the patient noted to be somewhat restless, confused yesterday. Patient was found sitting in chair, noted to be somewhat confused and redirectible, he states having some pain at surgical site but reports feeling "ok". Patient needed redirection to eat his lunch. Review of Systems Except as stated in HPI: all other systems reviewed are Neg Mental Status Examination Appearance: Appropriate Consciousness: Alert Orientation: Person, Place ("hospital") Motor Activity: Other (lying in bed, no abnormal motor activity noted.) Speech: Hesitant Language: Adequate Fund of Knowledge: Poor Attention and Concentration: Inadequate Memory: Impaired Mood: Other ("Okay") Affect: Appropriate Thought Process & Associations: Other ([place]) Thought Content: Other Hallucination Type: None, Other (appears internally stimulated) Delusion Type: None Suicidal Ideation: No Suicidal Plan: No Suicidal Intention: No Homicidal Ideation: No Homicidal Plan: No Homicidal Intention: No Insight: Poor Judgment: Poor Results Labs labs reviewed. Test 11/20/17 08:15 White Blood Count 11.0 TH/MM3 Red Blood Count 3.78 MIL/MM3 Hemoglobin 11.8 GM/DL Hematocrit 35.5 % Mean Corpuscular Volume 93.9 FL Mean Corpuscular Hemoglobin 31.3 PG Mean Corpuscular Hemoglobin Concent 33.3 % Red Cell Distribution Width 13.9 % Platelet Count 206 TH/MM3 Mean Platelet Volume 10.0 FL Neutrophils (%) (Auto) 66.5 % Lymphocytes (%) (Auto) 12.2 % Monocytes (%) (Auto) 18.1 % Eosinophils (%) (Auto) 2.5 % Basophils (%) (Auto) 0.7 % Neutrophils # (Auto) 7.3 TH/MM3 Lymphocytes # (Auto) 1.3 TH/MM3 Monocytes # (Auto) 2.0 TH/MM3 Eosinophils # (Auto) 0.3 TH/MM3 Basophils # (Auto) 0.1 TH/MM3 CBC Comment DIFF FINAL Differential Comment Blood Urea Nitrogen 19 MG/DL Creatinine 1.18 MG/DL Random Glucose 123 MG/DL Calcium Level 9.2 MG/DL Sodium Level 139 MEQ/L Potassium Level 4.0 MEQ/L Chloride Level 99 MEQ/L Carbon Dioxide Level 29.1 MEQ/L Anion Gap 11 MEQ/L Estimat Glomerular Filtration Rate 61 ML/MIN Phosphorus Level 3.3 MG/DL Magnesium Level 2.4 MG/DL Date/Time Source Procedure Growth Status 10/19/17 15:12 Blood Peripheral Aerobic Blood Culture - Final NO GROWTH IN 5 DAYS Complete 10/19/17 15:12 Blood Peripheral Anaerobic Blood Culture - Final NO GROWTH IN 5 DAYS Complete Vitals/IOs Vital Signs Date Time Temp Pulse Resp B/P (MAP) Pulse Ox O2 Delivery O2 Flow Rate FiO2 11/20/17 13:15 97.9 103 18 110/71 (84) 94 11/17/17 19:45 Nasal Cannula 2 Intake and Output 11/20/17 11/20/17 11/21/17 08:00 16:00 00:00 Intake Total 240 ml 500 ml 200 ml Balance 240 ml 500 ml 200 ml Assessment & Plan Problem List: (1) Unspecified psychosis ICD Codes: F29 - Unspecified psychosis not due to a substance or known physiological condition (2) Major neurocognitive disorder as late effect of traumatic brain injury with behavioral disturbance ICD Codes: S06.9X9S - Unspecified intracranial injury with loss of consciousness of unspecified duration, sequela; F02.81 - Dementia in other diseases classified elsewhere with behavioral disturbance Status: Acute Assessment & Plan Patient at this time noted to have some confusion likely secondary to neurocognitive deficits but also appears patient has difficulty communicating his needs. We will continue monitor mood and behavior as well as patient's level of pain. Continue current treatment. Continue recommendations as per primary/surgical team. Discharge planning in progress. Justification for Cont. Inpt. At risk for further decompensation if at lower level of care. Kirby Richmond MD November 20, 2017 17:20
[2017-11-20] MEDS ORDERED: POLYETHYLENE GLYCOL 17 GM PKG PO ONE (18:15)
[2017-11-20 18:55] VITALS: BP 151/95; PULSE 108; RESP 20; TEMP 99.9; O2SAT 90
--- NOTE | 2017-11-20 21:32 | HHI.PR ---
cc: Art Carson MD Subjective Subjective Notes DAILY PROGRESS NOTE FOR SURGICAL ATTENDING, DR. ART CARSON Says he is okay after his surgery Minimal discomfort Objective Vitals/I&O Vital Signs Date Time Temp Pulse Resp B/P (MAP) Pulse Ox O2 Delivery O2 Flow Rate FiO2 11/20/17 18:55 99.9 108 20 151/95 (113) 90 11/17/17 19:45 Nasal Cannula 2 Labs Laboratory Tests Test 11/20/17 08:15 White Blood Count 11.0 Red Blood Count 3.78 Hemoglobin 11.8 Hematocrit 35.5 Mean Corpuscular Volume 93.9 Mean Corpuscular Hemoglobin 31.3 Mean Corpuscular Hemoglobin Concent 33.3 Red Cell Distribution Width 13.9 Platelet Count 206 Mean Platelet Volume 10.0 Neutrophils (%) (Auto) 66.5 Lymphocytes (%) (Auto) 12.2 Monocytes (%) (Auto) 18.1 Eosinophils (%) (Auto) 2.5 Basophils (%) (Auto) 0.7 Neutrophils # (Auto) 7.3 Lymphocytes # (Auto) 1.3 Monocytes # (Auto) 2.0 Eosinophils # (Auto) 0.3 Basophils # (Auto) 0.1 CBC Comment DIFF FINAL Differential Comment Blood Urea Nitrogen 19 Creatinine 1.18 Random Glucose 123 Calcium Level 9.2 Sodium Level 139 Potassium Level 4.0 Chloride Level 99 Carbon Dioxide Level 29.1 Anion Gap 11 Estimat Glomerular Filtration Rate 61 Phosphorus Level 3.3 Magnesium Level 2.4 Date/Time Source Procedure Growth Status 10/19/17 15:12 Blood Peripheral Aerobic Blood Culture - Final NO GROWTH IN 5 DAYS Complete 10/19/17 15:12 Blood Peripheral Anaerobic Blood Culture - Final NO GROWTH IN 5 DAYS Complete Cardiovascular: Regular Lungs: Clear Wound Wound : Appearance: Clean & Dry (Right groin wound from surgical repair of large right inguinal hernia with mild ecchymosis otherwise expected healing) Dressing: Dry A/P Problem List: (1) S/P inguinal hernia repair ICD Codes: Z98.890 - Other specified postprocedural states; Z87.19 - Personal history of other diseases of the digestive system Status: Acute (2) Right inguinal hernia ICD Codes: K40.90 - Unilateral inguinal hernia, without obstruction or gangrene , not specified as recurrent Status: Chronic Assessment and Plan 1 week after inguinal hernia repair doing very well bandage removed Steri-Strips will fall off in the next few days Okay to shower No strenuous activities for 4-6 weeks Attending Statement NOTE FOR SURGICAL ATTENDING, DR. ART CARSON I attest that I had a [id number] encounter with the patient on the same day, and personally performed and documented my assessment and findings in the medical record. The following services were provided during this hospital visit: Chart data review, vital sign assessments/reviewing monitor data Review of consultations notes if present. Medication orders/review and/or management Ordering and/or reviewing lab tests Ordering and/or interpreting/reviewing x-rays and/or diagnostic studies Care of the patient and discussion of the patient with the care team Documentation time To help prompt me to consider important information that might be impacting today's encounter and assessment, Information from prior notes written by myself or my colleagues may have been "brought forward/copy and pasted" into today's note. Art Carson MD November 20, 2017 21:31
[2017-11-20] MEDS: QUEtiapine FUMARATE 100 MG TAB PO SCH (21:48)
[2017-11-20 23:36] LABS: BILIRUBIN, URINE NEG (NEG); BLOOD, URINE NEG (NEG); GLUCOSE,URINE 150 mg/dL (NEG); KETONE, URINE 10 mg/dL (NEG); MUCUS URINE FEW /lpf (OCC); NITRITE,URINE NEG (NEG); SQUAMOUS EPITHELIAL CELL URINE <1 /hpf (0-5); URINE COLOR YELLOW (YELLW/STRAW); URINE LEUKOCYTE ESTERASE NEG (NEG)
[2017-11-21 00:45] VITALS: BP 123/68; PULSE 98; RESP 20; TEMP 97.7; O2SAT 96
[2017-11-21] MEDS: DILTIAZEM HCL 30 MG TAB PO SCH ×2 (01:15→06:04)
[2017-11-21 05:15] VITALS: BP 125/63; PULSE 115; RESP 22; TEMP 97.3; O2SAT 97
[2017-11-21] MEDS: MIDODRINE 5 MG TAB PO SCH (07:00)
[2017-11-21] MEDS ORDERED: MULTIVITAMINS/MINERALS THERAPEUTIC TAB PO SCH (09:00)
[2017-11-21] MEDS ORDERED: POLYETHYLENE GLYCOL 17 GM PKG PO SCH (09:00)
[2017-11-21 09:42] VITALS: BP 98/59; PULSE 109; RESP 20; TEMP 100.2; O2SAT 95
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
[2017-11-21 10:19] LABS: AUTOMATED NEUTROPHIL # 7.3 TH/MM3 (1.8-7.7); BASOPHIL % 0.1 % (0.0-2.0); EOSINOPHIL % 0.1 % (0.0-4.0); HEMATOCRIT 31.8 % (39.0-51.0); HEMOGLOBIN 10.9 GM/DL (13.0-17.0); LYMPH % 4.6 % (9.0-44.0); LYMPHOCYTE # 0.4 TH/MM3 (1.0-4.8); MEAN CELL VOLUME 92.4 FL (80.0-100.0); MEAN CORPUSCULAR HEMOGLOBIN 31.5 PG (27.0-34.0); MEAN CORPUSCULAR HGB CONC 34.1 % (32.0-36.0); MEAN PLATELET VOLUME 9.9 FL (7.0-11.0); MONO % 19.4 % (0.0-8.0); MONOCYTE # 1.9 TH/MM3 (0-0.9); NEUT % 75.8 % (16.0-70.0); PLATELET COUNT 177 TH/MM3 (150-450); RED BLOOD COUNT 3.45 MIL/MM3 (4.50-5.90); RED CELL DISTRIBUTION WIDTH 13.8 % (11.6-17.2); WHITE BLOOD COUNT 9.6 TH/MM3 (4.0-11.0)
--- NOTE | 2017-11-21 10:24 | RADRPT ---
EXAM DATE/TIME: 11/21/2017 09:42 [facility] COMPARISON: CHEST SINGLE AP, August 19, 2017, 23:00. INDICATIONS : Possible stroke. MEDICAL HISTORY : None. SURGICAL HISTORY : None. ENCOUNTER: Subsequent ACUITY: 2 days PAIN SCORE: 0/10 LOCATION: Bilateral chest FINDINGS: A single view of the chest demonstrates the lungs to be symmetrically aerated without evidence of mas s, infiltrate or effusion. Minimal basilar atelectasis. The cardiomediastinal contours are unremarka ble. Osseous structures are intact. CONCLUSION: 1. Minimal basilar atelectasis. No effusion or pneumothorax. Ari Schmitz MD on November 21, 2017 at 10:21 Board Certified Radiologist. This report was verified electronically.
--- NOTE | 2017-11-21 10:34 | RADRPT ---
EXAM DATE/TIME: 11/21/2017 10:02 [facility] COMPARISON: CT BRAIN W/O CONTRAST, August 19, 2017, 12:33. INDICATIONS : Stroke alert, difficulty speaking, not following commands. RADIATION DOSE: 32.33 CTDIvol (mGy) Report given while patient on scanner MEDICAL HISTORY : Non-responsive. SURGICAL HISTORY : Non-responsive. ENCOUNTER: Initial ACUITY: 1 day PAIN SCALE: Non-responsive LOCATION: cranial TECHNIQUE: Multiple contiguous axial images were obtained of the head. Using automated exposure control and adj ustment of the mA and/or kV according to patient size, radiation dose was kept as low as reasonably a chievable to obtain optimal diagnostic quality images. DICOM format image data is available electro nically for review and comparison. FINDINGS: CEREBRUM: The ventricles are normal for age. No evidence of midline shift, mass lesion, hemorrhage or acute in farction. No extra-axial fluid collections are seen. POSTERIOR FOSSA: The cerebellum and brainstem are intact. The 4th ventricle is midline. The cerebellopontine angle i s unremarkable. EXTRACRANIAL: The visualized portion of the orbits is intact. SKULL: The calvaria is intact. No evidence of skull fracture. CONCLUSION: Negative for acute process Oseas Mock MD FACR on November 21, 2017 at 10:29 Board Certified Radiologist. This report was verified electronically.
[2017-11-21 10:35] LABS: ALBUMIN 2.4 GM/DL (3.4-5.0); ALT (GPT) 7 U/L (12-78); AST (GOT) 8 U/L (15-37); BICARBONATE 27.2 MEQ/L (21.0-32.0); BLOOD UREA NITROGEN 17 MG/DL (7-18); CALCIUM 8.5 MG/DL (8.5-10.1); CHLORIDE 102 MEQ/L (98-107); CREATININE 0.85 MG/DL (0.60-1.30); GLOMERULAR FILTRATION RATE 88 ML/MIN (>89); GLUCOSE,RANDOM 148 MG/DL (74-106); SODIUM (NA) 139 MEQ/L (136-145)
[2017-11-21 10:38] LABS: ALKALINE PHOSPHATASE 66 U/L (45-117); TOTAL BILIRUBIN ADULT 0.6 MG/DL (0.2-1.0); TOTAL PROTEIN 6.3 GM/DL (6.4-8.2)
[2017-11-21 10:42] LABS: INTERNATIONAL NORMALIZED RATIO 1.1 RATIO; PROTHROMBIN TIME - PATIENT 10.7 SEC (9.8-11.6)
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
[2017-11-21 11:46] LABS: TROPONIN I LESS THAN 0.02 NG/ML (0.02-0.05)
--- NOTE | 2017-11-22 08:17 | EKG ---
Date Performed: 11/21/2017 Time Performed: 09:51:13 PTAGE: 72 years EKG: ATRIAL FIBRILLATION WITH RAPID VENTRICULAR RESPONSE WITH VENTRICULAR PREMATURE COMPLEXES A BNORMAL RHYTHM ECG PREVIOUS TRACING : 09/12/2017 13.09 DOCTOR: Ren Joseph Interpretating Date/Time 11/22/2017 08:16:41
== END 2017-11-21 10:14 | disposition still patient (30) | DRG 876 ==
LOC: H4EA 23:45 → H250 09-10 16:57 → H260 10-07 10:40 → H250 10-15 15:30 → H4EA 10-17 18:19 → H250 10-28 12:40 → H260 10-29 14:25 → H4EA 10-31 13:20 → H260 11-01 12:45 → H250 11-02 20:03 → H4EA 11-05 12:10 → UNDODISIN 11-17 16:00
PROVIDERS: ADMIT Student in an Organized Health Care Education/Training Program; ATTEND Student in an Organized Health Care Education/Training Program
PROC: 0YU50JZ Supplement Right Inguinal Region with Synthetic Substitute, Open Approach (ICD-10-PCS; principal; 2017-11-17 17:00)
DX: F29 Unspecified psychosis not due to a substance or known physiological condition (principal); L89.311 Pressure ulcer of right buttock, stage 1; N17.9 Acute kidney failure, unspecified; G93.41 Metabolic encephalopathy; S12.600A Unspecified displaced fracture of seventh cervical vertebra, initial encounter for closed fracture; L89.321 Pressure ulcer of left buttock, stage 1; L89.013 Pressure ulcer of right elbow, stage 3; E86.0 Dehydration; S02.40CA Maxillary fracture, right side, initial encounter for closed fracture; S02.81XA Fracture of other specified skull and facial bones, right side, initial encounter for closed fracture; F02.80 Dementia in other diseases classified elsewhere, unspecified severity, without behavioral disturbance, psychotic disturbance, mood disturbance, and anxiety; S42.001A Fracture of unspecified part of right clavicle, initial encounter for closed fracture; S62.306A Unspecified fracture of fifth metacarpal bone, right hand, initial encounter for closed fracture; S62.610A Displaced fracture of proximal phalanx of right index finger, initial encounter for closed fracture; I10 Essential (primary) hypertension; F10.10 Alcohol abuse, uncomplicated; L89.890 Pressure ulcer of other site, unstageable; K40.90 Unilateral inguinal hernia, without obstruction or gangrene, not specified as recurrent; N43.3 Hydrocele, unspecified; J44.9 Chronic obstructive pulmonary disease, unspecified; I95.1 Orthostatic hypotension; I48.2 Chronic atrial fibrillation; L03.011 Cellulitis of right finger; W01.0XXA Fall on same level from slipping, tripping and stumbling without subsequent striking against object, initial encounter; Y92.230 Patient room in hospital as the place of occurrence of the external cause; K59.00 Constipation, unspecified; S06.309S Unspecified focal traumatic brain injury with loss of consciousness of unspecified duration, sequela; Z87.891 Personal history of nicotine dependence; Z59.0 Homelessness; Z78.1 Physical restraint status; Z91.19 Patient's noncompliance with other medical treatment and regimen; V03.90XS Pedestrian on foot injured in collision with car, pick-up truck or van, unspecified whether traffic or nontraffic accident, sequela
CPT/HCPCS: 70450; 71045; 73130; 73140; 74018; 74019; 76870; 80048; 80053; 80061; 80076; 80164; 81001; 82140; 82550; 82607; 83036; 83735; 84100; 84439; 84443; 84484; 85007; 85025; 85027; 85379; 85384; 85610; 85652; 85730; 86850; 86900; 86901; 87040; 88302; 93005; 93975; 95819; C1781; J0131; J0690; J1100; J1170; J1630; J2060; J2270; J2370; J2405; J3010; J7030; J7040; Q0163

== ENCOUNTER 2017-11-21 10:40 | Inpatient (IN) | payer MEDICAID, OTHER ==
[2017-11-21] VITALS (8 sets, daily range): BP systolic 107–125; BP diastolic 56–75; PULSE 108–129; RESP 16–20; TEMP 99.2–100.4; O2SAT 92–94
[~2017-11-21] VITALS: Ht 175.3 cm; Wt 59.6 kg
[2017-11-21] MEDS ORDERED: NALOXONE HCL 0.4 MG/ML AMP IV PUSH PRN (10:45)
[2017-11-21] MEDS ORDERED: ONDANSETRON HCL 4 MG/2 ML VIAL IVP PRN (10:45)
[2017-11-21] MEDS ORDERED: BISACODYL 10 MG SUPP RECTAL PRN (10:45)
[2017-11-21] MEDS ORDERED: SENNOSIDES 8.6 MG TAB PO PRN (10:45)
[2017-11-21] MEDS ORDERED: MAGNESIUM HYDROXIDE SUSP 30 ML CUP PO PRN (10:45)
[2017-11-21] MEDS ORDERED: SODIUM CHLORIDE 0.9% FLUSH 10 ML FLUSH IV FLUSH PRN (10:45)
[2017-11-21] MEDS ORDERED: LACTULOSE SYRUP 20 GM/30 ML CUP PO PRN (10:45)
[2017-11-21] MEDS: SODIUM CHLOR 0.9% 1000 ML INJ 1,000 ML IV SCH (10:49)
[2017-11-21] MEDS ORDERED: GLUCAGON 1 MG/ML VIAL OTHER PRN (11:00)
[2017-11-21] MEDS ORDERED: ENALAPRILAT 1.25 MG/ML VIAL IV PUSH PRN (11:00)
[2017-11-21] MEDS ORDERED: RESP: ALBUTEROL 2.5 MG/IPRATROPIUM 0.5 MG NEB (PRN) NEB (11:00)
[2017-11-21] MEDS ORDERED: DEXTROSE 50% IN WATER 50 ML VIAL(D50) IV PUSH PRN (11:00)
--- NOTE | 2017-11-21 11:56 | RADRPT ---
EXAM DATE/TIME: 11/21/2017 11:10 [facility] COMPARISON: No previous studies available for comparison. INDICATIONS : Cerebrovascular accident. MEDICAL HISTORY : Chronic obstructive pulmonary disease. SURGICAL HISTORY : Unable to obtain. ENCOUNTER: Initial ACUITY: 1 day PAIN SCORE: 0/10 LOCATION: Bilateral neck PEAK SYSTOLIC VELOCITIES (cm/sec): ICA/CCA RATIO: Right: 0.8 Left: 1.1 ICA: Right: 76 Left: 71 CCA: Right: 94 Left: 65 ECA: Right: 87 Left: 153 VERTEBRAL: Right: 66 antegrade Left: 55 antegrade Elevated flow velocities and ICA/CCA ratios have been found to correlate with increased degrees of vessel stenosis, calculated as percentage of diameter relative to a normal segment of distal ICA/CCA FINDINGS: RIGHT CAROTID: There is no evidence for a hemodynamically significant carotid stenosis. Minimal int imal hyperplasia is present with scattered calcific plaque. LEFT CAROTID: There is no evidence for a hemodynamically significant carotid stenosis. Minimal inti mal hyperplasia is present with scattered calcific plaque. VERTEBRAL ARTERIES: Flow is antegrade in both vertebral arteries. MISCELLANEOUS: There are no ancillary masses or adenopathy. CONCLUSION: Negative examination for a hemodynamically significant carotid stenosis. Oseas Mock MD FACR on November 21, 2017 at 11:53 Board Certified Radiologist. This report was verified electronically.
[2017-11-21] MEDS: RESP: ALBUTEROL 2.5 MG/IPRATROPIUM 0.5 MG NEB (SCH) NEB ×4 (12:00→20:16)
[2017-11-21] MEDS: INSULIN ASPART SUPPLEMENTAL SCALE SQ SCH ×3 (12:00→21:00)
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
--- NOTE | 2017-11-21 15:38 | MG ---
cc: Rhina Esteban MD EEG NUMBER: [id number] REFERRING PHYSICIAN: Kimberlee. ROOM: [facility] INDICATION: Awake, drowsy, asleep with EEG. Only photic done. This was a stroke alert. CT negative. Change in mental status. History of alcohol and tobacco use, hallucinations, COPD. On Cardizem, Ultram, [place], Seroquel, aspirin. DESCRIPTION OF RECORD: The patient exhibits background slowing predominantly of 2-3 Hz at times. A lot of movement artifact noted, but overall background slowing, consistent with what looks more like a delta frequency. EKG looks sinus. No epileptic activity. Photic stimulation did not elicit any significant driving response. IMPRESSION: Abnormal electroencephalogram due to moderate slowing of background, consistent with encephalopathic process. Possible medicine effect versus other to be determined. Clinical correlation. Rhina Esteban MD DF/LEONCIO , 03:14 PM , 03:36 PM
--- NOTE | 2017-11-21 15:49 | RADRPT ---
EXAM DATE/TIME: 11/21/2017 15:01 [facility] COMPARISON: No previous studies available for comparison. INDICATIONS : Stroke alert. MEDICAL HISTORY : cleared by rad SURGICAL HISTORY : cleared by rad ENCOUNTER: Initial ACUITY: 1 day PAIN SCORE: 0/10 LOCATION: head Please note a normal MRA of the brain does not entirely exclude the possibility of a small aneurysm, nor the possibility of distal intracranial vessel disease. TECHNIQUE: 3D time of flight MRA was performed. Source images, multiplanar STS MIP, and 3D volume MIP reconstru ctions were reviewed. FINDINGS: There is excellent visualization of the major intracranial arteries out to the second-order branch ve ssels. There is no evidence for aneurysm, vessel truncation or stenosis, and no evidence for vascula r malformation. CONCLUSION: Negative MRA of the brain Oseas Mock MD FACR on November 21, 2017 at 15:45 Board Certified Radiologist. This report was verified electronically.
--- NOTE | 2017-11-21 15:50 | RADRPT ---
EXAM DATE/TIME: 11/21/2017 15:01 [facility] COMPARISON: No previous studies available for comparison. INDICATIONS : Stroke alert. MEDICAL HISTORY : cleared by rad. SURGICAL HISTORY : cleared by rad ENCOUNTER: Initial ACUITY: 1 day PAIN SCORE: 0/10 LOCATION: head TECHNIQUE: Multiplanar, multisequence MRI of the brain was performed without contrast. FINDINGS: Marked central and cortical atrophy with dilatation of ventricular and sulcal spaces. 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 CONCLUSION: Marked atrophy, negative for acute process. Oseas Mock MD FACR on November 21, 2017 at 15:46 Board Certified Radiologist. This report was verified electronically.
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
[2017-11-21] MEDS: ENOXAPARIN SODIUM 40 MG/0.4 ML SYRINGE SQ SCH (17:25)
[2017-11-21] MEDS: QUEtiapine FUMARATE 100 MG TAB PO SCH (17:25)
[2017-11-21] MEDS: QUEtiapine FUMARATE 300 MG TAB PO SCH (21:00)
[2017-11-21] MEDS: SODIUM CHLORIDE 0.9% FLUSH 10 ML FLUSH IV FLUSH SCH ×2 (21:00→21:31)
[2017-11-21] MEDS: DOCUSATE SODIUM 50 MG/SENNA 8.6 MG TAB PO SCH (21:32)
[2017-11-21] MEDS: VALPROIC ACID 250 MG CAP PO SCH (21:32)
[2017-11-21] MEDS: METOPROLOL TARTRATE 25 MG TAB PO SCH (21:33)
[2017-11-21 21:55] LABS: BILIRUBIN, URINE NEG (NEG); BLOOD, URINE NEG (NEG); GLUCOSE,URINE 300 mg/dL (NEG); KETONE, URINE NEG (NEG); MUCUS URINE FEW /lpf (OCC); NITRITE,URINE NEG (NEG); URINE COLOR YELLOW (YELLW/STRAW); URINE LEUKOCYTE ESTERASE NEG (NEG)
[2017-11-22] VITALS (14 sets, daily range): BP systolic 98–135; BP diastolic 59–67; PULSE 111–143; RESP 22–28; TEMP 98.6–101.3; O2SAT 93–99
[2017-11-22 00:32] LABS: TROPONIN I LESS THAN 0.02 NG/ML (0.02-0.05)
[2017-11-22] MEDS: SODIUM CHLOR 0.9% 1000 ML INJ 1,000 ML IV SCH ×2 (01:01→17:00)
[2017-11-22 07:24] LABS: AUTOMATED NEUTROPHIL # 6.1 TH/MM3 (1.8-7.7); BASOPHIL % 0.4 % (0.0-2.0); EOSINOPHIL % 0.5 % (0.0-4.0); HEMATOCRIT 30.2 % (39.0-51.0); HEMOGLOBIN 10.7 GM/DL (13.0-17.0); LYMPH % 9.8 % (9.0-44.0); LYMPHOCYTE # 0.9 TH/MM3 (1.0-4.8); MEAN CELL VOLUME 91.5 FL (80.0-100.0); MEAN CORPUSCULAR HEMOGLOBIN 32.3 PG (27.0-34.0); MEAN CORPUSCULAR HGB CONC 35.3 % (32.0-36.0); MEAN PLATELET VOLUME 9.8 FL (7.0-11.0); MONOCYTE # 1.8 TH/MM3 (0-0.9); NEUT % 69.3 % (16.0-70.0); PLATELET COUNT 182 TH/MM3 (150-450); WHITE BLOOD COUNT 8.8 TH/MM3 (4.0-11.0)
[2017-11-22] MEDS: INSULIN ASPART SUPPLEMENTAL SCALE SQ SCH ×4 (08:00→21:00)
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
[2017-11-22] MEDS ORDERED: ESMOLOL DRIP INJ PREMIX 250 ML IV PRN (08:15)
[2017-11-22] MEDS ORDERED: ASPIRIN 300 MG SUPP RECTAL PRN (08:15)
[2017-11-22 08:37] LABS: ALBUMIN 2.2 GM/DL (3.4-5.0); ALKALINE PHOSPHATASE 67 U/L (45-117); ALT (GPT) 7 U/L (12-78); AST (GOT) 9 U/L (15-37); BICARBONATE 27.2 MEQ/L (21.0-32.0); BLOOD UREA NITROGEN 15 MG/DL (7-18); CALCIUM 8.3 MG/DL (8.5-10.1); CHLORIDE 105 MEQ/L (98-107); CHOLESTEROL 123 MG/DL (120-200); CREATININE 0.83 MG/DL (0.60-1.30); GLOMERULAR FILTRATION RATE 91 ML/MIN (>89); GLUCOSE,RANDOM 110 MG/DL (74-106); HDL CHOLESTEROL 37.2 MG/DL (40.0-60.0); LDL CHOLESTEROL 73 MG/DL (0-99); SODIUM (NA) 141 MEQ/L (136-145); TOTAL BILIRUBIN ADULT 0.6 MG/DL (0.2-1.0); TOTAL PROTEIN 6.5 GM/DL (6.4-8.2); TRIGLYCERIDES 66 MG/DL (42-150)
[2017-11-22] MEDS: SODIUM CHLORIDE 0.9% FLUSH 10 ML FLUSH IV FLUSH SCH ×4 (09:00→21:45)
[2017-11-22] MEDS: DOCUSATE SODIUM 50 MG/SENNA 8.6 MG TAB PO SCH ×2 (09:00→21:45)
[2017-11-22] MEDS: METOPROLOL TARTRATE 25 MG TAB PO SCH ×2 (09:00→21:45)
[2017-11-22] MEDS: VALPROIC ACID 250 MG CAP PO SCH ×2 (09:14→21:45)
[2017-11-22] MEDS: ASPIRIN EC 81 MG TABEC PO SCH (09:14)
[2017-11-22] MEDS: ESMOLOL DRIP INJ PREMIX 250 ML IV PRN ×2 (09:15→20:04)
[2017-11-22] MEDS: QUEtiapine FUMARATE 100 MG TAB PO SCH ×2 (09:21→14:00)
--- NOTE | 2017-11-22 10:24 | HHI.PR ---
Subjective Remarks s:still not verbal afib rvr verbal if given noxious stimuli saying words not sentences. Objective Vital Signs Date Time Temp Pulse Resp B/P (MAP) Pulse Ox O2 Delivery O2 Flow Rate FiO2 11/22/17 09:15 137 108/68 11/22/17 07:45 95 Simple Mask 6.00 11/22/17 06:00 126 11/22/17 04:00 98.9 116 22 111/62 (78) 95 11/22/17 04:00 116 11/22/17 02:00 120 11/22/17 00:00 98.7 112 24 103/61 (75) 94 11/22/17 00:00 112 11/21/17 22:40 93 Simple Mask 10.00 11/21/17 22:00 129 11/21/17 20:18 92 Nasal Cannula 4.00 11/21/17 20:00 127 11/21/17 20:00 99.2 127 20 125/75 (92) 94 11/21/17 18:00 124 11/21/17 16:00 99.8 108 20 107/57 (74) 92 11/21/17 12:00 100.4 111 16 110/56 (74) 94 11/21/17 11:45 94 Nasal Cannula 3.00 I/O 11/21/17 11/21/17 11/21/17 11/22/17 11/22/17 11/22/17 07:00 15:00 23:00 07:00 15:00 23:00 Intake Total 0 ml Balance 0 ml Intake Oral 0 ml # Voids 2 3 # Bowel Movements 0 0 Result Diagram: 11/22/1752111/22/17521 Imaging mri neg eeg slow no sz cus neg. vpa 58 Assessment and Plan Assessment and Plan a/p change in mental status -a fib rvr -may need f/u eeg and mri if continues in this current state. asa for now. Rhina Esteban MD November 22, 2017 10:24
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
[2017-11-22] MEDS: RESP: ALBUTEROL 2.5 MG/IPRATROPIUM 0.5 MG NEB (SCH) NEB ×3 (11:15→20:11)
[2017-11-22 14:46] LABS: HEMOGLOBIN A1C 5.7 % (4.3-6.0)
[2017-11-22] MEDS: ENOXAPARIN SODIUM 40 MG/0.4 ML SYRINGE SQ SCH (15:03)
[2017-11-22] MEDS: QUEtiapine FUMARATE 300 MG TAB PO SCH (21:45)
[2017-11-22] MEDS: ACETAMINOPHEN 325 MG TAB PO PRN (22:09)
[2017-11-22] MEDS ORDERED: SODIUM CHLORID 0.9% 500 ML INJ 500 ML IV ONE (22:15)
--- NOTE | 2017-11-22 22:32 | RADRPT ---
EXAM DATE/TIME: 11/22/2017 23:15 [facility] COMPARISON: CHEST SINGLE AP, November 21, 2017, 9:42. INDICATIONS : Shortness of breath. MEDICAL HISTORY : None. SURGICAL HISTORY : None. ENCOUNTER: Subsequent ACUITY: 2 days PAIN SCORE: Non-responsive. LOCATION: Bilateral chest FINDINGS: New patchy infiltrate in the right lung base and left lung base compared to prior study. The heart si ze is mildly prominent but stable. There is some pulmonary venous congestion. The upper lung osman a re grossly clear. No significant pleural effusions. CONCLUSION: There are new infiltrates in both lung bases. There is some pulmonary venous congestion. . Jhoan Hurt MD on November 22, 2017 at 22:28 Board Certified Radiologist. This report was verified electronically.
[2017-11-23] VITALS (14 sets, daily range): BP systolic 91–118; BP diastolic 54–75; PULSE 88–112; RESP 19–28; TEMP 98.8–100.3; O2SAT 88–100
[2017-11-23] MEDS: SODIUM CHLOR 0.9% 1000 ML INJ 1,000 ML IV SCH ×2 (02:21→16:44)
[2017-11-23] MEDS ORDERED: SODIUM CHLORID 0.9% 500 ML INJ 500 ML IV ONE (03:00)
[2017-11-23] MEDS ORDERED: Vancomycin Consult Pharmacy 1 EA OTHER SCH (03:00)
[2017-11-23] MEDS: PIPERACIL-TAZO 4.5 GM PREMIX 100 ML IV SCH ×4 (03:35→19:41)
[2017-11-23 04:39] LABS: HEMATOCRIT 30.5 % (39.0-51.0); HEMOGLOBIN 10.1 GM/DL (13.0-17.0); MEAN CORPUSCULAR HEMOGLOBIN 30.9 PG (27.0-34.0); MEAN CORPUSCULAR HGB CONC 33.3 % (32.0-36.0); MEAN PLATELET VOLUME 9.5 FL (7.0-11.0); PLATELET COUNT 190 TH/MM3 (150-450); RED BLOOD COUNT 3.28 MIL/MM3 (4.50-5.90); WHITE BLOOD COUNT 11.1 TH/MM3 (4.0-11.0)
[2017-11-23] MEDS: VANCOMYCIN INJ 1,000 MG in SODIUM CHLOR 0.9% 250 ML INJ 250 ML IV SCH ×2 (04:44→16:42)
[2017-11-23 05:02] LABS: BICARBONATE 27.2 MEQ/L (21.0-32.0); CALCIUM 8.4 MG/DL (8.5-10.1); CREATININE 0.83 MG/DL (0.60-1.30)
[2017-11-23] MEDS: RESP: ALBUTEROL 2.5 MG/IPRATROPIUM 0.5 MG NEB (SCH) NEB ×3 (07:34→20:26)
[2017-11-23] MEDS: INSULIN ASPART SUPPLEMENTAL SCALE SQ SCH ×4 (08:00→19:43)
[2017-11-23] MEDS: QUEtiapine FUMARATE 100 MG TAB PO SCH ×2 (08:00→14:00)
[2017-11-23] MEDS: ESMOLOL DRIP INJ PREMIX 250 ML IV PRN ×2 (08:47→20:50)
[2017-11-23] MEDS: DOCUSATE SODIUM 50 MG/SENNA 8.6 MG TAB PO SCH ×2 (08:47→19:42)
[2017-11-23] MEDS: METOPROLOL TARTRATE 25 MG TAB PO SCH ×2 (08:47→16:43)
[2017-11-23] MEDS: ASPIRIN EC 81 MG TABEC PO SCH (08:48)
[2017-11-23] MEDS: SODIUM CHLORIDE 0.9% FLUSH 10 ML FLUSH IV FLUSH SCH ×3 (08:48→19:42)
[2017-11-23] MEDS: VALPROIC ACID 250 MG CAP PO SCH ×2 (09:00→19:42)
[2017-11-23 10:01] LABS: BANDS 11 % (0-6); LYMPHOCYTES 10 % (9-44); MONOCYTES 15 % (0-8); NEUTROPHIL # MANUAL DIFF 8.2 TH/MM3 (1.8-7.7); POLYS (SEG NEUTROPHILS) 63 % (16-70)
[2017-11-23 10:02] LABS: KERATOCYTES 1+ (NORMAL)
--- NOTE | 2017-11-23 10:26 | HHI.PR ---
Subjective Remarks On ,mumbles does not follow say few words when provoked. Objective Vital Signs Date Time Temp Pulse Resp B/P (MAP) Pulse Ox O2 Delivery O2 Flow Rate FiO2 11/23/17 08:47 110 124/68 11/23/17 07:35 96 Simple Mask 7.00 11/23/17 06:00 110 11/23/17 04:00 111 11/23/17 04:00 99.3 111 24 103/65 (78) 100 11/23/17 02:00 106 11/23/17 00:00 110 11/23/17 00:00 100.3 110 28 91/54 (66) 95 11/22/17 22:00 136 11/22/17 20:10 95 Simple Mask 7.00 11/22/17 20:04 110 107/63 11/22/17 20:00 111 11/22/17 20:00 101.3 111 26 107/63 (78) 93 11/22/17 18:00 115 11/22/17 16:00 99.0 113 28 108/62 (77) 99 11/22/17 16:00 113 11/22/17 14:00 116 11/22/17 12:00 98.6 112 24 98/59 (72) 97 11/22/17 12:00 112 I/O 11/22/17 11/22/17 11/22/17 11/23/17 11/23/17 11/23/17 07:00 15:00 23:00 07:00 15:00 23:00 Intake Total 250 ml 1200 ml Output Total 0 ml Balance 250 ml 1200 ml Intake Oral 0 ml 200 ml IV Total 250 ml 1000 ml Output Stool Total 0 ml # Voids 3 2 3 # Bowel Movements 0 0 0 Result Diagram: 11/23/172 11/23/172 Objective Remarks awake alert moans when touched not very verbal otherwise w/d to pain Assessment and Plan Assessment and Plan a/p change in mental status -a fib rvr -f/u eeg today -consider only f/u mri brain to look for any embolic events. Rhina Esteban MD November 23, 2017 10:26
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
[2017-11-23] MEDS: DILTIAZEM HCL 60 MG TAB PO SCH (16:42)
--- NOTE | 2017-11-23 16:43 | MG ---
cc: Rhina Esteban MD DATE OF : 1945 AGE: [age] years old. EEG NUMBER: [id number]. ROOM: [facility]. NOTE: This is a repeat study. With photic stimulation. Awake, not following commands. Last EEG showed background slowing. The patient remains confused. A-fib with new RV. On antibiotics. DESCRIPTION OF RECORD: There is still background slowing seen bilaterally, predominantly in the 3-4 Hz background. Muscle artifact, the patient is chewing. There is no epileptic activity. EKG looks like an arrhythmia, possible atrial fibrillation, looks like it is a rapid rate. Hyperventilation was not done. Photic stimulation with a mild driving response. IMPRESSION: Some mild background slowing consistent with encephalopathic state. No evidence of any epileptiform features. Clinical correlation. Rhina Esteban MD DF/ARACELI , 04:25 PM , 04:42 PM
[2017-11-23] MEDS: APIXABAN 5 MG TABLET PO SCH (19:42)
[2017-11-23] MEDS: QUEtiapine FUMARATE 300 MG TAB PO SCH (19:43)
[2017-11-24] VITALS (21 sets, daily range): BP systolic 94–145; BP diastolic 52–75; PULSE 96–120; RESP 20–28; TEMP 99–99.8; O2SAT 93–99
[2017-11-24] MEDS: METOPROLOL TARTRATE 25 MG TAB PO SCH ×3 (01:00→18:04)
[2017-11-24] MEDS: PIPERACIL-TAZO 4.5 GM PREMIX 100 ML IV SCH ×4 (03:07→20:39)
[2017-11-24] MEDS ORDERED: PHARMACY ORDERED LAB ONE (04:45)
[2017-11-24] MEDS: VANCOMYCIN INJ 1,000 MG in SODIUM CHLOR 0.9% 250 ML INJ 250 ML IV SCH (04:54)
[2017-11-24] MEDS: SODIUM CHLOR 0.9% 1000 ML INJ 1,000 ML IV SCH ×2 (05:56→20:41)
[2017-11-24] MEDS: DILTIAZEM HCL 60 MG TAB PO SCH ×4 (06:39→18:04)
[2017-11-24] MEDS: INSULIN ASPART SUPPLEMENTAL SCALE SQ SCH ×4 (08:00→20:40)
[2017-11-24] MEDS: QUEtiapine FUMARATE 100 MG TAB PO SCH ×2 (08:00→18:02)
[2017-11-24] MEDS: RESP: ALBUTEROL 2.5 MG/IPRATROPIUM 0.5 MG NEB (SCH) NEB ×4 (08:32→20:59)
[2017-11-24] MEDS: APIXABAN 5 MG TABLET PO SCH ×2 (09:00→20:40)
[2017-11-24] MEDS: VALPROIC ACID 250 MG CAP PO SCH ×2 (09:00→20:39)
[2017-11-24] MEDS: SODIUM CHLORIDE 0.9% FLUSH 10 ML FLUSH IV FLUSH SCH ×2 (09:00→20:39)
[2017-11-24] MEDS: DOCUSATE SODIUM 50 MG/SENNA 8.6 MG TAB PO SCH ×2 (09:00→20:40)
--- NOTE | 2017-11-24 12:05 | HHI.PR ---
Subjective Remarks alert this morning had breakfast Objective Vital Signs Date Time Temp Pulse Resp B/P (MAP) Pulse Ox O2 Delivery O2 Flow Rate FiO2 11/24/17 08:37 94 Simple Mask 6.00 11/24/17 06:00 104 11/24/17 05:51 103 108/64 11/24/17 04:00 106 11/24/17 04:00 99.8 106 26 105/65 (78) 96 11/24/17 02:00 104 11/24/17 00:00 99.0 105 21 105/63 (77) 99 11/24/17 00:00 105 11/23/17 22:00 105 11/23/17 20:50 95 92/54 11/23/17 20:31 98 Nasal Cannula 6.00 11/23/17 20:00 99.4 88 19 101/60 (74) 99 11/23/17 20:00 88 11/23/17 19:00 92 107/55 11/23/17 18:00 103 11/23/17 16:00 99.1 104 23 116/68 (84) 100 11/23/17 16:00 104 11/23/17 14:00 104 I/O 11/23/17 11/23/17 11/23/17 11/24/17 11/24/17 11/24/17 06:59 14:59 22:59 06:59 14:59 22:59 Intake Total 1950 ml 100 ml 750 ml 1710 ml Output Total 0 ml 950 ml 300 ml Balance 1950 ml 100 ml -200 ml 1410 ml Intake Oral 200 ml 50 ml 200 ml IV Total 1750 ml 100 ml 700 ml 1510 ml Output Urine Total 950 ml 300 ml Stool Total 0 ml 0 ml 0 ml # Voids 3 # Bowel Movements 0 0 Result Diagram: 11/23/17 0422 11/23/17 0422 Objective Remarks awake alert says he feels better motor intact Assessment and Plan Assessment and Plan a/p change in mental status -a fib rvr -improved overall cont medical care will sign off call if needed Rhina Esteban MD November 24, 2017 12:05
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
--- NOTE | 2017-11-24 17:38 | ECHRPT ---
Indication: Transient cerebral ischemic attack, unspecified CONCLUSIONS There is mild tricuspid valve regurgitation. The estimated pulmonary arterial pressure is 38.1 mmHg. Mild mitral valve regurgitation mitral annular calcification normal left ventricular size, wall thickness and systolic function, EF@ 55% BP: 111 / 62 HR: Rhythm: MEASUREMENTS (Male / Female) Normal Values Technical Quality:Fair 2D ECHO LV Diastolic Diameter PLAX 4.0 cm 4.2 - 5.9 / 3.9 - 5.3 cm LV Systolic Diameter PLAX 2.7 cm IVS Diastolic Thickness 1.1 cm 0.6 - 1.0 / 0.6 - 0.9 cm LVPW Diastolic Thickness 0.9 cm 0.6 - 1.0 / 0.6 - 0.9 cm LV Relative Wall Thickness 0.5 RV Internal Dim ED PLAX 2.2 cm M-MODE Aortic Root Diameter MM 3.4 cm LA Systolic Diameter MM 3.4 cm LA Ao Ratio MM 1.0 AV Cusp Separation MM 1.4 cm DOPPLER MV Peak Velocity 89.0 cm/s MV Peak Gradient 3.2 mmHg MV Mean Velocity 63.3 cm/s MV Mean Gradient 2.0 mmHg TR Peak Velocity 265.0 cm/s TR Peak Gradient 28.1 mmHg Right Atrial Pressure 10.0 mmHg Pulmonary Artery Systolic Pressu 38.1 mmHg Right Ventricular Systolic Press 38.1 mmHg FINDINGS LEFT VENTRICLE Normal left ventricular size and wall thickness. The left ventricular systolic function is normal wi th an estimated ejection fraction in the range of 60-65%. Left ventricular diastolic function parameters a re normal. RIGHT VENTRICLE Normal right ventricular size and systolic function. LEFT ATRIUM The left atrial size is normal. RIGHT ATRIUM The right atrial size is normal. ATRIAL SEPTUM Normal atrial septal thickness without atrial level shunting by limited color doppler interrogation. AORTA The aortic root and proximal ascending aorta are normal in size on limited imaging. MITRAL VALVE Structurally normal mitral valve. No mitral valve stenosis. Mild mitral valve regurgitation. AORTIC VALVE Trileaflet aortic valve. No aortic valve stenosis or regurgitation. TRICUSPID VALVE Structurally normal tricuspid valve. No tricuspid valve stenosis There is mild tricuspid valve regurgitation. The estimated pulmonary arterial pressure is 38.1 mmHg. PULMONARY VALVE No pulmonary valve regurgitation or stenosis. VESSELS The inferior vena cava is normal in size. PERICARDIUM No pericardial effusion. Prosper Nevarez MD, FACC, [facility] (Electronically Signed) Final Date:24 Nov 2017 17:38
[2017-11-24] MEDS: VANCOMYCIN INJ 1,250 MG in SODIUM CHLORID 0.9% 500 ML INJ 500 ML IV SCH (18:02)
[2017-11-24] MEDS: QUEtiapine FUMARATE 300 MG TAB PO SCH (20:40)
[2017-11-25] VITALS (21 sets, daily range): BP systolic 103–136; BP diastolic 57–76; PULSE 74–113; RESP 18–26; TEMP 98.2–100.1; O2SAT 95–100
[2017-11-25] MEDS: DILTIAZEM HCL 60 MG TAB PO SCH ×4 (00:13→17:11)
[2017-11-25] MEDS: VANCOMYCIN INJ 1,250 MG in SODIUM CHLORID 0.9% 500 ML INJ 500 ML IV SCH (01:40)
[2017-11-25] MEDS: METOPROLOL TARTRATE 25 MG TAB PO SCH ×3 (01:40→17:11)
[2017-11-25] MEDS: PIPERACIL-TAZO 4.5 GM PREMIX 100 ML IV SCH ×2 (03:25→09:47)
[2017-11-25] MEDS: RESP: ALBUTEROL 2.5 MG/IPRATROPIUM 0.5 MG NEB (SCH) NEB ×2 (07:50→11:44)
[2017-11-25] MEDS: INSULIN ASPART SUPPLEMENTAL SCALE SQ SCH ×4 (08:00→21:00)
[2017-11-25] MEDS: SODIUM CHLORIDE 0.9% FLUSH 10 ML FLUSH IV FLUSH SCH ×2 (09:00→20:37)
[2017-11-25] MEDS: VALPROIC ACID 250 MG CAP PO SCH ×2 (09:47→20:37)
[2017-11-25] MEDS: APIXABAN 5 MG TABLET PO SCH ×2 (09:47→20:37)
[2017-11-25] MEDS: DOCUSATE SODIUM 50 MG/SENNA 8.6 MG TAB PO SCH ×2 (09:47→20:37)
[2017-11-25] MEDS: QUEtiapine FUMARATE 100 MG TAB PO SCH ×2 (09:50→14:02)
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
[2017-11-25] MEDS: SODIUM CHLOR 0.9% 1000 ML INJ 1,000 ML IV SCH (14:02)
[2017-11-25] MEDS ORDERED: cefTRIAXone INJ 2,000 MG in SODIUM CHLORIDE 0.9% INJ 100 ML IV SCH (15:00)
[2017-11-25] MEDS: QUEtiapine FUMARATE 300 MG TAB PO SCH (20:47)
[2017-11-26] VITALS (17 sets, daily range): BP systolic 92–142; BP diastolic 54–83; PULSE 88–113; RESP 29; TEMP 98.4–99; O2SAT 91–99
[2017-11-26] MEDS: SODIUM CHLOR 0.9% 1000 ML INJ 1,000 ML IV SCH ×2 (00:29→05:04)
[2017-11-26] MEDS: METOPROLOL TARTRATE 25 MG TAB PO SCH ×3 (00:30→17:29)
[2017-11-26] MEDS: DILTIAZEM HCL 60 MG TAB PO SCH ×4 (00:30→17:17)
[2017-11-26] MEDS ORDERED: PHARMACY ORDERED LAB ONE (01:45)
[2017-11-26 05:59] LABS: AUTOMATED NEUTROPHIL # 13.1 TH/MM3 (1.8-7.7); BASOPHIL # 0.1 TH/MM3 (0-0.2); BASOPHIL % 0.5 % (0.0-2.0); HEMATOCRIT 33.9 % (39.0-51.0); HEMOGLOBIN 11.2 GM/DL (13.0-17.0); LYMPH % 3.9 % (9.0-44.0); LYMPHOCYTE # 0.6 TH/MM3 (1.0-4.8); MEAN CELL VOLUME 91.8 FL (80.0-100.0); MEAN CORPUSCULAR HEMOGLOBIN 30.3 PG (27.0-34.0); MEAN PLATELET VOLUME 8.6 FL (7.0-11.0); MONO % 14.6 % (0.0-8.0); MONOCYTE # 2.4 TH/MM3 (0-0.9); PLATELET COUNT 336 TH/MM3 (150-450); RED BLOOD COUNT 3.69 MIL/MM3 (4.50-5.90); RED CELL DISTRIBUTION WIDTH 13.7 % (11.6-17.2); WHITE BLOOD COUNT 16.2 TH/MM3 (4.0-11.0)
[2017-11-26 06:24] LABS: BICARBONATE 27.9 MEQ/L (21.0-32.0); CALCIUM 8.4 MG/DL (8.5-10.1); CREATININE 0.6 MG/DL (0.60-1.30)
[2017-11-26] MEDS: INSULIN ASPART SUPPLEMENTAL SCALE SQ SCH ×4 (08:00→21:00)
[2017-11-26 08:15] LABS: BANDS 20 % (0-6); LYMPHOCYTES 1 % (9-44); METAMYELOCYTES 1 % (0-1); MONOCYTES 18 % (0-8); NEUTROPHIL # MANUAL DIFF 13.1 TH/MM3 (1.8-7.7); POLYS (SEG NEUTROPHILS) 60 % (16-70)
[2017-11-26] MEDS: DOCUSATE SODIUM 50 MG/SENNA 8.6 MG TAB PO SCH ×2 (08:50→21:12)
[2017-11-26] MEDS: APIXABAN 5 MG TABLET PO SCH ×2 (08:50→21:11)
[2017-11-26] MEDS: VALPROIC ACID 250 MG CAP PO SCH ×2 (08:51→21:12)
[2017-11-26] MEDS: LEVOFLOXACIN 750 MG TAB PO SCH (08:51)
[2017-11-26] MEDS: SODIUM CHLORIDE 0.9% FLUSH 10 ML FLUSH IV FLUSH SCH ×2 (09:00→21:12)
[2017-11-26] MEDS: QUEtiapine FUMARATE 100 MG TAB PO SCH ×2 (09:09→14:02)
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
--- NOTE | 2017-11-26 12:19 | RADRPT ---
EXAM DATE/TIME: 11/26/2017 11:23 [facility] COMPARISON: CHEST SINGLE AP, November 22, 2017, 23:15. INDICATIONS : Short of breath. Indication reads follow up infiltrates. MEDICAL HISTORY : Claustraphobia. SURGICAL HISTORY : Hernia surgery. ENCOUNTER: Subsequent ACUITY: 4 - 6 days PAIN SCORE: 0/10 LOCATION: Bilateral chest FINDINGS: Persistent opacities identified in the left lung base consistent with pleural fluid. The appearance i s different indicating redistribution of the effusion. Improving aeration is identified in the right base with resolving opacity. Upper lung osman remain clear. Heart and mediastinal structures are stable. CONCLUSION: Persistent but improving lung base opacity with continued suspicion of left pleural effusion as descr ibed above. Loki Murphy MD on November 26, 2017 at 12:15 Board Certified Radiologist. This report was verified electronically.
--- NOTE | 2017-11-26 13:35 | HHI.HCPN ---
Reason for visit a. To assist with evaluation and management of symptoms including: Dyspnea, encephalopathy b. To assist medical decision maker(s) with: better understanding of current medical conditions; weighing benefits/burdens of medical treatment options; making medical treatment decisions. Subjective/Interval History Patient seen today to follow-up on symptoms of encephalopathy and dyspnea. Encephalopathy is improving however patient's mental status remains altered. He does not make eye contact and will intermittently respond to questions. He also just shouts out words from time to time, like "leave me alone". He follows commands intermittently and says "Ow!" with even the lightest touch. He does not seem to comprehend where he is or why he is here. His dyspnea appears to be multifactorial, to include atrial fibrillation, elevated pulmonary artery pressures, mild tricuspid valve regurgitation, smoking history and pneumonia. He continues to require oxygen at 4 L via nasal cannula. He is slightly tachycardic and tachypneic with respiratory rates up to 29 bpm. He is receiving DuoNeb and Levaquin for pseudomonas aeruginosa positive sputum. Family/friend interactions Family has been difficult to contact. I did speak with his hjskhm-mf-bgi, Kacey, on 11/21, but have since left 3 voicemails with no return call. Per our discussion with psychiatry, she has traditionally been the most accessible contact. Patient's brother Arnold does not return phone calls, but is aware that he is the decision-maker and will speak when his calls. . Advance Directives Living Will: Never completed Health Care Surrogate: Never completed Durable Power of Manager Rehab: Never completed Advance Directive Specifics Health Care Surrogate(s): Never completed. . Documented care wishes: Never com Objective Vital Signs Date Time Temp Pulse Resp B/P (MAP) Pulse Ox O2 Delivery O2 Flow Rate FiO2 11/26/17 09:54 99 Nasal Cannula 4.00 11/26/17 08:00 98.4 106 92/57 (69) 95 11/26/17 08:00 106 11/26/17 06:00 106 11/26/17 04:00 112 120/68 (85) 97 11/26/17 04:00 108 11/26/17 02:00 110 11/26/17 00:10 96 Nasal Cannula 4.00 11/26/17 00:00 113 11/26/17 00:00 98.5 113 29 142/83 (102) 97 11/25/17 23:00 103 25 136/70 (92) 97 11/25/17 22:00 96 11/25/17 22:00 96 21 120/68 (85) 98 11/25/17 21:00 83 22 114/64 (81) 95 11/25/17 20:00 98.2 74 23 103/58 (73) 97 11/25/17 20:00 74 11/25/17 18:00 105 11/25/17 16:00 100 11/25/17 16:00 99.5 100 24 120/71 (87) 98 11/25/17 14:00 93 Intake & Output 11/26/17 11/26/17 07:00 19:00 Intake Total 1250 ml Output Total 1200 ml Balance 50 ml Intake Oral 400 ml IV Total 850 ml Output Urine Total 1200 ml # Bowel Movements 0 Physical Exam CONSTITUTIONAL/GENERAL: This is an adequately nourished patient, in no apparent distress. TUBES/LINES/DRAINS: PIV. SKIN: No jaundice, rashes, or lesions. Ecchymoses on upper extremities. Clean, well approximated, Steri-Stripped wound right lower quadrant, skin temperature appropriate. Not diaphoretic. HEAD: Atraumatic. Normocephalic. EYES: Pupils equal and round and reactive. No scleral icterus. No injection or drainage. Fundi not examined. Left eye ptosis. ENT: Hearing diminished. Nose without bleeding or purulent drainage. Would not open mouth for exam. NECK: Trachea midline. Supple, nontender. No palpable thyroid enlargement or nodularity. CARDIOVASCULAR: Irregular rhythm, S1-S2, controlled rate, no rub murmur or gallop auscultated. RESPIRATORY/CHEST: Symmetric, unlabored respirations, scattered rhonchi. GASTROINTESTINAL: Abdomen soft, non-tender, nondistended. No hepato-splenomegaly , or palpable masses. No guarding. Bowel sounds present. GENITOURINARY: Without palpable bladder distension. MUSCULOSKELETAL: Extremities without clubbing, cyanosis, or edema. No joint tenderness or effusion noted. No calf tenderness. No mottling or clubbing. LYMPHATICS: No palpable cervical or supraclavicular adenopathy. NEUROLOGICAL: Lethargic, arousable, responds to commands intermittently, does not make eye contact. Not oriented. PSYCHIATRIC: Unable to determine, as patient is not communicating. . Diagnostic Tests Laboratory Laboratory Tests Test 11/24/17 03:45 11/26/17 05:10 Vancomycin Level Trough 6.1 MCG/ML (5.0-10.0) White Blood Count 16.2 TH/MM3 (4.0-11.0) Red Blood Count 3.69 MIL/MM3 (4.50-5.90) Hemoglobin 11.2 GM/DL (13.0-17.0) Hematocrit 33.9 % (39.0-51.0) Mean Corpuscular Volume 91.8 FL (80.0-100.0) Mean Corpuscular Hemoglobin 30.3 PG (27.0-34.0) Mean Corpuscular Hemoglobin Concent 33.0 % (32.0-36.0) Red Cell Distribution Width 13.7 % (11.6-17.2) Platelet Count 336 TH/MM3 (150-450) Mean Platelet Volume 8.6 FL (7.0-11.0) Neutrophils (%) (Auto) 81.0 % (16.0-70.0) Lymphocytes (%) (Auto) 3.9 % (9.0-44.0) Monocytes (%) (Auto) 14.6 % (0.0-8.0) Eosinophils (%) (Auto) 0.0 % (0.0-4.0) Basophils (%) (Auto) 0.5 % (0.0-2.0) Neutrophils # (Auto) 13.1 TH/MM3 (1.8-7.7) Lymphocytes # (Auto) 0.6 TH/MM3 (1.0-4.8) Monocytes # (Auto) 2.4 TH/MM3 (0-0.9) Eosinophils # (Auto) 0.0 TH/MM3 (0-0.4) Basophils # (Auto) 0.1 TH/MM3 (0-0.2) CBC Comment AUTO DIFF Differential Total Cells Counted 100 Neutrophils % (Manual) 60 % (16-70) Band Neutrophils % 20 % (0-6) Lymphocytes % 1 % (9-44) Monocytes % 18 % (0-8) Neutrophils # (Manual) 13.1 TH/MM3 (1.8-7.7) Metamyelocytes 1 % (0-1) Differential Comment FINAL DIFF MANUAL Platelet Estimate NORMAL (NORMAL) Platelet Morphology Comment NORMAL (NORMAL) Red Cell Morphology Comment NORMAL (NORMAL) Blood Urea Nitrogen 15 MG/DL (7-18) Creatinine 0.60 MG/DL (0.60-1.30) Random Glucose 146 MG/DL (74-106) Calcium Level 8.4 MG/DL (8.5-10.1) Sodium Level 148 MEQ/L (136-145) Potassium Level 3.5 MEQ/L (3.5-5.1) Chloride Level 111 MEQ/L (98-107) Carbon Dioxide Level 27.9 MEQ/L (21.0-32.0) Anion Gap 9 MEQ/L (5-15) Estimat Glomerular Filtration Rate 132 ML/MIN (>89) Result Diagram: 11/26/17 0510 11/26/17509 Microbiology Microbiology Date/Time Source Procedure Growth Status 11/24/17 07:00 Sputum Expectorated Sputum Gram Stain - Final Complete 11/24/17 07:00 Sputum Culture - Final Pseudomonas Aeruginosa Complete Imaging Last Impressions Chest X-Ray 11/26/17 0000 Signed Impressions: Service Date/Time: Sunday, November 26, 2017 11:23 - CONCLUSION: Persistent but improving lung base opacity with continued suspicion of left pleural effusion as described above. Loki Murphy MD Head Magnetic Resonance Angiography 11/21/17 0000 Signed Impressions: Service Date/Time: Tuesday, November 21, 2017 15:01 - CONCLUSION: Negative MRA of the brain Oseas Mock MD FACR Carotid Artery Ultrasound 11/21/17 0000 Signed Impressions: Service Date/Time: Tuesday, November 21, 2017 11:10 - CONCLUSION: Negative examination for a hemodynamically significant carotid stenosis. Oseas Mock MD FACR Brain MRI 11/21/17 0000 Signed Impressions: Service Date/Time: Tuesday, November 21, 2017 15:01 - CONCLUSION: Marked atrophy, negative for acute process. Oseas Mock MD FACR Assessment and Plan Disease Oriented Problem List: (1) Altered mental status (2) Right inguinal hernia (3) SAH (subarachnoid hemorrhage) (4) Major neurocognitive disorder as late effect of traumatic brain injury with behavioral disturbance Symptom Scale: (1) Confusion 0-10 Scale: Unable to quantify (Patient not communicating) (2) Encephalopathy 0-10 Scale: Unable to quantify (Noted on EEG) Pertinent Non-Medical Issues Psychosocial: Her jwmlpl-ui-tyn, he was born in [place], served in the [employer], was never and has no children. He has been homeless for many years. Spiritual: Unable to obtain. Legal: His brother, Arnold, is his decision maker by [place] statutes. Ethical issues impacting care: Family is attempting to obtain guardianship to manage his financial affairs and assist with placement. . Important Contacts Brother: Arnold Lucas (difficult to reach. Best contact is Kacey.) Mwvjck-vw-upz: Kacey Pinedo (best to contact in the morning between 11 AM eastern time and 1 PM Eastern time, as she works in the afternoon) Previous notation had identified Arthur Winters as a possible brother at . I did speak to Mr. Bates and he denies any knowledge of Ramón Lucas. . Prognosis His prognosis is guarded. He does have a history of traumatic brain injury which can result in seizures and atrial fibrillation, which can result in strokes. Imaging at this time is negative for a hemorrhagic or ischemic event and EEG shows encephalopathy but no seizures at this time. Mental status is altered of unknown etiology at this time. . Code Status: Full Code (By default) Plan PLAN: Legal decision maker: Patient is not capacitated for decision-making. I did speak to his mstccg-qb-tvt, Kacey, who confirms that his only living relative is her and the patient's brother, Arnold. She states they are willing and able to serve as the decision-maker, however are not returning phone calls. Per [place] statutes, as all other family is and he has no previous or no children, his brother would be his healthcare proxy, if readily available and willing to serve. Goals: To be determined CODE STATUS: FULL CODE BY DEFAULT SYMPTOMS: * Dyspnea: Multifactorial to include possible pleural effusion and pseudomonas aeruginosa positive sputum, atrial fibrillation, history of tobacco use and mild valvular disorders. He is currently receiving Levaquin and DuoNeb to treat the underlying infection. He is receiving oxygen at 4 L nasal cannula. Will need to be assessed with activity to determine baseline functional status as he has been bedbound since his admission to [facility] on 11/21. He is receiving Cardizem for heart rate control to assist in ameliorating his symptoms. Heart rate is controlled at this time. * Encephalopathy: Encephalopathy is seen on EEG of unknown etiology. No seizures were seen and this is opined to be possibly related to medications. He is responding more consistently to verbal stimuli but not following commands consistently. His speech is intermittently inappropriate and sometimes he will not answer. It is unknown how much of this is related to underlying psychiatric disorder. Palliative care will continue to follow the patient during hospital course as condition evolves, to assist patient/decision-maker with understanding of their medical conditions, weighing benefits/burdens of treatment options, for clarification of goals of treatment. Additionally will assist with any symptoms of palliative concern. . Attestation To help prompt me to consider important information that might be impacting today's encounter and assessment, information from prior notes written by myself or my colleagues may have been "brought forward" into today's note. My signature on this note, however, is an attestation that I personally performed the exam, history, and/or decision-making noted today, and, unless otherwise indicated, the interactions with patient, family, and staff as well as the review of records all occurred today. I also attest that the listed assessment and stated plan reflect my best clinical judgment today based on the combination of historical information, prior notes, and today's exam/ interactions. When time spent is documented, it refers only to time spent today by the signer, or if indicated, combined time spent today by collaborating physician/nurse practitioner. . Veronica Castrejon November 26, 2017 13:35
[2017-11-26] MEDS: DEXTROSE 5% IN WATE 1000ML INJ 1,000 ML IV SCH ×2 (14:01→21:14)
[2017-11-26 14:08] LABS: ALBUMIN 1.9 GM/DL (3.4-5.0); DIRECT BILIRUBIN ADULT 0.1 MG/DL (0.0-0.2)
[2017-11-26 14:09] LABS: INDIRECT BILIRUBIN 0.2 MG/DL (0.0-0.8); TOTAL BILIRUBIN ADULT 0.3 MG/DL (0.2-1.0); TOTAL PROTEIN 7.3 GM/DL (6.4-8.2)
[2017-11-26] MEDS ORDERED: PIPERACIL-TAZO 4.5 GM PREMIX 100 ML IV SCH (18:00)
[2017-11-26] MEDS: QUEtiapine FUMARATE 300 MG TAB PO SCH (21:00)
[2017-11-27] VITALS (15 sets, daily range): BP systolic 101–134; BP diastolic 55–75; PULSE 85–110; RESP 22–30; TEMP 98–98.9; O2SAT 94–100
[2017-11-27] MEDS: METOPROLOL TARTRATE 25 MG TAB PO SCH ×3 (00:14→15:57)
[2017-11-27] MEDS: DILTIAZEM HCL 60 MG TAB PO SCH ×4 (00:14→18:34)
[2017-11-27] MEDS: INSULIN ASPART SUPPLEMENTAL SCALE SQ SCH ×4 (08:00→21:00)
[2017-11-27 08:09] LABS: AUTOMATED NEUTROPHIL # 9.8 TH/MM3 (1.8-7.7); BASOPHIL # 0.1 TH/MM3 (0-0.2); BASOPHIL % 0.6 % (0.0-2.0); EOSINOPHIL # 0.2 TH/MM3 (0-0.4); EOSINOPHIL % 1.5 % (0.0-4.0); HEMATOCRIT 30.1 % (39.0-51.0); LYMPH % 11.4 % (9.0-44.0); LYMPHOCYTE # 1.6 TH/MM3 (1.0-4.8); MEAN CORPUSCULAR HEMOGLOBIN 30.9 PG (27.0-34.0); MEAN CORPUSCULAR HGB CONC 33.3 % (32.0-36.0); MEAN PLATELET VOLUME 8.9 FL (7.0-11.0); MONO % 17.2 % (0.0-8.0); MONOCYTE # 2.4 TH/MM3 (0-0.9); NEUT % 69.3 % (16.0-70.0); PLATELET COUNT 320 TH/MM3 (150-450); RED BLOOD COUNT 3.23 MIL/MM3 (4.50-5.90); RED CELL DISTRIBUTION WIDTH 13.9 % (11.6-17.2); WHITE BLOOD COUNT 14.2 TH/MM3 (4.0-11.0)
[2017-11-27 08:58] LABS: BANDS 15 % (0-6); LYMPHOCYTES 8 % (9-44); METAMYELOCYTES 2 % (0-1); MONOCYTES 13 % (0-8); MYELOCYTES 1 % (0-0); NEUTROPHIL # MANUAL DIFF 11.1 TH/MM3 (1.8-7.7); OVALOCYTES 1+ (NORMAL); POLYS (SEG NEUTROPHILS) 60 % (16-70)
[2017-11-27] MEDS: LEVOFLOXACIN 750 MG TAB PO SCH (09:24)
[2017-11-27] MEDS: SODIUM CHLORIDE 0.9% FLUSH 10 ML FLUSH IV FLUSH SCH ×2 (09:25→22:04)
[2017-11-27] MEDS: DOCUSATE SODIUM 50 MG/SENNA 8.6 MG TAB PO SCH ×2 (09:25→22:03)
[2017-11-27] MEDS: APIXABAN 5 MG TABLET PO SCH ×2 (09:25→22:03)
[2017-11-27] MEDS: VALPROIC ACID 250 MG CAP PO SCH ×2 (09:25→22:04)
[2017-11-27] MEDS: QUEtiapine FUMARATE 100 MG TAB PO SCH ×2 (09:31→15:57)
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
--- NOTE | 2017-11-27 12:34 | HHI.PYPN ---
Subjective Remarks I have seen Mr. Lucas today for psychiatric reevaluation. The patient is calm, superficially cooperative. He immediately recognized me from our previous encounter in psychiatry. He reports feeling okay, denies pain, denies distress. He reports good mood, denies symptoms of depression. Patient presents some mild to moderate blocking thought and delay speech, but he is oriented 3. He denies suicidal enemas ideation, he denies visual and auditory hallucinations. Is compliant with medications, no significant side effects reported. No agitation, no aggressive behavior present at the moment. As per nurse in charge the patient has no present any significant aggressive behavior or behavioral dysregulation in the ICU. Review of Systems Constitutional: DENIES: Diaphoretic episodes, Fatigue, Fever, Weight gain, Weight loss, Chills, Dizziness, Change in appetite, Night Sweats Endocrine: DENIES: Heat/cold intolerance, Polydipsia, Polyuria, Polyphagia Eyes: DENIES: Blurred vision, Diplopia, Eye inflammation, Eye pain, Vision loss , Photosensitivity, Double Vision Ears, nose, mouth, throat: DENIES: Tinnitus, Hearing loss, Vertigo, Nasal discharge, Oral lesions, Throat pain, Hoarseness, Ear Pain, Running Nose, Epistaxis, Sinus Pain, Toothache, Odynophagia Respiratory: DENIES: Apneas, Cough, Snoring, Wheezing, Hemoptysis, Sputum production, Shortness of breath Cardiovascular: DENIES: Chest pain, Palpitations, Syncope, Dyspnea on Exertion , PND, Lower Extremity Edema, Orthopnea, Claudication Gastrointestinal: DENIES: Abdominal pain, Black stools, Bloody stools, Constipation, Diarrhea, Nausea, Vomiting, Difficulty Swallowing, Anorexia Genitourinary: DENIES: Sexual dysfunction, Urinary frequency, Urinary incontinence, Urgency, Hematuria, Dysuria, Nocturia, Penile Discharge, Testicular Pain, Testicular Swelling Musculoskeletal: DENIES: Joint pain, Muscle aches, Stiffness, Joint Swelling, Back pain, Neck pain Integumentary: DENIES: Abnormal pigmentation, Nail changes, Pruritus, Rash Hematologic/lymphatic: DENIES: Bruising, Lymphadenopathy Immunologic/allergic: DENIES: Eczema, Urticaria Neurologic: DENIES: Abnormal gait, Headache, Localized weakness, Paresthesias, Seizures, Speech Problems, Tremor, Poor Balance Psychiatric: DENIES: Anxiety, Confusion, Mood changes, Depression, Hallucinations, Agitation, Suicidal Ideation, Homicidal Ideation, Delusions Mental Status Examination Appearance: Appropriate Consciousness: Alert (intermittently) Orientation: Person, Place, Date/Time Speech: Slow Language: Other (poor) Fund of Knowledge: Poor Attention and Concentration: Inadequate Memory: Impaired Mood: Appropriate, Other (unable to express) Affect: Blunt Thought Process & Associations: Disorganized Thought Content: Other (unable to assess due to limited interaction) Hallucination Type: None Delusion Type: None Suicidal Ideation: No Suicidal Plan: No Suicidal Intention: No Homicidal Ideation: No Homicidal Plan: No Homicidal Intention: No Insight: Fair Judgment: Impulsive Results Labs Test 11/27/17 05:51 White Blood Count 14.2 TH/MM3 Red Blood Count 3.23 MIL/MM3 Hemoglobin 10.0 GM/DL Hematocrit 30.1 % Mean Corpuscular Volume 93.0 FL Mean Corpuscular Hemoglobin 30.9 PG Mean Corpuscular Hemoglobin Concent 33.3 % Red Cell Distribution Width 13.9 % Platelet Count 320 TH/MM3 Mean Platelet Volume 8.9 FL Neutrophils (%) (Auto) 69.3 % Lymphocytes (%) (Auto) 11.4 % Monocytes (%) (Auto) 17.2 % Eosinophils (%) (Auto) 1.5 % Basophils (%) (Auto) 0.6 % Neutrophils # (Auto) 9.8 TH/MM3 Lymphocytes # (Auto) 1.6 TH/MM3 Monocytes # (Auto) 2.4 TH/MM3 Eosinophils # (Auto) 0.2 TH/MM3 Basophils # (Auto) 0.1 TH/MM3 CBC Comment AUTO DIFF Differential Total Cells Counted 100 Neutrophils % (Manual) 60 % Band Neutrophils % 15 % Lymphocytes % 8 % Monocytes % 13 % Eosinophils % 1 % Neutrophils # (Manual) 11.1 TH/MM3 Metamyelocytes 2 % Myelocytes 1 % Differential Comment FINAL DIFF MANUAL Platelet Estimate NORMAL Platelet Morphology Comment NORMAL Ovalocytes 1+ Date/Time Source Procedure Growth Status 11/23/17 00:54 Blood Peripheral Aerobic Blood Culture - Preliminary NO GROWTH IN 4 DAYS Resulted 11/23/17 00:54 Blood Peripheral Anaerobic Blood Culture - Preliminary NO GROWTH IN 4 DAYS Resulted 11/24/17 07:00 Sputum Expectorated Sputum Gram Stain - Final Complete 11/24/17 07:00 Sputum Culture - Final Pseudomonas Aeruginosa Complete Vitals/IOs Vital Signs Date Time Temp Pulse Resp B/P (MAP) Pulse Ox O2 Delivery O2 Flow Rate FiO2 11/27/17 07:50 100 Nasal Cannula 3.00 11/27/17 05:00 107 125/62 (83) 11/27/17 04:00 98.0 11/26/17 00:00 29 Intake and Output 11/27/17 11/27/17 11/28/17 08:00 16:00 00:00 Intake Total 1200 ml Output Total 500 ml Balance 700 ml Assessment & Plan Problem List: (1) Unspecified psychosis ICD Codes: F29 - Unspecified psychosis not due to a substance or known physiological condition (2) Major neurocognitive disorder as late effect of traumatic brain injury with behavioral disturbance ICD Codes: S06.9X9S - Unspecified intracranial injury with loss of consciousness of unspecified duration, sequela; F02.81 - Dementia in other diseases classified elsewhere with behavioral disturbance Status: Acute Assessment & Plan: On psychiatric evaluation today the patient presents at baseline. He does not present any prominent psychotic/disorganized behavior or speech, no agitation. He is oriented 3. He does have some residual symptoms of psychosis such as delay speech, thought blocking and some disorganization. He is compliant with medications. No significant side effects reported. Continue current psychotropic regimen. Assessment & Plan Estimated LOS: days Justification for Cont. Inpt. At the moment of this evaluation I do not find any indication for psychiatric admission. Hola Brady MD November 27, 2017 12:34
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
[2017-11-27] MEDS: DEXTROSE 5% IN WATE 1000ML INJ 1,000 ML IV SCH (17:05)
[2017-11-27 18:15] LABS: BACTERIA, URINE RARE /hpf; BILIRUBIN, URINE NEG (NEG); BLOOD, URINE NEG (NEG); GLUCOSE,URINE 70 mg/dL (NEG); KETONE, URINE NEG (NEG); NITRITE,URINE NEG (NEG); URINE COLOR YELLOW (YELLW/STRAW); URINE LEUKOCYTE ESTERASE NEG (NEG)
[2017-11-27] MEDS: QUEtiapine FUMARATE 300 MG TAB PO SCH (21:00)
[2017-11-28] VITALS (7 sets, daily range): BP systolic 113–132; BP diastolic 58–77; PULSE 101–111; RESP 16–25; TEMP 97.1–98.4; O2SAT 93–95
[2017-11-28] MEDS: METOPROLOL TARTRATE 25 MG TAB PO SCH ×3 (01:44→15:46)
[2017-11-28] MEDS: DILTIAZEM HCL 60 MG TAB PO SCH ×4 (01:44→17:35)
[2017-11-28] MEDS: INSULIN ASPART SUPPLEMENTAL SCALE SQ SCH ×4 (08:00→21:00)
[2017-11-28] MEDS: APIXABAN 5 MG TABLET PO SCH ×2 (09:37→22:47)
[2017-11-28] MEDS: DOCUSATE SODIUM 50 MG/SENNA 8.6 MG TAB PO SCH ×2 (09:37→21:00)
[2017-11-28] MEDS: LEVOFLOXACIN 750 MG TAB PO SCH (09:37)
[2017-11-28] MEDS: VALPROIC ACID 250 MG CAP PO SCH ×2 (09:40→22:47)
[2017-11-28] MEDS: QUEtiapine FUMARATE 100 MG TAB PO SCH ×2 (09:46→15:47)
[2017-11-28] MEDS: SODIUM CHLORIDE 0.9% FLUSH 10 ML FLUSH IV FLUSH SCH ×2 (09:48→21:00)
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
[2017-11-28] MEDS: QUEtiapine FUMARATE 300 MG TAB PO SCH (22:46)
[2017-11-29] VITALS (7 sets, daily range): BP systolic 115–144; BP diastolic 62–89; PULSE 84–110; RESP 16–19; TEMP 97.7–98.4; O2SAT 93–99
[2017-11-29] MEDS: METOPROLOL TARTRATE 25 MG TAB PO SCH ×3 (00:43→17:20)
[2017-11-29] MEDS: DILTIAZEM HCL 60 MG TAB PO SCH ×4 (05:49→17:20)
[2017-11-29] MEDS: INSULIN ASPART SUPPLEMENTAL SCALE SQ SCH ×4 (08:00→21:00)
[2017-11-29] MEDS: DOCUSATE SODIUM 50 MG/SENNA 8.6 MG TAB PO SCH ×2 (08:32→21:00)
[2017-11-29] MEDS: LEVOFLOXACIN 750 MG TAB PO SCH (08:32)
[2017-11-29] MEDS: SODIUM CHLORIDE 0.9% FLUSH 10 ML FLUSH IV FLUSH SCH ×2 (08:33→21:00)
[2017-11-29] MEDS: APIXABAN 5 MG TABLET PO SCH ×2 (08:33→21:00)
[2017-11-29] MEDS: VALPROIC ACID 250 MG CAP PO SCH ×2 (08:56→21:00)
[2017-11-29] MEDS: QUEtiapine FUMARATE 100 MG TAB PO SCH ×2 (08:56→14:28)
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
[2017-11-29] MEDS: HALOPERIDOL LACTATE 5 MG/ML AMP IM PRN (14:28)
[2017-11-29] MEDS: QUEtiapine FUMARATE 300 MG TAB PO SCH (21:00)
[2017-11-30] VITALS (9 sets, daily range): BP systolic 122–142; BP diastolic 67–90; PULSE 69–140; RESP 18–21; TEMP 97.9–98.9; O2SAT 92–99
[2017-11-30] MEDS: METOPROLOL TARTRATE 25 MG TAB PO SCH ×3 (01:00→16:40)
[2017-11-30] MEDS: HALOPERIDOL LACTATE 5 MG/ML AMP IM PRN ×2 (02:00→22:38)
[2017-11-30] MEDS: DILTIAZEM HCL 60 MG TAB PO SCH ×4 (06:15→16:40)
[2017-11-30] MEDS: INSULIN ASPART SUPPLEMENTAL SCALE SQ SCH ×4 (08:00→21:00)
[2017-11-30] MEDS: APIXABAN 5 MG TABLET PO SCH ×2 (08:29→21:27)
[2017-11-30] MEDS: QUEtiapine FUMARATE 100 MG TAB PO SCH ×2 (08:29→13:33)
[2017-11-30] MEDS: LEVOFLOXACIN 750 MG TAB PO SCH (08:29)
[2017-11-30] MEDS: SODIUM CHLORIDE 0.9% FLUSH 10 ML FLUSH IV FLUSH SCH ×2 (08:33→21:00)
[2017-11-30] MEDS: DOCUSATE SODIUM 50 MG/SENNA 8.6 MG TAB PO SCH ×2 (08:35→21:00)
[2017-11-30] MEDS: VALPROIC ACID 250 MG CAP PO SCH ×2 (08:42→21:28)
[2017-11-30 08:48] LABS: AUTOMATED NEUTROPHIL # 13.4 TH/MM3 (1.8-7.7); BASOPHIL # 0.1 TH/MM3 (0-0.2); BASOPHIL % 0.3 % (0.0-2.0); EOSINOPHIL # 0.1 TH/MM3 (0-0.4); EOSINOPHIL % 0.5 % (0.0-4.0); HEMATOCRIT 33.1 % (39.0-51.0); LYMPH % 5.7 % (9.0-44.0); LYMPHOCYTE # 0.9 TH/MM3 (1.0-4.8); MEAN CORPUSCULAR HEMOGLOBIN 30.4 PG (27.0-34.0); MEAN CORPUSCULAR HGB CONC 33.4 % (32.0-36.0); MEAN PLATELET VOLUME 9.3 FL (7.0-11.0); MONOCYTE # 1.6 TH/MM3 (0-0.9); NEUT % 83.5 % (16.0-70.0); PLATELET COUNT 443 TH/MM3 (150-450); RED BLOOD COUNT 3.64 MIL/MM3 (4.50-5.90); RED CELL DISTRIBUTION WIDTH 13.5 % (11.6-17.2)
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
[2017-11-30] MEDS: LACTOBACILLUS ACIDOPHILUS TAB PO SCH (21:26)
[2017-11-30] MEDS: QUEtiapine FUMARATE 300 MG TAB PO SCH (21:26)
[2017-12-01] VITALS (12 sets, daily range): BP systolic 83–143; BP diastolic 49–78; PULSE 66–115; RESP 18–22; TEMP 97.6–98.8; O2SAT 94–100
[2017-12-01] MEDS: DILTIAZEM HCL 60 MG TAB PO SCH ×5 (00:18→23:11)
[2017-12-01] MEDS: METOPROLOL TARTRATE 25 MG TAB PO SCH ×2 (00:18→08:32)
--- NOTE | 2017-12-01 06:40 | RADRPT ---
EXAM DATE/TIME: 12/01/2017 05:53 [facility] COMPARISON: CHEST SINGLE AP, November 26, 2017, 11:23. INDICATIONS : Short of breath, follow up effusion MEDICAL HISTORY : AMS, SURGICAL HISTORY : hernia repair ENCOUNTER: Subsequent ACUITY: 1 week PAIN SCORE: Non-responsive. LOCATION: Bilateral chest FINDINGS: A single AP portable erect view of the chest was obtained and demonstrates interval increased consoli dative opacity in the perihilar regions and right lung base. Both costophrenic angles remain blunted. The heart size is at the upper limits of normal. There is an old healed right clavicular fracture. S kin folds are projected over the left lung. CONCLUSION: 1. Increased opacity in the perihilar regions and right lung base. 2. Bilateral effusions. Francis Abbott MD on December 01, 2017 at 6:38 Board Certified Radiologist. This report was verified electronically.
[2017-12-01] MEDS: INSULIN ASPART SUPPLEMENTAL SCALE SQ SCH ×4 (08:00→21:00)
[2017-12-01] MEDS: DOCUSATE SODIUM 50 MG/SENNA 8.6 MG TAB PO SCH ×2 (08:19→23:03)
[2017-12-01] MEDS: VALPROIC ACID 250 MG CAP PO SCH ×3 (08:32→23:25)
[2017-12-01] MEDS: SODIUM CHLORIDE 0.9% FLUSH 10 ML FLUSH IV FLUSH SCH ×2 (08:32→23:05)
[2017-12-01] MEDS: LACTOBACILLUS ACIDOPHILUS TAB PO SCH ×2 (08:32→23:04)
[2017-12-01] MEDS: APIXABAN 5 MG TABLET PO SCH ×2 (08:32→23:04)
[2017-12-01] MEDS: QUEtiapine FUMARATE 100 MG TAB PO SCH ×2 (08:32→12:40)
[2017-12-01] MEDS: LEVOFLOXACIN 750 MG TAB PO SCH (08:32)
[2017-12-01 08:49] LABS: BICARBONATE 28.5 MEQ/L (21.0-32.0); CALCIUM 7.8 MG/DL (8.5-10.1); CREATININE 0.44 MG/DL (0.60-1.30)
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
[2017-12-01] MEDS ORDERED: POTASSIUM CHLORIDE 20 MEQ CONTROLLED RELEASE TAB PO ONE (12:30)
[2017-12-01] MEDS ORDERED: AMOXICILLIN/CLAVULANATE K 875 MG TAB PO ONE (13:00)
[2017-12-01] MEDS: RESP: ALBUTEROL 2.5 MG/IPRATROPIUM 0.5 MG NEB (SCH) NEB ×3 (13:10→19:44)
[2017-12-01] MEDS ORDERED: POTASSIUM CHLORIDE 25 MEQ EFFERVESCENT TAB PO ONE (13:15)
[2017-12-01] MEDS: METOPROLOL TARTRATE 100 MG TAB PO SCH (23:04)
[2017-12-01] MEDS: AMOXICILLIN/CLAVULANATE K 875 MG TAB PO SCH (23:04)
[2017-12-01] MEDS: QUEtiapine FUMARATE 300 MG TAB PO SCH (23:04)
[2017-12-01] MEDS: ACETAMINOPHEN 325 MG TAB PO PRN (23:11)
[2017-12-02] VITALS (10 sets, daily range): BP systolic 90–142; BP diastolic 51–77; PULSE 79–113; RESP 18–20; TEMP 97.2–98; O2SAT 93–100
[2017-12-02] MEDS: DILTIAZEM HCL 60 MG TAB PO SCH ×3 (06:00→15:40)
[2017-12-02] MEDS: INSULIN ASPART SUPPLEMENTAL SCALE SQ SCH ×4 (07:33→21:00)
[2017-12-02] MEDS: DOCUSATE SODIUM 50 MG/SENNA 8.6 MG TAB PO SCH ×2 (08:27→23:18)
[2017-12-02] MEDS: METOPROLOL TARTRATE 100 MG TAB PO SCH ×3 (08:27→23:17)
[2017-12-02] MEDS: APIXABAN 5 MG TABLET PO SCH ×3 (08:28→23:17)
[2017-12-02] MEDS: VALPROIC ACID 250 MG CAP PO SCH ×3 (08:28→23:19)
[2017-12-02] MEDS: LACTOBACILLUS ACIDOPHILUS TAB PO SCH ×3 (08:29→23:18)
[2017-12-02] MEDS: LEVOFLOXACIN 750 MG TAB PO SCH (08:29)
[2017-12-02] MEDS: AMOXICILLIN/CLAVULANATE K 875 MG TAB PO SCH ×3 (08:29→23:17)
[2017-12-02] MEDS: QUEtiapine FUMARATE 100 MG TAB PO SCH ×2 (08:33→12:26)
[2017-12-02] MEDS: SODIUM CHLORIDE 0.9% FLUSH 10 ML FLUSH IV FLUSH SCH ×2 (08:34→23:19)
[2017-12-02 09:03] LABS: AUTOMATED NEUTROPHIL # 6.3 TH/MM3 (1.8-7.7); BASOPHIL # 0.1 TH/MM3 (0-0.2); BASOPHIL % 0.7 % (0.0-2.0); EOSINOPHIL # 0.6 TH/MM3 (0-0.4); EOSINOPHIL % 6.5 % (0.0-4.0); HEMOGLOBIN 10.3 GM/DL (13.0-17.0); LYMPH % 18.8 % (9.0-44.0); LYMPHOCYTE # 1.8 TH/MM3 (1.0-4.8); MEAN CELL VOLUME 90.4 FL (80.0-100.0); MEAN CORPUSCULAR HEMOGLOBIN 30.1 PG (27.0-34.0); MEAN CORPUSCULAR HGB CONC 33.4 % (32.0-36.0); MONO % 9.3 % (0.0-8.0); MONOCYTE # 0.9 TH/MM3 (0-0.9); NEUT % 64.7 % (16.0-70.0); PLATELET COUNT 447 TH/MM3 (150-450); RED BLOOD COUNT 3.43 MIL/MM3 (4.50-5.90); WHITE BLOOD COUNT 9.7 TH/MM3 (4.0-11.0)
[2017-12-02 10:00] LABS: BICARBONATE 27.2 MEQ/L (21.0-32.0); CREATININE 0.5 MG/DL (0.60-1.30)
[2017-12-02] MEDS: RESP: ALBUTEROL 2.5 MG/IPRATROPIUM 0.5 MG NEB (SCH) NEB ×3 (10:17→20:37)
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
[2017-12-02] MEDS: QUEtiapine FUMARATE 300 MG TAB PO SCH ×2 (21:00→23:17)
[2017-12-02] MEDS: ACETAMINOPHEN 325 MG TAB PO PRN (23:18)
[2017-12-03] VITALS (7 sets, daily range): BP systolic 122–158; BP diastolic 77–89; PULSE 64–109; RESP 16–18; TEMP 97.9–98.6; O2SAT 95–100
[2017-12-03] MEDS: INSULIN ASPART SUPPLEMENTAL SCALE SQ SCH ×4 (07:43→20:58)
[2017-12-03] MEDS: RESP: ALBUTEROL 2.5 MG/IPRATROPIUM 0.5 MG NEB (SCH) NEB ×4 (08:24→19:37)
[2017-12-03] MEDS: DOCUSATE SODIUM 50 MG/SENNA 8.6 MG TAB PO SCH ×2 (09:00→20:55)
[2017-12-03] MEDS: AMOXICILLIN/CLAVULANATE K 875 MG TAB PO SCH ×2 (09:05→20:55)
[2017-12-03] MEDS: VALPROIC ACID 250 MG CAP PO SCH ×2 (09:06→20:55)
[2017-12-03] MEDS: APIXABAN 5 MG TABLET PO SCH ×2 (09:06→20:56)
[2017-12-03] MEDS: METOPROLOL TARTRATE 100 MG TAB PO SCH ×2 (09:06→20:56)
[2017-12-03] MEDS: LACTOBACILLUS ACIDOPHILUS TAB PO SCH ×2 (09:07→20:56)
[2017-12-03] MEDS: LEVOFLOXACIN 750 MG TAB PO SCH (09:07)
[2017-12-03] MEDS: QUEtiapine FUMARATE 100 MG TAB PO SCH ×2 (09:09→13:26)
[2017-12-03] MEDS: SODIUM CHLORIDE 0.9% FLUSH 10 ML FLUSH IV FLUSH SCH ×2 (09:10→20:55)
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
--- NOTE | 2017-12-03 12:03 | RADRPT ---
EXAM DATE: 12/03/2017 11:50 AM EDT AGE/SEX: 72 years / Male INDICATIONS: Short of breath CLINICAL DATA: This is the patient's subsequent encounter. Patient reports that signs and symptoms h ave been present for 3 days and indicates a pain score of 0/10. MEDICAL/SURGICAL HISTORY: . AMS None. COMPARISON: [facility] – [place], CHEST SINGLE AP, 12/01/2017. . FINDINGS: There continues to be some patchy infiltrates in both lung osman. These are about the same compared to the prior exam. No definite new infiltrates are seen. The heart size is enlarged but stable. There is no pneumothorax. The bony structures are stable. CONCLUSION: No significant interval change compared to the prior study. Electronically signed by: Jhoan Hurt MD 12/03/2017 12:01 PM EDT
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
[2017-12-03] MEDS: HALOPERIDOL LACTATE 5 MG/ML AMP IM PRN (20:49)
[2017-12-03] MEDS: QUEtiapine FUMARATE 300 MG TAB PO SCH (20:54)
[2017-12-04] VITALS (12 sets, daily range): BP systolic 96–154; BP diastolic 56–86; PULSE 85–114; RESP 18–20; TEMP 97.5–98.4; O2SAT 93–99
[2017-12-04] MEDS: INSULIN ASPART SUPPLEMENTAL SCALE SQ SCH ×4 (07:44→21:00)
[2017-12-04] MEDS: DOCUSATE SODIUM 50 MG/SENNA 8.6 MG TAB PO SCH ×2 (07:44→21:32)
[2017-12-04] MEDS: LACTOBACILLUS ACIDOPHILUS TAB PO SCH ×2 (07:49→21:31)
[2017-12-04] MEDS: APIXABAN 5 MG TABLET PO SCH ×2 (07:49→21:32)
[2017-12-04] MEDS: VALPROIC ACID 250 MG CAP PO SCH ×2 (07:49→21:31)
[2017-12-04] MEDS: METOPROLOL TARTRATE 100 MG TAB PO SCH ×2 (07:49→21:32)
[2017-12-04] MEDS: AMOXICILLIN/CLAVULANATE K 875 MG TAB PO SCH ×2 (07:49→21:34)
[2017-12-04] MEDS: LEVOFLOXACIN 750 MG TAB PO SCH (07:50)
[2017-12-04] MEDS: SODIUM CHLORIDE 0.9% FLUSH 10 ML FLUSH IV FLUSH SCH ×2 (07:50→21:32)
[2017-12-04] MEDS: QUEtiapine FUMARATE 100 MG TAB PO SCH ×2 (07:53→13:31)
[2017-12-04] MEDS: RESP: ALBUTEROL 2.5 MG/IPRATROPIUM 0.5 MG NEB (SCH) NEB ×3 (08:30→20:00)
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
[2017-12-04] MEDS: QUEtiapine FUMARATE 300 MG TAB PO SCH (21:32)
[2017-12-05] VITALS (11 sets, daily range): BP systolic 109–144; BP diastolic 61–75; PULSE 67–110; RESP 12–19; TEMP 97.1–98.2; O2SAT 93–98
[2017-12-05] MEDS: HALOPERIDOL LACTATE 5 MG/ML AMP IM PRN (04:22)
[2017-12-05] MEDS: INSULIN ASPART SUPPLEMENTAL SCALE SQ SCH ×4 (07:55→20:56)
[2017-12-05] MEDS: SODIUM CHLORIDE 0.9% FLUSH 10 ML FLUSH IV FLUSH SCH ×2 (07:56→20:56)
[2017-12-05] MEDS: AMOXICILLIN/CLAVULANATE K 875 MG TAB PO SCH ×2 (07:56→20:55)
[2017-12-05] MEDS: QUEtiapine FUMARATE 100 MG TAB PO SCH ×2 (07:56→14:00)
[2017-12-05] MEDS: LEVOFLOXACIN 750 MG TAB PO SCH (07:56)
[2017-12-05] MEDS: VALPROIC ACID 250 MG CAP PO SCH ×2 (07:56→20:55)
[2017-12-05] MEDS: METOPROLOL TARTRATE 100 MG TAB PO SCH ×2 (07:56→20:56)
[2017-12-05] MEDS: DOCUSATE SODIUM 50 MG/SENNA 8.6 MG TAB PO SCH ×2 (07:56→20:55)
[2017-12-05] MEDS: LACTOBACILLUS ACIDOPHILUS TAB PO SCH ×2 (07:56→20:55)
[2017-12-05] MEDS: APIXABAN 5 MG TABLET PO SCH ×2 (07:56→20:56)
[2017-12-05] MEDS: RESP: ALBUTEROL 2.5 MG/IPRATROPIUM 0.5 MG NEB (SCH) NEB (09:35)
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
--- NOTE | 2017-12-05 12:42 | PD.WCN.NOT ---
Wound Consult Description: Received consult per protocol for pressure ulcer evaluation for the coccyx area Communicated with: NOE Perkins [address] [place] [address] and Doctor Garland Recommendation: 1.Cleanse wound to sacrococcygeal area with normal saline only and pat dry. Apply Santyl ointment zachariah thickness to wound bed and cover with bordered gauze. Please apply Cavilon skin barrier film spray to periwound and before applying bordered gauze dressing. Change dressing daily. 2. Please turn patient every 2 hours and PRN for comfort and offloading of eleazar prominences 3. Please use ultra sorb pad for incontinence managment. Please do not apply briefs or use cloth under pads on low airloss surface. Additional Information: Patient seen on for follow up of DTI to sacral area. Patient was seen with Alvaro student nurse and junior technical writer. Patient is noted laying on K4 bed from [facility]. Patient was positioned to R side for wound assessment. Removed brief in place and bordered gauze dressing to reveal open wound. Wound previously noted as DTI that was opening, now presents as shallow full thickness wound to sacrococcygeal area. Wound measures ~9 cm x ~5cm x slough. Wound bed is noted with ~50% scattered adherent yellow/ brown dry slough and ~50 % red non granulation tissue. Periwound has improved since previous assessment and presents as intact pink blanchable skin. Wound margins are uneven.Patient was cleansed with stool using remedy barrier wipes. Wound was cleansed with normal saline and patted dry. Applied Cavilon skin barrier film spray to periwound areas and covered wound with 6x6 bordered gauze. Patient tolerated wound assessment fairly, patient complained about being uncomfortable on his side. Patient was positioned to L side for comfort and offloading of pressure from eleazar prominence after wound care was completed. Bed was lowered to safe height and bed alarm on before leaving patient's room. Renetta Saravia [facility] December 05, 2017 12:42
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
[2017-12-05] MEDS: QUEtiapine FUMARATE 300 MG TAB PO SCH (20:55)
[2017-12-06] VITALS (8 sets, daily range): BP systolic 124–144; BP diastolic 68–77; PULSE 64–119; RESP 16–19; TEMP 97.6–98.3; O2SAT 94–96
[2017-12-06] MEDS: COLLAGENASE OINT 30 GM TUBE TOPICAL SCH ×2 (05:39→20:41)
[2017-12-06] MEDS: LACTOBACILLUS ACIDOPHILUS TAB PO SCH ×2 (07:42→20:34)
[2017-12-06] MEDS: INSULIN ASPART SUPPLEMENTAL SCALE SQ SCH ×4 (07:42→20:27)
[2017-12-06] MEDS: VALPROIC ACID 250 MG CAP PO SCH ×2 (07:42→20:37)
[2017-12-06] MEDS: METOPROLOL TARTRATE 100 MG TAB PO SCH ×2 (07:42→20:33)
[2017-12-06] MEDS: LEVOFLOXACIN 750 MG TAB PO SCH (07:42)
[2017-12-06] MEDS: AMOXICILLIN/CLAVULANATE K 875 MG TAB PO SCH ×2 (07:42→20:33)
[2017-12-06] MEDS: QUEtiapine FUMARATE 100 MG TAB PO SCH ×2 (07:42→13:15)
[2017-12-06] MEDS: DOCUSATE SODIUM 50 MG/SENNA 8.6 MG TAB PO SCH ×2 (07:42→20:33)
[2017-12-06] MEDS: APIXABAN 5 MG TABLET PO SCH ×2 (07:42→20:33)
[2017-12-06] MEDS: SODIUM CHLORIDE 0.9% FLUSH 10 ML FLUSH IV FLUSH SCH ×2 (07:43→20:34)
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
[2017-12-06] MEDS: QUEtiapine FUMARATE 300 MG TAB PO SCH (20:33)
[2017-12-06] MEDS: HALOPERIDOL LACTATE 5 MG/ML AMP IM PRN (22:07)
[2017-12-07] VITALS (11 sets, daily range): BP systolic 92–127; BP diastolic 60–68; PULSE 56–132; RESP 16–18; TEMP 97.2–98.4; O2SAT 93–100
[2017-12-07] MEDS: INSULIN ASPART SUPPLEMENTAL SCALE SQ SCH (07:43)
[2017-12-07] MEDS: VALPROIC ACID 250 MG CAP PO SCH ×2 (08:53→21:08)
[2017-12-07] MEDS: METOPROLOL TARTRATE 100 MG TAB PO SCH ×2 (08:53→21:09)
[2017-12-07] MEDS: DOCUSATE SODIUM 50 MG/SENNA 8.6 MG TAB PO SCH ×2 (08:53→21:08)
[2017-12-07] MEDS: QUEtiapine FUMARATE 100 MG TAB PO SCH ×2 (08:53→13:36)
[2017-12-07] MEDS: LACTOBACILLUS ACIDOPHILUS TAB PO SCH ×2 (08:53→21:09)
[2017-12-07] MEDS: APIXABAN 5 MG TABLET PO SCH ×2 (08:53→21:08)
[2017-12-07] MEDS: LEVOFLOXACIN 750 MG TAB PO SCH (08:53)
[2017-12-07] MEDS: AMOXICILLIN/CLAVULANATE K 875 MG TAB PO SCH ×2 (08:53→21:09)
[2017-12-07] MEDS: SODIUM CHLORIDE 0.9% FLUSH 10 ML FLUSH IV FLUSH SCH ×2 (08:54→21:09)
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
[2017-12-07] MEDS: QUEtiapine FUMARATE 300 MG TAB PO SCH (21:08)
[2017-12-07] MEDS: COLLAGENASE OINT 30 GM TUBE TOPICAL SCH (21:09)
[2017-12-08] VITALS (12 sets, daily range): BP systolic 100–131; BP diastolic 56–85; PULSE 73–99; RESP 16–19; TEMP 97.6–98.1; O2SAT 94–97
[2017-12-08] MEDS: LACTOBACILLUS ACIDOPHILUS TAB PO SCH ×2 (09:23→21:24)
[2017-12-08] MEDS: APIXABAN 2.5 MG TABLET PO SCH ×2 (09:24→21:24)
[2017-12-08] MEDS: METOPROLOL TARTRATE 100 MG TAB PO SCH ×2 (09:25→21:23)
[2017-12-08] MEDS: QUEtiapine FUMARATE 100 MG TAB PO SCH ×2 (09:25→15:04)
[2017-12-08] MEDS: DOCUSATE SODIUM 50 MG/SENNA 8.6 MG TAB PO SCH ×2 (09:25→21:23)
[2017-12-08] MEDS: SODIUM CHLORIDE 0.9% FLUSH 10 ML FLUSH IV FLUSH SCH ×2 (09:26→21:24)
[2017-12-08] MEDS: VALPROIC ACID 250 MG CAP PO SCH ×2 (09:29→21:24)
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
[2017-12-08] MEDS: QUEtiapine FUMARATE 300 MG TAB PO SCH (21:23)
[2017-12-08] MEDS: COLLAGENASE OINT 30 GM TUBE TOPICAL SCH (21:35)
[2017-12-09] VITALS (8 sets, daily range): BP systolic 90–136; BP diastolic 52–89; PULSE 67–97; RESP 16–20; TEMP 97.4–98; O2SAT 95–99
[2017-12-09] MEDS: METOPROLOL TARTRATE 100 MG TAB PO SCH ×2 (07:51→20:44)
[2017-12-09] MEDS: DOCUSATE SODIUM 50 MG/SENNA 8.6 MG TAB PO SCH ×2 (07:51→20:45)
[2017-12-09] MEDS: VALPROIC ACID 250 MG CAP PO SCH ×2 (07:51→20:43)
[2017-12-09] MEDS: APIXABAN 2.5 MG TABLET PO SCH ×2 (07:52→20:43)
[2017-12-09] MEDS: LACTOBACILLUS ACIDOPHILUS TAB PO SCH ×2 (07:52→20:43)
[2017-12-09] MEDS: QUEtiapine FUMARATE 100 MG TAB PO SCH ×2 (08:20→14:58)
[2017-12-09] MEDS: SODIUM CHLORIDE 0.9% FLUSH 10 ML FLUSH IV FLUSH SCH ×2 (08:21→20:42)
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
[2017-12-09] MEDS: QUEtiapine FUMARATE 300 MG TAB PO SCH (20:45)
[2017-12-09] MEDS: HALOPERIDOL LACTATE 5 MG/ML AMP IM PRN (21:03)
[2017-12-09] MEDS: COLLAGENASE OINT 30 GM TUBE TOPICAL SCH (21:05)
[2017-12-10] VITALS (11 sets, daily range): BP systolic 85–165; BP diastolic 54–90; PULSE 80–120; RESP 18–22; TEMP 97.2–98.3; O2SAT 94–97
[2017-12-10] MEDS: METOPROLOL TARTRATE 100 MG TAB PO SCH ×3 (09:00→20:21)
[2017-12-10] MEDS: SODIUM CHLORIDE 0.9% FLUSH 10 ML FLUSH IV FLUSH SCH ×2 (09:00→20:24)
[2017-12-10] MEDS: LACTOBACILLUS ACIDOPHILUS TAB PO SCH ×2 (09:31→20:21)
[2017-12-10] MEDS: APIXABAN 2.5 MG TABLET PO SCH ×2 (09:35→20:23)
[2017-12-10] MEDS: DOCUSATE SODIUM 50 MG/SENNA 8.6 MG TAB PO SCH ×2 (09:36→20:23)
[2017-12-10] MEDS: VALPROIC ACID 250 MG CAP PO SCH ×2 (09:36→20:22)
[2017-12-10] MEDS: COLLAGENASE OINT 30 GM TUBE TOPICAL SCH (09:46)
[2017-12-10] MEDS: QUEtiapine FUMARATE 100 MG TAB PO SCH ×2 (09:50→13:57)
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
[2017-12-10] MEDS: QUEtiapine FUMARATE 300 MG TAB PO SCH (20:22)
[2017-12-11] VITALS (9 sets, daily range): BP systolic 96–118; BP diastolic 52–74; PULSE 86–119; RESP 18; TEMP 97.3–98.5; O2SAT 95–98
[2017-12-11] MEDS: LACTOBACILLUS ACIDOPHILUS TAB PO SCH ×2 (08:59→20:52)
[2017-12-11] MEDS: DOCUSATE SODIUM 50 MG/SENNA 8.6 MG TAB PO SCH ×2 (09:00→20:52)
[2017-12-11] MEDS: QUEtiapine FUMARATE 100 MG TAB PO SCH ×2 (09:00→14:00)
[2017-12-11] MEDS: APIXABAN 2.5 MG TABLET PO SCH ×2 (09:00→20:51)
[2017-12-11] MEDS: SODIUM CHLORIDE 0.9% FLUSH 10 ML FLUSH IV FLUSH SCH ×2 (09:00→20:54)
[2017-12-11] MEDS: METOPROLOL TARTRATE 100 MG TAB PO SCH ×2 (09:00→20:51)
[2017-12-11] MEDS: VALPROIC ACID 250 MG CAP PO SCH ×2 (09:00→20:49)
[2017-12-11] MEDS: COLLAGENASE OINT 30 GM TUBE TOPICAL SCH (09:01)
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
[2017-12-11 17:45] LABS: BICARBONATE 30.1 MEQ/L (21.0-32.0); CALCIUM 8.5 MG/DL (8.5-10.1); CREATININE 0.92 MG/DL (0.60-1.30)
[2017-12-11] MEDS: QUEtiapine FUMARATE 300 MG TAB PO SCH (20:52)
[2017-12-12] VITALS: BP 95/62; PULSE 60; RESP 18; TEMP 97.6; O2SAT 94
[2017-12-12 04:00] VITALS: BP 117/83; PULSE 94; RESP 18; TEMP 98.3; O2SAT 97
[2017-12-12] MEDS: VALPROIC ACID 250 MG CAP PO SCH ×2 (07:36→22:19)
[2017-12-12] MEDS: APIXABAN 2.5 MG TABLET PO SCH ×2 (07:36→22:19)
[2017-12-12] MEDS: DOCUSATE SODIUM 50 MG/SENNA 8.6 MG TAB PO SCH ×2 (07:37→21:00)
[2017-12-12] MEDS: LACTOBACILLUS ACIDOPHILUS TAB PO SCH ×2 (07:37→22:19)
[2017-12-12] MEDS: SODIUM CHLORIDE 0.9% FLUSH 10 ML FLUSH IV FLUSH SCH ×2 (07:37→22:19)
[2017-12-12] MEDS: METOPROLOL TARTRATE 100 MG TAB PO SCH ×2 (07:37→22:19)
[2017-12-12] MEDS: QUEtiapine FUMARATE 100 MG TAB PO SCH ×2 (07:44→11:50)
[2017-12-12 08:00] VITALS: BP 117/71; PULSE 101; PULSE 97; RESP 18; TEMP 97.9; O2SAT 94
[2017-12-12 12:24] VITALS: BP 120/72; PULSE 18; RESP 18; TEMP 97.3; O2SAT 93
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
[2017-12-12 20:00] VITALS: BP 118/56; PULSE 97; RESP 18; TEMP 98; O2SAT 93
[2017-12-12] MEDS: QUEtiapine FUMARATE 300 MG TAB PO SCH (22:18)
[2017-12-12] MEDS: COLLAGENASE OINT 30 GM TUBE TOPICAL SCH (22:20)
[2017-12-12] MEDS: HALOPERIDOL LACTATE 5 MG/ML AMP IM PRN (22:30)
[2017-12-13] VITALS (7 sets, daily range): BP systolic 108–136; BP diastolic 64–92; PULSE 66–109; RESP 16–21; TEMP 97.6–98.3; O2SAT 94–100
[2017-12-13] MEDS: DOCUSATE SODIUM 50 MG/SENNA 8.6 MG TAB PO SCH ×2 (09:00→20:28)
[2017-12-13] MEDS: HALOPERIDOL LACTATE 5 MG/ML AMP IM PRN ×2 (09:11→16:22)
[2017-12-13] MEDS: VALPROIC ACID 250 MG CAP PO SCH ×2 (09:14→20:28)
[2017-12-13] MEDS: QUEtiapine FUMARATE 100 MG TAB PO SCH ×2 (09:14→14:24)
[2017-12-13] MEDS: APIXABAN 2.5 MG TABLET PO SCH ×2 (09:15→20:28)
[2017-12-13] MEDS: LACTOBACILLUS ACIDOPHILUS TAB PO SCH ×2 (09:15→20:28)
[2017-12-13] MEDS: METOPROLOL TARTRATE 100 MG TAB PO SCH ×2 (09:15→20:28)
[2017-12-13] MEDS: SODIUM CHLORIDE 0.9% FLUSH 10 ML FLUSH IV FLUSH SCH ×2 (09:22→20:27)
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
[2017-12-13] MEDS: QUEtiapine FUMARATE 300 MG TAB PO SCH (20:27)
[2017-12-13] MEDS: COLLAGENASE OINT 30 GM TUBE TOPICAL SCH (20:29)
[2017-12-14] VITALS: BP 134/77; PULSE 93; RESP 19; TEMP 98.1; O2SAT 100
[2017-12-14 04:00] VITALS: BP 138/82; PULSE 97; RESP 19; TEMP 98.1; O2SAT 99
[2017-12-14 08:00] VITALS: BP 139/89; PULSE 95; RESP 18; TEMP 98.4; O2SAT 96
[2017-12-14] MEDS: METOPROLOL TARTRATE 100 MG TAB PO SCH ×2 (10:56→22:44)
[2017-12-14] MEDS: QUEtiapine FUMARATE 100 MG TAB PO SCH ×2 (10:57→15:23)
[2017-12-14] MEDS: VALPROIC ACID 250 MG CAP PO SCH ×2 (10:57→22:44)
[2017-12-14] MEDS: LACTOBACILLUS ACIDOPHILUS TAB PO SCH ×2 (10:57→22:44)
[2017-12-14] MEDS: DOCUSATE SODIUM 50 MG/SENNA 8.6 MG TAB PO SCH ×2 (10:57→22:45)
[2017-12-14] MEDS: APIXABAN 2.5 MG TABLET PO SCH ×2 (10:58→22:44)
[2017-12-14] MEDS: SODIUM CHLORIDE 0.9% FLUSH 10 ML FLUSH IV FLUSH SCH ×2 (10:59→22:44)
[2017-12-14 12:00] VITALS: BP 118/73; PULSE 97; RESP 16; TEMP 97.9; O2SAT 98
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
[2017-12-14 16:00] VITALS: BP 138/82; PULSE 90; RESP 18; TEMP 97.8; O2SAT 98
[2017-12-14 20:24] VITALS: BP 150/82; PULSE 88; RESP 18; O2SAT 93
[2017-12-14] MEDS: QUEtiapine FUMARATE 300 MG TAB PO SCH (22:44)
[2017-12-14] MEDS: COLLAGENASE OINT 30 GM TUBE TOPICAL SCH (22:45)
[2017-12-15] VITALS (7 sets, daily range): BP systolic 84–145; BP diastolic 44–83; PULSE 86–119; RESP 18–20; TEMP 97.5–99.7; O2SAT 94–98
[2017-12-15] MEDS: HALOPERIDOL LACTATE 5 MG/ML AMP IM PRN ×2 (02:26→22:46)
[2017-12-15] MEDS: QUEtiapine FUMARATE 100 MG TAB PO SCH ×2 (08:00→13:21)
[2017-12-15] MEDS: SODIUM CHLORIDE 0.9% FLUSH 10 ML FLUSH IV FLUSH SCH ×2 (09:00→21:00)
[2017-12-15] MEDS: APIXABAN 2.5 MG TABLET PO SCH ×2 (09:33→21:41)
[2017-12-15] MEDS: LACTOBACILLUS ACIDOPHILUS TAB PO SCH ×2 (09:33→21:40)
[2017-12-15] MEDS: VALPROIC ACID 250 MG CAP PO SCH ×2 (09:33→21:40)
[2017-12-15] MEDS: DOCUSATE SODIUM 50 MG/SENNA 8.6 MG TAB PO SCH ×2 (09:33→21:41)
[2017-12-15] MEDS: METOPROLOL TARTRATE 100 MG TAB PO SCH ×2 (09:33→21:00)
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
[2017-12-15 13:38] LABS: AUTOMATED NEUTROPHIL # 2.8 TH/MM3 (1.8-7.7); BASOPHIL % 0.8 % (0.0-2.0); EOSINOPHIL # 0.2 TH/MM3 (0-0.4); EOSINOPHIL % 3.2 % (0.0-4.0); HEMATOCRIT 33.1 % (39.0-51.0); HEMOGLOBIN 10.9 GM/DL (13.0-17.0); LYMPH % 34.8 % (9.0-44.0); LYMPHOCYTE # 2.1 TH/MM3 (1.0-4.8); MEAN PLATELET VOLUME 9.6 FL (7.0-11.0); MONO % 13.6 % (0.0-8.0); MONOCYTE # 0.8 TH/MM3 (0-0.9); NEUT % 47.6 % (16.0-70.0); PLATELET COUNT 251 TH/MM3 (150-450); RED BLOOD COUNT 3.64 MIL/MM3 (4.50-5.90); RED CELL DISTRIBUTION WIDTH 15.1 % (11.6-17.2)
[2017-12-15 14:09] LABS: CALCIUM 8.8 MG/DL (8.5-10.1); CREATININE 0.7 MG/DL (0.60-1.30)
[2017-12-15] MEDS: QUEtiapine FUMARATE 300 MG TAB PO SCH (21:40)
[2017-12-15] MEDS: COLLAGENASE OINT 30 GM TUBE TOPICAL SCH (21:50)
[2017-12-16] VITALS (7 sets, daily range): BP systolic 96–169; BP diastolic 54–86; PULSE 61–135; RESP 18–20; TEMP 97.5–97.9; O2SAT 95–97
[2017-12-16] MEDS: HALOPERIDOL LACTATE 5 MG/ML AMP IM PRN (07:56)
[2017-12-16] MEDS: LACTOBACILLUS ACIDOPHILUS TAB PO SCH ×2 (08:51→21:51)
[2017-12-16] MEDS: APIXABAN 2.5 MG TABLET PO SCH ×2 (08:51→21:52)
[2017-12-16] MEDS: DOCUSATE SODIUM 50 MG/SENNA 8.6 MG TAB PO SCH ×2 (08:52→21:51)
[2017-12-16] MEDS: VALPROIC ACID 250 MG CAP PO SCH ×2 (08:52→21:52)
[2017-12-16] MEDS: METOPROLOL TARTRATE 100 MG TAB PO SCH ×2 (08:53→21:51)
[2017-12-16] MEDS: SODIUM CHLORIDE 0.9% FLUSH 10 ML FLUSH IV FLUSH SCH ×2 (09:00→21:53)
[2017-12-16] MEDS: QUEtiapine FUMARATE 100 MG TAB PO SCH ×2 (09:01→13:46)
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
[2017-12-16] MEDS: QUEtiapine FUMARATE 300 MG TAB PO SCH (21:51)
[2017-12-16] MEDS: COLLAGENASE OINT 30 GM TUBE TOPICAL SCH (21:52)
[2017-12-17] VITALS (9 sets, daily range): BP systolic 103–125; BP diastolic 59–84; PULSE 78–99; RESP 16–19; TEMP 97.5–98.1; O2SAT 95–98
[2017-12-17] MEDS: ACETAMINOPHEN 325 MG TAB PO PRN (00:49)
[2017-12-17] MEDS: HALOPERIDOL LACTATE 5 MG/ML AMP IM PRN (06:47)
[2017-12-17] MEDS: LACTOBACILLUS ACIDOPHILUS TAB PO SCH ×2 (09:45→21:05)
[2017-12-17] MEDS: METOPROLOL TARTRATE 100 MG TAB PO SCH ×2 (09:46→21:08)
[2017-12-17] MEDS: APIXABAN 2.5 MG TABLET PO SCH ×2 (09:46→21:05)
[2017-12-17] MEDS: SODIUM CHLORIDE 0.9% FLUSH 10 ML FLUSH IV FLUSH SCH ×2 (09:46→21:08)
[2017-12-17] MEDS: QUEtiapine FUMARATE 100 MG TAB PO SCH ×2 (09:46→15:12)
[2017-12-17] MEDS: DOCUSATE SODIUM 50 MG/SENNA 8.6 MG TAB PO SCH ×2 (09:46→21:06)
[2017-12-17] MEDS: VALPROIC ACID 250 MG CAP PO SCH ×2 (09:54→21:05)
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
[2017-12-17] MEDS: QUEtiapine FUMARATE 300 MG TAB PO SCH (21:06)
[2017-12-17] MEDS: COLLAGENASE OINT 30 GM TUBE TOPICAL SCH (23:41)
[2017-12-18] VITALS (9 sets, daily range): BP systolic 100–147; BP diastolic 55–88; PULSE 65–143; RESP 16–20; TEMP 97.4–98.2; O2SAT 91–97
[2017-12-18] MEDS: QUEtiapine FUMARATE 100 MG TAB PO SCH ×2 (07:52→13:22)
[2017-12-18] MEDS: SODIUM CHLORIDE 0.9% FLUSH 10 ML FLUSH IV FLUSH SCH ×2 (07:53→20:20)
[2017-12-18] MEDS: LACTOBACILLUS ACIDOPHILUS TAB PO SCH ×2 (07:53→20:19)
[2017-12-18] MEDS: APIXABAN 2.5 MG TABLET PO SCH ×2 (07:53→20:19)
[2017-12-18] MEDS: DOCUSATE SODIUM 50 MG/SENNA 8.6 MG TAB PO SCH ×2 (07:53→20:19)
[2017-12-18] MEDS: METOPROLOL TARTRATE 100 MG TAB PO SCH ×2 (07:53→20:19)
[2017-12-18] MEDS: VALPROIC ACID 250 MG CAP PO SCH ×2 (07:53→20:19)
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
--- NOTE | 2017-12-18 16:04 | HHI.PYPN ---
Subjective Remarks The patient was seen today for psychiatric reevaluation. EMR was reviewed. The case was discussed with nurse in charge. On psychiatric evaluation the patient was laying down his bed. He was superficially cooperative, kind of distant, diffusely confused, but he was able to recognize me from previous hospitalizations. The patient is partially oriented in time and place. He reports good mood, denies suicidal and homicidal ideation, he denies visual and auditory hallucinations. Has been reported agitated and verbally aggressive, but does not present any behavioral dysregulation at this moment. Continue current psychotropic regimen. The patient does not meet criteria for involuntary psychiatric admission at this moment. Mental Status Examination Appearance: Appropriate Consciousness: Alert (intermittently) Orientation: Person, Place, Date/Time Speech: Slow Language: Other (poor) Fund of Knowledge: Poor Attention and Concentration: Inadequate Memory: Impaired Mood: Appropriate, Other (unable to express) Affect: Blunt Thought Process & Associations: Disorganized Thought Content: Other (unable to assess due to limited interaction) Hallucination Type: None Delusion Type: None Suicidal Ideation: No Suicidal Plan: No Suicidal Intention: No Homicidal Ideation: No Homicidal Plan: No Homicidal Intention: No Insight: Fair Judgment: Impulsive Results Labs Date/Time Source Procedure Growth Status 11/23/17 00:54 Blood Peripheral Aerobic Blood Culture - Final NO GROWTH IN 5 DAYS Complete 11/23/17 00:54 Blood Peripheral Anaerobic Blood Culture - Final NO GROWTH IN 5 DAYS Complete 11/24/17 07:00 Sputum Expectorated Sputum Gram Stain - Final Complete 11/24/17 07:00 Sputum Culture - Final Pseudomonas Aeruginosa Complete 11/27/17 17:00 Urine Catheterized Urine Urine Culture - Final NO GROWTH IN 48 HOURS. Complete Vitals/IOs Vital Signs Date Time Temp Pulse Resp B/P (MAP) Pulse Ox O2 Delivery O2 Flow Rate FiO2 12/18/17 15:48 80 12/18/17 12:12 97.6 20 100/66 (33) 95 Assessment & Plan Problem List: (1) Unspecified psychosis ICD Codes: F29 - Unspecified psychosis not due to a substance or known physiological condition (2) Major neurocognitive disorder as late effect of traumatic brain injury with behavioral disturbance ICD Codes: S06.9X9S - Unspecified intracranial injury with loss of consciousness of unspecified duration, sequela; F02.81 - Dementia in other diseases classified elsewhere with behavioral disturbance Status: Acute Assessment & Plan: Continue current psychotropic regimen. The patient does not meet criteria for involuntary psychiatric admission at this moment. Assessment & Plan Estimated LOS: days Justification for Cont. Inpt. No admission in psychiatry indicated Hola Brady MD Dec 18, 2017 16:04
[2017-12-18] MEDS: QUEtiapine FUMARATE 300 MG TAB PO SCH (20:19)
[2017-12-18] MEDS: COLLAGENASE OINT 30 GM TUBE TOPICAL SCH (20:20)
[2017-12-19] VITALS (9 sets, daily range): BP systolic 84–146; BP diastolic 59–87; PULSE 74–105; RESP 16–20; TEMP 97.5–98; O2SAT 94–98
[2017-12-19] MEDS: LACTOBACILLUS ACIDOPHILUS TAB PO SCH ×2 (08:01→19:57)
[2017-12-19] MEDS: APIXABAN 2.5 MG TABLET PO SCH ×2 (08:02→19:57)
[2017-12-19] MEDS: DOCUSATE SODIUM 50 MG/SENNA 8.6 MG TAB PO SCH ×2 (08:02→19:56)
[2017-12-19] MEDS: QUEtiapine FUMARATE 100 MG TAB PO SCH ×2 (08:02→15:28)
[2017-12-19] MEDS: SODIUM CHLORIDE 0.9% FLUSH 10 ML FLUSH IV FLUSH SCH ×2 (08:02→19:57)
[2017-12-19] MEDS: METOPROLOL TARTRATE 100 MG TAB PO SCH ×2 (08:02→19:56)
[2017-12-19] MEDS: VALPROIC ACID 250 MG CAP PO SCH ×2 (08:13→19:56)
[2017-12-19] MEDS: HALOPERIDOL LACTATE 5 MG/ML AMP IM PRN (10:27)
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
[2017-12-19] MEDS: QUEtiapine FUMARATE 300 MG TAB PO SCH (19:56)
[2017-12-19] MEDS: COLLAGENASE OINT 30 GM TUBE TOPICAL SCH (19:57)
[2017-12-20] VITALS (9 sets, daily range): BP systolic 70–138; BP diastolic 43–82; PULSE 76–106; RESP 12–20; TEMP 97.7–98.1; O2SAT 94–99
[2017-12-20] MEDS: DOCUSATE SODIUM 50 MG/SENNA 8.6 MG TAB PO SCH ×2 (09:20→20:13)
[2017-12-20] MEDS: APIXABAN 2.5 MG TABLET PO SCH ×2 (09:21→20:07)
[2017-12-20] MEDS: LACTOBACILLUS ACIDOPHILUS TAB PO SCH ×2 (09:21→20:07)
[2017-12-20] MEDS: VALPROIC ACID 250 MG CAP PO SCH ×2 (09:21→20:08)
[2017-12-20] MEDS: SODIUM CHLORIDE 0.9% FLUSH 10 ML FLUSH IV FLUSH SCH ×2 (09:22→20:08)
[2017-12-20] MEDS: METOPROLOL TARTRATE 100 MG TAB PO SCH (09:30)
[2017-12-20] MEDS: QUEtiapine FUMARATE 100 MG TAB PO SCH ×2 (09:35→14:00)
[2017-12-20] MEDS ORDERED: SODIUM CHLOR 0.9% 1000 ML INJ 1,000 ML IV ONE (11:30)
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
[2017-12-20] MEDS: DEXT 5%-NACL 0.9% 1000 ML INJ 1,000 ML IV SCH ×2 (12:22→20:14)
[2017-12-20 12:33] LABS: AUTOMATED NEUTROPHIL # 3.5 TH/MM3 (1.8-7.7); BASOPHIL % 0.5 % (0.0-2.0); EOSINOPHIL # 0.1 TH/MM3 (0-0.4); EOSINOPHIL % 2.1 % (0.0-4.0); HEMATOCRIT 31.2 % (39.0-51.0); HEMOGLOBIN 10.5 GM/DL (13.0-17.0); LYMPHOCYTE # 1.9 TH/MM3 (1.0-4.8); MEAN CELL VOLUME 90.7 FL (80.0-100.0); MEAN CORPUSCULAR HEMOGLOBIN 30.4 PG (27.0-34.0); MEAN CORPUSCULAR HGB CONC 33.5 % (32.0-36.0); MEAN PLATELET VOLUME 9.6 FL (7.0-11.0); MONO % 17.7 % (0.0-8.0); MONOCYTE # 1.2 TH/MM3 (0-0.9); NEUT % 51.7 % (16.0-70.0); PLATELET COUNT 187 TH/MM3 (150-450); RED BLOOD COUNT 3.44 MIL/MM3 (4.50-5.90); RED CELL DISTRIBUTION WIDTH 15.9 % (11.6-17.2); WHITE BLOOD COUNT 6.7 TH/MM3 (4.0-11.0)
[2017-12-20 12:59] LABS: ALBUMIN 2.3 GM/DL (3.4-5.0); ALT (GPT) 12 U/L (12-78); AST (GOT) 17 U/L (15-37); BICARBONATE 26.7 MEQ/L (21.0-32.0); BLOOD UREA NITROGEN 17 MG/DL (7-18); CHLORIDE 102 MEQ/L (98-107); CREATININE 0.87 MG/DL (0.60-1.30); GLOMERULAR FILTRATION RATE 86 ML/MIN (>89); GLUCOSE,RANDOM 100 MG/DL (74-106); SODIUM (NA) 137 MEQ/L (136-145)
[2017-12-20 13:02] LABS: ALKALINE PHOSPHATASE 84 U/L (45-117); TOTAL BILIRUBIN ADULT 0.3 MG/DL (0.2-1.0); TOTAL PROTEIN 5.9 GM/DL (6.4-8.2); TROPONIN I LESS THAN 0.02 NG/ML (0.02-0.05)
--- NOTE | 2017-12-20 13:25 | RADRPT ---
EXAM DATE: 12/20/2017 1:21 PM EDT AGE/SEX: 72 years / Male INDICATIONS: Shortness of breath. CLINICAL DATA: This is the patient's initial encounter. Patient reports that signs and symptoms have been present for 1 day and indicates a pain score of Nonresponsive. MEDICAL/SURGICAL HISTORY: None. None. COMPARISON: [facility] – [place], CHEST SINGLE AP, 12/03/2017. . FINDINGS: Cardiomegaly and hyperinflation. No consolidation or effusion. Osseous structures demonstrate degener ative changes of the spine. CONCLUSION: Negative examination. Electronically signed by: Dorian Gil MD 12/20/2017 1:23 PM EDT
--- NOTE | 2017-12-20 14:40 | EKG ---
Date Performed: 12/20/2017 Time Performed: 11:46:29 PTAGE: 72 years EKG: ATRIAL FIBRILLATION MARKED LEFT AXIS DEVIATION ABNORMAL ECG PREVIOUS TRACING : 11/21/2017 09.51 Since the previous tracing, no significant change noted DOCTOR: Tad Mendes Interpretating Date/Time 12/20/2017 14:39:00
[2017-12-20] MEDS: DILTIAZEM HCL 30 MG TAB PO SCH ×2 (18:19→23:55)
[2017-12-20] MEDS: COLLAGENASE OINT 30 GM TUBE TOPICAL SCH (20:08)
[2017-12-20] MEDS: QUEtiapine FUMARATE 300 MG TAB PO SCH ×2 (20:13→20:20)
[2017-12-21] VITALS (8 sets, daily range): BP systolic 100–133; BP diastolic 57–76; PULSE 94–101; RESP 16–20; TEMP 97.5–98.4; O2SAT 95–100
[2017-12-21] MEDS: DILTIAZEM HCL 30 MG TAB PO SCH ×5 (06:05→23:01)
[2017-12-21] MEDS: QUEtiapine FUMARATE 100 MG TAB PO SCH ×2 (07:49→14:00)
[2017-12-21] MEDS: DEXT 5%-NACL 0.9% 1000 ML INJ 1,000 ML IV SCH ×2 (07:53→18:06)
[2017-12-21] MEDS: SODIUM CHLORIDE 0.9% FLUSH 10 ML FLUSH IV FLUSH SCH ×2 (07:54→19:57)
[2017-12-21] MEDS: APIXABAN 2.5 MG TABLET PO SCH ×2 (09:17→20:01)
[2017-12-21] MEDS: DOCUSATE SODIUM 50 MG/SENNA 8.6 MG TAB PO SCH ×2 (09:17→19:58)
[2017-12-21] MEDS: VALPROIC ACID 250 MG CAP PO SCH ×2 (09:17→20:01)
[2017-12-21] MEDS: LACTOBACILLUS ACIDOPHILUS TAB PO SCH ×2 (09:18→20:00)
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
[2017-12-21] MEDS: COLLAGENASE OINT 30 GM TUBE TOPICAL SCH (19:58)
[2017-12-21] MEDS: QUEtiapine FUMARATE 300 MG TAB PO SCH (20:01)
[2017-12-22] VITALS (9 sets, daily range): BP systolic 108–154; BP diastolic 59–91; PULSE 91–125; RESP 16–18; TEMP 97.5–98.4; O2SAT 90–98
[2017-12-22] MEDS: DEXT 5%-NACL 0.9% 1000 ML INJ 1,000 ML IV SCH (03:37)
[2017-12-22] MEDS: DILTIAZEM HCL 30 MG TAB PO SCH ×2 (05:37→12:57)
[2017-12-22] MEDS: LACTOBACILLUS ACIDOPHILUS TAB PO SCH ×2 (08:18→21:40)
[2017-12-22] MEDS: QUEtiapine FUMARATE 100 MG TAB PO SCH ×2 (08:19→14:31)
[2017-12-22] MEDS: DOCUSATE SODIUM 50 MG/SENNA 8.6 MG TAB PO SCH ×2 (08:19→21:42)
[2017-12-22] MEDS: APIXABAN 2.5 MG TABLET PO SCH ×2 (08:19→21:40)
[2017-12-22] MEDS: VALPROIC ACID 250 MG CAP PO SCH ×2 (08:19→21:41)
[2017-12-22] MEDS: SODIUM CHLORIDE 0.9% FLUSH 10 ML FLUSH IV FLUSH SCH ×2 (08:28→21:41)
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
[2017-12-22] MEDS ORDERED: DILTIAZEM HCL 30 MG TAB PO ONE (16:15)
[2017-12-22] MEDS: DILTIAZEM HCL 60 MG TAB PO SCH (17:50)
[2017-12-22] MEDS: ACETAMINOPHEN/HYDROcodone 325 MG/5 MG TAB PO PRN (21:40)
[2017-12-22] MEDS: SODIUM CHLORIDE 0.9% FLUSH 10 ML FLUSH IV FLUSH PRN (21:41)
[2017-12-22] MEDS: COLLAGENASE OINT 30 GM TUBE TOPICAL SCH (21:42)
[2017-12-22] MEDS: QUEtiapine FUMARATE 300 MG TAB PO SCH (21:45)
[2017-12-23] VITALS (7 sets, daily range): BP systolic 98–137; BP diastolic 55–80; PULSE 93–132; RESP 16–18; TEMP 97.3–98; O2SAT 95–96
[2017-12-23] MEDS: DILTIAZEM HCL 60 MG TAB PO SCH ×4 (00:42→17:39)
[2017-12-23] MEDS: SODIUM CHLORIDE 0.9% FLUSH 10 ML FLUSH IV FLUSH SCH ×2 (09:00→20:58)
[2017-12-23] MEDS: APIXABAN 2.5 MG TABLET PO SCH ×2 (09:10→20:57)
[2017-12-23] MEDS: DOCUSATE SODIUM 50 MG/SENNA 8.6 MG TAB PO SCH ×2 (09:10→20:58)
[2017-12-23] MEDS: LACTOBACILLUS ACIDOPHILUS TAB PO SCH ×2 (09:10→21:00)
[2017-12-23] MEDS: VALPROIC ACID 250 MG CAP PO SCH ×2 (09:11→20:58)
[2017-12-23] MEDS: QUEtiapine FUMARATE 100 MG TAB PO SCH ×2 (09:32→14:46)
[2017-12-23] MEDS: ACETAMINOPHEN/HYDROcodone 325 MG/5 MG TAB PO PRN (11:41)
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
[2017-12-23] MEDS: QUEtiapine FUMARATE 300 MG TAB PO SCH (20:58)
[2017-12-23] MEDS: COLLAGENASE OINT 30 GM TUBE TOPICAL SCH (20:59)
[2017-12-24] VITALS (9 sets, daily range): BP systolic 101–132; BP diastolic 54–73; PULSE 111–141; RESP 18; TEMP 97.4–98.9; O2SAT 91–95
[2017-12-24] MEDS: DILTIAZEM HCL 60 MG TAB PO SCH ×7 (00:40→23:09)
[2017-12-24] MEDS: VALPROIC ACID 250 MG CAP PO SCH ×2 (10:31→19:52)
[2017-12-24] MEDS: QUEtiapine FUMARATE 100 MG TAB PO SCH ×2 (10:31→13:57)
[2017-12-24] MEDS: LACTOBACILLUS ACIDOPHILUS TAB PO SCH ×2 (10:32→19:52)
[2017-12-24] MEDS: DOCUSATE SODIUM 50 MG/SENNA 8.6 MG TAB PO SCH ×2 (10:32→19:52)
[2017-12-24] MEDS: APIXABAN 2.5 MG TABLET PO SCH ×2 (10:32→19:53)
[2017-12-24] MEDS: SODIUM CHLORIDE 0.9% FLUSH 10 ML FLUSH IV FLUSH SCH ×2 (10:39→19:53)
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
[2017-12-24] MEDS: QUEtiapine FUMARATE 300 MG TAB PO SCH (19:52)
[2017-12-24] MEDS: COLLAGENASE OINT 30 GM TUBE TOPICAL SCH (19:53)
[2017-12-25] VITALS (11 sets, daily range): BP systolic 91–142; BP diastolic 52–73; PULSE 88–134; RESP 16–20; TEMP 97.5–98.7; O2SAT 94–97
[2017-12-25] MEDS: ACETAMINOPHEN/HYDROcodone 325 MG/5 MG TAB PO PRN ×2 (04:53→18:11)
[2017-12-25] MEDS: DILTIAZEM HCL 60 MG TAB PO SCH ×4 (05:00→23:49)
[2017-12-25] MEDS: SODIUM CHLORIDE 0.9% FLUSH 10 ML FLUSH IV FLUSH SCH ×2 (09:31→22:21)
[2017-12-25] MEDS: DOCUSATE SODIUM 50 MG/SENNA 8.6 MG TAB PO SCH ×2 (09:32→22:21)
[2017-12-25] MEDS: QUEtiapine FUMARATE 100 MG TAB PO SCH ×2 (09:32→14:00)
[2017-12-25] MEDS: VALPROIC ACID 250 MG CAP PO SCH ×2 (09:32→22:21)
[2017-12-25] MEDS: APIXABAN 2.5 MG TABLET PO SCH ×2 (09:32→22:21)
[2017-12-25] MEDS: LACTOBACILLUS ACIDOPHILUS TAB PO SCH ×2 (09:32→22:21)
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
--- NOTE | 2017-12-25 13:42 | HHI.PYPN ---
Subjective Remarks The patient was seen today for psychiatric reevaluation. Case was discussed with nurse in charge. On my psychiatric evaluation the patient is restrained in 2 points due to recent agitation, he is alert a little bit sedated. He reports feeling okay, denies pain, denies distress, reports good mood. The patient is oriented in place, partially oriented in time. He denies suicidal and homicidal ideation, he denies visual and auditory hallucinations. Unable to elaborate about recent agitation and aggressive behavior, does not seem to have an insight. As per nurses patient has been episodically agitated needing ETOs, but most of time redirctable, takes his medications. Review of Systems Constitutional: DENIES: Diaphoretic episodes, Fatigue, Fever, Weight gain, Weight loss, Chills, Dizziness, Change in appetite, Night Sweats Endocrine: DENIES: Heat/cold intolerance, Polydipsia, Polyuria, Polyphagia Eyes: DENIES: Blurred vision, Diplopia, Eye inflammation, Eye pain, Vision loss , Photosensitivity, Double Vision Ears, nose, mouth, throat: DENIES: Tinnitus, Hearing loss, Vertigo, Nasal discharge, Oral lesions, Throat pain, Hoarseness, Ear Pain, Running Nose, Epistaxis, Sinus Pain, Toothache, Odynophagia Respiratory: DENIES: Apneas, Cough, Snoring, Wheezing, Hemoptysis, Sputum production, Shortness of breath Cardiovascular: DENIES: Chest pain, Palpitations, Syncope, Dyspnea on Exertion , PND, Lower Extremity Edema, Orthopnea, Claudication Gastrointestinal: DENIES: Abdominal pain, Black stools, Bloody stools, Constipation, Diarrhea, Nausea, Vomiting, Difficulty Swallowing, Anorexia Genitourinary: DENIES: Sexual dysfunction, Urinary frequency, Urinary incontinence, Urgency, Hematuria, Dysuria, Nocturia, Penile Discharge, Testicular Pain, Testicular Swelling Musculoskeletal: DENIES: Joint pain, Muscle aches, Stiffness, Joint Swelling, Back pain, Neck pain Integumentary: DENIES: Abnormal pigmentation, Nail changes, Pruritus, Rash Hematologic/lymphatic: DENIES: Bruising, Lymphadenopathy Immunologic/allergic: DENIES: Eczema, Urticaria Neurologic: DENIES: Abnormal gait, Headache, Localized weakness, Paresthesias, Seizures, Speech Problems, Tremor, Poor Balance Psychiatric: DENIES: Anxiety, Confusion, Mood changes, Depression, Hallucinations, Agitation, Suicidal Ideation, Homicidal Ideation, Delusions Mental Status Examination Appearance: Appropriate Consciousness: Alert (intermittently) Orientation: Person, Place, Date/Time Speech: Slow Language: Other (poor) Fund of Knowledge: Poor Attention and Concentration: Inadequate Memory: Impaired Mood: Appropriate, Other (unable to express) Affect: Blunt Thought Process & Associations: Disorganized Thought Content: Other (unable to assess due to limited interaction) Hallucination Type: None Delusion Type: None Suicidal Ideation: No Suicidal Plan: No Suicidal Intention: No Homicidal Ideation: No Homicidal Plan: No Homicidal Intention: No Insight: Poor Judgment: Poor Results Labs Date/Time Source Procedure Growth Status 11/23/17 00:54 Blood Peripheral Aerobic Blood Culture - Final NO GROWTH IN 5 DAYS Complete 11/23/17 00:54 Blood Peripheral Anaerobic Blood Culture - Final NO GROWTH IN 5 DAYS Complete 11/24/17 07:00 Sputum Expectorated Sputum Gram Stain - Final Complete 11/24/17 07:00 Sputum Culture - Final Pseudomonas Aeruginosa Complete 11/27/17 17:00 Urine Catheterized Urine Urine Culture - Final NO GROWTH IN 48 HOURS. Complete Vitals/IOs Vital Signs Date Time Temp Pulse Resp B/P (MAP) Pulse Ox O2 Delivery O2 Flow Rate FiO2 12/25/17 12:00 98.5 91 16 91/52 (65) 95 Assessment & Plan Problem List: (1) Unspecified psychosis ICD Codes: F29 - Unspecified psychosis not due to a substance or known physiological condition (2) Major neurocognitive disorder as late effect of traumatic brain injury with behavioral disturbance ICD Codes: S06.9X9S - Unspecified intracranial injury with loss of consciousness of unspecified duration, sequela; F02.81 - Dementia in other diseases classified elsewhere with behavioral disturbance Status: Acute Assessment & Plan: Continue current psychotropic regimen. At the moment of my evaluation the patient is calm, superficially cooperative, seems to be at baseline. Episodic agitation and even aggressive behavior is also part of patient neurocognitive disorder, he should remain in current psychotropic regimen. He does not meet criteria for involuntary psychiatric admission at this moment. Assessment & Plan Estimated LOS: days Justification for Cont. Inpt. No criteria for involuntary psychiatric admission at this moment Hola Brady MD Dec 25, 2017 13:42
[2017-12-25] MEDS: SODIUM CHLORIDE 0.9% FLUSH 10 ML FLUSH IV FLUSH PRN (18:11)
[2017-12-25] MEDS: QUEtiapine FUMARATE 300 MG TAB PO SCH (22:21)
[2017-12-25] MEDS: COLLAGENASE OINT 30 GM TUBE TOPICAL SCH (22:44)
[2017-12-26] VITALS (13 sets, daily range): BP systolic 98–132; BP diastolic 50–75; PULSE 85–138; RESP 17–20; TEMP 97.3–98; O2SAT 94–98
[2017-12-26] MEDS: DILTIAZEM HCL 60 MG TAB PO SCH ×5 (05:54→23:12)
[2017-12-26] MEDS: LACTOBACILLUS ACIDOPHILUS TAB PO SCH ×2 (08:54→20:26)
[2017-12-26] MEDS: SODIUM CHLORIDE 0.9% FLUSH 10 ML FLUSH IV FLUSH SCH ×2 (08:54→20:51)
[2017-12-26] MEDS: VALPROIC ACID 250 MG CAP PO SCH ×2 (08:55→20:26)
[2017-12-26] MEDS: DOCUSATE SODIUM 50 MG/SENNA 8.6 MG TAB PO SCH ×2 (08:57→20:26)
[2017-12-26] MEDS: QUEtiapine FUMARATE 100 MG TAB PO SCH ×2 (08:57→14:00)
[2017-12-26] MEDS: APIXABAN 2.5 MG TABLET PO SCH ×2 (08:57→20:26)
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
[2017-12-26] MEDS: ACETAMINOPHEN/HYDROcodone 325 MG/5 MG TAB PO PRN (18:41)
[2017-12-26] MEDS: QUEtiapine FUMARATE 300 MG TAB PO SCH (20:26)
[2017-12-26] MEDS: COLLAGENASE OINT 30 GM TUBE TOPICAL SCH (20:50)
[2017-12-27] VITALS (11 sets, daily range): BP systolic 107–120; BP diastolic 55–73; PULSE 86–133; RESP 16–20; TEMP 97.7–98.8; O2SAT 93–100
[2017-12-27] MEDS: DILTIAZEM HCL 60 MG TAB PO SCH ×3 (05:38→18:16)
[2017-12-27] MEDS: ACETAMINOPHEN/HYDROcodone 325 MG/5 MG TAB PO PRN (05:38)
[2017-12-27] MEDS: QUEtiapine FUMARATE 100 MG TAB PO SCH ×2 (08:00→14:00)
[2017-12-27] MEDS: APIXABAN 2.5 MG TABLET PO SCH ×2 (11:02→22:06)
[2017-12-27] MEDS: DOCUSATE SODIUM 50 MG/SENNA 8.6 MG TAB PO SCH ×2 (11:02→22:06)
[2017-12-27] MEDS: LACTOBACILLUS ACIDOPHILUS TAB PO SCH ×2 (11:02→22:06)
[2017-12-27] MEDS: SODIUM CHLORIDE 0.9% FLUSH 10 ML FLUSH IV FLUSH SCH ×2 (11:03→22:06)
[2017-12-27] MEDS: VALPROIC ACID 250 MG CAP PO SCH ×2 (11:03→22:05)
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
[2017-12-27] MEDS: QUEtiapine FUMARATE 300 MG TAB PO SCH (22:06)
[2017-12-27] MEDS: COLLAGENASE OINT 30 GM TUBE TOPICAL SCH (22:07)
[2017-12-28] VITALS (8 sets, daily range): BP systolic 115–132; BP diastolic 59–88; PULSE 97–127; RESP 19–22; TEMP 97.7–98.8; O2SAT 93–95
[2017-12-28] MEDS: DILTIAZEM HCL 60 MG TAB PO SCH ×5 (05:47→22:06)
[2017-12-28] MEDS: SODIUM CHLORIDE 0.9% FLUSH 10 ML FLUSH IV FLUSH SCH ×2 (09:00→22:06)
[2017-12-28] MEDS: QUEtiapine FUMARATE 100 MG TAB PO SCH ×2 (09:36→14:00)
[2017-12-28] MEDS: APIXABAN 2.5 MG TABLET PO SCH ×2 (09:36→20:54)
[2017-12-28] MEDS: LACTOBACILLUS ACIDOPHILUS TAB PO SCH ×2 (09:36→20:54)
[2017-12-28] MEDS: DOCUSATE SODIUM 50 MG/SENNA 8.6 MG TAB PO SCH ×2 (09:37→20:55)
[2017-12-28] MEDS: ACETAMINOPHEN/HYDROcodone 325 MG/5 MG TAB PO PRN (09:38)
[2017-12-28] MEDS: VALPROIC ACID 250 MG CAP PO SCH ×2 (09:38→20:53)
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
[2017-12-28] MEDS: HALOPERIDOL LACTATE 5 MG/ML AMP IM PRN (12:06)
[2017-12-28] MEDS: QUEtiapine FUMARATE 300 MG TAB PO SCH (20:54)
[2017-12-28] MEDS: COLLAGENASE OINT 30 GM TUBE TOPICAL SCH (20:55)
[2017-12-29] VITALS (8 sets, daily range): BP systolic 118–137; BP diastolic 65–87; PULSE 80–121; RESP 18–22; TEMP 97–98.1; O2SAT 94–96
[2017-12-29] MEDS: DILTIAZEM HCL 60 MG TAB PO SCH ×3 (05:49→18:00)
[2017-12-29] MEDS: QUEtiapine FUMARATE 100 MG TAB PO SCH ×2 (08:00→14:00)
[2017-12-29] MEDS: LACTOBACILLUS ACIDOPHILUS TAB PO SCH ×2 (09:56→21:25)
[2017-12-29] MEDS: DOCUSATE SODIUM 50 MG/SENNA 8.6 MG TAB PO SCH ×2 (09:57→21:25)
[2017-12-29] MEDS: VALPROIC ACID 250 MG CAP PO SCH ×2 (09:57→21:26)
[2017-12-29] MEDS: APIXABAN 2.5 MG TABLET PO SCH ×2 (09:57→21:26)
[2017-12-29] MEDS: SODIUM CHLORIDE 0.9% FLUSH 10 ML FLUSH IV FLUSH SCH ×3 (10:00→21:26)
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
[2017-12-29] MEDS ORDERED: PILL SPLITTER OTHER PRN (12:00)
[2017-12-29 12:31] LABS: AUTOMATED NEUTROPHIL # 7.5 TH/MM3 (1.8-7.7); BASOPHIL % 0.4 % (0.0-2.0); EOSINOPHIL % 0.2 % (0.0-4.0); HEMATOCRIT 29.3 % (39.0-51.0); HEMOGLOBIN 9.9 GM/DL (13.0-17.0); LYMPH % 8.1 % (9.0-44.0); LYMPHOCYTE # 0.8 TH/MM3 (1.0-4.8); MEAN CELL VOLUME 91.3 FL (80.0-100.0); MEAN PLATELET VOLUME 8.6 FL (7.0-11.0); MONO % 16.2 % (0.0-8.0); MONOCYTE # 1.6 TH/MM3 (0-0.9); NEUT % 75.1 % (16.0-70.0); PLATELET COUNT 237 TH/MM3 (150-450)
[2017-12-29] MEDS: METOPROLOL TARTRATE 25 MG TAB PO SCH ×2 (15:05→21:25)
[2017-12-29] MEDS: QUEtiapine FUMARATE 300 MG TAB PO SCH (21:25)
[2017-12-29] MEDS: COLLAGENASE OINT 30 GM TUBE TOPICAL SCH (21:27)
[2017-12-30] VITALS (10 sets, daily range): BP systolic 99–123; BP diastolic 53–70; PULSE 96–143; RESP 18–20; TEMP 97.2–98.8; O2SAT 94–97
[2017-12-30] MEDS: DILTIAZEM HCL 60 MG TAB PO SCH ×7 (00:34→22:51)
[2017-12-30] MEDS: VALPROIC ACID 250 MG CAP PO SCH ×2 (10:22→22:43)
[2017-12-30] MEDS: DOCUSATE SODIUM 50 MG/SENNA 8.6 MG TAB PO SCH ×2 (10:22→21:00)
[2017-12-30] MEDS: METOPROLOL TARTRATE 25 MG TAB PO SCH ×2 (10:22→22:40)
[2017-12-30] MEDS: LACTOBACILLUS ACIDOPHILUS TAB PO SCH ×2 (10:22→22:44)
[2017-12-30] MEDS: SODIUM CHLORIDE 0.9% FLUSH 10 ML FLUSH IV FLUSH SCH ×2 (10:23→21:00)
[2017-12-30] MEDS: APIXABAN 2.5 MG TABLET PO SCH ×2 (10:23→22:43)
[2017-12-30] MEDS: QUEtiapine FUMARATE 100 MG TAB PO SCH ×3 (10:31→13:42)
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
[2017-12-30] MEDS: QUEtiapine FUMARATE 300 MG TAB PO SCH (22:36)
[2017-12-30] MEDS: COLLAGENASE OINT 30 GM TUBE TOPICAL SCH (22:44)
[2017-12-31] VITALS (9 sets, daily range): BP systolic 93–148; BP diastolic 51–100; PULSE 66–135; RESP 18–20; TEMP 97.8–99.4; O2SAT 94–98
[2017-12-31] MEDS: DILTIAZEM HCL 60 MG TAB PO SCH ×3 (05:24→18:00)
[2017-12-31] MEDS: SODIUM CHLORIDE 0.9% FLUSH 10 ML FLUSH IV FLUSH SCH ×2 (08:24→21:21)
[2017-12-31] MEDS: QUEtiapine FUMARATE 100 MG TAB PO SCH ×2 (08:24→13:11)
[2017-12-31] MEDS: APIXABAN 2.5 MG TABLET PO SCH ×2 (08:25→21:21)
[2017-12-31] MEDS: VALPROIC ACID 250 MG CAP PO SCH ×2 (08:25→21:09)
[2017-12-31] MEDS: DOCUSATE SODIUM 50 MG/SENNA 8.6 MG TAB PO SCH ×2 (08:25→21:00)
[2017-12-31] MEDS: METOPROLOL TARTRATE 25 MG TAB PO SCH ×2 (08:25→21:07)
[2017-12-31] MEDS: LACTOBACILLUS ACIDOPHILUS TAB PO SCH ×2 (08:25→21:00)
[2017-12-31] MEDS ORDERED: METOPROLOL TARTRATE 25 MG TAB PO ONE (11:30)
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
--- NOTE | 2017-12-31 17:16 | HHI.HCPN ---
Reason for visit a. To assist with evaluation and management of symptoms including: Altered mental status, agitation b. To assist medical decision maker(s) with: better understanding of current medical conditions; weighing benefits/burdens of medical treatment options; making medical treatment decisions. Subjective/Interval History Patient seen today to follow-up on symptoms of altered mental status and agitation. Patient remains with altered mental status. He is lethargic and does not open his eyes or interact with examiner. With vigorous stimulation he will arouse, become agitated and tried to strike out at examiner. The nurse reports he has been spitting out his pills and without Seroquel he becomes more agitated. They have tried putting pills in food and crushing it but the patient then refuses to eat the food. He is eating minimally even without medications in the food and is cachectic. He has lost 7.5 kg of weight over the last week. He is requiring soft wrist restraints due to his agitation and combativeness which complicates trying to find placement for him. In order to transition him to safe placement, his agitation will need to be controlled. . Family/friend interactions Communicated with his brother/ regarding his agitation, refusal of medications and declining appetite. They support our attempts to try to manage his agitation and offered whatever help they could and securing funding and placement for him. . Advance Directives Living Will: Never completed Health Care Surrogate: Never completed Durable Power of [place] Feather Trimmer: Never completed Advance Directive Specifics Health Care Surrogate(s): Never completed. . Documented care wishes: Never com Objective Vital Signs Date Time Temp Pulse Resp B/P (MAP) Pulse Ox O2 Delivery O2 Flow Rate FiO2 12/31/17 16:47 97.8 104 18 93/51 (65) 96 12/31/17 12:17 99.4 110 20 104/56 (72) 97 12/31/17 12:00 128 12/31/17 09:13 98.3 135 20 119/100 (106) 94 12/31/17 08:44 125 12/31/17 04:00 98.3 66 18 148/72 (97) 98 12/31/17 00:00 98.7 113 18 100/60 (73) 95 12/30/17 20:00 98.7 100 18 121/70 (87) 95 12/30/17 18:24 143 123/68 (86) 12/30/17 17:15 98.6 103 20 99/59 (72) 95 Intake & Output 12/31/17 12/31/17 06:59 18:59 # Voids 5 # Bowel Movements 2 Physical Exam CONSTITUTIONAL/GENERAL: This is an elderly, confused, cachectic patient, in no apparent distress. TUBES/LINES/DRAINS: PIV. SKIN: No jaundice, rashes, or lesions. Ecchymoses on upper extremities. Not diaphoretic. HEAD: Atraumatic. Normocephalic. EYES: Eyes not forced open for exam. Fundi not examined. Mild left eye ptosis. ENT: Hearing diminished. Nose without bleeding or purulent drainage. NECK: Trachea midline. Supple, nontender. No palpable thyroid enlargement or nodularity. CARDIOVASCULAR: Irregular rhythm, S1-S2, controlled rate, no rub murmur or gallop auscultated. RESPIRATORY/CHEST: Symmetric, unlabored respirations, scattered rhonchi. GASTROINTESTINAL: Abdomen soft, non-tender, nondistended. No hepato-splenomegaly , or palpable masses. No guarding. Bowel sounds present. GENITOURINARY: Without palpable bladder distension. MUSCULOSKELETAL: Extremities without clubbing, cyanosis, or edema. No joint tenderness or effusion noted. No calf tenderness. LYMPHATICS: No palpable cervical or supraclavicular adenopathy. NEUROLOGICAL: Lethargic, not arousing to gentle stimuli. PSYCHIATRIC: Agitated with stimulation. . . Diagnostic Tests Laboratory Laboratory Tests Test 12/29/17 12:13 White Blood Count 10.0 TH/MM3 (4.0-11.0) Red Blood Count 3.20 MIL/MM3 (4.50-5.90) Hemoglobin 9.9 GM/DL (13.0-17.0) Hematocrit 29.3 % (39.0-51.0) Mean Corpuscular Volume 91.3 FL (80.0-100.0) Mean Corpuscular Hemoglobin 31.0 PG (27.0-34.0) Mean Corpuscular Hemoglobin Concent 34.0 % (32.0-36.0) Red Cell Distribution Width 16.0 % (11.6-17.2) Platelet Count 237 TH/MM3 (150-450) Mean Platelet Volume 8.6 FL (7.0-11.0) Neutrophils (%) (Auto) 75.1 % (16.0-70.0) Lymphocytes (%) (Auto) 8.1 % (9.0-44.0) Monocytes (%) (Auto) 16.2 % (0.0-8.0) Eosinophils (%) (Auto) 0.2 % (0.0-4.0) Basophils (%) (Auto) 0.4 % (0.0-2.0) Neutrophils # (Auto) 7.5 TH/MM3 (1.8-7.7) Lymphocytes # (Auto) 0.8 TH/MM3 (1.0-4.8) Monocytes # (Auto) 1.6 TH/MM3 (0-0.9) Eosinophils # (Auto) 0.0 TH/MM3 (0-0.4) Basophils # (Auto) 0.0 TH/MM3 (0-0.2) CBC Comment DIFF FINAL Differential Comment Lactic Acid Level 1.4 mmol/L (0.4-2.0) Result Diagram: 12/29/17 1213 Microbiology Microbiology Date/Time Source Procedure Growth Status 11/23/17 00:54 Blood Peripheral Aerobic Blood Culture - Final NO GROWTH IN 5 DAYS Complete 11/23/17 00:54 Blood Peripheral Anaerobic Blood Culture - Final NO GROWTH IN 5 DAYS Complete 11/24/17 07:00 Sputum Expectorated Sputum Gram Stain - Final Complete 11/24/17 07:00 Sputum Culture - Final Pseudomonas Aeruginosa Complete 11/27/17 17:00 Urine Catheterized Urine Urine Culture - Final NO GROWTH IN 48 HOURS. Complete Imaging Last Impressions Chest X-Ray 12/20/17 0000 Signed Impressions: CONCLUSION: Negative examination. Head Magnetic Resonance Angiography 11/21/17 0000 Signed Impressions: Service Date/Time: Tuesday, November 21, 2017 15:01 - CONCLUSION: Negative MRA of the brain Oseas Mock MD FACR Carotid Artery Ultrasound 11/21/17 0000 Signed Impressions: Service Date/Time: Tuesday, November 21, 2017 11:10 - CONCLUSION: Negative examination for a hemodynamically significant carotid stenosis. Oseas Mock MD FACR Brain MRI 11/21/17 0000 Signed Impressions: Service Date/Time: Tuesday, November 21, 2017 15:01 - CONCLUSION: Marked atrophy, negative for acute process. Oseas Mock MD FACR Assessment and Plan Disease Oriented Problem List: (1) Altered mental status (2) Right inguinal hernia (3) SAH (subarachnoid hemorrhage) (4) Major neurocognitive disorder as late effect of traumatic brain injury with behavioral disturbance Symptom Scale: (1) Confusion 0-10 Scale: Unable to quantify (Patient not communicating) (2) Encephalopathy 0-10 Scale: Unable to quantify (Noted on EEG) Pertinent Non-Medical Issues Psychosocial: Her xswrny-pf-skp, he was born in [place], served in the [employer], was never and has no children. He has been homeless for many years. Spiritual: Unable to obtain. Legal: His brother, Arnold, is his decision maker by [place] statutes. Ethical issues impacting care: Family is attempting to obtain guardianship to manage his financial affairs and assist with placement. . Important Contacts Brother: Arnold Lucas (difficult to reach. Best contact is Kacey.) Nhbbwv-kv-mrj: Kacey Pinedo (best to contact in the morning between 11 AM eastern time and 1 PM Eastern time, as she works in the afternoon) Previous notation had identified Arthur Winters as a possible brother at . I did speak to Mr. Bates and he denies any knowledge of Ramón Lucas. . Prognosis His prognosis is guarded. He does have a history of traumatic brain injury which can result in seizures and atrial fibrillation, which can result in strokes. Imaging at this time is negative for a hemorrhagic or ischemic event and EEG shows encephalopathy but no seizures at this time. Mental status is altered of unknown etiology at this time. . Code Status: No Code Plan PLAN: Legal decision maker: Patient is not capacitated for decision-making. I did speak to his bvukpp-ha-vud, Kacey, who confirms that his only living relative is her and the patient's brother, Arnold. She states they are willing and able to serve as the decision-maker, however are difficult to contact due to work schedules. Per [place] statutes, as all other family is and he has no previous or no children, his brother would be his healthcare proxy, if readily available and willing to serve. Goals: Comfort oriented CODE STATUS: DNR SYMPTOMS: * Agitation: He is refusing his medications and spitting out those medications placed in food or crushed. Without his Seroquel he is becoming more agitated, striking out at the staff and requiring soft wrist restraints. Restraints represent a barrier to placement and without medication, the patient's agitation necessitates restraints. Would recommend obtaining recommendations from psychiatry for a long-acting/monthly injectable medication for control of agitation and schizophrenic symptoms. * Altered mental status: He remains altered, not interacting appropriately with staff. His appetite has declined and he is losing weight. Family is aware but do not feel he is an appropriate candidate for artificial feeding and have made him a DNR. His mental status has declined since he began refusing medications. Psychiatry recommendations are being requested for a long-acting injectable medication that would assist in managing his symptoms as he is refusing oral medications. Palliative care will continue to follow the patient during hospital course as condition evolves, to assist patient/decision-maker with understanding of their medical conditions, weighing benefits/burdens of treatment options, for clarification of goals of treatment. Additionally will assist with any symptoms of palliative concern. . Attestation To help prompt me to consider important information that might be impacting today's encounter and assessment, information from prior notes written by myself or my colleagues may have been "brought forward" into today's note. My signature on this note, however, is an attestation that I personally performed the exam, history, and/or decision-making noted today, and, unless otherwise indicated, the interactions with patient, family, and staff as well as the review of records all occurred today. I also attest that the listed assessment and stated plan reflect my best clinical judgment today based on the combination of historical information, prior notes, and today's exam/ interactions. When time spent is documented, it refers only to time spent today by the signer, or if indicated, combined time spent today by collaborating physician/nurse practitioner. . Veronica Castrejon Dec 31, 2017 5:16 pm
[2017-12-31] MEDS: QUEtiapine FUMARATE 300 MG TAB PO SCH (21:21)
[2017-12-31] MEDS: COLLAGENASE OINT 30 GM TUBE TOPICAL SCH (21:22)
[2018-01-01] VITALS (10 sets, daily range): BP systolic 90–123; BP diastolic 51–68; PULSE 90–116; RESP 16–18; TEMP 97.9–98.9; O2SAT 93–97
[2018-01-01] MEDS: DILTIAZEM HCL 60 MG TAB PO SCH ×5 (06:20→23:35)
[2018-01-01] MEDS: DOCUSATE SODIUM 50 MG/SENNA 8.6 MG TAB PO SCH ×2 (08:41→21:00)
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
[2018-01-01] MEDS ORDERED: DILTIAZEM HCL 25 MG/5 ML VIAL IV PUSH ONE (10:45)
[2018-01-01] MEDS ORDERED: DILTIAZEM INJ 125 MG in SODIUM CHLORIDE 0.9% INJ 100 ML IV PRN (10:45)
[2018-01-01] MEDS: QUEtiapine FUMARATE 100 MG TAB PO SCH ×2 (10:59→12:34)
[2018-01-01] MEDS: VALPROIC ACID 250 MG CAP PO SCH ×2 (10:59→21:00)
[2018-01-01] MEDS: SODIUM CHLORIDE 0.9% FLUSH 10 ML FLUSH IV FLUSH SCH ×2 (11:00→15:57)
[2018-01-01] MEDS: METOPROLOL TARTRATE 25 MG TAB PO SCH ×2 (11:00→23:36)
[2018-01-01] MEDS: LACTOBACILLUS ACIDOPHILUS TAB PO SCH ×2 (11:00→21:00)
[2018-01-01] MEDS ORDERED: ESMOLOL DRIP INJ PREMIX 250 ML IV PRN (11:00)
[2018-01-01] MEDS: APIXABAN 2.5 MG TABLET PO SCH ×2 (11:00→23:39)
[2018-01-01] MEDS ORDERED: ESMOLOL HCL 100 MG/10 ML VIAL IV PUSH PRN (11:00)
[2018-01-01] MEDS: NS + KCL 20 MEQ INJ 1,000 ML IV SCH (15:52)
[2018-01-01] MEDS: QUEtiapine FUMARATE 300 MG TAB PO SCH (23:35)
[2018-01-01] MEDS: COLLAGENASE OINT 30 GM TUBE TOPICAL SCH (23:45)
[2018-01-02] VITALS (7 sets, daily range): BP systolic 95–128; BP diastolic 50–68; PULSE 67–135; RESP 18; TEMP 98–98.1; O2SAT 91–96
[2018-01-02] MEDS: DILTIAZEM HCL 60 MG TAB PO SCH (06:00)
[2018-01-02] MEDS: COLLAGENASE OINT 30 GM TUBE TOPICAL SCH (06:45)
[2018-01-02] MEDS: NS + KCL 20 MEQ INJ 1,000 ML IV SCH (06:48)
--- NOTE | 2018-01-02 07:43 | PD.CARD.PN ---
Subjective Subjective Remarks patient is very confused Objective Medications Current Medications Medications (Trade) Dose Ordered Sig/Brandon Route Start Time Stop Time Status Last Admin (Tylenol) 650 mg Q4H PRN PO 11/21/17 10:45 12/17/17 00:49 (Zofran Inj) 4 mg Q6H PRN IVP 11/21/17 10:45 12/07/17 09:00 (Narcan Inj) 0.4 mg UNSCH PRN IV PUSH 11/21/17 10:45 (Jazzy-Colace) 1 tab BID PO 11/21/17 21:00 12/31/17 08:25 (Milk Of Magnesia Liq) 30 ml Q12H PRN PO 11/21/17 10:45 (Senokot) 17.2 mg Q12H PRN PO 11/21/17 10:45 (Dulcolax Supp) 10 mg DAILY PRN RECTAL 11/21/17 10:45 (Lactulose Liq) 30 ml DAILY PRN PO 11/21/17 10:45 (Duoneb Neb) 1 ampule Q2HR NEB PRN NEB 11/21/17 11:00 (Haldol Inj) 5 mg Q6H PRN IM 11/21/17 11:00 12/28/17 12:06 (SEROquel) 100 mg BID@0800,1400 PO 11/21/17 14:00 01/01/18 10:59 (SEROquel) 300 mg HS PO 11/21/17 21:00 01/01/18 23:35 (NS Flush) 2 ml BID IV FLUSH 11/21/17 21:00 01/01/18 15:57 (NS Flush) 2 ml UNSCH PRN IV FLUSH 11/21/17 11:00 12/25/17 18:11 (Vasotec Inj) 1.25 mg Q4H PRN IV PUSH 11/21/17 11:00 (Aspirin Supp) 300 mg DAILY PRN RECTAL 11/22/17 08:15 ([place] 5-325 Mg) 1 tab Q6H PRN PO 11/28/17 11:15 12/28/17 09:38 (Lactinex) 1 tab Q12HR PO 11/30/17 21:00 01/01/18 11:00 (Santyl Oint) 1 applic Q24H TOPICAL 12/05/17 21:00 01/01/18 23:45 (Eliquis) 5 mg BID PO 12/08/17 09:00 01/01/18 23:39 (Depakene) 750 mg Q12HR PO 12/19/17 21:00 01/01/18 10:59 (Cardizem) 60 mg Q6HR PO 12/22/17 18:00 01/01/18 23:35 (Pill Splitter) 1 ea UNSCH PRN OTHER 12/29/17 12:00 (Lopressor) 25 mg Q12HR PO 12/31/17 21:00 01/01/18 23:36 (Brevibloc Bolus Inj) 28 mg BOLUS PRN IV PUSH 01/01/18 11:00 01/01/18 11:13 Potassium Chloride/Sodium Chloride 1,000 ml @ 70 mls/hr [id number] IV 01/01/18 14:45 01/02/18 06:48 Vital Signs / I&O Vital Signs Date Time Temp Pulse Resp B/P (MAP) Pulse Ox O2 Delivery O2 Flow Rate FiO2 01/02/18 00:00 98.1 108 18 95/50 (65) 94 01/01/18 22:30 105 01/01/18 20:00 98.7 115 18 110/68 (82) 95 01/01/18 17:40 104 01/01/18 15:54 98.9 97 16 90/51 (64) 94 01/01/18 12:16 97.9 103 18 106/53 (70) 93 01/01/18 12:00 90 01/01/18 08:25 106 01/01/18 08:00 97.9 116 18 123/62 (82) 93 I/O 01/01/18 01/01/18 01/01/18 01/02/18 01/02/18 01/02/18 07:00 15:00 23:00 07:00 15:00 23:00 # Voids 7 # Bowel Movements 1 Physical Exam Alert Tele AF with RVR Nursereportshespits outhismeds Chest clear anteriorly No JVD [id number] no edema Assessment and Plan Problem List: (1) Confusion ICD Codes: R41.0 - Disorientation, unspecified (2) Atrial fibrillation ICD Codes: I48.91 - Unspecified atrial fibrillation Plan: Changedilt to 240mg CD daily and cont. metoprolol Assessment and Plan unfortunately if he spits out his meds it might not be possible to control his AF Denis Echevarria MD Jan 02, 2018 07:43
[2018-01-02 07:58] LABS: AUTOMATED NEUTROPHIL # 4.7 TH/MM3 (1.8-7.7); BASOPHIL % 0.4 % (0.0-2.0); EOSINOPHIL % 0.4 % (0.0-4.0); LYMPH % 15.8 % (9.0-44.0); LYMPHOCYTE # 1.3 TH/MM3 (1.0-4.8); MEAN CELL VOLUME 90.7 FL (80.0-100.0); MEAN CORPUSCULAR HEMOGLOBIN 30.1 PG (27.0-34.0); MEAN CORPUSCULAR HGB CONC 33.2 % (32.0-36.0); NEUT % 58.4 % (16.0-70.0); PLATELET COUNT 310 TH/MM3 (150-450); RED BLOOD COUNT 3.31 MIL/MM3 (4.50-5.90); WHITE BLOOD COUNT 8.1 TH/MM3 (4.0-11.0)
[2018-01-02 08:30] LABS: BICARBONATE 27.2 MEQ/L (21.0-32.0); CALCIUM 8.5 MG/DL (8.5-10.1); CREATININE 0.55 MG/DL (0.60-1.30)
[2018-01-02] MEDS: APIXABAN 2.5 MG TABLET PO SCH ×2 (08:31→20:00)
[2018-01-02] MEDS: DOCUSATE SODIUM 50 MG/SENNA 8.6 MG TAB PO SCH ×2 (08:31→20:00)
[2018-01-02] MEDS: DILTIAZEM-CD 240 MG CAP ER PO SCH (08:32)
[2018-01-02] MEDS: LACTOBACILLUS ACIDOPHILUS TAB PO SCH ×2 (08:32→20:00)
[2018-01-02] MEDS: QUEtiapine FUMARATE 100 MG TAB PO SCH ×2 (08:32→11:45)
[2018-01-02] MEDS: VALPROIC ACID 250 MG CAP PO SCH ×2 (08:32→20:00)
[2018-01-02] MEDS: METOPROLOL TARTRATE 25 MG TAB PO SCH ×2 (08:32→20:00)
[2018-01-02] MEDS: SODIUM CHLORIDE 0.9% FLUSH 10 ML FLUSH IV FLUSH SCH ×2 (08:32→20:00)
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
[2018-01-02] MEDS ORDERED: POTASSIUM CHLORIDE 25 MEQ EFFERVESCENT TAB PO ONE (16:00)
[2018-01-02] MEDS: 1/2 NS + KCL 20 MEQ INJ 1,000 ML IV SCH (16:44)
[2018-01-02] MEDS: QUEtiapine FUMARATE 300 MG TAB PO SCH (20:00)
[2018-01-03] VITALS (11 sets, daily range): BP systolic 111–151; BP diastolic 61–86; PULSE 101–148; RESP 18–20; TEMP 97.4–98.5; O2SAT 94–100
[2018-01-03] MEDS: 1/2 NS + KCL 20 MEQ INJ 1,000 ML IV SCH ×2 (04:27→15:01)
[2018-01-03] MEDS: SODIUM CHLORIDE 0.9% FLUSH 10 ML FLUSH IV FLUSH SCH ×2 (06:49→21:45)
[2018-01-03] MEDS: DOCUSATE SODIUM 50 MG/SENNA 8.6 MG TAB PO SCH ×2 (06:50→21:44)
[2018-01-03 07:53] LABS: BICARBONATE 25.2 MEQ/L (21.0-32.0); CALCIUM 8.7 MG/DL (8.5-10.1); CREATININE 0.76 MG/DL (0.60-1.30); MAGNESIUM 2.2 MG/DL (1.5-2.5)
[2018-01-03] MEDS: QUEtiapine FUMARATE 100 MG TAB PO SCH ×2 (08:12→14:00)
[2018-01-03] MEDS: METOPROLOL TARTRATE 25 MG TAB PO SCH ×2 (08:12→21:44)
[2018-01-03] MEDS: APIXABAN 2.5 MG TABLET PO SCH ×2 (08:12→21:44)
[2018-01-03] MEDS: LACTOBACILLUS ACIDOPHILUS TAB PO SCH ×2 (08:12→21:44)
[2018-01-03] MEDS: VALPROIC ACID 250 MG CAP PO SCH ×2 (08:12→21:44)
[2018-01-03] MEDS: DILTIAZEM-CD 240 MG CAP ER PO SCH (08:12)
[2018-01-03] MEDS: HALOPERIDOL LACTATE 5 MG/ML AMP IM PRN (12:06)
--- NOTE | 2018-01-03 13:52 | PD.CARD.PN ---
Subjective Subjective Remarks patient remains very confused Objective Medications Current Medications Medications (Trade) Dose Ordered Sig/Brandon Route Start Time Stop Time Status Last Admin (Tylenol) 650 mg Q4H PRN PO 11/21/17 10:45 12/17/17 00:49 (Zofran Inj) 4 mg Q6H PRN IVP 11/21/17 10:45 12/07/17 09:00 (Narcan Inj) 0.4 mg UNSCH PRN IV PUSH 11/21/17 10:45 (Jazzy-Colace) 1 tab BID PO 11/21/17 21:00 01/02/18 08:31 (Milk Of Magnesia Liq) 30 ml Q12H PRN PO 11/21/17 10:45 (Senokot) 17.2 mg Q12H PRN PO 11/21/17 10:45 (Dulcolax Supp) 10 mg DAILY PRN RECTAL 11/21/17 10:45 (Lactulose Liq) 30 ml DAILY PRN PO 11/21/17 10:45 (Duoneb Neb) 1 ampule Q2HR NEB PRN NEB 11/21/17 11:00 (Haldol Inj) 5 mg Q6H PRN IM 11/21/17 11:00 01/03/18 12:06 (SEROquel) 100 mg BID@0800,1400 PO 11/21/17 14:00 01/03/18 08:12 (SEROquel) 300 mg HS PO 11/21/17 21:00 01/02/18 20:00 (NS Flush) 2 ml BID IV FLUSH 11/21/17 21:00 01/01/18 15:57 (NS Flush) 2 ml UNSCH PRN IV FLUSH 11/21/17 11:00 12/25/17 18:11 (Vasotec Inj) 1.25 mg Q4H PRN IV PUSH 11/21/17 11:00 (Aspirin Supp) 300 mg DAILY PRN RECTAL 11/22/17 08:15 ([place] 5-325 Mg) 1 tab Q6H PRN PO 11/28/17 11:15 12/28/17 09:38 (Lactinex) 1 tab Q12HR PO 11/30/17 21:00 01/03/18 08:12 (Santyl Oint) 1 applic Q24H TOPICAL 12/05/17 21:00 01/02/18 06:45 (Eliquis) 5 mg BID PO 12/08/17 09:00 01/03/18 08:12 (Depakene) 750 mg Q12HR PO 12/19/17 21:00 01/03/18 08:12 (Pill Splitter) 1 ea UNSCH PRN OTHER 12/29/17 12:00 (Lopressor) 25 mg Q12HR PO 12/31/17 21:00 01/03/18 08:12 (Brevibloc Bolus Inj) 28 mg BOLUS PRN IV PUSH 01/01/18 11:00 01/01/18 11:13 (Cardizem Cd) 240 mg DAILY PO 01/02/18 09:00 01/03/18 08:12 Potassium Chloride/Sodium Chloride 1,000 ml @ 84 mls/hr [id number] IV 01/02/18 16:00 01/03/18 04:27 Vital Signs / I&O Vital Signs Date Time Temp Pulse Resp B/P (MAP) Pulse Ox O2 Delivery O2 Flow Rate FiO2 01/03/18 12:44 138 01/03/18 12:30 98.5 135 18 139/67 (91) 97 01/03/18 08:30 119 01/03/18 08:08 97.9 148 20 151/86 (107) 95 01/03/18 04:32 112 01/03/18 04:32 101 01/03/18 04:00 98.2 109 18 112/80 (91) 96 01/03/18 00:00 98.2 113 18 111/80 (90) 96 01/02/18 22:00 113 01/02/18 17:31 98.0 67 18 128/67 (87) 96 I/O 01/02/18 01/02/18 01/02/18 01/03/18 01/03/18 01/03/18 07:00 15:00 23:00 07:00 15:00 23:00 Intake Total 496 ml Balance 496 ml IV Total 496 ml # Voids 2 2 # Bowel Movements 2 2 Physical Exam Alert Tele AF with RVR Chest clear anteriorly No JVD [id number] no edema Laboratory Laboratory Tests Test 01/03/18 07:09 Blood Urea Nitrogen 20 MG/DL Creatinine 0.76 MG/DL Random Glucose 123 MG/DL Calcium Level 8.7 MG/DL Magnesium Level 2.2 MG/DL Sodium Level 150 MEQ/L Potassium Level 4.4 MEQ/L Chloride Level 115 MEQ/L Carbon Dioxide Level 25.2 MEQ/L Anion Gap 10 MEQ/L Estimat Glomerular Filtration Rate 101 ML/MIN Assessment and Plan Problem List: (1) Confusion ICD Codes: R41.0 - Disorientation, unspecified (2) Atrial fibrillation ICD Codes: I48.91 - Unspecified atrial fibrillation Assessment and Plan Try increase diltiazem to 240mg bid for better rate control Denis Echevarria MD Jan 03, 2018 13:52
[2018-01-03] MEDS ORDERED: DILTIAZEM HCL 60 MG TAB PO ONE (15:00)
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
[2018-01-03] MEDS: DILTIAZEM HCL 90 MG TAB PO SCH ×2 (17:09→21:44)
--- NOTE | 2018-01-03 19:25 | HHI.PYPN ---
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 Patient was found lying hospital bed, in 2 point soft restraints, noted to be calm, cooperative but also noted to be somewhat somnolent and with limited participation in interview today. Patient is alert and oriented only to person, providing very concrete answers to questions today. Patient states he is feeling "okay" reports sleeping well, eating and drinking well, reports that his mood has been "sad" but denying any perceptual disturbances or delusions at this time. Patient continues with poor insight, with disorganization with poor impulse control and judgment likely secondary to neurocognitive deficits from previous TBI. As per chart patient has been compliant with medications. Review of Systems Except as stated in HPI: all other systems reviewed are Neg Mental Status Examination Appearance: Appropriate Consciousness: Alert (intermittently) Orientation: Person, Place, Date/Time Speech: Slow Language: Other (poor) Fund of Knowledge: Poor Attention and Concentration: Inadequate Memory: Impaired Mood: Appropriate, Other (unable to express) Affect: Blunt Thought Process & Associations: Disorganized Thought Content: Other (unable to assess due to limited interaction) Hallucination Type: None Delusion Type: None Suicidal Ideation: No Suicidal Plan: No Suicidal Intention: No Homicidal Ideation: No Homicidal Plan: No Homicidal Intention: No Insight: Poor Judgment: Poor Results Labs Test 01/03/18 07:09 Blood Urea Nitrogen 20 MG/DL Creatinine 0.76 MG/DL Random Glucose 123 MG/DL Calcium Level 8.7 MG/DL Magnesium Level 2.2 MG/DL Sodium Level 150 MEQ/L Potassium Level 4.4 MEQ/L Chloride Level 115 MEQ/L Carbon Dioxide Level 25.2 MEQ/L Anion Gap 10 MEQ/L Estimat Glomerular Filtration Rate 101 ML/MIN Date/Time Source Procedure Growth Status 11/23/17 00:54 Blood Peripheral Aerobic Blood Culture - Final NO GROWTH IN 5 DAYS Complete 11/23/17 00:54 Blood Peripheral Anaerobic Blood Culture - Final NO GROWTH IN 5 DAYS Complete 11/24/17 07:00 Sputum Expectorated Sputum Gram Stain - Final Complete 11/24/17 07:00 Sputum Culture - Final Pseudomonas Aeruginosa Complete 11/27/17 17:00 Urine Catheterized Urine Urine Culture - Final NO GROWTH IN 48 HOURS. Complete Vitals/IOs Vital Signs Date Time Temp Pulse Resp B/P (MAP) Pulse Ox O2 Delivery O2 Flow Rate FiO2 01/03/18 18:18 112 01/03/18 15:19 97.4 18 128/61 (83) 94 Intake and Output 01/03/18 01/03/18 01/04/18 08:00 16:00 00:00 Intake Total 887 ml Balance 887 ml Assessment & Plan Problem List: (1) Unspecified psychosis ICD Codes: F29 - Unspecified psychosis not due to a substance or known physiological condition (2) Major neurocognitive disorder as late effect of traumatic brain injury with behavioral disturbance ICD Codes: S06.9X9S - Unspecified intracranial injury with loss of consciousness of unspecified duration, sequela; F02.81 - Dementia in other diseases classified elsewhere with behavioral disturbance Status: Acute Assessment & Plan Patient this time continues with disorganization, likely to neurocognitive deficits from previous TBI but denying any perceptional disturbances or delusions at this time. Patient may continue to have episodic episodes of agitation which is likely due to his neurocognitive disorder and has a compliant with treatment. Patient to continue current treatment regimen. Patient on psychotropic medications whether p.o. or long-acting may continue to have episodic episodes of agitation secondary to neurocognitive deficits and appears the patient tolerated this medication well. Recommend continue current treatment. Consult appreciated. Justification for Cont. Inpt. At risk of further decompensation at lower level care Kirby Richmond MD Jan 03, 2018 19:25
[2018-01-03] MEDS: QUEtiapine FUMARATE 300 MG TAB PO SCH (21:44)
[2018-01-04] VITALS (13 sets, daily range): BP systolic 74–137; BP diastolic 46–75; PULSE 68–121; RESP 12–20; TEMP 97.9–99.6; O2SAT 94–98
[2018-01-04] MEDS: 1/2 NS + KCL 20 MEQ INJ 1,000 ML IV SCH ×2 (02:19→13:05)
[2018-01-04] MEDS: COLLAGENASE OINT 30 GM TUBE TOPICAL SCH (06:44)
[2018-01-04 08:13] LABS: AUTOMATED NEUTROPHIL # 5.8 TH/MM3 (1.8-7.7); BASOPHIL % 0.3 % (0.0-2.0); EOSINOPHIL # 0.1 TH/MM3 (0-0.4); EOSINOPHIL % 0.6 % (0.0-4.0); HEMATOCRIT 27.9 % (39.0-51.0); HEMOGLOBIN 9.4 GM/DL (13.0-17.0); LYMPH % 17.4 % (9.0-44.0); LYMPHOCYTE # 1.6 TH/MM3 (1.0-4.8); MEAN CELL VOLUME 90.8 FL (80.0-100.0); MEAN CORPUSCULAR HEMOGLOBIN 30.6 PG (27.0-34.0); MEAN CORPUSCULAR HGB CONC 33.7 % (32.0-36.0); MONO % 18.3 % (0.0-8.0); MONOCYTE # 1.7 TH/MM3 (0-0.9); NEUT % 63.4 % (16.0-70.0); PLATELET COUNT 348 TH/MM3 (150-450); RED BLOOD COUNT 3.07 MIL/MM3 (4.50-5.90); RED CELL DISTRIBUTION WIDTH 16.3 % (11.6-17.2); WHITE BLOOD COUNT 9.2 TH/MM3 (4.0-11.0)
[2018-01-04] MEDS: SODIUM CHLORIDE 0.9% FLUSH 10 ML FLUSH IV FLUSH SCH ×2 (08:34→20:53)
[2018-01-04] MEDS: DILTIAZEM HCL 90 MG TAB PO SCH ×4 (08:34→20:53)
[2018-01-04] MEDS: METOPROLOL TARTRATE 25 MG TAB PO SCH ×2 (08:34→20:53)
[2018-01-04] MEDS: LACTOBACILLUS ACIDOPHILUS TAB PO SCH ×2 (08:34→20:53)
[2018-01-04] MEDS: DOCUSATE SODIUM 50 MG/SENNA 8.6 MG TAB PO SCH ×2 (08:34→20:53)
[2018-01-04] MEDS: APIXABAN 2.5 MG TABLET PO SCH ×2 (08:34→20:54)
[2018-01-04] MEDS: VALPROIC ACID 250 MG CAP PO SCH ×2 (08:35→20:53)
[2018-01-04] MEDS: QUEtiapine FUMARATE 100 MG TAB PO SCH ×2 (08:37→13:03)
[2018-01-04 08:38] LABS: BICARBONATE 24.2 MEQ/L (21.0-32.0); CREATININE 0.45 MG/DL (0.60-1.30)
[2018-01-04] MEDS ORDERED: DILTIAZEM HCL 60 MG TAB PO SCH (09:00)
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
--- NOTE | 2018-01-04 12:24 | PD.CARD.PN ---
Subjective Subjective Remarks patient remains very confused Objective Medications Current Medications Medications (Trade) Dose Ordered Sig/Brandon Route Start Time Stop Time Status Last Admin (Tylenol) 650 mg Q4H PRN PO 11/21/17 10:45 12/17/17 00:49 (Zofran Inj) 4 mg Q6H PRN IVP 11/21/17 10:45 12/07/17 09:00 (Narcan Inj) 0.4 mg UNSCH PRN IV PUSH 11/21/17 10:45 (Jazzy-Colace) 1 tab BID PO 11/21/17 21:00 01/02/18 08:31 (Milk Of Magnesia Liq) 30 ml Q12H PRN PO 11/21/17 10:45 (Senokot) 17.2 mg Q12H PRN PO 11/21/17 10:45 (Dulcolax Supp) 10 mg DAILY PRN RECTAL 11/21/17 10:45 (Lactulose Liq) 30 ml DAILY PRN PO 11/21/17 10:45 (Duoneb Neb) 1 ampule Q2HR NEB PRN NEB 11/21/17 11:00 (Haldol Inj) 5 mg Q6H PRN IM 11/21/17 11:00 01/03/18 12:06 (SEROquel) 100 mg BID@0800,1400 PO 11/21/17 14:00 01/04/18 08:37 (SEROquel) 300 mg HS PO 11/21/17 21:00 01/03/18 21:44 (NS Flush) 2 ml BID IV FLUSH 11/21/17 21:00 01/01/18 15:57 (NS Flush) 2 ml UNSCH PRN IV FLUSH 11/21/17 11:00 12/25/17 18:11 (Vasotec Inj) 1.25 mg Q4H PRN IV PUSH 11/21/17 11:00 (Aspirin Supp) 300 mg DAILY PRN RECTAL 11/22/17 08:15 (Statham 5-325 Mg) 1 tab Q6H PRN PO 11/28/17 11:15 12/28/17 09:38 (Lactinex) 1 tab Q12HR PO 11/30/17 21:00 01/04/18 08:34 (Santyl Oint) 1 applic Q24H TOPICAL 12/05/17 21:00 01/02/18 06:45 (Eliquis) 5 mg BID PO 12/08/17 09:00 01/04/18 08:34 (Depakene) 750 mg Q12HR PO 12/19/17 21:00 01/04/18 08:35 (Pill Splitter) 1 ea UNSCH PRN OTHER 12/29/17 12:00 (Lopressor) 25 mg Q12HR PO 12/31/17 21:00 01/04/18 08:34 (Brevibloc Bolus Inj) 28 mg BOLUS PRN IV PUSH 01/01/18 11:00 01/01/18 11:13 Potassium Chloride/Sodium Chloride 1,000 ml @ 84 mls/hr [id number] IV 01/02/18 16:00 01/04/18 02:19 (Cardizem) 90 mg QID PO 01/03/18 18:00 01/04/18 08:34 Vital Signs / I&O Vital Signs Date Time Temp Pulse Resp B/P (MAP) Pulse Ox O2 Delivery O2 Flow Rate FiO2 01/04/18 09:00 113 01/04/18 08:32 98.9 104 12 137/75 (95) 94 01/04/18 05:06 98.6 110 19 96 01/04/18 04:28 105 01/04/18 01:42 95 01/04/18 00:38 98.3 112 18 111/56 (74) 96 01/03/18 22:00 113 01/03/18 19:59 97.6 112 18 132/74 (93) 100 01/03/18 18:18 112 01/03/18 15:19 97.4 102 18 128/61 (83) 94 01/03/18 12:44 138 01/03/18 12:30 98.5 135 18 139/67 (91) 97 I/O 01/03/18 01/03/18 01/03/18 01/04/18 01/04/18 01/04/18 07:00 15:00 23:00 07:00 15:00 23:00 Intake Total 887 ml 240 ml Balance 887 ml 240 ml Intake Oral 120 ml 240 ml IV Total 767 ml # Voids 2 # Bowel Movements 2 Physical Exam Alert Tele AF heart 84 Chest clear anteriorly No JVD [id number] no edema Laboratory Laboratory Tests Test 01/04/18 07:45 White Blood Count 9.2 TH/MM3 Red Blood Count 3.07 MIL/MM3 Hemoglobin 9.4 GM/DL Hematocrit 27.9 % Mean Corpuscular Volume 90.8 FL Mean Corpuscular Hemoglobin 30.6 PG Mean Corpuscular Hemoglobin Concent 33.7 % Red Cell Distribution Width 16.3 % Platelet Count 348 TH/MM3 Mean Platelet Volume 9.0 FL Neutrophils (%) (Auto) 63.4 % Lymphocytes (%) (Auto) 17.4 % Monocytes (%) (Auto) 18.3 % Eosinophils (%) (Auto) 0.6 % Basophils (%) (Auto) 0.3 % Neutrophils # (Auto) 5.8 TH/MM3 Lymphocytes # (Auto) 1.6 TH/MM3 Monocytes # (Auto) 1.7 TH/MM3 Eosinophils # (Auto) 0.1 TH/MM3 Basophils # (Auto) 0.0 TH/MM3 CBC Comment DIFF FINAL Differential Comment Blood Urea Nitrogen 22 MG/DL Creatinine 0.45 MG/DL Random Glucose 107 MG/DL Calcium Level 8.0 MG/DL Sodium Level 146 MEQ/L Potassium Level 3.7 MEQ/L Chloride Level 114 MEQ/L Carbon Dioxide Level 24.2 MEQ/L Anion Gap 8 MEQ/L Estimat Glomerular Filtration Rate 184 ML/MIN Assessment and Plan Problem List: (1) Confusion ICD Codes: R41.0 - Disorientation, unspecified (2) Atrial fibrillation ICD Codes: I48.91 - Unspecified atrial fibrillation Plan: seems to be controlled now Assessment and Plan I am signing off/ will see prn. Please call if questions Denis Echevarria MD Jan 04, 2018 12:24
--- NOTE | 2018-01-04 15:30 | RADRPT ---
EXAM DATE: 01/04/2018 3:26 PM EDT AGE/SEX: 72 years / Male INDICATIONS: Altered mental status. CLINICAL DATA: This is the patient's initial encounter. Patient reports that signs and symptoms have been present for 1 day and indicates a pain score of 0/10. MEDICAL/SURGICAL HISTORY: Hypertension. None. RADIATION DOSE: 54.22 CTDI (mGy) ; Patient motion [place]PARISON: [facility] [place]/21/2017. . TECHNIQUE: CT of the head without contrast. Using automated exposure control and adjustment of the mA and/or kV according to patient size, radiation dose was kept as low as reasonably achievable to ob tain optimal diagnostic quality images. DICOM format image data is available electronically for revi ew and comparison. FINDINGS: Cerebrum: The ventricles are normal for age. No evidence of midline shift, mass lesion, hemorrhage or acute infarction. No extraaxial fluid collections are seen. Posterior Fossa: The cerebellum and brainstem are intact. The 4th ventricle is midline. The cerebe llopontine angle is unremarkable. Extracranial: The visualized portion of the orbits is intact. Skull: The calvaria is intact. No evidence of skull fracture. CONCLUSION: 1. No acute intracranial abnormalities. Stable chronic white matter ischemic changes. Electronically signed by: Ari Schmitz MD 01/04/2018 3:29 PM EDT
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
[2018-01-04] MEDS ORDERED: SODIUM CHLOR 0.45% 500 ML INJ 500 ML IV ONE (20:15)
[2018-01-04] MEDS: QUEtiapine FUMARATE 300 MG TAB PO SCH (20:53)
[2018-01-04] MEDS ORDERED: SODIUM CHLOR 0.45% 1000 ML INJ 1,000 ML IV ONE (22:00)
[2018-01-04 22:23] LABS: BICARBONATE 22.8 MEQ/L (21.0-32.0); CREATININE 0.79 MG/DL (0.60-1.30)
[2018-01-04 23:31] LABS: AUTOMATED NEUTROPHIL # 15.5 TH/MM3 (1.8-7.7); BASOPHIL # 0.1 TH/MM3 (0-0.2); BASOPHIL % 0.3 % (0.0-2.0); EOSINOPHIL % 0.1 % (0.0-4.0); HEMATOCRIT 24.5 % (39.0-51.0); LYMPH % 6.5 % (9.0-44.0); LYMPHOCYTE # 1.4 TH/MM3 (1.0-4.8); MEAN CELL VOLUME 90.2 FL (80.0-100.0); MEAN CORPUSCULAR HEMOGLOBIN 29.2 PG (27.0-34.0); MEAN CORPUSCULAR HGB CONC 32.4 % (32.0-36.0); MEAN PLATELET VOLUME 9.2 FL (7.0-11.0); MONO % 23.2 % (0.0-8.0); MONOCYTE # 5.1 TH/MM3 (0-0.9); NEUT % 69.9 % (16.0-70.0); PLATELET COUNT 306 TH/MM3 (150-450); RED BLOOD COUNT 2.72 MIL/MM3 (4.50-5.90); RED CELL DISTRIBUTION WIDTH 16.2 % (11.6-17.2); WHITE BLOOD COUNT 22.2 TH/MM3 (4.0-11.0)
[2018-01-05 00:28] VITALS: BP 94/54; PULSE 114; RESP 18; TEMP 98.7; O2SAT 100
[2018-01-05 01:27] LABS: BANDS 25 % (0-6); LYMPHOCYTES 6 % (9-44); METAMYELOCYTES 1 % (0-1); MONOCYTES 19 % (0-8); NEUTROPHIL # MANUAL DIFF 16.7 TH/MM3 (1.8-7.7); POLYS (SEG NEUTROPHILS) 49 % (16-70)
[2018-01-05 01:28] LABS: TOXIC GRANULATION 1+ (NORMAL)
[2018-01-05] MEDS: COLLAGENASE OINT 30 GM TUBE TOPICAL SCH (02:33)
[2018-01-05] MEDS: 1/2 NS + KCL 20 MEQ INJ 1,000 ML IV SCH (03:35)
[2018-01-05 03:54] VITALS: PULSE 107
[2018-01-05] MEDS ORDERED: SODIUM CHLOR 0.9% 1000 ML INJ 800 ML IV ONE (04:41)
[2018-01-05] MEDS ORDERED: SODIUM CHLOR 0.9% 1000 ML INJ 1,000 ML IV ONE (04:41)
[2018-01-05] MEDS ORDERED: Vancomycin Consult Pharmacy 1 EA OTHER SCH (04:45)
[2018-01-05 04:50] VITALS: BP 77/45; PULSE 106; RESP 20; TEMP 98; O2SAT 99
[2018-01-05] MEDS ORDERED: SODIUM CHLOR 0.45% 1000 ML INJ 1,000 ML IV ONE (05:00)
--- NOTE | 2018-01-05 05:15 | RADRPT ---
EXAM DATE: 01/05/2018 5:10 AM EDT AGE/SEX: 72 years / Male INDICATIONS: Shortness of breath. CLINICAL DATA: This is the patient's subsequent encounter. Patient reports that signs and symptoms h ave been present for 2 days and indicates a pain score of 0/10. MEDICAL/SURGICAL HISTORY: Hypertension. None. [place] [facility] [place]. . FINDINGS: A single AP view of the chest demonstrates the lungs to be symmetrically aerated without evidence of mass, infiltrate or effusion. The cardiomediastinal contours are unremarkable. Osseous structures a re intact. CONCLUSION: No acute cardiopulmonary process. Electronically signed by: Ulices Armstrong MD 01/05/2018 5:13 AM EDT
[2018-01-05 05:51] LABS: BACTERIA, URINE RARE /hpf; BILIRUBIN, URINE NEG (NEG); BLOOD, URINE NEG (NEG); GLUCOSE,URINE 50 mg/dL (NEG); HYALINE CAST, URINE 4 /lpf (RARE); KETONE, URINE NEG (NEG); MUCUS URINE MOD /lpf (OCC); NITRITE,URINE NEG (NEG); SQUAMOUS EPITHELIAL CELL URINE <1 /hpf (0-5); URINE COLOR YELLOW (YELLW/STRAW); URINE LEUKOCYTE ESTERASE NEG (NEG)
[2018-01-05] MEDS ORDERED: VANCOMYCIN 1 GM/200 ML PREMIX IV SCH (06:00)
[2018-01-05] MEDS: PIPERACIL-TAZO 4.5 GM PREMIX 100 ML IV SCH ×2 (06:13→09:30)
[2018-01-05 06:39] LABS: AUTOMATED NEUTROPHIL # 6.6 TH/MM3 (1.8-7.7); BASOPHIL % 0.3 % (0.0-2.0); EOSINOPHIL % 0.2 % (0.0-4.0); LYMPH % 18.4 % (9.0-44.0); LYMPHOCYTE # 1.8 TH/MM3 (1.0-4.8); MEAN CELL VOLUME 91.4 FL (80.0-100.0); MEAN CORPUSCULAR HEMOGLOBIN 29.9 PG (27.0-34.0); MEAN CORPUSCULAR HGB CONC 32.7 % (32.0-36.0); MEAN PLATELET VOLUME 8.9 FL (7.0-11.0); MONO % 13.3 % (0.0-8.0); MONOCYTE # 1.3 TH/MM3 (0-0.9); NEUT % 67.8 % (16.0-70.0); PLATELET COUNT 283 TH/MM3 (150-450); RED BLOOD COUNT 2.21 MIL/MM3 (4.50-5.90); WHITE BLOOD COUNT 9.7 TH/MM3 (4.0-11.0)
[2018-01-05 06:41] LABS: LACTIC ACID SEPSIS PROTOCOL 2.6 mmol/L (0.4-2.0)
[2018-01-05 06:48] LABS: HEMATOCRIT 20.2 % (39.0-51.0); HEMOGLOBIN 6.6 GM/DL (13.0-17.0)
[2018-01-05 06:58] LABS: BICARBONATE 20.5 MEQ/L (21.0-32.0); CALCIUM 7.3 MG/DL (8.5-10.1); CREATININE 0.89 MG/DL (0.60-1.30)
[2018-01-05 07:00] VITALS: BP 69/40; PULSE 104; RESP 12; TEMP 98.1; O2SAT 92
[2018-01-05 07:14] LABS: CALCIUM-PROTEIN CORRECTED 8.7 MG/DL (8.5-10.1); TOTAL PROTEIN 4.6 GM/DL (6.4-8.2)
[2018-01-05] MEDS ORDERED: SODIUM CHLOR 0.9% 250 ML INJ 250 ML IV ONE (07:15)
[2018-01-05] MEDS ORDERED: MORPHINE SULFATE 4 MG/ML INJ IV PUSH ONE (07:45)
[2018-01-05] MEDS: VALPROIC ACID 250 MG CAP PO SCH (07:48)
[2018-01-05] MEDS: DOCUSATE SODIUM 50 MG/SENNA 8.6 MG TAB PO SCH (07:48)
[2018-01-05] MEDS: METOPROLOL TARTRATE 25 MG TAB PO SCH (07:48)
[2018-01-05] MEDS: DILTIAZEM HCL 90 MG TAB PO SCH (07:48)
[2018-01-05] MEDS: SODIUM CHLORIDE 0.9% FLUSH 10 ML FLUSH IV FLUSH SCH (07:48)
[2018-01-05] MEDS: LACTOBACILLUS ACIDOPHILUS TAB PO SCH (07:48)
[2018-01-05] MEDS: QUEtiapine FUMARATE 100 MG TAB PO SCH (07:48)
[2018-01-05] MEDS ORDERED: PANTOPRAZOLE INJ 80 MG in SODIUM CHLORIDE 0.9% INJ 100 ML IV SCH (08:00)
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
[2018-01-05] MEDS ORDERED: MORPHINE SULFATE 4 MG/ML INJ IV PUSH PRN ×2 (09:15)
[2018-01-05] MEDS ORDERED: VANCOMYCIN 1,000 MG/NS 250 ML IV SCH ×2 (12:00)
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
[2018-01-08] MEDS ORDERED: PHARMACY ORDERED LAB ONE (11:45)
== END 2018-01-05 12:44 | disposition expired | DRG 177 ==
LOC: HIME 10:40 → N05B 11-28 02:34 → N05A 12-16 20:53
PROVIDERS: ADMIT Family Medicine; ATTEND Family Medicine
DX: J69.0 Pneumonitis due to inhalation of food and vomit (principal); G93.41 Metabolic encephalopathy; J96.01 Acute respiratory failure with hypoxia; L89.159 Pressure ulcer of sacral region, unspecified stage; K92.0 Hematemesis; E87.0 Hyperosmolality and hypernatremia; R64 Cachexia; F01.51 Vascular dementia, unspecified severity, with behavioral disturbance; I48.92 Unspecified atrial flutter; F02.81 Dementia in other diseases classified elsewhere, unspecified severity, with behavioral disturbance; Z68.1 Body mass index [BMI] 19.9 or less, adult; R13.10 Dysphagia, unspecified; F29 Unspecified psychosis not due to a substance or known physiological condition; S06.9X9S Unspecified intracranial injury with loss of consciousness of unspecified duration, sequela; I48.2 Chronic atrial fibrillation; Z87.820 Personal history of traumatic brain injury; R41.89 Other symptoms and signs involving cognitive functions and awareness; Z79.82 Long term (current) use of aspirin; Z59.0 Homelessness; Z78.1 Physical restraint status; Z87.891 Personal history of nicotine dependence; H91.90 Unspecified hearing loss, unspecified ear; Z51.5 Encounter for palliative care; I10 Essential (primary) hypertension; Y95 Nosocomial condition; Z66 Do not resuscitate; D64.89 Other specified anemias; E87.6 Hypokalemia; R00.0 Tachycardia, unspecified; Z91.14 Patient's other noncompliance with medication regimen
CPT/HCPCS: 36600; 70450; 70544; 70551; 71045; 76937; 80048; 80053; 80061; 80076; 80164; 80202; 81001; 82140; 82379; 82607; 82805; 82948; 83036; 83605; 83735; 83880; 84155; 84443; 84484; 85007; 85025; 85027; 87040; 87070; 87077; 87086; 87186; 87205; 87641; 93005; 93306; 93880; 94150; 94640; 94664; 95819; C9113; J0696; J1630; J1650; J1815; J2270; J2405; J2543; J3370; J3480; J7030; J7040; J7042; J7050; J7070